=== PATIENT | female | born 1935 | race Caucasian/White ===

== ENCOUNTER 2018-07-26 13:20 | Inpatient (IN) | payer MEDICARE, OTHER ==
[~2018-07-26] VITALS: Ht 137.2 cm; Wt 65.8 kg
[~2018-07-26 13:20] MED LIST: PRED20TA PO; VERA240C2 PO
[2018-07-26] MEDS ORDERED: MAGN400O6 PO (19:09)
[2018-07-26] MEDS ORDERED: FLUT1DIS29 IH (19:09)
[2018-07-26] MEDS ORDERED: PREDNISONE 10MG PO (19:09)
[2018-07-26] MEDS ORDERED: TRAM50TA2 PO (19:09)
[2018-07-26] MEDS ORDERED: VERA80TA PO (19:09)
[2018-07-26] MEDS ORDERED: BISA10SU61 RC (19:09)
[2018-07-26] MEDS ORDERED: FLUCONAZOLE IV (19:09)
[2018-07-26] MEDS ORDERED: LISI10TA5 PO (19:09)
[2018-07-26] MEDS ORDERED: MONT10TA25 PO (19:09)
[2018-07-26] MEDS ORDERED: MULT-213 PO (19:09)
[2018-07-26] MEDS ORDERED: MINE50OI TP (19:09)
[2018-07-26] MEDS ORDERED: NA P133E RC (19:09)
[2018-07-26] MEDS ORDERED: IPRA3AMP22 IH (19:09)
[2018-07-26] MEDS ORDERED: ACET-2154 PO (19:09)
[2018-07-26] MEDS ORDERED: TRIAMCINOLONE 0.1% TOP (19:09)
[2018-07-26] MEDS ORDERED: ESCI10TA PO (19:09)
--- NOTE | 2018-07-26 20:14 | NUR ---
According to the day shift nurse, Patient arrived at [address] through [facility] by ambulans. At time of arrival her condition was fair, VS stable: BP:134/60, HR: 77, RR: 18, T: 97.7, O2 Sat: 94% on room air. The admitting diagnosis: sepsis, UTI. AAO x4. Able to make needs known. No sign of acute distress or SOB was noted. On room air. Bengali speaking, understand Samoan a little. Complain of pain of left side of lower back due to previous shingle. Patient assessed. Safety measures maintained. Bed in low position, brake and alarm on, side rails up x2. Call light and personal belongings within reach. Will continue to monitor.
[2018-07-26] MEDS ORDERED: Z GUARD REMEDY PASTE 57 GM TUBE TOP PRN (20:15)
[2018-07-26 21:01] VITALS: BP 140/62
[2018-07-26] MEDS: TRAMADOL HCL 50 MG TABLET PO PRN (22:02)
[2018-07-26] MEDS ORDERED: FLUCONAZOLE 200 MG/100 ML PIGGYBACK ONE (22:29)
[2018-07-26] MEDS: FLUCONAZOLE 200 MG/NS 100ML IV 200 MG in PREMIXED 1 EACH IV SCH (22:42)
--- NOTE | 2018-07-27 05:08 | NUR ---
End of the shift note Patient was stable throughout the shift and had a good sleep last night. No sign of acute distress or SOB noted. Complained of pain and ask for Tramadol. Medications given as ordered. IV antibiotic administered. All assessments, admission orders, process plan, and FIM done. Safety measures maintained. All needs anticipated promptly. Fall precaution maintained. Bed in low position, brake and alarm on, side rails up x2. Call light and personal belongings within reach. Continue to monitor and will endorse to the day shift nurse.
[2018-07-27 05:27] VITALS: BP 136/72
[2018-07-27 07:30] VITALS: BP 121/68
--- NOTE | 2018-07-27 08:07 | NUR ---
Patient noted resting in bed with eyes closed, no complaints fo pain at this time, no signs of distress noted, call light in reach, bed locked and in lowest position, Audrey SLIP FILLER notified that patients medications are ready for reconciliation
[2018-07-27] MEDS ORDERED: MAGNESIUM HYDROXIDE 30 ML LIQUID UDC PO PRN (11:30)
[2018-07-27] MEDS: VERAPAMIL 80 MG TABLET PO SCH ×2 (11:30→20:14)
[2018-07-27] MEDS ORDERED: IPRATROPIUM BROMIDE 0.5 MG/2.5 ML NEBU NEB PRN (11:30)
[2018-07-27] MEDS ORDERED: FLUCONAZOLE 200 MG/NS 100ML IV 200 MG in PREMIXED 1 EACH IV SCH (11:30)
[2018-07-27] MEDS: LISINOPRIL 10 MG TABLET PO SCH (11:30)
[2018-07-27] MEDS ORDERED: TRAMADOL HCL 50 MG TABLET PO PRN (11:30)
[2018-07-27] MEDS ORDERED: BISACODYL 10 MG SUPP.RECT RC PRN (11:30)
[2018-07-27] MEDS ORDERED: FLUTICASONE/SALMETEROL 500/50 EACH DISK.W.DEV IH SCH (11:30)
--- NOTE | 2018-07-27 13:25 | NUR ---
INTERDISCIPLINARY TEAM CONFERENCE
[2018-07-27] MEDS: MONTELUKAST SODIUM 10 MG TABLET PO SCH (13:27)
[2018-07-27] MEDS: MULTIVITAMINS,THERAPEUTIC TABLET PO SCH (13:27)
[2018-07-27] MEDS: predniSONE 10 MG TABLET PO SCH (13:28)
[2018-07-27] MEDS: ESCITALOPRAM OXALATE 10 MG TABLET PO SCH (13:28)
[2018-07-27] MEDS: FLUTICASONE/VILANTEROL 1 EACH BLST.W.DEV INH SCH (13:31)
--- NOTE | 2018-07-27 13:32 | NUR ---
WOUND CARE CONSULT PATIENT SEEN AND SKIN INTEGRITY ASSESSMENT DONE. PLEASE SEE BIOFUELS PLANT OPERATIONS ENGINEER ASSESSMENT IN PCS FOR TODAY. PATIENT WITH MELA AT 13, PATIENT PRESENTS WITH SEVERELY DRY SKIN TO BILATERAL LE INCLUDING HEELS/FEET/TOES. SEE TREATMENT ORDERS. PATIENT WITH NON-BLANCHABLE REDNESS WITH INTACT SKIN TO SACRAL REGION POA. ALL PRESSURE ULCER PREVENTION MEASURES ARE NOTED TO BE IN PLACE. RECOMMEND TURNING SCHED Q 2 HOURS AND BILATERAL HEEL FLOATING. ALL DISCUSSED WITH NURSING STAFF. WILL SEE PRN. Addendum: 07/27/18 at 1337 by TRISTEN WEN WNDNU Amended: Links added.
[2018-07-27 16:19] VITALS: BP 111/51
--- NOTE | 2018-07-27 19:40 | NUR ---
Patient received in bed. AAO x4. Able to make needs known. No sign of acute distress or SOB was noted. On room air. Turkmen speaking, understand Nepali a little. Family at the bedside. No Complain of pain at this time. Patient assessed. Safety measures maintained. Bed in low position, brake and alarm on, side rails up x2. Call light and personal belongings within reach. Will continue to monitor.
[2018-07-27 20:01] VITALS: BP 121/49
[2018-07-27] MEDS: FLUCONAZOLE 200 MG/NS 100ML IV 200 MG in PREMIXED 1 EACH IV SCH (21:07)
[2018-07-27] MEDS: TRAMADOL HCL 50 MG TABLET PO PRN (22:25)
--- NOTE | 2018-07-28 05:17 | NUR ---
End of the shift note Patient was stable throughout the shift and had a good sleep last night. No sign of acute distress or SOB noted. Complained of pain and ask for Tramadol. Medications given as ordered. IV antibiotic administered. washed lower extremities with soap and water and dried, no Vitamin A&D available at this time. Turned and repositioned. Previous IV line infiltrated, the new IV line placed on the left forearm. Safety measures maintained. All needs anticipated promptly. Fall precaution maintained. Bed in low position, brake and alarm on, side rails up x2. Call light and personal belongings within reach. Continue to monitor and will endorse to the day shift nurse.
[2018-07-28 06:53] LABS: BASOPHILS # (AUTO) 0.2 K/uL (0.0-8.0); BASOPHILS % (AUTO) 1.2 % (0.0-2.0); EOSINOPHILS # (AUTO) 0.4 K/uL (0.0-0.7); EOSINOPHILS % (AUTO) 2.7 % (0.0-7.0); HEMATOCRIT 33.5 % (31.2-41.9); LYMPHOCYTES # (AUTO) 2.7 K/uL (20.0-40.0); LYMPHOCYTES % (AUTO) 17.9 % (20.5-51.5); MEAN CORPUSCULAR HEMOGLOBIN 27.4 uug (24.7-32.8); MEAN CORPUSCULAR HGB CONC 33 g/dL (32.3-35.6); MEAN CORPUSCULAR VOLUME 83.6 fL (75.5-95.3); MONOCYTES % (AUTO) 6.8 % (0.0-11.0); NEUTROPHILS # (AUTO) 10.6 K/uL (1.8-8.9); NEUTROPHILS % (AUTO) 71.4 % (38.5-71.5); PLATELET COUNT (AUTO) 376 K/uL (179-408); RED BLOOD CELL COUNT(AUTO) 4.01 MIL/uL (3.63-4.92); WHITE BLOOD COUNT (AUTO) 14.9 K/uL (3.8-11.8)
[2018-07-28 07:06] LABS: CARBON DIOXIDE 29 mmol/L (21-32); CHLORIDE 103 mmol/L (98-107); CREATININE 0.7 mg/dL (0.6-1.3); GLUCOSE 82 mg/dL (74-106); MAGNESIUM 1.6 mg/dL (1.8-2.4); PHOSPHOROUS 3.1 mg/dL (2.5-4.9); POTASSIUM 3.7 mmol/L (3.5-5.1); UREA NITROGEN, BLOOD 27 mg/dL (7-18)
[2018-07-28 08:00] VITALS: BP 136/65
[2018-07-28] MEDS: MULTIVITAMINS,THERAPEUTIC TABLET PO SCH (08:32)
[2018-07-28] MEDS: MONTELUKAST SODIUM 10 MG TABLET PO SCH (08:32)
[2018-07-28] MEDS: ACETAMINOPHEN 325 MG TABLET PO PRN (08:32)
[2018-07-28] MEDS: ESCITALOPRAM OXALATE 10 MG TABLET PO SCH (08:32)
[2018-07-28] MEDS: predniSONE 10 MG TABLET PO SCH (08:32)
[2018-07-28] MEDS: VERAPAMIL 80 MG TABLET PO SCH ×2 (08:33→21:08)
[2018-07-28] MEDS: LISINOPRIL 10 MG TABLET PO SCH (08:34)
[2018-07-28] MEDS: VITAMINS A AND D OINT TP SCH ×2 (08:34→18:25)
[2018-07-28] MEDS: FLUTICASONE/VILANTEROL 1 EACH BLST.W.DEV INH SCH (08:34)
[2018-07-28] MEDS ORDERED: FLUTICASONE/VILANTEROL 1 EACH BLST.W.DEV INH SCH (09:00)
--- NOTE | 2018-07-28 10:21 | NUR ---
Patient is awake in bed in stable condition. Continue therapy for ADL and transfer ability. Patient went out on pass with Son from 10 am-2pm. signed form. medical information given. MD lock
[2018-07-28] MEDS: MAGNESIUM OXIDE 400 MG TABLET PO ONE ×2 (12:19→15:22)
[2018-07-28 16:00] VITALS: BP 89/48
[2018-07-28 19:30] VITALS: BP 118/51
[2018-07-28] MEDS: TRAMADOL HCL 50 MG TABLET PO PRN (21:09)
[2018-07-28] MEDS: FLUCONAZOLE 200 MG/NS 100ML IV 200 MG in PREMIXED 1 EACH IV SCH (21:09)
--- NOTE | 2018-07-28 21:59 | NUR ---
Received pt resting in bed. No acute distress noted. C/o pain on the left side of abdomen 5. PRN pain med given, all due meds given as ordered. IV on left lower arm patent and intact. Safety measures maintained. Call light and personal belongings within reach. Will continue to monitor.
[2018-07-29 04:30] VITALS: BP 133/58
[2018-07-29 07:00] VITALS: BP 101/55
--- NOTE | 2018-07-29 07:27 | NUR ---
Patient noted sitting up in wheelchair at this time, no complaints of pain, no signs of distress noted, call light in reach, wheelchair locked with tray table placed in front, all needs meet at this time
[2018-07-29] MEDS: ESCITALOPRAM OXALATE 10 MG TABLET PO SCH (08:47)
[2018-07-29] MEDS: FLUTICASONE/VILANTEROL 1 EACH BLST.W.DEV INH SCH (08:47)
[2018-07-29] MEDS: MULTIVITAMINS,THERAPEUTIC TABLET PO SCH (08:47)
[2018-07-29] MEDS: predniSONE 10 MG TABLET PO SCH (08:48)
[2018-07-29] MEDS: MONTELUKAST SODIUM 10 MG TABLET PO SCH (08:48)
[2018-07-29] MEDS: VERAPAMIL 80 MG TABLET PO SCH ×2 (08:49→21:26)
[2018-07-29] MEDS: LISINOPRIL 10 MG TABLET PO SCH (08:50)
[2018-07-29] MEDS: VITAMINS A AND D OINT TP SCH ×2 (08:51→17:55)
[2018-07-29 15:57] VITALS: BP 125/61
--- NOTE | 2018-07-29 17:56 | NUR ---
FSBS noted at 390 at 1700, patient refused insulin at this time, MD Llanes aware of patients refusal
--- NOTE | 2018-07-29 17:57 | NUR ---
Blood pressure noted at 171/81, PRN hydralazine given
[2018-07-29] MEDS: TRAMADOL HCL 50 MG TABLET PO PRN (19:51)
--- NOTE | 2018-07-29 19:55 | NUR ---
Received pt sitting in wheelchair. Family at bedside. No acute distress noted. C/o pain on left abdomen due to previous shingles, prn pain med given as ordered. Safety measures maintained. Call light and personal belongings within reach. Will continue to monitor.
[2018-07-29 20:16] VITALS: BP 102/53
[2018-07-29 21:24] VITALS: BP 146/68
[2018-07-30 05:30] VITALS: BP 112/56
[2018-07-30] MEDS: predniSONE 10 MG TABLET PO SCH (08:12)
[2018-07-30] MEDS: VERAPAMIL 80 MG TABLET PO SCH ×2 (08:20→20:06)
[2018-07-30] MEDS: LISINOPRIL 10 MG TABLET PO SCH (08:20)
[2018-07-30] MEDS: MONTELUKAST SODIUM 10 MG TABLET PO SCH (08:20)
[2018-07-30] MEDS: MULTIVITAMINS,THERAPEUTIC TABLET PO SCH (08:20)
[2018-07-30] MEDS: FLUTICASONE/VILANTEROL 1 EACH BLST.W.DEV INH SCH (08:21)
[2018-07-30] MEDS: ESCITALOPRAM OXALATE 10 MG TABLET PO SCH (08:21)
[2018-07-30] MEDS: VITAMINS A AND D OINT TP SCH ×2 (08:22→17:56)
[2018-07-30 15:56] LABS: *BILIRUBIN,URIN NEGATIVE (NEGATIVE); *BLOOD, URINE NEGATIVE (NEGATIVE); *COLOR,URINE YELLOW (YELLOW); *KETONES,URINE NEGATIVE (NEGATIVE); *PROTEIN,URINE NEGATIVE (NEGATIVE); *UROBILINOGEN,URINE 0.2 E.U./dl (NORMAL); LEUKOCYTE ESTERASE ,URINE 1+ (NEGATIVE); NITRITE, URINE NEGATIVE (NEGATIVE); PH,URINE 6.5 (5.0-8.0); UGLUCOSE NEGATIVE (NEGATIVE)
[2018-07-30 15:57] LABS: *CLARITY,URINE SLIGHTLY CLOUDY (CLEAR)
[2018-07-30 16:16] LABS: BACTERIA,URINE FEW /HPF (NONE SEEN); RBC,URINE 0-3 /HPF (0-3); SQUAMOUS EPITHELIAL CELL,UR FEW /HPF (NONE SEEN)
--- NOTE | 2018-07-30 17:07 | NUR ---
Patient is alert and orientedx3. but with period of confusion observe. COVER CREASER Juan notified. ordered urinalysis. urine collected. WBC result 10-20 relayed to DELROY Martinez. ordered and to start ceftriaxone 1gm every 24 hours at 1999. allergic to penicillin relayed to COVER CREASER. agreed to continue the order. will continue monitor
--- NOTE | 2018-07-30 19:50 | NUR ---
PATIENT IS AWAKE IN BED, AAOX3 WITH CONFUSION AND FORGETFULNESS AT TIMES. DENIES PAIN OR ANY DISTRESS ON ASSESSMENT. SAFETY MEASURES IN PLACE, CALL LIGHT AND PERSONAL ITEMS WITHIN REACH
[2018-07-30 20:00] VITALS: BP 137/65
[2018-07-30] MEDS: CEFTRIAXONE 1 G in IV DEXTROSE 5% 50 ML IV SCH (20:05)
[2018-07-30] MEDS ORDERED: CEFTRIAXONE 1 G VIAL IV SCH (21:00)
[2018-07-30] MEDS ORDERED: CEFTRIAXONE 1 G VIAL IM SCH (21:00)
[2018-07-31 05:00] VITALS: BP 150/68
--- NOTE | 2018-07-31 06:39 | NUR ---
PATIENT SLEPT WELL THROUGHOUT THE SHIFT, NO S/S OF PAIN OR ACUTE DISTRESS ON THIS SHIFT. PATIENT CONTINUES TO HAVE EPISODES OF CONFUSION, REFUSED HER A.M LABS TO BE DRAWN. SAFETY MEASURES MAINTAINED AT ALL TIMES, BED ALARM ON.
[2018-07-31] MEDS: MULTIVITAMINS,THERAPEUTIC TABLET PO SCH (08:36)
[2018-07-31] MEDS: ESCITALOPRAM OXALATE 10 MG TABLET PO SCH (08:36)
[2018-07-31] MEDS: FLUTICASONE/VILANTEROL 1 EACH BLST.W.DEV INH SCH (08:36)
[2018-07-31] MEDS: MONTELUKAST SODIUM 10 MG TABLET PO SCH (08:36)
[2018-07-31] MEDS: VERAPAMIL 80 MG TABLET PO SCH ×2 (08:37→20:32)
[2018-07-31] MEDS: predniSONE 10 MG TABLET PO SCH (08:37)
[2018-07-31] MEDS: LISINOPRIL 10 MG TABLET PO SCH (08:37)
[2018-07-31] MEDS: VITAMINS A AND D OINT TP SCH ×2 (08:38→16:38)
--- NOTE | 2018-07-31 09:18 | NUR ---
Patient awake with periods of confusion. Continue ABT rocephin 1gm IV every 24hours for UTI. tolerated well. no adverse reaction noted. Continue therapy for unsteady gait and ADL activity. not in distress. will continue monitor
[2018-07-31 11:18] LABS: BASOPHILS % (AUTO) 0.2 % (0.0-2.0); EOSINOPHILS # (AUTO) 0.5 K/uL (0.0-0.7); EOSINOPHILS % (AUTO) 3.5 % (0.0-7.0); HEMATOCRIT 33.3 % (31.2-41.9); LYMPHOCYTES # (AUTO) 1.6 K/uL (20.0-40.0); LYMPHOCYTES % (AUTO) 10.5 % (20.5-51.5); MEAN CORPUSCULAR HEMOGLOBIN 27.8 uug (24.7-32.8); MEAN CORPUSCULAR HGB CONC 33 g/dL (32.3-35.6); MEAN CORPUSCULAR VOLUME 84.1 fL (75.5-95.3); MONOCYTES # (AUTO) 0.8 K/uL (2.0-10.0); MONOCYTES % (AUTO) 5.4 % (0.0-11.0); NEUTROPHILS # (AUTO) 12.3 K/uL (1.8-8.9); NEUTROPHILS % (AUTO) 80.4 % (38.5-71.5); PLATELET COUNT (AUTO) 392 K/uL (179-408); RED BLOOD CELL COUNT(AUTO) 3.96 MIL/uL (3.63-4.92); WHITE BLOOD COUNT (AUTO) 15.4 K/uL (3.8-11.8)
[2018-07-31 11:26] LABS: CARBON DIOXIDE 29 mmol/L (21-32); CHLORIDE 101 mmol/L (98-107); CREATININE 0.9 mg/dL (0.6-1.3); GLUCOSE 90 mg/dL (74-106); MAGNESIUM 1.5 mg/dL (1.8-2.4); PHOSPHOROUS 2.8 mg/dL (2.5-4.9); POTASSIUM 3.7 mmol/L (3.5-5.1); UREA NITROGEN, BLOOD 25 mg/dL (7-18)
[2018-07-31] MEDS ORDERED: MAGNESIUM OXIDE 400 MG TABLET PO ONE (13:45)
[2018-07-31] MEDS ORDERED: IV NS 1000 ML 1,000 ML IV PRN (13:45)
[2018-07-31] MEDS: CEFTRIAXONE 1 G in IV DEXTROSE 5% 50 ML IV SCH (20:21)
[2018-08-01 05:30] VITALS: BP 127/61
[2018-08-01] MEDS: predniSONE 10 MG TABLET PO SCH (08:44)
[2018-08-01] MEDS: FLUTICASONE/VILANTEROL 1 EACH BLST.W.DEV INH SCH (08:44)
[2018-08-01] MEDS: MULTIVITAMINS,THERAPEUTIC TABLET PO SCH (08:44)
[2018-08-01] MEDS: MONTELUKAST SODIUM 10 MG TABLET PO SCH (08:45)
[2018-08-01] MEDS: VERAPAMIL 80 MG TABLET PO SCH ×2 (08:47→20:17)
[2018-08-01] MEDS: LISINOPRIL 10 MG TABLET PO SCH (08:47)
[2018-08-01] MEDS: VITAMINS A AND D OINT TP SCH ×2 (08:48→17:11)
[2018-08-01] MEDS: ACETAMINOPHEN 325 MG TABLET PO PRN (08:52)
[2018-08-01 09:00] VITALS: BP 122/50
[2018-08-01] MEDS: ESCITALOPRAM OXALATE 10 MG TABLET PO SCH (09:16)
--- NOTE | 2018-08-01 11:24 | NUR ---
patient awake with periods of confusion. complaining of left side and abdominal pain. tylenol 325mg PRN given with good effect. still confuse. refuse therapy this morning. verbalizing" Just kill me" notified. ordered psych consult. Psychiatrist Mario made aware. not in distress. will continue monitor
[2018-08-01 17:22] VITALS: BP 136/77
--- NOTE | 2018-08-01 17:24 | NUR ---
Patient refuse meals despite of encouragement and education. confusion noted. MD notified. Son aware. no new order. will continue monitor
[2018-08-01 19:40] VITALS: BP 160/68
--- NOTE | 2018-08-01 19:45 | NUR ---
Patient seen and examined by MD Silverman with ordered infection disease MD for ABT treatment for infection.
[2018-08-01] MEDS: CEFTRIAXONE 1 G in IV DEXTROSE 5% 50 ML IV SCH (20:13)
--- NOTE | 2018-08-02 05:42 | NUR ---
quiet night. awake alert and oriented x2-3 son with patient. needs attended. ABT given at scheduled times. tolerated well. no ill effects noted. VSS will monitor patient. continent of bowel and bladder. voiding in bedpan. BM noted this shift. denies any pain nor any discomfort. fall precautions maintained. siderails up for safety. bed alarm on. call parekh within reach.
[2018-08-02 05:48] VITALS: BP 149/57
[2018-08-02] MEDS: FLUTICASONE/VILANTEROL 1 EACH BLST.W.DEV INH SCH (08:33)
[2018-08-02] MEDS: ACETAMINOPHEN 325 MG TABLET PO PRN (08:34)
[2018-08-02] MEDS: MONTELUKAST SODIUM 10 MG TABLET PO SCH (08:34)
[2018-08-02] MEDS: predniSONE 10 MG TABLET PO SCH (08:34)
[2018-08-02] MEDS: MULTIVITAMINS,THERAPEUTIC TABLET PO SCH (08:40)
[2018-08-02] MEDS: ESCITALOPRAM OXALATE 10 MG TABLET PO SCH (08:40)
[2018-08-02] MEDS: VERAPAMIL 80 MG TABLET PO SCH ×2 (08:45→20:36)
[2018-08-02] MEDS: LISINOPRIL 10 MG TABLET PO SCH (08:45)
[2018-08-02] MEDS: VITAMINS A AND D OINT TP SCH ×2 (13:09→17:00)
--- NOTE | 2018-08-02 13:18 | NUR ---
SBAR report received this morning, board updated. Pt assessed AAOx2-3, no SOB or acute distress noted. Pt denies pain, BP medications held due to decreased BP of 90/48. Pt compliant with all routinely scheduled medications and therapies as offered. Bedpan offered for voiding and BMx1. Daughter visiting at bed side. Linens changed. Pt seen by MD, no new orders received and plan of care to remain the same at this time. Pt showered with OT. Fall precautions in place. Bed in locked and lowest position with side rails up, alarm on. Call light within reach. Will continue to monitor.
[2018-08-02] MEDS: TRAMADOL HCL 50 MG TABLET PO PRN (13:34)
--- NOTE | 2018-08-02 18:39 | NUR ---
Pt seen by MD. New orders received. Family visiting at bedside. All comfort and safety needs promptly met throughout this shift. Call light within reach. Will continue to monitor and endorse to oncoming restaurant shift supervisor.
--- NOTE | 2018-08-02 20:04 | NUR ---
SBAR report received. Resting in bed. awake alert and oriented. VSS. Needs attended. kept comfortable. continent of bowel and bladder. uses bedpan. On po bactrim, tolerated well No ill effects noted. Denies any pain nor any discomfort. fall precautions maintained. Siderails up for safety. Repositioned for comfort. Turned to sides.
[2018-08-02] MEDS: SULFAMETH/TRIMETH 800/160 MG TABLET PO SCH (20:33)
[2018-08-03 05:21] VITALS: BP 138/65
--- NOTE | 2018-08-03 07:40 | NUR ---
Patient noted resting in bed with eyes closed, no complaints of pain at this time, no signs of distress noted, call light in reach, bed locked and in lowest position, all needs met
[2018-08-03 08:37] VITALS: BP 137/48
[2018-08-03] MEDS: SULFAMETH/TRIMETH 800/160 MG TABLET PO SCH ×2 (09:28→20:17)
[2018-08-03] MEDS: MULTIVITAMINS,THERAPEUTIC TABLET PO SCH (09:28)
[2018-08-03] MEDS: FLUTICASONE/VILANTEROL 1 EACH BLST.W.DEV INH SCH (09:28)
[2018-08-03] MEDS: ESCITALOPRAM OXALATE 10 MG TABLET PO SCH (09:28)
[2018-08-03] MEDS: LISINOPRIL 10 MG TABLET PO SCH (09:29)
[2018-08-03] MEDS: VERAPAMIL 80 MG TABLET PO SCH ×2 (09:30→20:17)
[2018-08-03] MEDS: VITAMINS A AND D OINT TP SCH ×2 (09:30→17:30)
[2018-08-03] MEDS: MONTELUKAST SODIUM 10 MG TABLET PO SCH (09:30)
[2018-08-03] MEDS: predniSONE 10 MG TABLET PO SCH (09:30)
[2018-08-03] MEDS: TRAMADOL HCL 50 MG TABLET PO PRN (13:03)
--- NOTE | 2018-08-03 13:47 | NUR ---
INTERDISCIPLINARY TEAM CONFERENCE
[2018-08-03 15:51] VITALS: BP_SYST 102; BP_SYST 126; BP_DIAS 49; BP_DIAS 88
[2018-08-03 20:31] VITALS: BP 117/57
[2018-08-04] MEDS: TRAMADOL HCL 50 MG TABLET PO PRN (04:01)
--- NOTE | 2018-08-04 05:40 | NUR ---
End of the shift note Patient was stable throughout the shift and had a good sleep last night. No sign of acute distress or SOB noted. Complained of pain and ask for Tramadol. Medications given as ordered. washed lower extremities with soap and water and dried, applied Vitamin A&D. Turned and repositioned. IV line on the left forearm, patent, no sign of inflammation. Safety measures maintained. All needs anticipated promptly. Fall precaution maintained. Bed in low position, brake and alarm on, side rails up x2. Call light and personal belongings within reach. Continue to monitor and will endorse to the day shift nurse accordingly.
[2018-08-04 06:20] VITALS: BP 104/66
[2018-08-04 08:00] VITALS: BP 101/60
[2018-08-04] MEDS: MULTIVITAMINS,THERAPEUTIC TABLET PO SCH (08:20)
[2018-08-04] MEDS: ESCITALOPRAM OXALATE 10 MG TABLET PO SCH (08:20)
[2018-08-04] MEDS: SULFAMETH/TRIMETH 800/160 MG TABLET PO SCH ×2 (08:20→20:45)
[2018-08-04] MEDS: predniSONE 10 MG TABLET PO SCH (08:20)
[2018-08-04] MEDS: VERAPAMIL 80 MG TABLET PO SCH ×2 (08:22→20:48)
[2018-08-04] MEDS: LISINOPRIL 10 MG TABLET PO SCH (08:23)
[2018-08-04] MEDS: FLUTICASONE/VILANTEROL 1 EACH BLST.W.DEV INH SCH (08:23)
[2018-08-04] MEDS: MONTELUKAST SODIUM 10 MG TABLET PO SCH (08:23)
[2018-08-04] MEDS: VITAMINS A AND D OINT TP SCH ×2 (08:24→16:34)
[2018-08-04 16:00] VITALS: BP 117/51
--- NOTE | 2018-08-04 17:54 | NUR ---
receivedPatient noted resting in bed with eyes closed, no complaints of pain at this time, no signs of distress noted, call light in reach, bed locked and in lowest position.
--- NOTE | 2018-08-04 17:57 | NUR ---
removed logan cath at 1530pm per MD order,will continue monitoring to void.
[2018-08-04 19:30] VITALS: BP 106/68
--- NOTE | 2018-08-04 19:30 | NUR ---
Received patient in bed. Alert and verbally responsive. Able to make needs known. Denies any pain and discomfort at this time. No acute distress. No SOB. IV site on left lower forearm. Patent and intact. No s/s of redness, bleeding or infiltration. Kept clean and dry. All needs attended to promptly. Call light within reach. Will continue to monitor.
[2018-08-05 04:30] VITALS: BP 103/65
[2018-08-05] MEDS: TRAMADOL HCL 50 MG TABLET PO PRN (05:24)
--- NOTE | 2018-08-05 07:30 | NUR ---
Patient noted resting in bed with eyes closed, no complaints of pain at this time, no signs of distress, both heels noted suspended with two pillows, call light in reach, bed locked and in lowest position, all needs met at this time
[2018-08-05 09:05] VITALS: BP 110/39
[2018-08-05] MEDS: MULTIVITAMINS,THERAPEUTIC TABLET PO SCH (09:16)
[2018-08-05] MEDS: SULFAMETH/TRIMETH 800/160 MG TABLET PO SCH ×2 (09:16→21:20)
[2018-08-05] MEDS: FLUTICASONE/VILANTEROL 1 EACH BLST.W.DEV INH SCH (09:16)
[2018-08-05] MEDS: ESCITALOPRAM OXALATE 10 MG TABLET PO SCH (09:16)
[2018-08-05] MEDS: LISINOPRIL 10 MG TABLET PO SCH (09:17)
[2018-08-05] MEDS: MONTELUKAST SODIUM 10 MG TABLET PO SCH (09:18)
[2018-08-05] MEDS: VERAPAMIL 80 MG TABLET PO SCH ×2 (09:18→21:20)
[2018-08-05] MEDS: predniSONE 10 MG TABLET PO SCH (09:18)
[2018-08-05] MEDS: VITAMINS A AND D OINT TP SCH ×2 (09:19→17:13)
[2018-08-05 15:50] VITALS: BP 101/49
[2018-08-05 18:00] VITALS: BP 101/49
[2018-08-05] MEDS: ACETAMINOPHEN 325 MG TABLET PO PRN (18:06)
[2018-08-05 19:30] VITALS: BP 113/69
--- NOTE | 2018-08-05 19:40 | NUR ---
Patient received in bed. AAO x4. Able to make needs known. No sign of acute distress or SOB was noted. On room air. Arabic speaking, understand Swedish a little. No Complain of pain at this time. IV line on left FA, no sign of inflammation. Patient assessed. Safety measures maintained. Bed in low position, brake and alarm on, side rails up x2. Call light and personal belongings within reach. Will continue to monitor.
[2018-08-06 04:30] VITALS: BP 124/45
--- NOTE | 2018-08-06 05:50 | NUR ---
End of the shift note Patient was stable throughout the shift and had a good sleep last night except foot roentgenologist that she was confused. No sign of acute distress or SOB noted. No Complain of pain. Medications given as ordered. washed lower extremities with soap and water and dried, applied Vitamin A&D. Turned and repositioned. IV line on the left forearm, flushed, patent, no sign of inflammation. Safety measures maintained. All needs anticipated promptly. Fall precaution maintained. Bed in low position, brake and alarm on, side rails up x2. Call light and personal belongings within reach. Continue to monitor and will endorse to the day shift nurse accordingly.
--- NOTE | 2018-08-06 07:53 | NUR ---
Patient noted resting in bed, no complaints of pain at this time, no signs of distress noted, call light in reach, bed locked and in lowest position, both legs are noted suspended with two pillows, all needs met at this time
[2018-08-06 08:00] VITALS: BP 120/49
[2018-08-06] MEDS: LISINOPRIL 10 MG TABLET PO SCH (09:00)
[2018-08-06] MEDS: SULFAMETH/TRIMETH 800/160 MG TABLET PO SCH ×2 (09:43→20:40)
[2018-08-06] MEDS: ESCITALOPRAM OXALATE 10 MG TABLET PO SCH (09:43)
[2018-08-06] MEDS: MULTIVITAMINS,THERAPEUTIC TABLET PO SCH (09:43)
[2018-08-06] MEDS: FLUTICASONE/VILANTEROL 1 EACH BLST.W.DEV INH SCH (09:44)
[2018-08-06] MEDS: VERAPAMIL 80 MG TABLET PO SCH ×2 (09:45→20:40)
[2018-08-06] MEDS: MONTELUKAST SODIUM 10 MG TABLET PO SCH (09:45)
[2018-08-06] MEDS: predniSONE 10 MG TABLET PO SCH (09:45)
[2018-08-06] MEDS: VITAMINS A AND D OINT TP SCH ×2 (09:46→18:09)
[2018-08-06 17:21] VITALS: BP 110/77
[2018-08-06 18:11] LABS: *BILIRUBIN,URIN NEGATIVE (NEGATIVE); *BLOOD, URINE NEGATIVE (NEGATIVE); *COLOR,URINE YELLOW (YELLOW); *KETONES,URINE TRACE (NEGATIVE); *PROTEIN,URINE 1+ (NEGATIVE); *UROBILINOGEN,URINE 0.2 E.U./dl (NORMAL); LEUKOCYTE ESTERASE ,URINE TRACE (NEGATIVE); NITRITE, URINE NEGATIVE (NEGATIVE); UGLUCOSE NEGATIVE (NEGATIVE)
--- NOTE | 2018-08-06 18:19 | NUR ---
Urine specimen collected via logan catheter and sent to lab, took all medications this shift, patient confusion noted this shift, MD Ramirez made aware of findings
[2018-08-06 18:46] LABS: *CLARITY,URINE SLIGHTLY HAZY (CLEAR)
[2018-08-06 18:48] LABS: MUCUS,URINE MODERATE /LPF (0-FEW); RBC,URINE 0-3 /HPF (0-3); SQUAMOUS EPITHELIAL CELL,UR MODERATE /HPF (NONE SEEN)
--- NOTE | 2018-08-06 19:50 | NUR ---
Patient received in bed. AAO x2. Able to make needs known. No sign of acute distress or SOB was noted. On room air. Czech speaking, understand Spanish a little. No Complain of pain at this time. IV line on left FA, no sign of inflammation. Patient assessed. Safety measures maintained. Bed in low position, brake and alarm on, side rails up x2. Call light and personal belongings within reach. Will continue to monitor.
[2018-08-06 21:19] VITALS: BP 126/47
--- NOTE | 2018-08-07 03:30 | NUR ---
Patient was hallucinated and very confused, talking loudly to an imaginary person. VSS. She did not sleep at all. Called Dr. Cummins @0300. He suggested to endorse to the day shift nurse for psych consult for patient. Continue to monitor and will endorse to the day shift nurse.
[2018-08-07 04:50] VITALS: BP 112/55
--- NOTE | 2018-08-07 05:53 | NUR ---
End of the shift note Patient was confused and hallucinated throughout the shift and did not have sleep at all. No sign of acute distress or SOB noted. No Complain of pain. Medications given as ordered. washed lower extremities with soap and water and dried, applied Vitamin A&D. Turned and repositioned. IV line on the left forearm, flushed, patent, no sign of inflammation. Safety measures maintained. All needs anticipated promptly. Fall precaution maintained. Bed in low position, brake and alarm on, side rails up x2. Call light and personal belongings within reach. Continue to monitor and will endorse to the day shift nurse accordingly.
[2018-08-07 07:46] LABS: BASOPHILS # (AUTO) 0.1 K/uL (0.0-8.0); BASOPHILS % (AUTO) 0.6 % (0.0-2.0); EOSINOPHILS # (AUTO) 0.4 K/uL (0.0-0.7); EOSINOPHILS % (AUTO) 3.2 % (0.0-7.0); HEMATOCRIT 33.7 % (31.2-41.9); HEMOGLOBIN 11.1 g/dL (10.9-14.3); LYMPHOCYTES # (AUTO) 3.4 K/uL (20.0-40.0); LYMPHOCYTES % (AUTO) 24.7 % (20.5-51.5); MEAN CORPUSCULAR HEMOGLOBIN 27.7 uug (24.7-32.8); MEAN CORPUSCULAR HGB CONC 33 g/dL (32.3-35.6); MEAN CORPUSCULAR VOLUME 84.4 fL (75.5-95.3); MONOCYTES % (AUTO) 7.5 % (0.0-11.0); NEUTROPHILS # (AUTO) 8.7 K/uL (1.8-8.9); PLATELET COUNT (AUTO) 316 K/uL (179-408); WHITE BLOOD COUNT (AUTO) 13.7 K/uL (3.8-11.8)
[2018-08-07 07:57] LABS: CARBON DIOXIDE 22 mmol/L (21-32); CHLORIDE 100 mmol/L (98-107); CREATININE 1.6 mg/dL (0.6-1.3); GLUCOSE 70 mg/dL (74-106); MAGNESIUM 1.9 mg/dL (1.8-2.4); PHOSPHOROUS 3.1 mg/dL (2.5-4.9); POTASSIUM 4.4 mmol/L (3.5-5.1); UREA NITROGEN, BLOOD 32 mg/dL (7-18)
[2018-08-07 08:00] VITALS: BP 106/55
[2018-08-07] MEDS: LISINOPRIL 10 MG TABLET PO SCH (09:00)
[2018-08-07] MEDS: FLUTICASONE/VILANTEROL 1 EACH BLST.W.DEV INH SCH (09:04)
[2018-08-07] MEDS: SULFAMETH/TRIMETH 800/160 MG TABLET PO SCH (09:04)
[2018-08-07] MEDS: ESCITALOPRAM OXALATE 10 MG TABLET PO SCH (09:05)
[2018-08-07] MEDS: MONTELUKAST SODIUM 10 MG TABLET PO SCH (09:05)
[2018-08-07] MEDS: predniSONE 10 MG TABLET PO SCH (09:06)
[2018-08-07] MEDS: MULTIVITAMINS,THERAPEUTIC TABLET PO SCH (09:07)
[2018-08-07] MEDS: VERAPAMIL 80 MG TABLET PO SCH ×2 (09:08→21:00)
[2018-08-07] MEDS: VITAMINS A AND D OINT TP SCH ×2 (09:13→16:56)
[2018-08-07] MEDS ORDERED: diphenhydrAMINE 50 MG/1 ML VIAL IV PRN (13:15)
--- NOTE | 2018-08-07 13:15 | NUR ---
SBAR report received this morning, Pt assessed, AAO to self, interacting with auditory hallucination answering verbally in Azeri. Pt able to make needs known in Ghanaian. Pt denies pain and SOB. Pt compliant with routinely scheduled medication administration. Fatigue evident upon transfer to wheelchair to assist Pt to BSC. Pt seen by PETROLEUM TERMINAL PLANT OPERATOR, new orders received. Plan of care discussed with PETROLEUM TERMINAL PLANT OPERATOR, Pt, and son. Urine sample collected and sent to lab. Bed in lowest and locked position with side rails up, and alarm on. All safety and comfort needs met promptly throughout this shift. Skin care provided. Call light and personal belongings placed within reach. Will continue to monitor and endorse to oncoming night nurse.
[2018-08-07 15:52] LABS: *BILIRUBIN,URIN NEGATIVE (NEGATIVE); *BLOOD, URINE NEGATIVE (NEGATIVE); *COLOR,URINE YELLOW (YELLOW); *KETONES,URINE 1+ (NEGATIVE); *PROTEIN,URINE TRACE (NEGATIVE); *UROBILINOGEN,URINE 0.2 E.U./dl (NORMAL); LEUKOCYTE ESTERASE ,URINE TRACE (NEGATIVE); NITRITE, URINE NEGATIVE (NEGATIVE); PH,URINE 6.5 (5.0-8.0); UGLUCOSE NEGATIVE (NEGATIVE)
[2018-08-07 16:00] VITALS: BP 142/69
[2018-08-07 16:09] LABS: *CREATININE,URINE 89.9 mg/dL (30-125); *URINE TOTAL PROTEIN RANDOM 34.2 mg/dL (<150/24HR)
[2018-08-07 16:51] LABS: *CLARITY,URINE HAZY (CLEAR)
[2018-08-07 17:45] LABS: MUCUS,URINE FEW /LPF (0-FEW); RBC,URINE 0-3 /HPF (0-3); SQUAMOUS EPITHELIAL CELL,UR MODERATE /HPF (NONE SEEN)
[2018-08-07] MEDS: ACETAMINOPHEN 325 MG TABLET PO PRN (18:14)
[2018-08-07] MEDS ORDERED: MEROPENEM 500 MG VIAL IV ONE (20:10)
[2018-08-07 20:41] VITALS: BP 132/60
[2018-08-07] MEDS: MEROPENEM 500 MG in IV NORMAL SALINE 50 ML IV SCH (20:42)
[2018-08-07] MEDS ORDERED: MEROPENEM 1 G in IV NORMAL SALINE 100 ML IV SCH (21:00)
[2018-08-07] MEDS ORDERED: SULFAMETH/TRIMETH 800/160 MG TABLET PO SCH (21:00)
[2018-08-07] MEDS ORDERED: diphenhydrAMINE 50 MG/1 ML VIAL ONE (22:32)
--- NOTE | 2018-08-07 23:17 | NUR ---
Patient got agitated and confused and hallucinated a few minutes after IV Benadryl injection. She was screaming, yelling, and agitated. Talking loudly with imaginary person. VSS. Put O2 2 L/min via NC. Continue to monitor.
[2018-08-07] MEDS ORDERED: LORAZEPAM 2 MG/1 ML VIAL IV ONE (23:45)
--- NOTE | 2018-08-08 00:08 | NUR ---
SBAR report received from AM nurse. Pt assessed alert and oriented to self, interacting with auditory hallucination answering verbally in Telugu and broken Thai. Patient does not complain of pain of SOB. Pt compliant with routinely scheduled medication administration. New order of IV Merrem given at 2100 with no ASE. IV Benadryl given and patient began to hallucinate even more than prior to administration of medication. Dr. Gray informed of change of condition and increased hallucinations. ordered Ativan 0.25mg IV ONCE for agitation. Awaiting medication delivery from shift production associate nurse supervisor dairy sanitation. Bed in locked and lowest position with side rails up, and alarm on. All safety and comfort needs met promptly. Call light and most used items within reach. Will continue to monitor.
[2018-08-08] MEDS ORDERED: IV NS 1000 ML 1,000 ML IV PRN (00:45)
--- NOTE | 2018-08-08 01:00 | NUR ---
A text received from the day shift nurse showing a message from Dr. Silverman regarding IV therapy for patient because of high BUN/Cr (32/1.6). Called [facility] on-call. Dr. Blanco ordered IV Sodium Chloride 0.9% 1000 ml, 60 ml/hour Q16H PRN. Started IV as ordered. Continue to monitor.
--- NOTE | 2018-08-08 01:25 | NUR ---
Patient is confused, restless, and hallucinating. Contacted Dr. Gray, the [facility] on-call doctor, and informed him of the patient's condition. 0.25 mg of Ativan IV once ordered. Medication administered. continue to monitor.
[2018-08-08] MEDS: TRAMADOL HCL 50 MG TABLET PO PRN (03:22)
[2018-08-08] MEDS ORDERED: LORAZEPAM 2 MG/1 ML VIAL IV ONE (05:00)
--- NOTE | 2018-08-08 05:11 | NUR ---
Patient still restless and hallucinating at 0445 after 0.25 of Ativan was ineffective. This nurse contacted Dr. Blanco the economic forecaster for the evening, and informed him of the patients continued restlessness and confusion. He ordered 1 mg of Ativan IV once now. Patient tolerated administration well. Appears to be more restful as of this moment. Will continue to monitor, and will endorse to AM nurse of nights proceedings.
[2018-08-08 05:41] VITALS: BP 130/62
[2018-08-08 07:21] LABS: BASOPHILS # (AUTO) 0.1 K/uL (0.0-8.0); BASOPHILS % (AUTO) 0.7 % (0.0-2.0); EOSINOPHILS # (AUTO) 0.5 K/uL (0.0-0.7); EOSINOPHILS % (AUTO) 3.6 % (0.0-7.0); HEMATOCRIT 31.9 % (31.2-41.9); HEMOGLOBIN 10.6 g/dL (10.9-14.3); LYMPHOCYTES # (AUTO) 2.8 K/uL (20.0-40.0); LYMPHOCYTES % (AUTO) 21.2 % (20.5-51.5); MEAN CORPUSCULAR HGB CONC 33 g/dL (32.3-35.6); MEAN CORPUSCULAR VOLUME 84.4 fL (75.5-95.3); MONOCYTES # (AUTO) 1.1 K/uL (2.0-10.0); MONOCYTES % (AUTO) 8.1 % (0.0-11.0); NEUTROPHILS # (AUTO) 8.7 K/uL (1.8-8.9); NEUTROPHILS % (AUTO) 66.4 % (38.5-71.5); PLATELET COUNT (AUTO) 302 K/uL (179-408); RED BLOOD CELL COUNT(AUTO) 3.79 MIL/uL (3.63-4.92); WHITE BLOOD COUNT (AUTO) 13.1 K/uL (3.8-11.8)
[2018-08-08 07:50] LABS: BILIRUBIN,TOTAL 0.5 mg/dL (0.2-1.0); CARBON DIOXIDE 23 mmol/L (21-32); CHLORIDE 104 mmol/L (98-107); CREATININE 1.3 mg/dL (0.6-1.3); GLUCOSE 73 mg/dL (74-106); PHOSPHOROUS 2.9 mg/dL (2.5-4.9); POTASSIUM 4.6 mmol/L (3.5-5.1); UREA NITROGEN, BLOOD 28 mg/dL (7-18)
[2018-08-08 07:51] LABS: ALANINE AMINOTRANSFERASE 64 U/L (14-59); ALKALINE PHOSPHATASE 77 U/L (50-136); ASPARTATE AMINOTRANSFERASE 40 U/L (15-37); CREATINE KINASE, TOTAL 84 U/L (26-192); TOTAL PROTEIN, SERUM 6.4 g/dL (6.4-8.2)
[2018-08-08] MEDS: ESCITALOPRAM OXALATE 10 MG TABLET PO SCH (08:09)
[2018-08-08] MEDS: predniSONE 10 MG TABLET PO SCH (08:09)
[2018-08-08] MEDS: MULTIVITAMINS,THERAPEUTIC TABLET PO SCH (08:09)
[2018-08-08] MEDS: VERAPAMIL 80 MG TABLET PO SCH ×2 (08:09→20:59)
[2018-08-08] MEDS: MONTELUKAST SODIUM 10 MG TABLET PO SCH (08:09)
[2018-08-08] MEDS: FLUTICASONE/VILANTEROL 1 EACH BLST.W.DEV INH SCH (08:10)
[2018-08-08 08:32] VITALS: BP 103/58
[2018-08-08] MEDS: VITAMINS A AND D OINT TP SCH ×2 (08:33→17:19)
[2018-08-08] MEDS: MEROPENEM 500 MG in IV NORMAL SALINE 50 ML IV SCH ×2 (10:04→20:58)
[2018-08-08 18:04] VITALS: BP 118/58
[2018-08-08 19:54] VITALS: BP 118/52
--- NOTE | 2018-08-08 22:52 | NUR ---
Received pt in bed, AAO x 2, watching television and dozing in and out of sleep. Verbally responsive and able to communicate basic needs. Denies pain or discomfort at this time. All due medications given and tolerated well. Continuing IVF NS @ 60 mls/hr on RFA. No noted hallucinations at this time. All safety measures and fall precautions maintained. Call light and all personal belongings within reach. Will continue to monitor.
[2018-08-09 07:03] VITALS: BP 108/55
[2018-08-09 07:44] LABS: BASOPHILS # (AUTO) 0.1 K/uL (0.0-8.0); EOSINOPHILS # (AUTO) 0.8 K/uL (0.0-0.7); EOSINOPHILS % (AUTO) 7.9 % (0.0-7.0); LYMPHOCYTES # (AUTO) 2.4 K/uL (20.0-40.0); LYMPHOCYTES % (AUTO) 23.3 % (20.5-51.5); MEAN CORPUSCULAR HEMOGLOBIN 28.2 uug (24.7-32.8); MEAN CORPUSCULAR HGB CONC 33 g/dL (32.3-35.6); MEAN CORPUSCULAR VOLUME 86.6 fL (75.5-95.3); MONOCYTES # (AUTO) 0.7 K/uL (2.0-10.0); MONOCYTES % (AUTO) 6.6 % (0.0-11.0); NEUTROPHILS # (AUTO) 6.2 K/uL (1.8-8.9); NEUTROPHILS % (AUTO) 61.2 % (38.5-71.5); RED BLOOD CELL COUNT(AUTO) 4.23 MIL/uL (3.63-4.92); WHITE BLOOD COUNT (AUTO) 10.2 K/uL (3.8-11.8)
[2018-08-09 07:48] LABS: CARBON DIOXIDE 19 mmol/L (21-32); CHLORIDE 103 mmol/L (98-107); POTASSIUM 4.4 mmol/L (3.5-5.1); UREA NITROGEN, BLOOD 23 mg/dL (7-18)
[2018-08-09 07:53] LABS: GLUCOSE 49 mg/dL (74-106)
--- NOTE | 2018-08-09 07:53 | NUR ---
SBAR report received from reading assistant nurse. Lab called for critical value of 49 Glucose. Pt assessed resting comfortably, asymptomatic, awoken for administration of orange juice with sugar. MD notified. No new orders a this time. Pt compliant with routine medication administration and agreed to participate with therapies as offered. Bed in locked and lowest position, with alarm on. AOx3. Able to make needs known. Pt assisted to BSC for BM and voiding x1. Pt returned to bed for breakfast. IV flushed and patent, continuous fluids and antibiotic administered. Call light placed within reach. Will continue to monitor.
[2018-08-09 07:54] LABS: HEMATOCRIT 36.6 % (31.2-41.9); HEMOGLOBIN 11.9 g/dL (10.9-14.3); PLATELET COUNT (AUTO) 224 K/uL (179-408)
[2018-08-09] MEDS: FLUTICASONE/VILANTEROL 1 EACH BLST.W.DEV INH SCH (08:58)
[2018-08-09] MEDS: ESCITALOPRAM OXALATE 10 MG TABLET PO SCH (08:59)
[2018-08-09] MEDS: MULTIVITAMINS,THERAPEUTIC TABLET PO SCH (08:59)
[2018-08-09] MEDS: predniSONE 10 MG TABLET PO SCH (08:59)
[2018-08-09] MEDS: VITAMINS A AND D OINT TP SCH (09:00)
[2018-08-09] MEDS: MONTELUKAST SODIUM 10 MG TABLET PO SCH (09:00)
[2018-08-09] MEDS: VERAPAMIL 80 MG TABLET PO SCH (09:00)
[2018-08-09] MEDS: TRAMADOL HCL 50 MG TABLET PO PRN (09:02)
[2018-08-09] MEDS: MEROPENEM 500 MG in IV NORMAL SALINE 50 ML IV SCH (09:05)
[2018-08-09 10:42] VITALS: BP 112/57
[2018-08-09] MEDS: ACETAMINOPHEN 325 MG TABLET PO PRN (11:37)
--- NOTE | 2018-08-09 14:52 | NUR ---
Discharge order received. TMS signed, Discharge paperwork completed, signed, and copy placed in chart. Pt educational material provided to Pt and family. Antibiotic and continuous IV fluids finished. Skin integrity photos taken and placed in chart. No home medications to return. Pt teaching provided on disease process of UTI and Sepsis to Pt and family. All discharge concerns addressed. All safety and comfort needs attended to. Report called and given to Ruby GUERRERO on 2nd floor Med/Surg. Personal belongings accounted for and list signed, placed in chart. Pt safely transported via bed with personal belongings, including wheelchair and toilet seat cover, to room 214. Will remove from system shortly.
== END 2018-08-09 15:00 | disposition short-term general hospital (02) | DRG 871 ==
PROVIDERS: ADMIT Physical Medicine & Rehabilitation Pain Medicine; ATTEND Physical Medicine & Rehabilitation Pain Medicine
DX: A41.9 Sepsis, unspecified organism (principal); G93.41 Metabolic encephalopathy; N17.0 Acute kidney failure with tubular necrosis; B02.29 Other postherpetic nervous system involvement; D68.59 Other primary thrombophilia; B37.49 Other urogenital candidiasis; F33.1 Major depressive disorder, recurrent, moderate; N39.0 Urinary tract infection, site not specified; I10 Essential (primary) hypertension; I25.10 Atherosclerotic heart disease of native coronary artery without angina pectoris; I73.9 Peripheral vascular disease, unspecified; I87.2 Venous insufficiency (chronic) (peripheral); J45.909 Unspecified asthma, uncomplicated; Z99.3 Dependence on wheelchair; Z96.611 Presence of right artificial shoulder joint; R26.9 Unspecified abnormalities of gait and mobility; K59.00 Constipation, unspecified; R41.0 Disorientation, unspecified; R41.82 Altered mental status, unspecified; L30.9 Dermatitis, unspecified; B96.20 Unspecified Escherichia coli [E. coli] as the cause of diseases classified elsewhere; M21.372 Foot drop, left foot; Z16.12 Extended spectrum beta lactamase (ESBL) resistance; Z87.440 Personal history of urinary (tract) infections; Z98.1 Arthrodesis status; G89.29 Other chronic pain; M54.5 Low back pain; R26.81 Unsteadiness on feet; R53.81 Other malaise; M19.90 Unspecified osteoarthritis, unspecified site; Z88.0 Allergy status to penicillin; Z91.041 Radiographic dye allergy status
CPT/HCPCS: 36415; 83735; 84100; 84156; 84300; 85025; 87077; 87086; 92523; 92526; 92610; 93005; 97110; 97112; 97116; 97530; 97535; J0696; J1200; J1450; J2060; J2185; J3490; J7030; J7040; J7060; J7512

== ENCOUNTER 2018-08-09 15:42 | Inpatient (IN) | payer MEDICARE, OTHER ==
[~2018-08-09] VITALS: Ht 137.2 cm; Wt 65.8 kg
[2018-08-09 14:55] VITALS: BP 92/54
[~2018-08-09 15:42] MED LIST changes: +ACET-2154 PO; +BISA10SU61 RC; +ESCI10TA PO; +FLUCONAZOLE IV; +FLUT1DIS29 IH; +IPRA3AMP22 IH; +LISI10TA5 PO; +MAGN400O6 PO; +MINE50OI TP; +MONT10TA25 PO; +MULT-213 PO; +NA P133E RC; -PRED20TA PO; +PREDNISONE 10MG PO; +TRAM50TA2 PO; +TRIAMCINOLONE 0.1% TOP; -VERA240C2 PO; +VERA80TA PO
[2018-08-09] MEDS ORDERED: IPRATROPIUM BROMIDE 0.5 MG/2.5 ML NEBU NEB PRN ×2 (17:00)
[2018-08-09] MEDS ORDERED: ACETAMINOPHEN 325 MG TABLET PO PRN ×2 (17:00→17:15)
[2018-08-09] MEDS ORDERED: Z GUARD REMEDY PASTE 57 GM TUBE TOP PRN ×2 (17:00→17:30)
[2018-08-09] MEDS ORDERED: IV NS 1000 ML 1,000 ML IV PRN (17:00)
[2018-08-09] MEDS ORDERED: BISACODYL 10 MG SUPP.RECT RC PRN ×2 (17:00→17:15)
[2018-08-09] MEDS ORDERED: TRAMADOL HCL 50 MG TABLET PO PRN ×2 (17:00→17:15)
[2018-08-09] MEDS ORDERED: MAGNESIUM HYDROXIDE 30 ML LIQUID UDC PO PRN ×3 (17:00→17:30)
[2018-08-09] MEDS ORDERED: diphenhydrAMINE 50 MG/1 ML VIAL IV PRN ×2 (17:00→17:15)
[2018-08-09] MEDS ORDERED: FLEET ENEMA 133 ML BOTTLE RC PRN (17:15)
[2018-08-09] MEDS ORDERED: ZOLPIDEM 5 MG TABLET PO PRN (17:30)
[2018-08-09] MEDS ORDERED: ONDANSETRON 4 MG/2 ML VIAL IV PRN (17:30)
[2018-08-09] MEDS: IV NS 1000 ML 1,000 ML IV PRN (18:04)
[2018-08-09] MEDS: VITAMINS A AND D OINT TP SCH (18:47)
[2018-08-09 20:00] VITALS: BP 102/50
[2018-08-09] MEDS ORDERED: VERAPAMIL 80 MG TABLET PO SCH (21:00)
[2018-08-09] MEDS ORDERED: MEROPENEM 500 MG in IV NORMAL SALINE 50 ML IV SCH (21:00)
[2018-08-09] MEDS: VERAPAMIL 80 MG TABLET PO SCH (21:08)
[2018-08-09] MEDS: MEROPENEM 500 MG in IV NORMAL SALINE 50 ML IV SCH (21:20)
[2018-08-10 04:35] VITALS: BP 113/52
[2018-08-10 06:54] LABS: EOSINOPHILS # (AUTO) 0.4 K/uL (0.0-0.7)
[2018-08-10 06:57] LABS: CARBON DIOXIDE 24 mmol/L (21-32); CHLORIDE 102 mmol/L (98-107); CHOLESTEROL 175 mg/dL (<200); CREATININE 0.8 mg/dL (0.6-1.3); GLUCOSE 110 mg/dL (74-106); HDL CHOLESTEROL 72 mg/dL (40-60); MAGNESIUM 1.5 mg/dL (1.8-2.4); PHOSPHOROUS 2.3 mg/dL (2.5-4.9); POTASSIUM 3.9 mmol/L (3.5-5.1); TRIGLYCERIDES 82 MG/DL (30-150); UREA NITROGEN, BLOOD 22 mg/dL (7-18)
[2018-08-10 07:11] LABS: BASOPHILS % (AUTO) 0.5 % (0.0-2.0); EOSINOPHILS % (AUTO) 4.1 % (0.0-7.0); LYMPHOCYTES # (AUTO) 1.7 K/uL (20.0-40.0); LYMPHOCYTES % (AUTO) 17.3 % (20.5-51.5); MEAN CORPUSCULAR HEMOGLOBIN 28.3 uug (24.7-32.8); MEAN CORPUSCULAR HGB CONC 33 g/dL (32.3-35.6); MEAN CORPUSCULAR VOLUME 85.5 fL (75.5-95.3); MONOCYTES # (AUTO) 0.8 K/uL (2.0-10.0); MONOCYTES % (AUTO) 7.8 % (0.0-11.0); NEUTROPHILS % (AUTO) 70.3 % (38.5-71.5); PLATELET COUNT (AUTO) 242 K/uL (179-408); RED BLOOD CELL COUNT(AUTO) 3.44 MIL/uL (3.63-4.92); WHITE BLOOD COUNT (AUTO) 9.9 K/uL (3.8-11.8)
[2018-08-10 07:12] LABS: HEMATOCRIT 29.4 % (31.2-41.9); HEMOGLOBIN 9.8 g/dL (10.9-14.3)
[2018-08-10] MEDS: MONTELUKAST SODIUM 10 MG TABLET PO SCH (08:21)
[2018-08-10] MEDS: MEROPENEM 500 MG in IV NORMAL SALINE 50 ML IV SCH ×2 (08:21→21:10)
[2018-08-10] MEDS: VERAPAMIL 80 MG TABLET PO SCH ×2 (08:22→20:56)
[2018-08-10] MEDS: ESCITALOPRAM OXALATE 10 MG TABLET NG SCH (08:22)
[2018-08-10] MEDS: MULTIVITAMINS,THERAPEUTIC TABLET PO SCH (08:22)
[2018-08-10] MEDS: predniSONE 10 MG TABLET PO SCH (08:23)
[2018-08-10] MEDS: VITAMINS A AND D OINT TP SCH ×2 (08:24→16:08)
[2018-08-10] MEDS: FLUTICASONE/VILANTEROL 1 EACH BLST.W.DEV INH SCH (08:25)
[2018-08-10] MEDS: IV NS 1000 ML 1,000 ML IV PRN (08:42)
[2018-08-10] MEDS ORDERED: LISINOPRIL 10 MG TABLET PO SCH (09:00)
[2018-08-10] MEDS ORDERED: PREDNISONE 10 MG PO SCH (09:00)
[2018-08-10] MEDS ORDERED: FLUTICASONE/SALMETEROL 500/50 EACH DISK.W.DEV IH SCH (09:00)
[2018-08-10] MEDS ORDERED: ESCITALOPRAM OXALATE 10 MG TABLET PO SCH (09:00)
[2018-08-10] MEDS ORDERED: Medication Not On Formulary EA (Multivitamins W-Minerals (Multivitamin With Minerals) 1 PO SCH (09:00)
[2018-08-10] MEDS ORDERED: MONTELUKAST SODIUM 10 MG TABLET PO SCH (09:00)
[2018-08-10 11:32] VITALS: BP 109/88
[2018-08-10] MEDS: MAGNESIUM SULFATE/D5W 100 ML IV SCH ×2 (13:09→14:31)
[2018-08-10] MEDS ORDERED: NEUTRA PHOS PACKET PO ONE (15:15)
[2018-08-10 15:38] VITALS: BP 113/44
[2018-08-10 19:12] VITALS: BP 133/61
[2018-08-11] MEDS: IV NS 1000 ML 1,000 ML IV PRN (01:42)
[2018-08-11 03:35] VITALS: BP 137/76
[2018-08-11 06:39] LABS: ALANINE AMINOTRANSFERASE 43 U/L (14-59); ALKALINE PHOSPHATASE 86 U/L (50-136); ASPARTATE AMINOTRANSFERASE 25 U/L (15-37); BILIRUBIN,TOTAL 0.4 mg/dL (0.2-1.0); CARBON DIOXIDE 21 mmol/L (21-32); CHLORIDE 106 mmol/L (98-107); CREATININE 0.5 mg/dL (0.6-1.3); GLUCOSE 85 mg/dL (74-106); MAGNESIUM 1.9 mg/dL (1.8-2.4); PHOSPHOROUS 2.6 mg/dL (2.5-4.9); POTASSIUM 3.6 mmol/L (3.5-5.1); TOTAL PROTEIN, SERUM 5.6 g/dL (6.4-8.2); UREA NITROGEN, BLOOD 16 mg/dL (7-18)
[2018-08-11 07:04] LABS: BASOPHILS # (AUTO) 0.1 K/uL (0.0-8.0); HEMATOCRIT 28.7 % (31.2-41.9); HEMOGLOBIN 9.4 g/dL (10.9-14.3); LYMPHOCYTES # (AUTO) 2.7 K/uL (20.0-40.0); MONOCYTES # (AUTO) 0.8 K/uL (2.0-10.0); MONOCYTES % (AUTO) 6.4 % (0.0-11.0); NEUTROPHILS # (AUTO) 7.6 K/uL (1.8-8.9); RED BLOOD CELL COUNT(AUTO) 3.41 MIL/uL (3.63-4.92)
[2018-08-11 07:13] LABS: BASOPHILS % (AUTO) 0.9 % (0.0-2.0); EOSINOPHILS # (AUTO) 0.8 K/uL (0.0-0.7); EOSINOPHILS % (AUTO) 6.7 % (0.0-7.0); LYMPHOCYTES % (AUTO) 22.4 % (20.5-51.5); MEAN CORPUSCULAR HEMOGLOBIN 27.5 uug (24.7-32.8); MEAN CORPUSCULAR HGB CONC 33 g/dL (32.3-35.6); NEUTROPHILS % (AUTO) 63.6 % (38.5-71.5)
[2018-08-11 07:14] LABS: PLATELET COUNT (AUTO) 208 K/uL (179-408)
[2018-08-11] MEDS: ESCITALOPRAM OXALATE 10 MG TABLET NG SCH (10:30)
[2018-08-11] MEDS: MONTELUKAST SODIUM 10 MG TABLET PO SCH (10:30)
[2018-08-11] MEDS: predniSONE 10 MG TABLET PO SCH (10:30)
[2018-08-11] MEDS: VITAMINS A AND D OINT TP SCH ×2 (10:31→18:15)
[2018-08-11] MEDS: MULTIVITAMINS,THERAPEUTIC TABLET PO SCH (10:31)
[2018-08-11] MEDS: FLUTICASONE/VILANTEROL 1 EACH BLST.W.DEV INH SCH (10:33)
[2018-08-11] MEDS: MEROPENEM 500 MG in IV NORMAL SALINE 50 ML IV SCH ×2 (10:33→20:31)
[2018-08-11] MEDS: VERAPAMIL 80 MG TABLET PO SCH ×2 (10:33→20:34)
[2018-08-11 12:00] VITALS: BP 142/61
[2018-08-11 16:00] VITALS: BP 132/51
[2018-08-11 19:15] VITALS: BP 149/59
[2018-08-11] MEDS: HYDROCODONE/APAP 5-325MG TABLET PO PRN (21:59)
[2018-08-12 03:37] VITALS: BP 158/60
[2018-08-12 06:15] VITALS: BP 135/62
[2018-08-12 07:06] LABS: BASOPHILS # (AUTO) 0.1 K/uL (0.0-8.0); EOSINOPHILS # (AUTO) 0.8 K/uL (0.0-0.7); LYMPHOCYTES # (AUTO) 2.2 K/uL (20.0-40.0); NEUTROPHILS # (AUTO) 4.9 K/uL (1.8-8.9)
[2018-08-12 07:15] LABS: CARBON DIOXIDE 24 mmol/L (21-32); CHLORIDE 107 mmol/L (98-107); CREATININE 0.5 mg/dL (0.6-1.3); GLUCOSE 77 mg/dL (74-106); POTASSIUM 3.6 mmol/L (3.5-5.1); UREA NITROGEN, BLOOD 11 mg/dL (7-18)
[2018-08-12 07:18] LABS: BASOPHILS % (AUTO) 0.7 % (0.0-2.0); MEAN CORPUSCULAR HEMOGLOBIN 28.8 uug (24.7-32.8); MEAN CORPUSCULAR HGB CONC 34 g/dL (32.3-35.6); MEAN CORPUSCULAR VOLUME 85.7 fL (75.5-95.3); MONOCYTES # (AUTO) 0.6 K/uL (2.0-10.0); MONOCYTES % (AUTO) 6.5 % (0.0-11.0); NEUTROPHILS % (AUTO) 57.8 % (38.5-71.5); RED BLOOD CELL COUNT(AUTO) 3.72 MIL/uL (3.63-4.92)
[2018-08-12 07:20] LABS: HEMATOCRIT 31.9 % (31.2-41.9); HEMOGLOBIN 10.7 g/dL (10.9-14.3); PLATELET COUNT (AUTO) 282 K/uL (179-408); WHITE BLOOD COUNT (AUTO) 8.5 K/uL (3.8-11.8)
[2018-08-12] MEDS: predniSONE 10 MG TABLET PO SCH (08:40)
[2018-08-12] MEDS: MULTIVITAMINS,THERAPEUTIC TABLET PO SCH (08:40)
[2018-08-12] MEDS: ESCITALOPRAM OXALATE 10 MG TABLET NG SCH (08:40)
[2018-08-12] MEDS: MONTELUKAST SODIUM 10 MG TABLET PO SCH (08:40)
[2018-08-12] MEDS: FLUTICASONE/VILANTEROL 1 EACH BLST.W.DEV INH SCH (08:42)
[2018-08-12] MEDS: VERAPAMIL 80 MG TABLET PO SCH ×2 (08:45→20:11)
[2018-08-12] MEDS: VITAMINS A AND D OINT TP SCH ×2 (08:51→16:25)
[2018-08-12] MEDS: MEROPENEM 500 MG in IV NORMAL SALINE 50 ML IV SCH ×2 (09:40→20:23)
[2018-08-12 11:42] VITALS: BP_SYST 105; BP_SYST 124; BP_DIAS 51; BP_DIAS 67
[2018-08-12 15:08] VITALS: BP 137/54
[2018-08-12 19:00] VITALS: BP 166/57
[2018-08-12] MEDS: HYDROCODONE/APAP 5-325MG TABLET PO PRN (20:12)
[2018-08-13] MEDS: ESCITALOPRAM OXALATE 10 MG TABLET NG SCH (09:56)
[2018-08-13] MEDS: MEROPENEM 500 MG in IV NORMAL SALINE 50 ML IV SCH (09:56)
[2018-08-13] MEDS: FLUTICASONE/VILANTEROL 1 EACH BLST.W.DEV INH SCH (09:56)
[2018-08-13] MEDS: VERAPAMIL 80 MG TABLET PO SCH ×2 (09:58→20:06)
[2018-08-13] MEDS: predniSONE 10 MG TABLET PO SCH (09:58)
[2018-08-13] MEDS: MULTIVITAMINS,THERAPEUTIC TABLET PO SCH (09:58)
[2018-08-13] MEDS: VITAMINS A AND D OINT TP SCH ×2 (09:59→17:00)
[2018-08-13] MEDS: MONTELUKAST SODIUM 10 MG TABLET PO SCH (10:00)
[2018-08-13 11:54] VITALS: BP 121/53
[2018-08-13 15:59] VITALS: BP 126/54
[2018-08-13 20:06] VITALS: BP 140/55
== END 2018-08-13 20:30 | DRG 689 ==
LOC: MED 15:42
PROVIDERS: ADMIT Hospitalist; ATTEND Hospitalist
DX: N39.0 Urinary tract infection, site not specified (principal); G93.41 Metabolic encephalopathy; N17.0 Acute kidney failure with tubular necrosis; E43 Unspecified severe protein-calorie malnutrition; B02.29 Other postherpetic nervous system involvement; D68.59 Other primary thrombophilia; J98.11 Atelectasis; B96.20 Unspecified Escherichia coli [E. coli] as the cause of diseases classified elsewhere; Z16.12 Extended spectrum beta lactamase (ESBL) resistance; Z16.11 Resistance to penicillins; G89.29 Other chronic pain; M54.5 Low back pain; M21.372 Foot drop, left foot; L40.9 Psoriasis, unspecified; Z91.041 Radiographic dye allergy status; Z99.3 Dependence on wheelchair; M19.011 Primary osteoarthritis, right shoulder; T37.0X5A Adverse effect of sulfonamides, initial encounter; Y92.230 Patient room in hospital as the place of occurrence of the external cause; Z96.611 Presence of right artificial shoulder joint; I73.9 Peripheral vascular disease, unspecified; I87.2 Venous insufficiency (chronic) (peripheral); J45.909 Unspecified asthma, uncomplicated; I25.10 Atherosclerotic heart disease of native coronary artery without angina pectoris; Z98.1 Arthrodesis status; Z87.440 Personal history of urinary (tract) infections; Z68.35 Body mass index [BMI] 35.0-35.9, adult; T38.0X5A Adverse effect of glucocorticoids and synthetic analogues, initial encounter; I10 Essential (primary) hypertension; E66.01 Morbid (severe) obesity due to excess calories; F32.9 Major depressive disorder, single episode, unspecified
CPT/HCPCS: 36415; 83735; 84100; 85025; 97110; 97116; 97530; G0378; J2185; J3475; J3490; J7030; J7050; J7512

== ENCOUNTER 2018-08-13 15:36 | Inpatient (IN) | payer MEDICARE, OTHER ==
[~2018-08-13] VITALS: Ht 160 cm; Wt 61.2 kg
[2018-08-13 21:43] VITALS: BP 142/62
[2018-08-13] MEDS ORDERED: MAGNESIUM HYDROXIDE 30 ML LIQUID UDC PO PRN ×2 (21:45→22:30)
[2018-08-13] MEDS ORDERED: Z GUARD REMEDY PASTE 57 GM TUBE TOP PRN (21:45)
[2018-08-13] MEDS ORDERED: MINERAL OIL/PETROLATUM,WHITE 57 GM TUBE TOP PRN (21:45)
[2018-08-13] MEDS ORDERED: BISACODYL 10 MG SUPP.RECT RC PRN ×2 (21:45→22:30)
[2018-08-13] MEDS ORDERED: ACETAMINOPHEN 325 MG TABLET PO PRN ×2 (21:45→22:30)
[2018-08-13] MEDS ORDERED: FLEET ENEMA 133 ML BOTTLE RC PRN (22:30)
[2018-08-14] MEDS ORDERED: ZOLPIDEM 5 MG TABLET PO ONE
[2018-08-14] MEDS ORDERED: IPRATROPIUM/ALBUTEROL SULFATE 14.7 GM INHALER INH SCH
--- NOTE | 2018-08-14 03:19 | NUR ---
admitted from med surg a 83 year old female with an admitting diagnosis of sepsis/UTI. Patient for acute metabolic encepalopathy.Hx of cataract, CAD, asthma, right shoulder/ back surgery, aaox3-4 Lungs CTA but diminished at the base. VSS pulse Ox 98%. Skin intact, redness note , sacral area with stage 2 wound. Wound consult done. Mepilex applied. Bilateral heels also with some redness noted, breast folds also with some redness. Fall precautions maintained. Call parekh within reach. Tolerated po meds well. Dr Gray aware of patient's admission to floor. Siderails up for safety.
[2018-08-14 05:05] VITALS: BP 126/58
[2018-08-14 08:00] VITALS: BP 151/75
[2018-08-14] MEDS ORDERED: PREDNISONE 10 MG PO SCH (09:00)
[2018-08-14] MEDS ORDERED: FLUTICASONE/SALMETEROL 100/50 1 INH DISK.W.DEV INH SCH (09:00)
[2018-08-14] MEDS ORDERED: FLUTICASONE/SALMETEROL 500/50 EACH DISK.W.DEV IH SCH (09:00)
[2018-08-14] MEDS ORDERED: LISINOPRIL 10 MG TABLET PO SCH (09:00)
[2018-08-14] MEDS ORDERED: Medication Not On Formulary EA (Multivitamins W-Minerals (Multivitamin With Minerals) 1 PO SCH (09:00)
[2018-08-14] MEDS ORDERED: ESCITALOPRAM OXALATE 10 MG TABLET NG SCH (09:00)
[2018-08-14] MEDS ORDERED: MONTELUKAST SODIUM 10 MG TABLET PO SCH (09:00)
[2018-08-14] MEDS: ESCITALOPRAM OXALATE 10 MG TABLET PO SCH (09:33)
[2018-08-14] MEDS: MULTIVIT, IRON, MIN NO. 8, FA TABLET PO SCH (09:33)
[2018-08-14] MEDS: LISINOPRIL 10 MG TABLET PO SCH (09:34)
[2018-08-14] MEDS: VERAPAMIL 80 MG TABLET PO SCH ×2 (09:34→20:05)
[2018-08-14] MEDS: FLUTICASONE/VILANTEROL 1 EACH BLST.W.DEV INH SCH (10:29)
--- NOTE | 2018-08-14 12:32 | NUR ---
WOUND CARE CONSULT: PT PRESENTS WITH BONY SACRAL AREA (BLANCHABLE REDNESS) AND LEFT BUTTOCK DRY ABRASION, BILATERAL HEELS WITH PEELING SKIN (BLANCHABLE REDNESS), BILATERAL BREASTFOLD REDNESS AND DRY SKIN WITH MULTIPLE SKIN LESIONS/MOLES TO TORSO, ALL PRESENT ON ADMISSION. RECOMMENDATIONS MADE FOR SKIN PROTECTION AND CARE. DISCUSSED WITH NURSING STAFF. PT MOSTLY CONTINENT PER NURSING STAFF. WILL SEE PRN. VALENZUELA IN AGREEMENT WITH PLAN OF CARE. Addendum: 08/14/18 at 1234 by NIKHIL RUTH RN Amended: Links added.
[2018-08-14] MEDS: VITAMINS A AND D OINT TP SCH (15:50)
[2018-08-14 16:00] VITALS: BP 114/48
[2018-08-14] MEDS: MONTELUKAST SODIUM 10 MG TABLET PO SCH (17:24)
[2018-08-14] MEDS: predniSONE 10 MG TABLET PO SCH (18:28)
[2018-08-14] MEDS: ALBUTEROL SULFATE 2.5 MG/ 0.5 ML NEBU NEB SCH (19:41)
[2018-08-14] MEDS: IPRATROPIUM BROMIDE 0.5 MG/2.5 ML NEBU NEB SCH (19:41)
[2018-08-14] MEDS: DOCUSATE SODIUM 100 MG CAPSULE PO SCH (20:04)
[2018-08-14 20:29] VITALS: BP 107/49
--- NOTE | 2018-08-14 20:48 | NUR ---
SBAR received from AM nurse. Patient found to be alert and oriented x 3-4. Family at bedside at beginning of shift. No SOB or pain noted at this time. Skin conditions noted and all areas are in covered with frequently turning to prevent redness. All due mediations given-tolerated well. Right forearm IV access D/C at this time. All safety precautions in place. Bilateral upper side rails in place for safety. Able to make needs known with call light. Call light and frequently used items within reach. Will continue to monitor.
[2018-08-14] MEDS: ZOLPIDEM 5 MG TABLET PO PRN (22:27)
--- NOTE | 2018-08-14 22:57 | NUR ---
Order for Ambien requested by patient and family. Ambien 5mg HS PRN to help with Insomnia ordered by Dr. Cummins. Medication given to patient, with intended effect. Will continue to monitor
[2018-08-15] MEDS: IPRATROPIUM BROMIDE 0.5 MG/2.5 ML NEBU NEB SCH ×4 (00:58→20:08)
[2018-08-15] MEDS: ALBUTEROL SULFATE 2.5 MG/ 0.5 ML NEBU NEB SCH ×4 (00:58→20:08)
[2018-08-15 05:36] VITALS: BP 122/51
--- NOTE | 2018-08-15 06:13 | NUR ---
End of Shift Note: No significant change during car shifter. All due medications given-tolerated well. Ambien order obtained from Dr. Cummins per patient and family request. Patient slept throughout the night with aid of Deneen. Family wishes to know status of patients antibiotic regimen since family was informed that she would be on previous antibiotic order for another 7 days as of Monday as stated by infectious control doctor. Bilateral upper side rails up for safety and bed positioning. Call light and all frequently used items within reach. Will endorse to oncoming shift accordingly.
--- NOTE | 2018-08-15 07:46 | NUR ---
Received patient awake, alert, sitting on bed, with no complain of any pain or discomfort, not in any form of acute distress. Needs attended to. Call light and frequently used items placed within reach.
[2018-08-15 08:31] VITALS: BP 131/62
[2018-08-15] MEDS: predniSONE 10 MG TABLET PO SCH (09:33)
[2018-08-15] MEDS: FLUTICASONE/VILANTEROL 1 EACH BLST.W.DEV INH SCH (09:33)
[2018-08-15] MEDS: ESCITALOPRAM OXALATE 10 MG TABLET PO SCH (09:34)
[2018-08-15] MEDS: MULTIVIT, IRON, MIN NO. 8, FA TABLET PO SCH (09:34)
[2018-08-15] MEDS: VERAPAMIL 80 MG TABLET PO SCH ×2 (09:35→20:25)
[2018-08-15] MEDS: LISINOPRIL 10 MG TABLET PO SCH (09:35)
[2018-08-15] MEDS: VITAMINS A AND D OINT TP SCH (09:36)
--- NOTE | 2018-08-15 10:10 | NUR ---
Dr. Cummins saw patient with son at bedside, MD ordered for urinalysis with C&S.
[2018-08-15 14:50] LABS: *BILIRUBIN,URIN NEGATIVE (NEGATIVE); *BLOOD, URINE NEGATIVE (NEGATIVE); *COLOR,URINE YELLOW (YELLOW); *KETONES,URINE NEGATIVE (NEGATIVE); *UROBILINOGEN,URINE 0.2 E.U./dl (NORMAL); LEUKOCYTE ESTERASE ,URINE NEGATIVE (NEGATIVE); NITRITE, URINE NEGATIVE (NEGATIVE); UGLUCOSE NEGATIVE (NEGATIVE)
[2018-08-15 14:52] LABS: *CLARITY,URINE SLIGHTLY HAZY (CLEAR)
[2018-08-15 14:54] LABS: BACTERIA,URINE FEW /HPF (NONE SEEN); MUCUS,URINE FEW /LPF (0-FEW); SQUAMOUS EPITHELIAL CELL,UR MODERATE /HPF (NONE SEEN); WBC,URINE 0-3 /HPF (0-3); YEAST,URINE FEW /HPF (NONE SEEN)
[2018-08-15 17:00] VITALS: BP 107/53
[2018-08-15] MEDS: MONTELUKAST SODIUM 10 MG TABLET PO SCH (18:06)
[2018-08-15 20:11] VITALS: BP 135/51
[2018-08-15] MEDS: DOCUSATE SODIUM 100 MG CAPSULE PO SCH (20:28)
[2018-08-15] MEDS: TRAMADOL HCL 50 MG TABLET PO PRN (20:28)
[2018-08-15] MEDS: ZOLPIDEM 5 MG TABLET PO PRN (22:29)
--- NOTE | 2018-08-15 23:43 | NUR ---
SBAR received from AM nurse. Patient found to be alert and oriented x 3-4. Family at bedside at beginning of shift. No SOB or distress noted at this time. Skin conditions noted and all areas are in covered with Mepalex and frequent turning to prevent redness. All due mediations given-tolerated well. Tramdol given at 2100 for complaint of pain. Ambien given at 2300 for Insomnia. Both mediations found to be effective. All safety precautions in place. Bilateral upper side rails in place for safety. Able to make needs known with call light. Call light and frequently used items within reach. Will continue to monitor.
[2018-08-16] MEDS: ALBUTEROL SULFATE 2.5 MG/ 0.5 ML NEBU NEB SCH ×4 (01:40→20:10)
[2018-08-16] MEDS: IPRATROPIUM BROMIDE 0.5 MG/2.5 ML NEBU NEB SCH ×4 (01:40→20:10)
[2018-08-16 05:52] VITALS: BP 138/52
--- NOTE | 2018-08-16 06:23 | NUR ---
End of Shift Note: No significant change during night supervisor. All due medications given-tolerated well. Ambien give at 2300 for complaint of Insomnia per patient. Awaiting result of Urine OPERATORS TEACHER from lab. Bladder scan to be performed this morning. Bilateral upper side rails up for safety and bed positioning. Call light and all frequently used items within reach. Will endorse to oncoming shift accordingly.
[2018-08-16] MEDS: ESCITALOPRAM OXALATE 10 MG TABLET PO SCH (08:29)
[2018-08-16] MEDS: MULTIVIT, IRON, MIN NO. 8, FA TABLET PO SCH (08:29)
[2018-08-16] MEDS: FLUTICASONE/VILANTEROL 1 EACH BLST.W.DEV INH SCH (08:29)
[2018-08-16] MEDS: predniSONE 10 MG TABLET PO SCH (08:30)
[2018-08-16] MEDS: LISINOPRIL 10 MG TABLET PO SCH (08:30)
[2018-08-16] MEDS: VERAPAMIL 80 MG TABLET PO SCH ×2 (08:31→21:00)
[2018-08-16] MEDS: VITAMINS A AND D OINT TP SCH (08:35)
--- NOTE | 2018-08-16 09:52 | NUR ---
SBAR report received this morning, board updated. Pt received resting in bed. No acute distress noted or pain reported. Bed in locked and lowest position with side rails up x2, alarm on . All safety and comfort needs implemented. Pt compliant with routinely scheduled medication administration and therapies as offered. Call light placed within reach. Contact isolation precautions in place. Will continue to monitor.
--- NOTE | 2018-08-16 10:21 | NUR ---
INTERDISCIPLINARY TEAM CONFERENCE
[2018-08-16] MEDS: MONTELUKAST SODIUM 10 MG TABLET PO SCH (18:06)
--- NOTE | 2018-08-16 19:02 | NUR ---
Pt seen by MD, no new orders received. Pt education provided with ID JAVASCRIPT ENGINEER, Pt, and family regarding use of antibiotics. No change to Pt status or plan of care. All comfort and safety needs promptly attended to throughout this shift. Skin and wound care provided as ordered. Pt clean and dry, assisted to bathroom for BMx1. Call light within reach, will continue to monitor and endorse to oncoming regional company truck driver.
[2018-08-16 19:33] VITALS: BP 109/51
[2018-08-16] MEDS: DOCUSATE SODIUM 100 MG CAPSULE PO SCH (21:24)
[2018-08-16] MEDS: ZOLPIDEM 5 MG TABLET PO PRN (22:25)
[2018-08-17] MEDS: ALBUTEROL SULFATE 2.5 MG/ 0.5 ML NEBU NEB SCH ×5 (01:30→19:45)
[2018-08-17] MEDS: IPRATROPIUM BROMIDE 0.5 MG/2.5 ML NEBU NEB SCH ×5 (01:30→19:45)
[2018-08-17 04:36] VITALS: BP 148/62
[2018-08-17 07:20] VITALS: BP 147/60
[2018-08-17] MEDS: LISINOPRIL 10 MG TABLET PO SCH (08:56)
[2018-08-17] MEDS: ESCITALOPRAM OXALATE 10 MG TABLET PO SCH (08:56)
[2018-08-17] MEDS: MULTIVIT, IRON, MIN NO. 8, FA TABLET PO SCH (08:56)
[2018-08-17] MEDS: VERAPAMIL 80 MG TABLET PO SCH ×2 (08:57→20:33)
[2018-08-17] MEDS: predniSONE 10 MG TABLET PO SCH (08:57)
[2018-08-17] MEDS: VITAMINS A AND D OINT TP SCH (08:57)
[2018-08-17] MEDS: FLUTICASONE/VILANTEROL 1 EACH BLST.W.DEV INH SCH (09:04)
--- NOTE | 2018-08-17 15:59 | NUR ---
INTERDISCIPLINARY TEAM CONFERENCE
[2018-08-17 16:00] VITALS: BP 140/64
[2018-08-17] MEDS: MONTELUKAST SODIUM 10 MG TABLET PO SCH (17:12)
[2018-08-17 19:49] VITALS: BP 141/63
[2018-08-17] MEDS: DOCUSATE SODIUM 100 MG CAPSULE PO SCH (20:33)
[2018-08-17] MEDS: TRAMADOL HCL 50 MG TABLET PO PRN (20:34)
[2018-08-17] MEDS: ZOLPIDEM 5 MG TABLET PO PRN (22:40)
[2018-08-18] MEDS: IPRATROPIUM BROMIDE 0.5 MG/2.5 ML NEBU NEB SCH ×4 (01:07→20:28)
[2018-08-18] MEDS: ALBUTEROL SULFATE 2.5 MG/ 0.5 ML NEBU NEB SCH ×4 (01:07→20:28)
--- NOTE | 2018-08-18 01:25 | NUR ---
Received pt at the beginning of shift resting in bed. Son at bedside. AAO x4. Welsh speaking, able to make needs known. No acute distress noted. C/o pain of left rib area due to previous shingles, as stated by the pt. PRN pain med given. Safety measures maintained. Call light and personal belongings within reach. Will continue to monitor.
[2018-08-18 04:35] VITALS: BP 138/67
[2018-08-18 08:00] VITALS: BP 145/61
--- NOTE | 2018-08-18 08:30 | NUR ---
Patient awake, alert, sitting on the side of the bed, eating breakfast, not in any form of acute distress. No complain of any pain or discomfort at this time. Call light and frequently used items placed within reach. Needs attended to promptly.
[2018-08-18] MEDS: ESCITALOPRAM OXALATE 10 MG TABLET PO SCH (09:01)
[2018-08-18] MEDS: predniSONE 10 MG TABLET PO SCH (09:01)
[2018-08-18] MEDS: LISINOPRIL 10 MG TABLET PO SCH (09:01)
[2018-08-18] MEDS: FLUTICASONE/VILANTEROL 1 EACH BLST.W.DEV INH SCH (09:01)
[2018-08-18] MEDS: VERAPAMIL 80 MG TABLET PO SCH ×2 (09:02→20:17)
[2018-08-18] MEDS: VITAMINS A AND D OINT TP SCH (09:02)
[2018-08-18] MEDS: MULTIVIT, IRON, MIN NO. 8, FA TABLET PO SCH (09:06)
[2018-08-18 17:30] VITALS: BP 106/29
[2018-08-18] MEDS: MONTELUKAST SODIUM 10 MG TABLET PO SCH (17:40)
--- NOTE | 2018-08-18 17:42 | NUR ---
Patient remains alert, denies any pain or discomfort at this time, done with dinner, given due medication and tolerated well. Assisted to her needs.
[2018-08-18 19:30] VITALS: BP 142/65
[2018-08-18] MEDS: DOCUSATE SODIUM 100 MG CAPSULE PO SCH (20:16)
--- NOTE | 2018-08-18 20:58 | NUR ---
Received pt resting in bed and watching tv. AAO x3, Setswana speaking, able to make needs known. Son at bedside. No acute distress noted. No c/o pain or discomfort. Meds given as ordered. Turned and repositioned. Both heels offloaded. Safety measures maintained. Call light within reach. Will continue to monitor.
[2018-08-18] MEDS: ZOLPIDEM 5 MG TABLET PO PRN (22:25)
[2018-08-19] MEDS: IPRATROPIUM BROMIDE 0.5 MG/2.5 ML NEBU NEB SCH ×4 (00:55→20:32)
[2018-08-19] MEDS: ALBUTEROL SULFATE 2.5 MG/ 0.5 ML NEBU NEB SCH ×4 (00:56→20:32)
[2018-08-19 04:20] VITALS: BP 148/66
[2018-08-19 07:00] VITALS: BP 148/57
--- NOTE | 2018-08-19 08:00 | NUR ---
Patient noted resting in bed with eyes closed at this time, no complaints of pain, no signs of distress noted, call light placed in reach, bed locked and in lowest position, all needs met at this time
[2018-08-19] MEDS: MULTIVIT, IRON, MIN NO. 8, FA TABLET PO SCH (08:23)
[2018-08-19] MEDS: ESCITALOPRAM OXALATE 10 MG TABLET PO SCH (08:23)
[2018-08-19] MEDS: LISINOPRIL 10 MG TABLET PO SCH (08:24)
[2018-08-19] MEDS: VERAPAMIL 80 MG TABLET PO SCH ×2 (08:25→20:18)
[2018-08-19] MEDS: VITAMINS A AND D OINT TP SCH (08:25)
[2018-08-19] MEDS: predniSONE 10 MG TABLET PO SCH (08:25)
[2018-08-19] MEDS: FLUTICASONE/VILANTEROL 1 EACH BLST.W.DEV INH SCH (08:25)
[2018-08-19 16:00] VITALS: BP 153/62
[2018-08-19] MEDS: MONTELUKAST SODIUM 10 MG TABLET PO SCH (17:18)
[2018-08-19 19:48] VITALS: BP 136/50
[2018-08-19] MEDS: DOCUSATE SODIUM 100 MG CAPSULE PO SCH (20:18)
--- NOTE | 2018-08-19 21:05 | NUR ---
Pt resting in bed. Son at bedside. AAO x4. Bengali speaking, able to make needs known. No acute distress noted. No c/o pain or discomfort. Turned and repositioned, will continue to do so every 2 hours. All due meds given as ordered. Safety measures maintained. Call light and personal belongings within reach. Will continue to monitor.
[2018-08-19] MEDS: ZOLPIDEM 5 MG TABLET PO PRN (22:44)
[2018-08-20] MEDS: ALBUTEROL SULFATE 2.5 MG/ 0.5 ML NEBU NEB SCH ×4 (01:30→19:30)
[2018-08-20] MEDS: IPRATROPIUM BROMIDE 0.5 MG/2.5 ML NEBU NEB SCH ×4 (01:30→19:30)
[2018-08-20 04:00] VITALS: BP 144/66
[2018-08-20 07:03] LABS: BASOPHILS # (AUTO) 0.1 K/uL (0.0-8.0); BASOPHILS % (AUTO) 0.9 % (0.0-2.0); EOSINOPHILS # (AUTO) 0.4 K/uL (0.0-0.7); EOSINOPHILS % (AUTO) 3.8 % (0.0-7.0); HEMATOCRIT 30.1 % (31.2-41.9); HEMOGLOBIN 10.3 g/dL (10.9-14.3); LYMPHOCYTES # (AUTO) 3.2 K/uL (20.0-40.0); LYMPHOCYTES % (AUTO) 28.3 % (20.5-51.5); MEAN CORPUSCULAR HGB CONC 34 g/dL (32.3-35.6); MEAN CORPUSCULAR VOLUME 85.2 fL (75.5-95.3); MONOCYTES # (AUTO) 0.9 K/uL (2.0-10.0); MONOCYTES % (AUTO) 7.9 % (0.0-11.0); NEUTROPHILS # (AUTO) 6.7 K/uL (1.8-8.9); NEUTROPHILS % (AUTO) 59.1 % (38.5-71.5); RED BLOOD CELL COUNT(AUTO) 3.54 MIL/uL (3.63-4.92)
[2018-08-20 07:22] LABS: CARBON DIOXIDE 28 mmol/L (21-32); CHLORIDE 104 mmol/L (98-107); CREATININE 0.8 mg/dL (0.6-1.3); GLUCOSE 82 mg/dL (74-106); MAGNESIUM 1.5 mg/dL (1.8-2.4); PHOSPHOROUS 2.8 mg/dL (2.5-4.9); POTASSIUM 3.5 mmol/L (3.5-5.1); UREA NITROGEN, BLOOD 16 mg/dL (7-18)
[2018-08-20 07:46] LABS: PLATELET COUNT (AUTO) 384 K/uL (179-408); WHITE BLOOD COUNT (AUTO) 11.4 K/uL (3.8-11.8)
[2018-08-20 08:30] VITALS: BP 140/72
[2018-08-20] MEDS: MULTIVIT, IRON, MIN NO. 8, FA TABLET PO SCH (08:43)
[2018-08-20] MEDS: FLUTICASONE/VILANTEROL 1 EACH BLST.W.DEV INH SCH (08:43)
[2018-08-20] MEDS: ESCITALOPRAM OXALATE 10 MG TABLET PO SCH (08:43)
[2018-08-20] MEDS: LISINOPRIL 10 MG TABLET PO SCH (08:43)
[2018-08-20] MEDS: predniSONE 10 MG TABLET PO SCH (08:44)
[2018-08-20] MEDS: VERAPAMIL 80 MG TABLET PO SCH ×2 (08:44→20:54)
[2018-08-20] MEDS: VITAMINS A AND D OINT TP SCH (08:49)
--- NOTE | 2018-08-20 09:45 | NUR ---
Dr. Cummins in the unit making rounds, ordered to discontinue contact isolation and said no need to do UA with C&S.
--- NOTE | 2018-08-20 11:05 | NUR ---
Patient sitting up on the wheelchair with physical therapist, not in distress. No complain of any discomfort at this time.
[2018-08-20] MEDS: MAGNESIUM OXIDE 400 MG TABLET PO SCH ×2 (11:52→17:05)
[2018-08-20] MEDS ORDERED: MAGNESIUM OXIDE 400 MG TABLET PO ONE (14:45)
[2018-08-20 16:16] VITALS: BP 124/51
[2018-08-20] MEDS: MONTELUKAST SODIUM 10 MG TABLET PO SCH (17:06)
--- NOTE | 2018-08-20 18:45 | NUR ---
Mindy Tobin ANGLE BENDER (ID) made her rounds, with no new order. Per ANGLE BENDER OK to discontinue isolation and no need for UA since patient already completed antibiotic treatment and is asymptomatic.
[2018-08-20 19:37] VITALS: BP 121/51
[2018-08-20] MEDS: DOCUSATE SODIUM 100 MG CAPSULE PO SCH (20:54)
[2018-08-20] MEDS: ZOLPIDEM 5 MG TABLET PO PRN (22:40)
[2018-08-21] MEDS: ALBUTEROL SULFATE 2.5 MG/ 0.5 ML NEBU NEB SCH ×4 (00:49→19:26)
[2018-08-21] MEDS: IPRATROPIUM BROMIDE 0.5 MG/2.5 ML NEBU NEB SCH ×4 (00:49→19:26)
--- NOTE | 2018-08-21 04:54 | NUR ---
slept most of the shift no acute distress . needs attended. voiding freely on the bedpan. VSS kept comfortable. will monitor patient. denies any pain nor any discomfort.
[2018-08-21 05:49] VITALS: BP 137/54
[2018-08-21] MEDS: LISINOPRIL 10 MG TABLET PO SCH (09:00)
[2018-08-21] MEDS: VERAPAMIL 80 MG TABLET PO SCH ×2 (09:00→20:34)
[2018-08-21] MEDS: MULTIVIT, IRON, MIN NO. 8, FA TABLET PO SCH (09:41)
[2018-08-21] MEDS: ESCITALOPRAM OXALATE 10 MG TABLET PO SCH (09:41)
[2018-08-21] MEDS: predniSONE 10 MG TABLET PO SCH (09:41)
[2018-08-21] MEDS: MAGNESIUM OXIDE 400 MG TABLET PO SCH ×2 (09:41→17:59)
[2018-08-21] MEDS: FLUTICASONE/VILANTEROL 1 EACH BLST.W.DEV INH SCH (09:42)
[2018-08-21] MEDS: VITAMINS A AND D OINT TP SCH (09:42)
[2018-08-21 16:36] VITALS: BP 112/48
[2018-08-21] MEDS: MONTELUKAST SODIUM 10 MG TABLET PO SCH (17:59)
[2018-08-21 20:00] VITALS: BP 127/63
--- NOTE | 2018-08-21 20:01 | NUR ---
Received pt resting in bed and talking with family at bedside. AAO x4. Persian speaking, able to make needs known. No acute distress noted. No c/o pain or discomfort. Safety measures maintained. Call light and personal belongings within reach. Will continue to monitor.
[2018-08-21] MEDS: DOCUSATE SODIUM 100 MG CAPSULE PO SCH (20:34)
[2018-08-21] MEDS: ZOLPIDEM 5 MG TABLET PO PRN (22:37)
--- NOTE | 2018-08-22 00:18 | NUR ---
All due meds given as ordered. Assisted to use the bedpan. Turned and repositioned q2h, will continue to do so q2h. Both heels offloaded. Will continue to monitor.
[2018-08-22] MEDS: ALBUTEROL SULFATE 2.5 MG/ 0.5 ML NEBU NEB SCH ×4 (01:00→19:30)
[2018-08-22] MEDS: IPRATROPIUM BROMIDE 0.5 MG/2.5 ML NEBU NEB SCH ×4 (01:00→19:30)
[2018-08-22 04:00] VITALS: BP 138/57
--- NOTE | 2018-08-22 07:40 | NUR ---
Patient noted resting in bed with eyes closed, assisted to restroom to perform activities of daily living and to locked wheelchair, denies pain at this time, no signs of distress noted, call light in reach, bed side table placed in front of patient, all needs met at this time
[2018-08-22] MEDS: MULTIVIT, IRON, MIN NO. 8, FA TABLET PO SCH (08:29)
[2018-08-22] MEDS: ESCITALOPRAM OXALATE 10 MG TABLET PO SCH (08:29)
[2018-08-22] MEDS: FLUTICASONE/VILANTEROL 1 EACH BLST.W.DEV INH SCH (08:29)
[2018-08-22] MEDS: LISINOPRIL 10 MG TABLET PO SCH (08:30)
[2018-08-22] MEDS: MAGNESIUM OXIDE 400 MG TABLET PO SCH (08:30)
[2018-08-22] MEDS: VERAPAMIL 80 MG TABLET PO SCH ×2 (08:31→21:44)
[2018-08-22] MEDS: predniSONE 10 MG TABLET PO SCH (08:31)
[2018-08-22] MEDS: VITAMINS A AND D OINT TP SCH (08:32)
[2018-08-22 16:39] VITALS: BP 111/55
[2018-08-22] MEDS: MONTELUKAST SODIUM 10 MG TABLET PO SCH (16:44)
[2018-08-22 19:20] VITALS: BP 119/71
--- NOTE | 2018-08-22 19:45 | NUR ---
Patient received in bed. AAO x4. Able to make needs known. No sign of acute distress or SOB was noted. On room air. Her son at the bedside. No Complain of pain at this time. Patient assessed. Safety measures maintained. Fall prevention observed. Bed in low position, brake and alarm on, side rails up x2. Call light and personal belongings within reach. Will continue to monitor.
[2018-08-22 20:00] VITALS: BP 109/58
[2018-08-22] MEDS: DOCUSATE SODIUM 100 MG CAPSULE PO SCH (21:43)
[2018-08-22] MEDS: ZOLPIDEM 5 MG TABLET PO PRN (22:26)
[2018-08-23] MEDS: IPRATROPIUM BROMIDE 0.5 MG/2.5 ML NEBU NEB SCH ×4 (01:30→18:56)
[2018-08-23] MEDS: ALBUTEROL SULFATE 2.5 MG/ 0.5 ML NEBU NEB SCH ×4 (01:30→18:56)
[2018-08-23 06:35] VITALS: BP 148/53
--- NOTE | 2018-08-23 06:42 | NUR ---
End of the shift note Patient was stable throughout the shift and had a good sleep last night. No sign of acute distress or SOB noted. No Complain of pain. Medications given as ordered and well tolerated. Sacral redness cleansed, pat dry, applied z guard, covered by Mepilex. Keep her clean and dry. Safety measures maintained. All needs anticipated promptly. Fall precaution maintained. Bed in low position, brake and alarm on, side rails up x2. Call light and personal belongings within reach. Continue to monitor and will endorse to the day shift nurse accordingly.
--- NOTE | 2018-08-23 08:01 | NUR ---
Patient noted resting in bed with eyes closed, assisted to restroom to perform toileting needs and to wheelchair, denies pain at this time, no signs of distress noted, call light in reach, bed side table placed in front of patient, all needs met at this time
--- NOTE | 2018-08-23 08:22 | NUR ---
PT RECEIVED AWAKE ALERT RESPONSIVE ON ROOM AIR SHOWING NO SIGNS OR SYMPTOMS OF RESPIRATORY DISTRESS OR SOB. BREATH SOUNDS DIMINISHED. PT REFUSED SCHEDULED HHN TX STATING THAT HER BREATHING IS FINE AND DID NOT WANT TO RECEIVE ONE. WILL CONTINUE TO MONITOR.
[2018-08-23] MEDS: ESCITALOPRAM OXALATE 10 MG TABLET PO SCH (08:26)
[2018-08-23] MEDS: MULTIVIT, IRON, MIN NO. 8, FA TABLET PO SCH (08:26)
[2018-08-23] MEDS: FLUTICASONE/VILANTEROL 1 EACH BLST.W.DEV INH SCH (08:27)
[2018-08-23] MEDS: VERAPAMIL 80 MG TABLET PO SCH ×2 (08:27→20:49)
[2018-08-23] MEDS: predniSONE 10 MG TABLET PO SCH (08:27)
[2018-08-23] MEDS: LISINOPRIL 10 MG TABLET PO SCH (08:28)
[2018-08-23] MEDS: VITAMINS A AND D OINT TP SCH (08:28)
[2018-08-23 09:00] VITALS: BP 131/56
[2018-08-23] MEDS: MONTELUKAST SODIUM 10 MG TABLET PO SCH (17:06)
[2018-08-23 18:20] VITALS: BP 115/73
--- NOTE | 2018-08-23 20:15 | NUR ---
Received patient comfortably on bed . Alert Verbally responsive . Breathing even and unlabored .No complained fo pain discomfort at this time . Due meds given via PO .Tolerated well . Continent both bladder and bowel function . Call lights and other belongings with in reach at all times . Frequently visual checks and monitor .
[2018-08-23] MEDS: DOCUSATE SODIUM 100 MG CAPSULE PO SCH (20:50)
[2018-08-23 22:03] VITALS: BP 136/60
[2018-08-23] MEDS: ZOLPIDEM 5 MG TABLET PO PRN (22:55)
[2018-08-24] MEDS: IPRATROPIUM BROMIDE 0.5 MG/2.5 ML NEBU NEB SCH ×4 (01:11→19:30)
[2018-08-24] MEDS: ALBUTEROL SULFATE 2.5 MG/ 0.5 ML NEBU NEB SCH ×4 (01:12→19:30)
[2018-08-24 05:28] VITALS: BP 117/63
[2018-08-24 07:02] LABS: BASOPHILS # (AUTO) 0.1 K/uL (0.0-8.0); BASOPHILS % (AUTO) 0.8 % (0.0-2.0); EOSINOPHILS # (AUTO) 0.5 K/uL (0.0-0.7); EOSINOPHILS % (AUTO) 4.5 % (0.0-7.0); HEMATOCRIT 27.9 % (31.2-41.9); HEMOGLOBIN 9.6 g/dL (10.9-14.3); LYMPHOCYTES % (AUTO) 25.8 % (20.5-51.5); MEAN CORPUSCULAR HEMOGLOBIN 29.3 uug (24.7-32.8); MEAN CORPUSCULAR HGB CONC 34 g/dL (32.3-35.6); MEAN CORPUSCULAR VOLUME 85.1 fL (75.5-95.3); MONOCYTES # (AUTO) 0.9 K/uL (2.0-10.0); NEUTROPHILS # (AUTO) 7.1 K/uL (1.8-8.9); NEUTROPHILS % (AUTO) 60.9 % (38.5-71.5); PLATELET COUNT (AUTO) 362 K/uL (179-408); RED BLOOD CELL COUNT(AUTO) 3.28 MIL/uL (3.63-4.92); WHITE BLOOD COUNT (AUTO) 11.7 K/uL (3.8-11.8)
[2018-08-24 07:16] LABS: IRON, SERUM 32 ug/dL (50-175)
[2018-08-24 07:45] LABS: ALANINE AMINOTRANSFERASE 23 U/L (14-59); ALKALINE PHOSPHATASE 78 U/L (50-136); ASPARTATE AMINOTRANSFERASE 18 U/L (15-37); BILIRUBIN,TOTAL 0.2 mg/dL (0.2-1.0); CARBON DIOXIDE 30 mmol/L (21-32); CHLORIDE 104 mmol/L (98-107); CHOLESTEROL 189 mg/dL (<200); CREATININE 0.8 mg/dL (0.6-1.3); GLUCOSE 83 mg/dL (74-106); HDL CHOLESTEROL 77 mg/dL (40-60); MAGNESIUM 1.7 mg/dL (1.8-2.4); POTASSIUM 3.5 mmol/L (3.5-5.1); TOTAL PROTEIN, SERUM 5.5 g/dL (6.4-8.2); TRIGLYCERIDES 85 MG/DL (30-150); UREA NITROGEN, BLOOD 17 mg/dL (7-18)
[2018-08-24 08:07] LABS: THYROID STIMULATING HORMONE 1.789 mIU/mL (0.358-3.740)
[2018-08-24 09:51] VITALS: BP 140/50
[2018-08-24] MEDS: FLUTICASONE/VILANTEROL 1 EACH BLST.W.DEV INH SCH (10:00)
[2018-08-24] MEDS: MULTIVIT, IRON, MIN NO. 8, FA TABLET PO SCH (10:01)
[2018-08-24] MEDS: predniSONE 10 MG TABLET PO SCH (10:01)
[2018-08-24] MEDS: ESCITALOPRAM OXALATE 10 MG TABLET PO SCH (10:01)
[2018-08-24] MEDS: VERAPAMIL 80 MG TABLET PO SCH ×2 (10:02→21:25)
[2018-08-24] MEDS: LISINOPRIL 10 MG TABLET PO SCH (10:03)
[2018-08-24] MEDS: VITAMINS A AND D OINT TP SCH (10:09)
[2018-08-24] MEDS ORDERED: MAGNESIUM OXIDE 400 MG TABLET PO ONE (13:00)
--- NOTE | 2018-08-24 13:56 | NUR ---
INTERDISCIPLINARY TEAM CONFERENCE
[2018-08-24] MEDS: MONTELUKAST SODIUM 10 MG TABLET PO SCH (17:57)
[2018-08-24 19:40] VITALS: BP 117/40
[2018-08-24] MEDS: DOCUSATE SODIUM 100 MG CAPSULE PO SCH (21:00)
[2018-08-24] MEDS: ZOLPIDEM 5 MG TABLET PO PRN (22:32)
[2018-08-25] MEDS: ALBUTEROL SULFATE 2.5 MG/ 0.5 ML NEBU NEB SCH ×4 (01:30→18:50)
[2018-08-25] MEDS: IPRATROPIUM BROMIDE 0.5 MG/2.5 ML NEBU NEB SCH ×4 (01:30→18:50)
[2018-08-25 06:39] VITALS: BP 117/45
[2018-08-25 08:00] VITALS: BP 120/44
[2018-08-25] MEDS: ESCITALOPRAM OXALATE 10 MG TABLET PO SCH (08:51)
[2018-08-25] MEDS: MULTIVIT, IRON, MIN NO. 8, FA TABLET PO SCH (08:52)
[2018-08-25] MEDS: LISINOPRIL 10 MG TABLET PO SCH (08:52)
[2018-08-25] MEDS: predniSONE 10 MG TABLET PO SCH (08:52)
[2018-08-25] MEDS: FLUTICASONE/VILANTEROL 1 EACH BLST.W.DEV INH SCH (08:52)
[2018-08-25] MEDS: VERAPAMIL 80 MG TABLET PO SCH ×2 (08:53→21:21)
[2018-08-25] MEDS: VITAMINS A AND D OINT TP SCH (08:54)
--- NOTE | 2018-08-25 09:10 | NUR ---
Received nursing report from night clerk nurse. Pt A/OX4, responds to verbal and tactile stimuli. No SOB or acute distress noted. Administered all due medications as ordered and tolerated well. Fall precautions in place. Assisted pt. with morning ADL's. No new skin condition noted. Bed in locked and lowest position with side rails up x2, alarm on. Call light within reach. Will continue to monitor.
[2018-08-25 16:00] VITALS: BP 118/42
[2018-08-25] MEDS: MONTELUKAST SODIUM 10 MG TABLET PO SCH (17:21)
--- NOTE | 2018-08-25 18:19 | NUR ---
End of shift: No significant change during this shift. All due medications administered as ordered and tolerated well. Encouraged PO fluid intake as tolerated. 2X upper side rails up as enabler for bed positioning and mobility. Call light and all frequently used items within pt. reach. Will endorse to oncoming shift accordingly.
[2018-08-25 20:00] VITALS: BP 123/46
[2018-08-25] MEDS: DOCUSATE SODIUM 100 MG CAPSULE PO SCH (21:00)
--- NOTE | 2018-08-25 21:05 | NUR ---
Patient refused Colace 200 mg cap. Risks and benefits explained. Patient demonstrated understanding. Still refused. Continue to monitor.
[2018-08-25] MEDS: TRAMADOL HCL 50 MG TABLET PO PRN (22:41)
[2018-08-26] MEDS: IPRATROPIUM BROMIDE 0.5 MG/2.5 ML NEBU NEB SCH ×3 (01:28→13:30)
[2018-08-26] MEDS: ALBUTEROL SULFATE 2.5 MG/ 0.5 ML NEBU NEB SCH ×3 (01:28→13:30)
--- NOTE | 2018-08-26 05:51 | NUR ---
End of the shift note Patient was stable throughout the shift and had a good sleep last night. No sign of acute distress or SOB noted. No Complain of pain. Medications given as ordered and well tolerated. Assisted her to the bathroom. Sacral redness cleansed, pat dry, applied z guard, covered by Mepilex. Keep her clean and dry. Safety measures maintained. All needs anticipated promptly. Fall precaution maintained. Bed in low position, brake and alarm on, side rails up x2. Call light and personal belongings within reach. Continue to monitor and will endorse to the day shift nurse accordingly.
[2018-08-26 06:44] VITALS: BP 133/51
--- NOTE | 2018-08-26 07:30 | NUR ---
Patient received, lying in bed, comfortable, AAOX4 compliant with care. Will continue with care plan, and safety measures. Addendum: 08/26/18 at 1522 by MICHELLE EATON RN No c/of pain or any other discomfort.
[2018-08-26 08:08] VITALS: BP 114/35
[2018-08-26] MEDS: MULTIVIT, IRON, MIN NO. 8, FA TABLET PO SCH (08:55)
[2018-08-26] MEDS: predniSONE 10 MG TABLET PO SCH (08:55)
[2018-08-26] MEDS: LISINOPRIL 10 MG TABLET PO SCH (08:55)
[2018-08-26] MEDS: ESCITALOPRAM OXALATE 10 MG TABLET PO SCH (08:55)
[2018-08-26] MEDS: FLUTICASONE/VILANTEROL 1 EACH BLST.W.DEV INH SCH (08:56)
[2018-08-26] MEDS: VERAPAMIL 80 MG TABLET PO SCH ×2 (08:56→20:21)
[2018-08-26] MEDS: VITAMINS A AND D OINT TP SCH (08:57)
[2018-08-26 15:53] VITALS: BP 97/45
[2018-08-26] MEDS ORDERED: ALBUTEROL SULFATE 2.5 MG/ 0.5 ML NEBU NEB PRN (16:15)
[2018-08-26] MEDS ORDERED: IPRATROPIUM BROMIDE 0.5 MG/2.5 ML NEBU NEB PRN (16:15)
[2018-08-26] MEDS: MONTELUKAST SODIUM 10 MG TABLET PO SCH (17:16)
--- NOTE | 2018-08-26 17:54 | NUR ---
LEft pt. resting comfortably, VSS. no c/of pain no sob. or any other disturbance noted. Ambulatory with walker, uses facility with minimal assist. No complications to sacral wound, educated on preventive measures. tolerated diet well with no n/v. Addendum: 08/26/18 at 1757 by MICHELLE EATON RN Safety measures implemented at all times, pt. compliant with care, will contine with care plan.
[2018-08-26 19:51] VITALS: BP 117/54
[2018-08-26] MEDS: DOCUSATE SODIUM 100 MG CAPSULE PO SCH (20:22)
[2018-08-26] MEDS: TRAMADOL HCL 50 MG TABLET PO PRN (22:43)
[2018-08-27] MEDS: ZOLPIDEM 5 MG TABLET PO PRN (00:42)
[2018-08-27 05:58] VITALS: BP 127/49
--- NOTE | 2018-08-27 06:55 | NUR ---
pt alert, oriented, ambulates with assist, goes to bathroom and bedpan at night, no bm . vss,afebrile, sons visited last night requesting urine test for uti, pt no complains of pain urinating. pain only to her shingles site left lateral chest and given tramadol. will continue to monitor, vss,afebrile.slept after ambien for 6 hrs
[2018-08-27 08:11] VITALS: BP 107/35
[2018-08-27] MEDS: VERAPAMIL 80 MG TABLET PO SCH ×2 (08:16→20:39)
[2018-08-27] MEDS: predniSONE 10 MG TABLET PO SCH (08:16)
[2018-08-27] MEDS: LISINOPRIL 10 MG TABLET PO SCH (08:17)
[2018-08-27] MEDS: MULTIVIT, IRON, MIN NO. 8, FA TABLET PO SCH (08:17)
[2018-08-27] MEDS: ESCITALOPRAM OXALATE 10 MG TABLET PO SCH (08:18)
[2018-08-27] MEDS: VITAMINS A AND D OINT TP SCH (08:18)
[2018-08-27] MEDS: FLUTICASONE/VILANTEROL 1 EACH BLST.W.DEV INH SCH (08:18)
--- NOTE | 2018-08-27 11:42 | NUR ---
Patient awakein stable condition. Continue therapy for ambulation and unsteady gait. not in distress. will continue monitor
[2018-08-27 16:28] VITALS: BP 112/38
[2018-08-27] MEDS: MONTELUKAST SODIUM 10 MG TABLET PO SCH (17:40)
--- NOTE | 2018-08-27 19:45 | NUR ---
Patient received in bed. AAO x4. Able to make needs known. No sign of acute distress or SOB was noted. On room air. Family at the bedside. No Complain of pain at this time. Patient assessed. Safety measures maintained. Fall prevention observed. Bed in low position, brake and alarm on, side rails up x2. Call light and personal belongings within reach. Will continue to monitor.
[2018-08-27 20:05] VITALS: BP 128/43
[2018-08-27] MEDS: DOCUSATE SODIUM 100 MG CAPSULE PO SCH (20:39)
--- NOTE | 2018-08-27 21:20 | NUR ---
Patient refused Colace 200 mg cap. Risks and benefits explained. Patient demonstrated understanding. Still refused. Continue to monitor.
[2018-08-27] MEDS: TRAMADOL HCL 50 MG TABLET PO PRN (22:41)
[2018-08-28 06:25] VITALS: BP 137/43
--- NOTE | 2018-08-28 06:58 | NUR ---
End of the shift note Patient was stable throughout the shift and had a good sleep last night. No sign of acute distress or SOB noted. No Complain of pain. Medications given as ordered and well tolerated. Assisted her to the bathroom three times. Sacral redness improving, cleansed, pat dry, applied z guard. Keep her clean and dry. Safety measures maintained. All needs anticipated promptly. Fall precaution maintained. Bed in low position, brake and alarm on, side rails up x2. Call light and personal belongings within reach. Continue to monitor and will endorse to the day shift nurse accordingly.
--- NOTE | 2018-08-28 08:15 | NUR ---
Received patient, awake, alert x4. Not in any form of distress. Denies any pain. Morning care done. Encouraged to call for needs. Tolerated diet and medications well. Will continue to monitor.
[2018-08-28] MEDS: VERAPAMIL 80 MG TABLET PO SCH ×2 (09:00→20:57)
[2018-08-28] MEDS: LISINOPRIL 10 MG TABLET PO SCH (09:33)
[2018-08-28] MEDS: MULTIVIT, IRON, MIN NO. 8, FA TABLET PO SCH (09:33)
[2018-08-28] MEDS: ESCITALOPRAM OXALATE 10 MG TABLET PO SCH (09:33)
[2018-08-28] MEDS: predniSONE 10 MG TABLET PO SCH (09:34)
[2018-08-28] MEDS: VITAMINS A AND D OINT TP SCH (09:35)
[2018-08-28] MEDS: FLUTICASONE/VILANTEROL 1 EACH BLST.W.DEV INH SCH (09:35)
[2018-08-28 10:10] VITALS: BP 112/49
--- NOTE | 2018-08-28 12:00 | NUR ---
Up with occupational therapy, tolerating well. Denies any pain. Was able to ambulate.
[2018-08-28 13:28] LABS: *BILIRUBIN,URIN NEGATIVE (NEGATIVE); *BLOOD, URINE NEGATIVE (NEGATIVE); *CLARITY,URINE CLEAR (CLEAR); *COLOR,URINE YELLOW (YELLOW); *KETONES,URINE NEGATIVE (NEGATIVE); *UROBILINOGEN,URINE 0.2 E.U./dl (NORMAL); LEUKOCYTE ESTERASE ,URINE TRACE (NEGATIVE); NITRITE, URINE NEGATIVE (NEGATIVE); PH,URINE 6.5 (5.0-8.0); UGLUCOSE NEGATIVE (NEGATIVE)
[2018-08-28 13:39] LABS: RBC,URINE 0-3 /HPF (0-3)
[2018-08-28 13:41] LABS: BACTERIA,URINE FEW /HPF (NONE SEEN); SQUAMOUS EPITHELIAL CELL,UR FEW /HPF (NONE SEEN); YEAST,URINE MODERATE /HPF (NONE SEEN)
[2018-08-28 13:42] LABS: MUCUS,URINE FEW /LPF (0-FEW)
[2018-08-28 16:10] VITALS: BP 107/45
[2018-08-28] MEDS: MONTELUKAST SODIUM 10 MG TABLET PO SCH (17:37)
--- NOTE | 2018-08-28 18:30 | NUR ---
Relayed urinalysis result and ordered Keflex 250 Mg Q8H. said to include to home medications for a total of [address] about allergies to PCN. said less than 5% reaction and was OK to give.
[2018-08-28 20:15] VITALS: BP 117/58
[2018-08-28] MEDS: DOCUSATE SODIUM 100 MG CAPSULE PO SCH (20:56)
[2018-08-28] MEDS: CEphaleXIN 250 MG CAPSULE PO SCH (21:03)
--- NOTE | 2018-08-28 23:13 | NUR ---
Received pt in bed, AAO x 3 with family member at bedside. No acute distress noted. Verbally responsive and able to make needs known. Denies pain or discomfort at this time. All due medications given as ordered, tolerated will. All safety measures and fall precautions maintained. Call light and all personal belongings within reach. Will continue to monitor.
[2018-08-29 05:25] VITALS: BP 129/68
[2018-08-29] MEDS: CEphaleXIN 250 MG CAPSULE PO SCH ×2 (05:51→13:43)
[2018-08-29 08:00] VITALS: BP 139/56
[2018-08-29] MEDS: VERAPAMIL 80 MG TABLET PO SCH (08:28)
[2018-08-29 08:29] VITALS: BP 139/56
[2018-08-29] MEDS: predniSONE 10 MG TABLET PO SCH (08:29)
[2018-08-29] MEDS: LISINOPRIL 10 MG TABLET PO SCH (08:29)
[2018-08-29] MEDS: ESCITALOPRAM OXALATE 10 MG TABLET PO SCH (08:29)
[2018-08-29] MEDS: FLUTICASONE/VILANTEROL 1 EACH BLST.W.DEV INH SCH (08:29)
[2018-08-29] MEDS: MULTIVIT, IRON, MIN NO. 8, FA TABLET PO SCH (08:29)
[2018-08-29] MEDS: VITAMINS A AND D OINT TP SCH (08:30)
--- NOTE | 2018-08-29 08:30 | NUR ---
Received patient, awake alert x4. Not in any form of distress. Denies any pain. Morning care done, caesar-care done. For possible discharged today
--- NOTE | 2018-08-29 10:22 | NUR ---
Up with physical therapy, tolerating well. No complaints of pain. Able to ambulate.
--- NOTE | 2018-08-29 13:00 | NUR ---
Discharge order obtained from Dr Silverman. Informed patient to complete oral anti-biotic medication for UTI. Prescriptions given to Son, TMS faxed to proffered pharmacy and copy given to Son. Education packet explained to Son and to patient.
--- NOTE | 2018-08-29 14:00 | NUR ---
Discharge to board and care per ambulance. In stable condition, denies any pain. Routine discharge care done. Instructed patient to take medications as prescribed and explained that Dr Pires will be following patient at [facility]. Discharge packet given to ambulance staff together with belongings.
[2018-11-03] MEDS ORDERED: NAPR-1164 PO (12:58)
[2018-11-03] MEDS ORDERED: HYDR-3326 PO (12:58)
[2018-11-03] MEDS ORDERED: ESCI5TAB PO (12:58)
== END 2018-08-29 14:00 | DRG 871 ==
LOC: OBSVTOIN 21:13
PROVIDERS: ADMIT Family Medicine; ATTEND Physical Medicine & Rehabilitation Pain Medicine
DX: A41.9 Sepsis, unspecified organism (principal); E43 Unspecified severe protein-calorie malnutrition; N17.0 Acute kidney failure with tubular necrosis; G92 Toxic encephalopathy; N39.0 Urinary tract infection, site not specified; B02.29 Other postherpetic nervous system involvement; D68.59 Other primary thrombophilia; Z68.1 Body mass index [BMI] 19.9 or less, adult; E66.01 Morbid (severe) obesity due to excess calories; Z68.35 Body mass index [BMI] 35.0-35.9, adult; J45.909 Unspecified asthma, uncomplicated; Z96.611 Presence of right artificial shoulder joint; Z87.440 Personal history of urinary (tract) infections; I87.2 Venous insufficiency (chronic) (peripheral); I73.9 Peripheral vascular disease, unspecified; F32.9 Major depressive disorder, single episode, unspecified; G89.29 Other chronic pain; M54.5 Low back pain; R53.81 Other malaise; I48.91 Unspecified atrial fibrillation; Z99.3 Dependence on wheelchair; I10 Essential (primary) hypertension; I25.10 Atherosclerotic heart disease of native coronary artery without angina pectoris; Z88.0 Allergy status to penicillin; Z96.651 Presence of right artificial knee joint; D63.8 Anemia in other chronic diseases classified elsewhere; I11.9 Hypertensive heart disease without heart failure; I48.2 Chronic atrial fibrillation; M21.70 Unequal limb length (acquired), unspecified site; M21.372 Foot drop, left foot; B96.20 Unspecified Escherichia coli [E. coli] as the cause of diseases classified elsewhere; E83.42 Hypomagnesemia; Z98.1 Arthrodesis status; R26.81 Unsteadiness on feet; Z16.12 Extended spectrum beta lactamase (ESBL) resistance; L40.9 Psoriasis, unspecified; Z82.49 Family history of ischemic heart disease and other diseases of the circulatory system; Z91.041 Radiographic dye allergy status
CPT/HCPCS: 36415; 71045; 83550; 83735; 84100; 84443; 85025; 87077; 87086; 92526; 92610; 94640; 94664; 97110; 97112; 97116; 97165; 97530; 97535; J3590; J7512

== ENCOUNTER 2018-09-03 15:49 | Inpatient (IN) | payer MEDICARE, MEDICAID ==
[~2018-09-03] VITALS: Ht 160 cm; Wt 68.0 kg
[~2018-09-03 15:49] MED LIST changes: -FLUCONAZOLE IV; -TRIAMCINOLONE 0.1% TOP
[2018-09-03] MEDS ORDERED: IV NORMAL SALINE 500 ML BAG IV ONE (17:00)
[2018-09-03] MEDS ORDERED: IMIPENEM/CILASTATIN SODIUM 500 MG in IV NORMAL SALINE 100 ML IV ONE (17:00)
[2018-09-03] MEDS ORDERED: MEROPENEM 0.5 G in IV NORMAL SALINE 50 ML IV ONE (17:15)
[2018-09-03] MEDS ORDERED: TRAZ-182 PO (17:16)
[2018-09-03] MEDS ORDERED: PRED10TA PO (17:16)
[2018-09-03] MEDS ORDERED: ACET-73 PO (17:16)
[2018-09-03 17:18] LABS: BASOPHILS # (AUTO) 0.1 K/uL (0.0-8.0); BASOPHILS % (AUTO) 1.1 % (0.0-2.0); EOSINOPHILS # (AUTO) 0.1 K/uL (0.0-0.7); EOSINOPHILS % (AUTO) 0.7 % (0.0-7.0); HEMATOCRIT 30.6 % (31.2-41.9); HEMOGLOBIN 9.9 g/dL (10.9-14.3); LYMPHOCYTES # (AUTO) 1.1 K/uL (20.0-40.0); MEAN CORPUSCULAR HEMOGLOBIN 28.2 uug (24.7-32.8); MEAN CORPUSCULAR HGB CONC 33 g/dL (32.3-35.6); MEAN CORPUSCULAR VOLUME 86.7 fL (75.5-95.3); MONOCYTES # (AUTO) 0.3 K/uL (2.0-10.0); MONOCYTES % (AUTO) 3.6 % (0.0-11.0); NEUTROPHILS # (AUTO) 7.8 K/uL (1.8-8.9); NEUTROPHILS % (AUTO) 82.6 % (38.5-71.5); PLATELET COUNT (AUTO) 340 K/uL (179-408); RED BLOOD CELL COUNT(AUTO) 3.52 MIL/uL (3.63-4.92); WHITE BLOOD COUNT (AUTO) 9.5 K/uL (3.8-11.8)
[2018-09-03 17:25] LABS: CARBON DIOXIDE 25 mmol/L (21-32); CHLORIDE 99 mmol/L (98-107); CREATININE 1.5 mg/dL (0.6-1.3); GLUCOSE 111 mg/dL (74-106); POTASSIUM 5.4 mmol/L (3.5-5.1); UREA NITROGEN, BLOOD 29 mg/dL (7-18)
[2018-09-03 17:30] LABS: ALANINE AMINOTRANSFERASE 35 U/L (14-59); ALKALINE PHOSPHATASE 70 U/L (50-136); ASPARTATE AMINOTRANSFERASE 21 U/L (15-37); BILIRUBIN,DIRECT 0.1 mg/dL (0.0-0.2); BILIRUBIN,TOTAL 0.2 mg/dL (0.2-1.0); LIPASE 111 U/L (73-393); TOTAL PROTEIN, SERUM 6.4 g/dL (6.4-8.2)
[2018-09-03 17:31] LABS: *BILIRUBIN,URIN NEGATIVE (NEGATIVE); *BLOOD, URINE NEGATIVE (NEGATIVE); *CLARITY,URINE CLEAR (CLEAR); *COLOR,URINE YELLOW (YELLOW); *KETONES,URINE NEGATIVE (NEGATIVE); *UROBILINOGEN,URINE 0.2 E.U./dl (NORMAL); LEUKOCYTE ESTERASE ,URINE NEGATIVE (NEGATIVE); NITRITE, URINE NEGATIVE (NEGATIVE); UGLUCOSE NEGATIVE (NEGATIVE)
--- NOTE | 2018-09-03 18:15 | NUR ---
pt transfered to floor n stable condition.
--- NOTE | 2018-09-03 18:33 | NUR ---
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
[2018-09-03 18:36] VITALS: BP 131/45
[2018-09-03] MEDS ORDERED: ACETAMINOPHEN 325 MG TABLET PO PRN (19:15)
[2018-09-03] MEDS ORDERED: ONDANSETRON 4 MG/2 ML VIAL IV PRN (19:15)
[2018-09-03] MEDS ORDERED: MAGNESIUM HYDROXIDE 30 ML LIQUID UDC PO PRN (19:15)
[2018-09-03] MEDS ORDERED: Z GUARD REMEDY PASTE 57 GM TUBE TOP PRN (19:15)
[2018-09-03 19:51] VITALS: BP 111/37
[2018-09-03] MEDS: IV NS 1000 ML 1,000 ML IV PRN (20:10)
[2018-09-03] MEDS: VERAPAMIL 80 MG TABLET PO SCH (21:00)
[2018-09-03] MEDS ORDERED: SULFAMETH/TRIMETH 800/160 MG TABLET PO SCH ×2 (21:00)
[2018-09-03] MEDS ORDERED: VERAPAMIL 80 MG TABLET PO SCH (21:00)
[2018-09-03] MEDS: TRAZODONE 50 MG TABLET PO SCH (21:16)
[2018-09-03] MEDS: TEMAZEPAM 15 MG CAPSULE PO PRN (21:17)
[2018-09-03] MEDS ORDERED: VERAPAMIL 40 MG TABLET ONE (21:29)
--- NOTE | 2018-09-03 23:45 | NUR ---
RECEIVED REPORT FROM RN. RECEIVED PATIENT AWAKE IN BED. A/O X3. DENIES PAIN OR DISCOMFORT. NO RESP. DISTRESS NOTED. ON TELE SR. VS WNL. IVF INFUSING WELL TO LEFT FA #20 GAUGE. ON ISOLATION FOR ESBL IN THE URINE. CALL LIGHT IN REACH. ALL NEEDS ATTENDED. WILL CONTINUE TO MONITOR AND ASSESS.
[2018-09-04] VITALS: BP 105/38
[2018-09-04 04:00] VITALS: BP 116/52
--- NOTE | 2018-09-04 05:52 | NUR ---
PATIENT AWAKE IN BED. DENIES PAIN OR DISCOMFORT. IVF INFUSING WELL. VSS. ON TELE SR. BED ALARM ON. CALL LIGHT IN REACH. ALL NEEDS ATTENDED. WILL CONTINUE TO MONITOR AND ASSESS.
[2018-09-04 06:45] LABS: BASOPHILS # (AUTO) 0.1 K/uL (0.0-8.0); BASOPHILS % (AUTO) 0.9 % (0.0-2.0); EOSINOPHILS # (AUTO) 0.6 K/uL (0.0-0.7); EOSINOPHILS % (AUTO) 5.9 % (0.0-7.0); HEMATOCRIT 28.9 % (31.2-41.9); HEMOGLOBIN 9.5 g/dL (10.9-14.3); LYMPHOCYTES # (AUTO) 2.5 K/uL (20.0-40.0); LYMPHOCYTES % (AUTO) 25.6 % (20.5-51.5); MEAN CORPUSCULAR HEMOGLOBIN 28.5 uug (24.7-32.8); MEAN CORPUSCULAR HGB CONC 33 g/dL (32.3-35.6); MEAN CORPUSCULAR VOLUME 86.7 fL (75.5-95.3); MONOCYTES # (AUTO) 0.7 K/uL (2.0-10.0); MONOCYTES % (AUTO) 7.4 % (0.0-11.0); NEUTROPHILS # (AUTO) 5.8 K/uL (1.8-8.9); NEUTROPHILS % (AUTO) 60.2 % (38.5-71.5); PLATELET COUNT (AUTO) 315 K/uL (179-408); RED BLOOD CELL COUNT(AUTO) 3.34 MIL/uL (3.63-4.92); WHITE BLOOD COUNT (AUTO) 9.6 K/uL (3.8-11.8)
[2018-09-04 06:58] LABS: CARBON DIOXIDE 24 mmol/L (21-32); CHLORIDE 106 mmol/L (98-107); CREATININE 1.1 mg/dL (0.6-1.3); GLUCOSE 76 mg/dL (74-106); MAGNESIUM 1.8 mg/dL (1.8-2.4); POTASSIUM 4.5 mmol/L (3.5-5.1); UREA NITROGEN, BLOOD 23 mg/dL (7-18)
[2018-09-04 07:22] LABS: EOSINOPHILS % (MANUAL) 2 % (0-8); LYMPHOCYTES % (MANUAL) 19 % (20-40); MONOCYTES % (MANUAL) 9 % (2-10); NEUTROPHILS % (MANUAL) 70 % (42-75)
--- NOTE | 2018-09-04 07:30 | NUR ---
RECEIVED PATIENT IN BED WITH EYES CLOSED BUT OPENS EYES WHEN NAME IS CALLED BUT FALLS ASLEEP AGAIN SHE IS ALERT AND AWARE NO S/S OF PAIN OR DISCOMFORTS AT THIS TIME.REMAIN ON CONTACT ISOLATION AND PRECAUTION IVF IN PROGRESS ORDERED WITH NO S/S OF INFILTERATION ON SITE MADE COMFORTABLE CALL LIGHTS AND PERSONAL BELONGINGS ARE PLACED WITHIN EASY REACH WILL CONTINUE TO OBSERVE.
[2018-09-04] MEDS ORDERED: MONTELUKAST SODIUM 10 MG TABLET PO SCH ×2 (09:00→18:00)
[2018-09-04] MEDS ORDERED: ACETAMINOPHEN ES 500 MG TABLET PO SCH (09:00)
[2018-09-04] MEDS: predniSONE 10 MG TABLET PO SCH (09:34)
[2018-09-04] MEDS: SULFAMETH/TRIMETH 800/160 MG TABLET PO SCH ×2 (09:34→20:22)
[2018-09-04] MEDS: TRAMADOL HCL 50 MG TABLET PO SCH ×3 (09:35→17:22)
[2018-09-04] MEDS: VERAPAMIL 80 MG TABLET PO SCH ×2 (09:37→20:24)
[2018-09-04 11:35] VITALS: BP 102/41
[2018-09-04] MEDS: IV NS 1000 ML 1,000 ML IV PRN (12:33)
--- NOTE | 2018-09-04 13:31 | NUR ---
PER THE NUTRITION FACULTY MEMBER THE PATIENT NEEDS TO BE STRAIGHT CATH FOR UA/C/S AND PATIENT HAS JUST VOIDED ABOUT 500 ML IN THE BEDPAN ABOUT 10 MINUTES AGO SO THE PLAN IS TO ENCOURAGE FLUIDS ORALLY AND I WILL STRAIGHT CATH HER IN ABOUT 2 HOURS FOR THE URINE SPECIMEN PATIENT AWARE.
[2018-09-04 15:08] VITALS: BP 116/44
--- NOTE | 2018-09-04 15:30 | NUR ---
PATIENT STRAIGHT CATH FOR URINE SPECIMEN FOR UA/CS ORDERED AWAITING FOR RESULTS.
[2018-09-04 15:55] LABS: *BILIRUBIN,URIN NEGATIVE (NEGATIVE); *BLOOD, URINE NEGATIVE (NEGATIVE); *CLARITY,URINE CLEAR (CLEAR); *COLOR,URINE YELLOW (YELLOW); *KETONES,URINE NEGATIVE (NEGATIVE); *UROBILINOGEN,URINE 0.2 E.U./dl (NORMAL); LEUKOCYTE ESTERASE ,URINE NEGATIVE (NEGATIVE); NITRITE, URINE NEGATIVE (NEGATIVE); UGLUCOSE NEGATIVE (NEGATIVE)
[2018-09-04 15:58] LABS: RBC,URINE 0-3 /HPF (0-3); WBC,URINE 0-3 /HPF (0-3)
--- NOTE | 2018-09-04 17:00 | NUR ---
RESULT OF THE URINE RETRIEVED FROM THE [employer] AND GIVEN TO SANTI THE EMPLOYEE COMMUNICATIONS COORDINATOR STATED WILL LET DENISE POTTS AWARE FOR FINAL DECISION TO WHETHER PATIENT WILL BE ABLE TO BE DISCHARGED TODAY OR NOT.PATIENT AWARE.
--- NOTE | 2018-09-04 18:15 | NUR ---
NO ORDERS AT THIS TIME.
[2018-09-04 19:00] VITALS: BP 101/48
--- NOTE | 2018-09-04 19:25 | NUR ---
RECEIVED PT AWAKE, ALERT, ORIENTEDX4. PT SHOWS NO SIGNS OF DISTRESS. FAMILY AT BEDSIDE.IV INTACT AND INFUSING WELL. SAFETY AND COMFORT PROVIDED. WILL CONTINUE TO MONITOR.
[2018-09-04] MEDS: TRAZODONE 50 MG TABLET PO SCH (20:22)
[2018-09-04] MEDS: TEMAZEPAM 15 MG CAPSULE PO PRN (21:42)
[2018-09-05 04:00] VITALS: BP 119/59
[2018-09-05] MEDS: IV NS 1000 ML 1,000 ML IV PRN (05:00)
--- NOTE | 2018-09-05 06:11 | NUR ---
PT SLEPT THROUGHOUT THE SHIFT. PT SHOWS NO SIGNS OF DISTRESS. IV INTACT.PRESCRIBED MEDICATION GIVEN AND PT TOLERATED IT WELL. SAFETY AND COMFORT PROVIDED. WILL ENDORSE ACCORDINGLY TO INCOMING NURSE FOR CONTINUITY OF CARE.
--- NOTE | 2018-09-05 07:20 | NUR ---
RECEIVED PATIENT ASLEEP IN BED, EASILY TO AROUSE. NO SIGNS OF ACUTE DISTRESS. HEPLOCK ON THE LEFT FA IS INTACT. SAFETY MEASURES INITIATED. BED IS LOW AND LOCKED, CALL LIGHT WITHIN REACH. WILL CONTINUE TO MONITOR.
[2018-09-05] MEDS: SULFAMETH/TRIMETH 800/160 MG TABLET PO SCH (08:41)
[2018-09-05] MEDS: predniSONE 10 MG TABLET PO SCH (08:41)
[2018-09-05] MEDS: VERAPAMIL 80 MG TABLET PO SCH (08:42)
[2018-09-05] MEDS: TRAMADOL HCL 50 MG TABLET PO SCH ×2 (08:43→13:09)
[2018-09-05 11:07] VITALS: BP 94/42
[2018-09-05 11:08] VITALS: BP 108/42
--- NOTE | 2018-09-05 11:08 | NUR ---
PATIENT'S BP WAS 94/42, WENT TO GO AND EXAMINE PATIENT. SHE WAS AWAKE AND ALERT, NO COMPLAINTS OF DIZZINESS OR SOB. NO SIGNS OF ACUTE DISTRESS. RECHECKED BP AND WAS 108/42. WILL CONTINUE TO MONITOR.
[2018-09-05 15:12] VITALS: BP 121/53
--- NOTE | 2018-09-05 15:18 | NUR ---
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 REPORT WAS GIVEN TO EMT. ALL BELONGINGS WERE GIVEN TO PATIENT. DISCHARGE INSTRUCTIONS EXPLAINED TO PATIENT AND VERBALIZED UNDERSTANDING. PATIENT LEFT IN STABLE CONDITION.
[2018-11-03] MEDS ORDERED: NAPR-1164 PO (12:58)
[2018-11-03] MEDS ORDERED: HYDR-3326 PO (12:58)
[2018-11-03] MEDS ORDERED: ESCI5TAB PO (12:58)
== END 2018-09-05 15:18 | DRG 683 ==
LOC: ER 15:49 → TELE 17:59 → MED 09-04 18:29
PROVIDERS: ADMIT Nurse Practitioner Acute Care; ATTEND Nurse Practitioner Acute Care
DX: N17.0 Acute kidney failure with tubular necrosis (principal); E87.1 Hypo-osmolality and hyponatremia; E87.5 Hyperkalemia; M21.371 Foot drop, right foot; I48.91 Unspecified atrial fibrillation; M85.80 Other specified disorders of bone density and structure, unspecified site; I12.9 Hypertensive chronic kidney disease with stage 1 through stage 4 chronic kidney disease, or unspecified chronic kidney disease; N18.9 Chronic kidney disease, unspecified; H40.9 Unspecified glaucoma; Z88.0 Allergy status to penicillin; Z91.041 Radiographic dye allergy status; D50.0 Iron deficiency anemia secondary to blood loss (chronic); I25.10 Atherosclerotic heart disease of native coronary artery without angina pectoris; Z96.611 Presence of right artificial shoulder joint; Z87.440 Personal history of urinary (tract) infections; Z22.39 Carrier of other specified bacterial diseases
CPT/HCPCS: 36415; 70030-TC; 71045; 83690; 83735; 84100; 85025; 85730; 87086; 93005; A4663; C1758; G0378; J0743; J2185; J3490; J7030; J7040; J7512

== ENCOUNTER 2018-10-15 11:13 | Inpatient (IN) | payer MEDICARE, MEDICAID ==
[~2018-10-15] VITALS: Ht 154.9 cm; Wt 64.9 kg
[~2018-10-15 11:13] MED LIST changes: -ACET-2154 PO; +ACET-73 PO; -BISA10SU61 RC; -ESCI10TA PO; -FLUT1DIS29 IH; -IPRA3AMP22 IH; -LISI10TA5 PO; -MAGN400O6 PO; -MINE50OI TP; -MULT-213 PO; -NA P133E RC; +PRED10TA PO; -PREDNISONE 10MG PO; +TRAZ-182 PO
[2018-10-15] MEDS ORDERED: FLUT1BLS IH (11:38)
[2018-10-15 12:01] LABS: BASOPHILS # (AUTO) 0.1 K/uL (0.0-8.0); BASOPHILS % (AUTO) 0.9 % (0.0-2.0); EOSINOPHILS # (AUTO) 0.2 K/uL (0.0-0.7); EOSINOPHILS % (AUTO) 1.7 % (0.0-7.0); HEMATOCRIT 31.5 % (31.2-41.9); HEMOGLOBIN 10.4 g/dL (10.9-14.3); LYMPHOCYTES # (AUTO) 1.2 K/uL (20.0-40.0); LYMPHOCYTES % (AUTO) 9.9 % (20.5-51.5); MEAN CORPUSCULAR HGB CONC 33 g/dL (32.3-35.6); MEAN CORPUSCULAR VOLUME 87.4 fL (75.5-95.3); MONOCYTES # (AUTO) 0.8 K/uL (2.0-10.0); MONOCYTES % (AUTO) 7.1 % (0.0-11.0); NEUTROPHILS # (AUTO) 9.4 K/uL (1.8-8.9); NEUTROPHILS % (AUTO) 80.4 % (38.5-71.5); PLATELET COUNT (AUTO) 365 K/uL (179-408); WHITE BLOOD COUNT (AUTO) 11.7 K/uL (3.8-11.8)
--- NOTE | 2018-10-15 12:03 | NUR ---
RECEIVED A 83 Y/O FEMALE PT C/O MULTIPLE COMPLAINTS( INCREASED CONFUSION, BURNING AND FREQUENT URINATION) SEEN BY MD, ORDERS PUT IN, EKG DONE, IV INSERTED ON LT HAND G20. CXRAY DONE, SEPTIC WORKUP SENT TOP LAB
[2018-10-15 12:19] LABS: CARBON DIOXIDE 29 mmol/L (21-32); CHLORIDE 102 mmol/L (98-107); CREATININE 0.8 mg/dL (0.6-1.3); GLUCOSE 99 mg/dL (74-106); POTASSIUM 3.9 mmol/L (3.5-5.1); UREA NITROGEN, BLOOD 18 mg/dL (7-18)
[2018-10-15 12:32] LABS: ALANINE AMINOTRANSFERASE 19 U/L (14-59); ALKALINE PHOSPHATASE 119 U/L (50-136); ASPARTATE AMINOTRANSFERASE 18 U/L (15-37); BILIRUBIN,DIRECT 0.1 mg/dL (0.0-0.2); BILIRUBIN,TOTAL 0.3 mg/dL (0.2-1.0); TOTAL PROTEIN, SERUM 7.4 g/dL (6.4-8.2)
[2018-10-15 12:57] LABS: *BILIRUBIN,URIN NEGATIVE (NEGATIVE); *CLARITY,URINE CLOUDY (CLEAR); *COLOR,URINE YELLOW (YELLOW); *KETONES,URINE NEGATIVE (NEGATIVE); *UROBILINOGEN,URINE 0.2 E.U./dl (NORMAL); LEUKOCYTE ESTERASE ,URINE 1+ (NEGATIVE); NITRITE, URINE POSITIVE (NEGATIVE); UGLUCOSE NEGATIVE (NEGATIVE)
[2018-10-15 12:58] LABS: *BLOOD, URINE TRACE (NEGATIVE)
--- NOTE | 2018-10-15 13:00 | NUR ---
FC IN & OUT PUT IN , URINE SAMPLE TAKEN AND SENT TO LAB, AFTERWARDS IV AB GIVEN
[2018-10-15 13:03] LABS: BACTERIA,URINE MANY /HPF (NONE SEEN); SQUAMOUS EPITHELIAL CELL,UR MODERATE /HPF (NONE SEEN); TRANSITIONAL EPI CELLS,URINE FEW /LPF (NONE SEEN); WBC,URINE TNTC /HPF (0-3)
[2018-10-15] MEDS ORDERED: MEROPENEM 1 G in IV NORMAL SALINE 100 ML IV ONE (13:15)
[2018-10-15] MEDS ORDERED: MEROPENEM 1 G VIAL IV ONE (13:30)
[2018-10-15] MEDS ORDERED: HYDROCODONE/APAP 5-325MG TABLET PO PRN (13:45)
[2018-10-15] MEDS ORDERED: ONDANSETRON 4 MG/2 ML VIAL IV PRN (13:45)
[2018-10-15] MEDS ORDERED: Z GUARD REMEDY PASTE 57 GM TUBE TOP PRN (13:45)
[2018-10-15] MEDS ORDERED: MAGNESIUM HYDROXIDE 30 ML LIQUID UDC PO PRN (13:45)
[2018-10-15] MEDS ORDERED: ACETAMINOPHEN 325 MG TABLET PO PRN (13:45)
[2018-10-15] MEDS ORDERED: TRAMADOL HCL 50 MG TABLET PO PRN (13:45)
[2018-10-15] MEDS ORDERED: MEROPENEM 1 G in IV NORMAL SALINE 100 ML IV SCH (14:00)
[2018-10-15 15:00] VITALS: BP 148/53
--- NOTE | 2018-10-15 15:15 | NUR ---
83 year old female received from er via [facility] for uti.pt is axox3.v/s are stable ,call light with in reach new orders received and carried out,
[2018-10-15] MEDS: IV NS 1000 ML 1,000 ML IV PRN (15:24)
[2018-10-15 20:00] VITALS: BP 125/50
--- NOTE | 2018-10-15 20:00 | NUR ---
RECEIVED PATIENT AWAKE IN BED WITH SON AT BEDSIDE. PATIENT IS A/O X3. LAO SPEAKING BUT ABLE TO MAKE SIMPLE NEEDS KNOWN. DENIES PAIN OR DISCOMFORT. IVF INFUSING ORDERED. ON RA. VS WNL. DENIES ANY SOB AT THIS TIME. CALL LIGHT IN REACH. ALL NEEDS ATTENDED. WILL CONTINUE TO MONITOR AND ASSESS.
[2018-10-15] MEDS: TRAZODONE 50 MG TABLET PO SCH (20:35)
[2018-10-15] MEDS: ENOXAPARIN SODIUM 40 MG/0.4 ML DISP.SYRIN SQ SCH (20:36)
[2018-10-15] MEDS: VERAPAMIL 80 MG TABLET PO SCH (21:09)
[2018-10-15] MEDS: IPRATROPIUM BROMIDE 0.5 MG/2.5 ML NEBU NEB PRN (21:27)
[2018-10-15] MEDS: ALBUTEROL SULFATE 2.5 MG/3 ML NEBU NEB PRN (21:27)
[2018-10-16] MEDS: MEROPENEM 1 G in IV NORMAL SALINE 100 ML IV SCH ×2 (01:34→13:57)
[2018-10-16] MEDS: IPRATROPIUM BROMIDE 0.5 MG/2.5 ML NEBU NEB PRN ×4 (02:07→23:27)
[2018-10-16] MEDS: ALBUTEROL SULFATE 2.5 MG/3 ML NEBU NEB PRN ×4 (02:07→23:27)
[2018-10-16 04:51] VITALS: BP 151/66
[2018-10-16] MEDS: IV NS 1000 ML 1,000 ML IV PRN (05:41)
[2018-10-16 06:29] LABS: BASOPHILS # (AUTO) 0.1 K/uL (0.0-8.0); EOSINOPHILS # (AUTO) 1.1 K/uL (0.0-0.7); EOSINOPHILS % (AUTO) 9.6 % (0.0-7.0); HEMATOCRIT 30.7 % (31.2-41.9); HEMOGLOBIN 9.9 g/dL (10.9-14.3); LYMPHOCYTES # (AUTO) 2.3 K/uL (20.0-40.0); LYMPHOCYTES % (AUTO) 20.1 % (20.5-51.5); MEAN CORPUSCULAR HEMOGLOBIN 28.3 uug (24.7-32.8); MEAN CORPUSCULAR HGB CONC 32 g/dL (32.3-35.6); MEAN CORPUSCULAR VOLUME 87.6 fL (75.5-95.3); MONOCYTES % (AUTO) 8.2 % (0.0-11.0); NEUTROPHILS # (AUTO) 7.1 K/uL (1.8-8.9); NEUTROPHILS % (AUTO) 61.1 % (38.5-71.5); PLATELET COUNT (AUTO) 360 K/uL (179-408); RED BLOOD CELL COUNT(AUTO) 3.51 MIL/uL (3.63-4.92); WHITE BLOOD COUNT (AUTO) 11.6 K/uL (3.8-11.8)
[2018-10-16 06:48] LABS: CARBON DIOXIDE 32 mmol/L (21-32); CHLORIDE 107 mmol/L (98-107); CHOLESTEROL 195 mg/dL (<200); CREATININE 0.8 mg/dL (0.6-1.3); GLUCOSE 78 mg/dL (74-106); HDL CHOLESTEROL 97 mg/dL (40-60); MAGNESIUM 1.7 mg/dL (1.8-2.4); PHOSPHOROUS 3.4 mg/dL (2.5-4.9); POTASSIUM 3.4 mmol/L (3.5-5.1); TRIGLYCERIDES 107 MG/DL (30-150); UREA NITROGEN, BLOOD 14 mg/dL (7-18)
[2018-10-16 06:53] LABS: THYROID STIMULATING HORMONE 2.031 mIU/mL (0.358-3.740)
[2018-10-16] MEDS ORDERED: predniSONE 10 MG TABLET PO SCH (09:00)
[2018-10-16] MEDS: VERAPAMIL 80 MG TABLET PO SCH ×2 (09:25→21:35)
[2018-10-16] MEDS ORDERED: METOPROLOL TARTRATE 25 MG TABLET PO SCH (11:15)
[2018-10-16 11:30] VITALS: BP 150/73
[2018-10-16] MEDS: FLUTICASONE/VILANTEROL 1 EACH BLST.W.DEV IH SCH (11:38)
[2018-10-16] MEDS ORDERED: MAGNESIUM OXIDE 400 MG TABLET PO ONE (13:45)
[2018-10-16] MEDS ORDERED: POTASSIUM CHLORIDE 20 MEQ TAB.PRT.SR PO ONE (14:00)
[2018-10-16 15:49] VITALS: BP 153/66
--- NOTE | 2018-10-16 20:00 | NUR ---
Received patient laying in bed. No acute distress noted. Family at bedside. A/O x 3 with periods of confusion. Japanese speaking but able to make needs known. Patient on O2 2L NC. IV on the left FA patent and intact. IVF infusing. Noted left FA bruise. Noted sacral redness. Bilateral lower ext. edema. Safety initiated. Call light within reach. Will continue to monitor.
[2018-10-16] MEDS: TRAZODONE 50 MG TABLET PO SCH (21:35)
[2018-10-16] MEDS: ENOXAPARIN SODIUM 40 MG/0.4 ML DISP.SYRIN SQ SCH (21:38)
[2018-10-16] MEDS ORDERED: ZOLPIDEM 5 MG TABLET PO PRN (22:15)
[2018-10-16] MEDS: METOPROLOL TARTRATE 50 MG TABLET PO SCH (22:28)
[2018-10-16 22:47] VITALS: BP 146/65
--- NOTE | 2018-10-16 23:20 | NUR ---
Noted patient breathing hard. Audible wheezing. Vital signs checked. HR elevated at 100, O2 at 95%. RT called to give PRN breathing tx.
--- NOTE | 2018-10-17 00:18 | NUR ---
Contacted HUMAN RESOURCES SPECIALIST Teetee. Patient did not find relief after breathing tx. She is confused and agitated. New orders by Teetee, solumedrol 40 mg ivp. DC Prednisone. ABG's STAT. DDimer levels. CXR in the AM and seroquel 12.5 mg to calm her down.
[2018-10-17 00:34] LABS: ABG BASE EXCESS 4.7 mmol/L; ABG PCO2 32.2 mmHg (35.0-45.0); ABG PH 7.541 (7.350-7.450); ABG PO2 105.5 mmHg (75.0-100.0); ABG SITE LEFT RADIAL; ABG TOTAL HEMOGLOBIN 11.6 G/dL (12.0-16.0); COHb 0.8 % (0.5-1.5); MetHb 0.1 % (0.0-1.5); O2Hb 97.2 % (94.0-97.0); VENT MODE Nasal Cannula
[2018-10-17] MEDS ORDERED: methylPREDNISolone SOD SUCC 40 MG/ML VIAL IV SCH (01:00)
[2018-10-17] MEDS ORDERED: QUETIAPINE FUMARATE 25 MG TABLET PO PRN (01:00)
--- NOTE | 2018-10-17 01:00 | NUR ---
Patient is TELE per STATION MECHANIC order. TELE SR at 94. Will closely monitor.
[2018-10-17] MEDS: MEROPENEM 500 MG in IV NORMAL SALINE 50 ML IV SCH ×2 (03:18→14:51)
--- NOTE | 2018-10-17 05:45 | NUR ---
Patient slept intermittently t/o shift. No acute distress noted. TELE SR at 90. O2 2L NC. She became confused and agitated sometime in my shift. Medication Seroquel was given per DIRECTOR OF MARKETING ANALYTICS ordered, responded well to it. Good urine output. Vital signs stable. Skin care provided. All meds given as ordered. All needs met. Safety and comfort measures maintained t/o shift.
--- NOTE | 2018-10-17 07:05 | NUR ---
RECEIVED PATIENT IN BED, ASLEEP, LETHARGIC, ABLE TO AROUSE WITH STIMULATION. PATIENT CONFUSED.1;1 SITTER AT BEDSIDE. NO S/S OF ACUTE DISTRESS. TELE SR 90'S. ON 2L NC SATURATING AT 100%. LT. FA IV HL INTACT AND FLUSHED. ALL NEEDS MET. SAFETY PRECAUTIONS IN PLACE. WILL CONTINUE TO MONITOR.
[2018-10-17 07:13] LABS: CARBON DIOXIDE 29 mmol/L (21-32); CHLORIDE 104 mmol/L (98-107); CREATININE 0.8 mg/dL (0.6-1.3); GLUCOSE 137 mg/dL (74-106); POTASSIUM 4.7 mmol/L (3.5-5.1); UREA NITROGEN, BLOOD 13 mg/dL (7-18)
[2018-10-17] MEDS ORDERED: ZOLPIDEM 5 MG TABLET PO PRN (07:15)
[2018-10-17 08:00] VITALS: BP 149/80
--- NOTE | 2018-10-17 08:27 | NUR ---
PT NOT ABLE TO STAND FOR 2V CXR.. NURSE HENRY SHE WAS COMBATIVE/ALOC BRTET I DID PCXR
[2018-10-17] MEDS: FLUTICASONE/VILANTEROL 1 EACH BLST.W.DEV IH SCH ×2 (09:05→10:52)
[2018-10-17] MEDS: VERAPAMIL 80 MG TABLET PO SCH ×3 (09:08→21:16)
[2018-10-17] MEDS: METOPROLOL TARTRATE 50 MG TABLET PO SCH ×3 (09:09→20:58)
[2018-10-17] MEDS: methylPREDNISolone SOD SUCC 40 MG/ML VIAL IV SCH ×2 (10:52→20:56)
[2018-10-17 11:42] VITALS: BP 102/67
[2018-10-17 16:14] VITALS: BP 140/69
[2018-10-17 19:23] VITALS: BP 151/62
[2018-10-17] MEDS: TRAZODONE 50 MG TABLET PO SCH (20:57)
[2018-10-17] MEDS: ENOXAPARIN SODIUM 40 MG/0.4 ML DISP.SYRIN SQ SCH (20:57)
[2018-10-18] MEDS: MEROPENEM 500 MG in IV NORMAL SALINE 50 ML IV SCH ×2 (01:33→13:05)
[2018-10-18 03:32] VITALS: BP 151/64
--- NOTE | 2018-10-18 05:17 | NUR ---
pt slept intermittently through the night and was easily awoken, pt denied having any pain or difficulty breathing. pt is on 2L nc saturating 96%. pt had urinated multiple time during the night with small amount of urine output each time. urine was clear and yellow. all needs met, pt encouraged to reposition during the night, safety measures are in place, call light within reach, bed alarm is on. will continue to monitor.
--- NOTE | 2018-10-18 07:15 | NUR ---
RECEIVED PATIENT IN BED COMFORTABLY, ALERT AND ORIENTED, ABLE TO MAKE NEEDS KNOWN. NO S/S OF ACUTE DISTRESS. IV INTACT AND FLUSHED. SAFETY PRECAUTIONS IN PLACE. WILL CONTINUE TO MONITOR AND CONTINUE PLAN OF CARE
[2018-10-18] MEDS: methylPREDNISolone SOD SUCC 40 MG/ML VIAL IV SCH (09:08)
[2018-10-18] MEDS: FLUTICASONE/VILANTEROL 1 EACH BLST.W.DEV IH SCH (09:08)
[2018-10-18] MEDS: METOPROLOL TARTRATE 50 MG TABLET PO SCH (09:09)
[2018-10-18 09:11] VITALS: BP 150/55
[2018-10-18] MEDS: VERAPAMIL 80 MG TABLET PO SCH (09:11)
[2018-10-18] MEDS ORDERED: SULF1TAB48 PO (12:07)
[2018-10-18] MEDS ORDERED: METO50TA16 PO (12:07)
[2018-10-18] MEDS ORDERED: NITR50CA PO (12:07)
--- NOTE | 2018-10-18 15:00 | NUR ---
PATIENT DISCHARGE TO HOME WITH SON VIA PRIVATE CAR, DISCHARGE INSTRUCTION GIVEN AND PRESCRIBED MEDICATION GIVEN AND VERBALIZED UNDERSTANDING. PATIENT WILL FOLLOW UP WITH PCP WITHIN 1 WEEK, NO SOB NOTED, NO C/O PAIN NOTED. IV AND ID BAND REMOVED, PICTURE TAKEN , AND BELONGINGS ACCOUNTED FOR. QUESTIONS AND CONCERNS ADDRESSED.
[2018-10-18] MEDS ORDERED: methylPREDNISolone SOD SUCC 40 MG/ML VIAL IV SCH (21:00)
[2018-11-03] MEDS ORDERED: NAPR-1164 PO (12:58)
[2018-11-03] MEDS ORDERED: ESCI5TAB PO (12:58)
[2018-11-03] MEDS ORDERED: HYDR-3326 PO (12:58)
[2018-12-05] MEDS ORDERED: CEFT1VIA15 IV (15:53)
[2018-12-05] MEDS ORDERED: VERA80TA2 PO (15:53)
[2018-12-05] MEDS ORDERED: PANT40TA2 PO (15:53)
[2018-12-05] MEDS ORDERED: ALBU2.5V7 NEB (15:53)
[2018-12-05] MEDS ORDERED: MENT71OI TOP (15:53)
[2018-12-05] MEDS ORDERED: ZINC220C8 PO (15:53)
[2018-12-05] MEDS ORDERED: PROT30LI PO (15:53)
[2018-12-05] MEDS ORDERED: HYDR-3326 PO (15:53)
[2018-12-05] MEDS ORDERED: ASCO500P18 PO (15:53)
[2018-12-05] MEDS ORDERED: RXVAN XX (15:53)
[2018-12-05] MEDS ORDERED: ACID1TAB4 PO (15:53)
[2018-12-05] MEDS ORDERED: ZOLP5TAB8 PO (15:53)
[2018-12-05] MEDS ORDERED: RIVA10TA PO (15:53)
[2018-12-05] MEDS ORDERED: DOCU100C36 PO (15:53)
[2018-12-05] MEDS ORDERED: CLON0.1T PO (15:53)
[2018-12-05] MEDS ORDERED: ACET325T53 PO (15:53)
== END 2018-10-18 15:15 | disposition home health service (06) | DRG 689 ==
LOC: ER 11:13 → MEDSURG3 14:19 → TELE3 10-17 00:20 → MEDSURG3 10-17 11:54
PROVIDERS: ATTEND Nurse Practitioner Acute Care
DX: N39.0 Urinary tract infection, site not specified (principal); G93.41 Metabolic encephalopathy; E44.0 Moderate protein-calorie malnutrition; D68.59 Other primary thrombophilia; B02.29 Other postherpetic nervous system involvement; B96.20 Unspecified Escherichia coli [E. coli] as the cause of diseases classified elsewhere; Z16.12 Extended spectrum beta lactamase (ESBL) resistance; I87.2 Venous insufficiency (chronic) (peripheral); D63.8 Anemia in other chronic diseases classified elsewhere; Z68.27 Body mass index [BMI] 27.0-27.9, adult; E87.6 Hypokalemia; E83.42 Hypomagnesemia; G89.29 Other chronic pain; M54.9 Dorsalgia, unspecified; I48.2 Chronic atrial fibrillation; I73.9 Peripheral vascular disease, unspecified; J45.909 Unspecified asthma, uncomplicated; M19.011 Primary osteoarthritis, right shoulder; I11.9 Hypertensive heart disease without heart failure; I25.10 Atherosclerotic heart disease of native coronary artery without angina pectoris; Z88.0 Allergy status to penicillin; Z87.440 Personal history of urinary (tract) infections; M21.372 Foot drop, left foot; Z98.1 Arthrodesis status; Z79.52 Long term (current) use of systemic steroids; Z79.899 Other long term (current) drug therapy; Z74.09 Other reduced mobility; Z96.611 Presence of right artificial shoulder joint; M19.90 Unspecified osteoarthritis, unspecified site
CPT/HCPCS: 36415; 36600; 70030-TC; 71045; 83605; 83735; 84100; 84443; 85025; 85730; 87040; 87077; 87086; 93005; 94640; 97110; 97112; 97116; 97530; A4663; C1758; G0378; J1650; J2185; J2920; J3490; J3590; J7030; J7512

== ENCOUNTER 2018-11-02 11:17 | Inpatient (IN) | payer MEDICARE, MEDICAID ==
[~2018-11-02] VITALS: Ht 152.4 cm; Wt 63.5 kg
[~2018-11-02 11:17] MED LIST changes: -ACET-73 PO; +FLUT1BLS IH; +METO50TA16 PO; -MONT10TA25 PO; +NITR50CA PO; +SULF1TAB48 PO
[2018-11-02] MEDS ORDERED: CRANBERRY PO (11:42)
[2018-11-02] MEDS ORDERED: METO25TA6 PO (11:42)
[2018-11-02] MEDS ORDERED: VITAMIN D3 PO (11:42)
[2018-11-02] MEDS ORDERED: LACT1CAP71 PO (11:42)
[2018-11-02] MEDS ORDERED: IV NORMAL SALINE 500 ML BAG IV ONE (11:45)
[2018-11-02 11:53] LABS: BASOPHILS # (AUTO) 0.2 K/uL (0.0-8.0); BASOPHILS % (AUTO) 1.4 % (0.0-2.0); EOSINOPHILS # (AUTO) 0.5 K/uL (0.0-0.7); HEMATOCRIT 32.8 % (31.2-41.9); HEMOGLOBIN 10.9 g/dL (10.9-14.3); LYMPHOCYTES # (AUTO) 2.8 K/uL (20.0-40.0); LYMPHOCYTES % (AUTO) 22.4 % (20.5-51.5); MEAN CORPUSCULAR HEMOGLOBIN 28.2 uug (24.7-32.8); MEAN CORPUSCULAR HGB CONC 33 g/dL (32.3-35.6); MEAN CORPUSCULAR VOLUME 85.2 fL (75.5-95.3); MONOCYTES # (AUTO) 0.9 K/uL (2.0-10.0); MONOCYTES % (AUTO) 7.3 % (0.0-11.0); NEUTROPHILS % (AUTO) 64.9 % (38.5-71.5); PLATELET COUNT (AUTO) 419 K/uL (179-408); RED BLOOD CELL COUNT(AUTO) 3.85 MIL/uL (3.63-4.92); WHITE BLOOD COUNT (AUTO) 12.4 K/uL (3.8-11.8)
--- NOTE | 2018-11-02 11:53 | NUR ---
PT A/OX1, BIB FAMILY AND CAREGIVER, C/O DYSURIA. PT WAS SEEN HERE ON 10/15/18 AND DX W/ UTI. PT IS CURRENTLY ON BACTRIM FOR UTI. UNABLE TO ASSESS PAIN DUE TO PT'S ORIENTATION. PER FAMILY'S REPORT, PT IS "MORE CONFUSED THAN USUAL". VSS. PT DOES NOT APPEAR TO BE IN ANY APPARENT DISTRESS AT THIS TIME.
[2018-11-02 11:59] LABS: CARBON DIOXIDE 26 mmol/L (21-32); CHLORIDE 99 mmol/L (98-107); GLUCOSE 85 mg/dL (74-106); POTASSIUM 3.8 mmol/L (3.5-5.1); UREA NITROGEN, BLOOD 19 mg/dL (7-18)
[2018-11-02 12:04] LABS: ETHANOL < 3 MG/DL (0-0)
[2018-11-02 12:05] LABS: ACETAMINOPHEN 10.3 ug/mL (10-30); ALANINE AMINOTRANSFERASE 21 U/L (14-59); ALKALINE PHOSPHATASE 154 U/L (50-136); ASPARTATE AMINOTRANSFERASE 16 U/L (15-37); BILIRUBIN,DIRECT 0.2 mg/dL (0.0-0.2); BILIRUBIN,TOTAL 0.3 mg/dL (0.2-1.0); TOTAL PROTEIN, SERUM 6.6 g/dL (6.4-8.2)
[2018-11-02 12:17] LABS: THYROID STIMULATING HORMONE 5.758 mIU/mL (0.358-3.740)
[2018-11-02 12:19] LABS: *BILIRUBIN,URIN NEGATIVE (NEGATIVE); *BLOOD, URINE NEGATIVE (NEGATIVE); *COLOR,URINE YELLOW (YELLOW); *KETONES,URINE NEGATIVE (NEGATIVE); *UROBILINOGEN,URINE 0.2 E.U./dl (NORMAL); LEUKOCYTE ESTERASE ,URINE NEGATIVE (NEGATIVE); NITRITE, URINE NEGATIVE (NEGATIVE); UGLUCOSE NEGATIVE (NEGATIVE)
[2018-11-02 12:21] LABS: *CLARITY,URINE HAZY (CLEAR)
[2018-11-02 12:27] LABS: WBC,URINE 0-3 /HPF (0-3)
[2018-11-02 12:28] LABS: BACTERIA,URINE NONE SEEN /HPF (NONE SEEN); SQUAMOUS EPITHELIAL CELL,UR FEW /HPF (NONE SEEN)
[2018-11-02 12:29] LABS: MUCUS,URINE FEW /LPF (0-FEW)
[2018-11-02 12:31] LABS: *AMPHETAMINE, URINE NEGATIVE (NEGATIVE); *BARBITURATE, URINE NEGATIVE (NEGATIVE); *CANNABINOID, URINE NEGATIVE (NEGATIVE); *COCCAINE, URINE NEGATIVE (NEGATIVE); *OPIATE, URINE NEGATIVE (NEGATIVE); *PHENCYCLIDINE SCREEN,URINE NEGATIVE (NEGATIVE)
[2018-11-02] MEDS ORDERED: LEVOFLOXACIN 750 MG/D5W 150 ML PIGGYBACK IV ONE (13:00)
[2018-11-02] MEDS ORDERED: LEVOFLOXACIN 750MG/D5W 150 ML IV ONE (13:00)
[2018-11-02] MEDS ORDERED: TRAMADOL HCL 50 MG TABLET PO PRN (13:15)
--- NOTE | 2018-11-02 13:31 | NUR ---
Pt. admitted to [facility], under care of RAUL POTTS. Belongs List completed
--- NOTE | 2018-11-02 13:31 | NUR ---
ADMITTING REPORT GIVEN TO BELLO GUERRERO.
[2018-11-02] MEDS ORDERED: ONDANSETRON 4 MG/2 ML VIAL IV PRN (13:45)
[2018-11-02] MEDS ORDERED: Z GUARD REMEDY PASTE 57 GM TUBE TOP PRN (13:45)
[2018-11-02] MEDS ORDERED: MAGNESIUM HYDROXIDE 30 ML LIQUID UDC PO PRN (13:45)
[2018-11-02] MEDS ORDERED: ACETAMINOPHEN 325 MG TABLET PO PRN (13:45)
--- NOTE | 2018-11-02 14:00 | NUR ---
Received report from Neal GUERRERO in ER, expecting patient admission.
[2018-11-02] MEDS ORDERED: ALBUTEROL SULFATE 2.5 MG/ 0.5 ML NEBU NEB PRN (14:15)
--- NOTE | 2018-11-02 14:20 | NUR ---
Received patient from ER. Patient is alert and oriented x3. Bed is in low locked position with call light in reach. Family at bedside. electronic device monitor on, Sinus Bradycardia. VSS, No distress noted. Sacral redness noted, r/t hx of pressure sore from a year ago per family. Heels are red, offloading. 20g AC IV access, patent and locked. Will continue to monitor.
[2018-11-02 14:30] VITALS: BP 104/57
[2018-11-02] MEDS: IV NS 1000 ML 1,000 ML IV PRN (15:01)
[2018-11-02 15:50] VITALS: BP 138/50
--- NOTE | 2018-11-02 18:49 | NUR ---
End of Shift Note: Patient is awake alert and oriented. Bed is in low locked position with call light in reach, bed alarm is on. Safety/fall precautions implemented. Caregiver is at bedside. VSS, no distress noted. Pending lab results. Patient is on tele monitor sinus jamir.
[2018-11-02 20:21] VITALS: BP 132/61
[2018-11-02] MEDS: METOPROLOL TARTRATE 25 MG TABLET PO SCH (21:14)
[2018-11-02] MEDS: VERAPAMIL 80 MG TABLET PO SCH (21:14)
[2018-11-02] MEDS: HYDROCODONE/APAP 5-325MG TABLET PO PRN (21:25)
[2018-11-03 00:21] VITALS: BP 131/56
--- NOTE | 2018-11-03 00:45 | NUR ---
Patient is awake alert and oriented x2, mildly confused. Patient is not in distress, reports mild back pain, managed with medication. Bed is in low locked position with call light in reach, bed alarm is on. Caregiver and family at the bedside. Safety/fall precautions implemented. ICD applied to the lower legs. Patient is on tele monitor sinus jamir.
[2018-11-03] MEDS: HYDROCODONE/APAP 5-325MG TABLET PO PRN ×3 (01:35→10:10)
[2018-11-03 04:23] VITALS: BP 151/53
[2018-11-03] MEDS: IV NS 1000 ML 1,000 ML IV PRN (05:27)
--- NOTE | 2018-11-03 06:41 | NUR ---
PATIENT SLEPT WELL DURING THE NIGHT, NORCO WAS GIVEN FOR PAIN, REPOSITIONED FREQUENTLY FOR COMFORT. CAREGIVER AT BEDSIDE. COMFORT AND SAFETY WERE PROVIDED. NO ACUTE DISTRESS NOTED.
[2018-11-03 06:42] LABS: BASOPHILS # (AUTO) 0.1 K/uL (0.0-8.0); BASOPHILS % (AUTO) 0.8 % (0.0-2.0); EOSINOPHILS # (AUTO) 0.5 K/uL (0.0-0.7); EOSINOPHILS % (AUTO) 4.9 % (0.0-7.0); HEMATOCRIT 32.9 % (31.2-41.9); HEMOGLOBIN 10.8 g/dL (10.9-14.3); LYMPHOCYTES # (AUTO) 2.5 K/uL (20.0-40.0); LYMPHOCYTES % (AUTO) 23.9 % (20.5-51.5); MEAN CORPUSCULAR HEMOGLOBIN 27.9 uug (24.7-32.8); MEAN CORPUSCULAR HGB CONC 33 g/dL (32.3-35.6); MEAN CORPUSCULAR VOLUME 85.1 fL (75.5-95.3); MONOCYTES # (AUTO) 0.8 K/uL (2.0-10.0); MONOCYTES % (AUTO) 7.4 % (0.0-11.0); NEUTROPHILS # (AUTO) 6.5 K/uL (1.8-8.9); PLATELET COUNT (AUTO) 377 K/uL (179-408); RED BLOOD CELL COUNT(AUTO) 3.86 MIL/uL (3.63-4.92); WHITE BLOOD COUNT (AUTO) 10.3 K/uL (3.8-11.8)
[2018-11-03 06:46] LABS: ALANINE AMINOTRANSFERASE 20 U/L (14-59); ALKALINE PHOSPHATASE 136 U/L (50-136); ASPARTATE AMINOTRANSFERASE 8 U/L (15-37); BILIRUBIN,TOTAL 0.3 mg/dL (0.2-1.0); CARBON DIOXIDE 27 mmol/L (21-32); CHLORIDE 103 mmol/L (98-107); CHOLESTEROL 163 mg/dL (<200); CREATININE 0.8 mg/dL (0.6-1.3); GLUCOSE 74 mg/dL (74-106); HDL CHOLESTEROL 71 mg/dL (40-60); MAGNESIUM 1.5 mg/dL (1.8-2.4); PHOSPHOROUS 3.1 mg/dL (2.5-4.9); POTASSIUM 3.6 mmol/L (3.5-5.1); TOTAL PROTEIN, SERUM 5.9 g/dL (6.4-8.2); TRIGLYCERIDES 152 MG/DL (30-150); UREA NITROGEN, BLOOD 12 mg/dL (7-18)
--- NOTE | 2018-11-03 07:10 | NUR ---
RECEIVED IN BED ALERT TO SELF WITH CONFUSSION ALL NEEDS ANTICIPATED AND SATISFIED TOTALLY DEPENDENT ON NURSES FOR ALL ADL TURNED AND REPOSITIONED Q2H FOR COMFORT BLE WITH REDNESS ELEVATED ON THE PILLOW FOR COMFORT MADE COMFORTABLE WILL CONTINUE TO OBSERVE AND PROVIDE A SAFE AND THERAPEUTIC ENVIRONMENT AT ALL TIMES
[2018-11-03] MEDS ORDERED: MAGNESIUM OXIDE 400 MG TABLET PO ONE (08:15)
[2018-11-03] MEDS ORDERED: predniSONE 10 MG TABLET PO SCH (09:00)
[2018-11-03] MEDS ORDERED: CULTURELLE CAPSULE PO SCH (09:00)
[2018-11-03] MEDS ORDERED: FLUTICASONE/VILANTEROL 1 EACH BLST.W.DEV IH SCH (09:00)
[2018-11-03] MEDS ORDERED: Medication Not On Formulary EA (Lactobacillus Combo No.11 (Probiotic) 1 EACH) PO SCH (09:00)
[2018-11-03] MEDS: VERAPAMIL 80 MG TABLET PO SCH (09:15)
[2018-11-03] MEDS: METOPROLOL TARTRATE 25 MG TABLET PO SCH (09:16)
[2018-11-03 11:00] VITALS: BP 102/44
--- NOTE | 2018-11-03 11:00 | NUR ---
PATIENT SEEN BY THE PHYSICAL THERAPIST FOR AMBULATION AND PER THE THERAPIST SHE AMBULATED ABOUT 10 FEET
--- NOTE | 2018-11-03 12:00 | NUR ---
ORDER TO DISCHARGE PATIENT HOME TODAY NOTED BUT PER MOISES SWAT TEAM MEMBER PATIENT SHOULD HAVE XRAY LUMBAR SPINE FIRST BEFORE DISCHARGE.FAMILY AT THE BEDSIDE AND AWARE.
[2018-11-03] MEDS ORDERED: ESCI5TAB PO (12:58)
[2018-11-03] MEDS ORDERED: NAPR-1164 PO (12:58)
[2018-11-03] MEDS ORDERED: HYDR-3326 PO (12:58)
--- NOTE | 2018-11-03 14:37 | NUR ---
XRAYS OF THE SPINE DONE ORDERED AWAITING FOR RESULTS.
--- NOTE | 2018-11-03 15:00 | NUR ---
RESULTS OF THE C SPINE OBTAINED FROM THE RADIOLOGIST AND RELAYED TO MOISES STATED IT WAS OKAY TO DISCHARGE PATIENT HOME TODAY.
--- NOTE | 2018-11-03 15:30 | NUR ---
PATIENT DISCHARGED PICKED UP BY HER MAKE UP MAN AND HER SON WITH ALL OF HER PERSONAL BELONGINGS AND PRESCRIPTIONS IN SATISFACTORY CONDITION PATIENT TO FOLLOW UP WITH DR CRYSTAL AN OUT PATIENT AND THEY EXPRESSED UNDERSTANDING
== END 2018-11-03 16:10 | disposition home health service (06) | DRG 917 ==
LOC: ER 11:17 → TELE3 14:02
PROVIDERS: ADMIT Nurse Practitioner Acute Care; ATTEND Nurse Practitioner Acute Care
DX: T40.4X1A Poisoning by other synthetic narcotics, accidental (unintentional), initial encounter (principal); G92 Toxic encephalopathy; B02.29 Other postherpetic nervous system involvement; E87.1 Hypo-osmolality and hyponatremia; E44.0 Moderate protein-calorie malnutrition; J98.11 Atelectasis; Y92.019 Unspecified place in single-family (private) house as the place of occurrence of the external cause; E86.0 Dehydration; Z87.440 Personal history of urinary (tract) infections; I48.2 Chronic atrial fibrillation; M21.372 Foot drop, left foot; J45.909 Unspecified asthma, uncomplicated; G89.29 Other chronic pain; I25.10 Atherosclerotic heart disease of native coronary artery without angina pectoris; I11.9 Hypertensive heart disease without heart failure; F32.9 Major depressive disorder, single episode, unspecified; I87.8 Other specified disorders of veins; L40.9 Psoriasis, unspecified; M19.011 Primary osteoarthritis, right shoulder; Z98.1 Arthrodesis status; Z68.27 Body mass index [BMI] 27.0-27.9, adult; D63.8 Anemia in other chronic diseases classified elsewhere; Z79.51 Long term (current) use of inhaled steroids; Z82.49 Family history of ischemic heart disease and other diseases of the circulatory system; Z96.651 Presence of right artificial knee joint; Z96.642 Presence of left artificial hip joint; Z98.41 Cataract extraction status, right eye; Z88.0 Allergy status to penicillin; Z79.52 Long term (current) use of systemic steroids; Z96.611 Presence of right artificial shoulder joint
CPT/HCPCS: 36415; 70030-TC; 70450; 71045; 72110; 80307; 83605; 83735; 84100; 84443; 85025; 85730; 87040; 87086; 87400; 93005; 97116; 97530; A4663; G0378; G0480; G0480-TC; J1956; J7030; J7512

== ENCOUNTER 2018-11-26 10:07 | Inpatient (IN) | payer MEDICARE, MEDICAID ==
[~2018-11-26] VITALS: Ht 152.4 cm; Wt 59.9 kg
[~2018-11-26 10:07] MED LIST changes: +CRANBERRY PO; +ESCI5TAB PO; +HYDR-3326 PO; +LACT1CAP71 PO; +METO25TA6 PO; -METO50TA16 PO; +NAPR-1164 PO; -NITR50CA PO; -TRAZ-182 PO; +VITAMIN D3 PO
--- NOTE | 2018-11-26 10:16 | NUR ---
Dr Joiner at the bedside for MSE. Pt's daughter translate.
[2018-11-26] MEDS ORDERED: VANCOMYCIN IV 1,000 MG in IV DEXTROSE 5% 250 ML IV ONE (10:30)
[2018-11-26] MEDS ORDERED: CEFTRIAXONE 1 G in IV DEXTROSE 5% 50 ML IV ONE (10:30)
[2018-11-26] MEDS ORDERED: SULF1TAB48 PO (10:32)
[2018-11-26] MEDS ORDERED: CEFTRIAXONE 1 G VIAL ONE (10:32)
[2018-11-26] MEDS ORDERED: ESCI10TA PO (10:32)
[2018-11-26] MEDS ORDERED: VANCOMYCIN IV 200 ML ONE (10:33)
[2018-11-26 10:34] LABS: BASOPHILS # (AUTO) 0.2 K/uL (0.0-8.0); BASOPHILS % (AUTO) 1.2 % (0.0-2.0); EOSINOPHILS # (AUTO) 1.5 K/uL (0.0-0.7); EOSINOPHILS % (AUTO) 6.9 % (0.0-7.0); HEMATOCRIT 34.2 % (31.2-41.9); HEMOGLOBIN 11.1 g/dL (10.9-14.3); LYMPHOCYTES # (AUTO) 3.3 K/uL (20.0-40.0); LYMPHOCYTES % (AUTO) 15.6 % (20.5-51.5); MEAN CORPUSCULAR HEMOGLOBIN 26.7 uug (24.7-32.8); MEAN CORPUSCULAR HGB CONC 32 g/dL (32.3-35.6); MEAN CORPUSCULAR VOLUME 82.2 fL (75.5-95.3); MONOCYTES # (AUTO) 1.1 K/uL (2.0-10.0); MONOCYTES % (AUTO) 5.3 % (0.0-11.0); PLATELET COUNT (AUTO) 474 K/uL (179-408); RED BLOOD CELL COUNT(AUTO) 4.15 MIL/uL (3.63-4.92); WHITE BLOOD COUNT (AUTO) 21.1 K/uL (3.8-11.8)
[2018-11-26 10:42] LABS: CARBON DIOXIDE 28 mmol/L (21-32); CHLORIDE 100 mmol/L (98-107); CREATININE 0.8 mg/dL (0.6-1.3); GLUCOSE 89 mg/dL (74-106); UREA NITROGEN, BLOOD 20 mg/dL (7-18)
[2018-11-26] MEDS ORDERED: IV NORMAL SALINE 500 ML BAG IV ONE (10:45)
[2018-11-26 10:48] LABS: ALANINE AMINOTRANSFERASE 15 U/L (14-59); ALKALINE PHOSPHATASE 140 U/L (50-136); ASPARTATE AMINOTRANSFERASE 10 U/L (15-37); BILIRUBIN,DIRECT 0.1 mg/dL (0.0-0.2); BILIRUBIN,TOTAL 0.4 mg/dL (0.2-1.0); TOTAL PROTEIN, SERUM 6.8 g/dL (6.4-8.2)
[2018-11-26 10:52] LABS: EOSINOPHILS % (MANUAL) 7 % (0-8); LYMPHOCYTES % (MANUAL) 11 % (20-40); MONOCYTES % (MANUAL) 3 % (2-10); NEUTROPHILS % (MANUAL) 79 % (42-75)
--- NOTE | 2018-11-26 11:10 | NUR ---
Called [facility] for admit, awaiting call back from Dr Magana.
--- NOTE | 2018-11-26 11:13 | NUR ---
Attempted to collect urine w/ bedpan, but Pt has a large Bm.
--- NOTE | 2018-11-26 12:10 | NUR ---
Placed a 2nd call to Dr Magana, awaiting call back.
--- NOTE | 2018-11-26 14:00 | NUR ---
received patient from er and admitted to same day surgery center, with diagnosis of cellulitis, patient alert and oriented, able to make needs known, no sob noted at this time, no c/o pain at this time. will continue treatment plan.
[2018-11-26 14:54] VITALS: BP 143/65
[2018-11-26] MEDS ORDERED: TEMAZEPAM 15 MG CAPSULE PO PRN (15:00)
[2018-11-26] MEDS ORDERED: ONDANSETRON 4 MG/2 ML VIAL IV PRN (15:00)
--- NOTE | 2018-11-26 15:52 | NUR ---
PHARMACY CLINICAL NOTES: ( VANCOMYCIN DOSING) S: 83 yo female , with Cellulitis , ordered Vancomycin and Rocephin O: BUN/SCR 20/0.8, WBC 21.1, TEMP 98.0, DOSING WT 128 LBS, T 1/2 23.9 HRS, SCR USED FOR CALC 1.0 A/P: PT received Vancomycin 1 gm in ER @ 10:54 today(dose #!. Will dose Vancomycin @ 1gm q32hrs Addendum: 11/26/18 at 1557 by AMANDA ATKINS ADM with estimated peak of 40.1 and trough of 16. Will order a trough prior to 4th dose(not ordered in [facility]) and adjust the dose as needed.
[2018-11-26 17:30] VITALS: BP 127/56
[2018-11-26] MEDS: METOPROLOL TARTRATE 25 MG TABLET PO SCH (17:36)
--- NOTE | 2018-11-26 19:05 | NUR ---
patient alert and oriented, able to make needs known, no sob noted at this time, no c/o pain at this time. IV intact and patent will continue treatment plan.
--- NOTE | 2018-11-26 19:25 | NUR ---
Received pt awake, alert and orientedx3. Pt shows no signs of acute distress. Family at bedside. Pt iv intact. Call light within reach. Safety and comfort provided. Will continue to monitor.
[2018-11-26] MEDS ORDERED: DOCUSATE SODIUM 250 MG CAPSULE PO SCH (21:00)
[2018-11-26] MEDS: ACIDOPHILUS/BULGARICUS CHEW TAB PO SCH (21:17)
[2018-11-26] MEDS: MEROPENEM 1 G in IV NORMAL SALINE 100 ML IV SCH (21:18)
[2018-11-26] MEDS: ENOXAPARIN SODIUM 40 MG/0.4 ML DISP.SYRIN SQ SCH (21:19)
[2018-11-26] MEDS ORDERED: MEROPENEM 1 G in IV NORMAL SALINE 100 ML IV SCH (22:00)
[2018-11-27] MEDS: PANTOPRAZOLE SODIUM 40 MG TABLET.DR PO SCH (06:09)
--- NOTE | 2018-11-27 06:23 | NUR ---
Pt slept throughout the shift. Pt shows no signs of acute distress. Pt iv intact. Prescribed medication given and pt tolerated it well.Pt turned and repositioned. Pt urine sent to lab. Call light within reach. Safety and comfort provided. Will endorse accordingly to incoming nurse for continuity of care.
[2018-11-27 06:29] VITALS: BP 122/65
[2018-11-27 06:35] LABS: BASOPHILS # (AUTO) 0.1 K/uL (0.0-8.0); BASOPHILS % (AUTO) 0.8 % (0.0-2.0); EOSINOPHILS # (AUTO) 0.8 K/uL (0.0-0.7); EOSINOPHILS % (AUTO) 4.9 % (0.0-7.0); HEMATOCRIT 31.7 % (31.2-41.9); HEMOGLOBIN 10.3 g/dL (10.9-14.3); LYMPHOCYTES % (AUTO) 12.2 % (20.5-51.5); MEAN CORPUSCULAR HEMOGLOBIN 26.5 uug (24.7-32.8); MEAN CORPUSCULAR HGB CONC 33 g/dL (32.3-35.6); MEAN CORPUSCULAR VOLUME 81.3 fL (75.5-95.3); MONOCYTES # (AUTO) 0.8 K/uL (2.0-10.0); MONOCYTES % (AUTO) 5.3 % (0.0-11.0); NEUTROPHILS # (AUTO) 12.3 K/uL (1.8-8.9); NEUTROPHILS % (AUTO) 76.8 % (38.5-71.5); PLATELET COUNT (AUTO) 449 K/uL (179-408); RED BLOOD CELL COUNT(AUTO) 3.91 MIL/uL (3.63-4.92)
[2018-11-27 06:54] LABS: ALANINE AMINOTRANSFERASE 13 U/L (14-59); ALKALINE PHOSPHATASE 153 U/L (50-136); ASPARTATE AMINOTRANSFERASE 11 U/L (15-37); BILIRUBIN,TOTAL 0.3 mg/dL (0.2-1.0); CARBON DIOXIDE 29 mmol/L (21-32); CHLORIDE 98 mmol/L (98-107); CREATININE 0.8 mg/dL (0.6-1.3); GLUCOSE 80 mg/dL (74-106); MAGNESIUM 1.8 mg/dL (1.8-2.4); PHOSPHOROUS 2.7 mg/dL (2.5-4.9); POTASSIUM 3.8 mmol/L (3.5-5.1); TOTAL PROTEIN, SERUM 6.5 g/dL (6.4-8.2); UREA NITROGEN, BLOOD 18 mg/dL (7-18)
[2018-11-27] MEDS: HYDROCODONE/APAP 5-325MG TABLET PO PRN ×3 (07:00→21:59)
--- NOTE | 2018-11-27 07:00 | NUR ---
PT GIVEN NORCO FOR 7/10 PAIN SCALE ON HER SHOULDER, BACK AND LEGS. WILL CONTINUE TO MONITOR.
[2018-11-27 07:27] LABS: *BILIRUBIN,URIN NEGATIVE (NEGATIVE); *BLOOD, URINE NEGATIVE (NEGATIVE); *CLARITY,URINE CLEAR (CLEAR); *COLOR,URINE YELLOW (YELLOW); *KETONES,URINE NEGATIVE (NEGATIVE); *UROBILINOGEN,URINE 0.2 E.U./dl (NORMAL); LEUKOCYTE ESTERASE ,URINE NEGATIVE (NEGATIVE); NITRITE, URINE NEGATIVE (NEGATIVE); PH,URINE 5.5 (5.0-8.0); UGLUCOSE NEGATIVE (NEGATIVE)
--- NOTE | 2018-11-27 07:30 | NUR ---
Awake, alert, oriented x 3. LLE elevated over pillow. Left 2nd toe black, dry, open to air. Pain bearable at this time
--- NOTE | 2018-11-27 09:00 | NUR ---
Arterial doppler done at bedside
[2018-11-27 09:02] LABS: WBC,URINE 0-3 /HPF (0-3)
--- NOTE | 2018-11-27 10:05 | NUR ---
The patient is being cleaned. The tech will go back at 10:30.
[2018-11-27] MEDS: METOPROLOL TARTRATE 25 MG TABLET PO SCH ×2 (10:18→16:01)
[2018-11-27] MEDS: ACIDOPHILUS/BULGARICUS CHEW TAB PO SCH ×2 (10:18→21:03)
[2018-11-27] MEDS: ESCITALOPRAM OXALATE 10 MG TABLET PO SCH (10:18)
[2018-11-27] MEDS: MEROPENEM 1 G in IV NORMAL SALINE 100 ML IV SCH ×2 (10:19→22:02)
[2018-11-27] MEDS ORDERED: CEFTRIAXONE 1 G in IV DEXTROSE 5% 50 ML IV SCH (11:00)
[2018-11-27 11:35] VITALS: BP 116/62
[2018-11-27] MEDS: FLUTICASONE/VILANTEROL 1 EACH BLST.W.DEV IH SCH (12:38)
--- NOTE | 2018-11-27 12:38 | NUR ---
PHARMACY CLINICAL NOTES: ( VANCOMYCIN DOSING) S: To continue vancomycin dosing for this 83 yo female for Cellulitis O: BUN/SCR 18/0.8, WBC 16, TEMP 98.4 ht 152 cm wt 59.8 kg A/P: Will continue same dose of Vancomycin 1gm IVPB q32hrs for today. 2nd dose today at 1900 . Plan to check vanco trough level before 4th dose (not yet ordered). Will monitor renal function & adjust the dose if needed. Will follow
--- NOTE | 2018-11-27 14:03 | NUR ---
WOUND CARE CONSULT: PT PRESENTS WITH INCONTINENCE ASSOCIATED SKIN DAMAGE TO BUTTOCKS, PRESENT ON ADMISSION WELL LEFT 2ND TOE BLACK COLOR. RECOMMEND DPM CONSULT. RECOMMENDATIONS MADE FOR SKIN PROTECTION. DISCUSSED WITH NURSING STAFF. PT ON FIRST STEP [facility]. WILL SEE PRN. VALENZUELA IN AGREEMENT WITH PLAN OF CARE. Addendum: 11/27/18 at 1404 by NIKHIL RUTH RN Amended: Links added.
--- NOTE | 2018-11-27 15:00 | NUR ---
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
[2018-11-27 15:12] VITALS: BP 120/51
[2018-11-27] MEDS: Z GUARD REMEDY PASTE 57 GM TUBE TOP PRN (16:36)
--- NOTE | 2018-11-27 17:40 | NUR ---
Follow up call made to Dr. Phan for podiatry consult. Relayed arterial doppler report. With ordrs for Vascular consult to Dr. Tipton. Called and spoke with Dr. Tipton, to see patient today.
--- NOTE | 2018-11-27 18:30 | NUR ---
Dr. Tipton seen and examined patient. spoke with family, discussed plan of care. With orders for Transthoracic Echo carried out. Endorsed for further care and follow up
[2018-11-27] MEDS: VANCOMYCIN IV 1 G in PREMIXED 0 EACH IV SCH (19:22)
--- NOTE | 2018-11-27 19:45 | NUR ---
Received patient awake and alert with family and caregiver at bedside. Patient able to make needs known. No signs of acute distress noted. No complaints of pain or SOB at this time. Dr. Loza discussing plan of care with patient and family. IV on the left AC is intact and patent. Gangrene noted on the left second toe, it is dry and open to air. Safety measures initiated. Bed is low and locked, call light within reach. Will continue to monitor.
[2018-11-27 20:31] VITALS: BP 97/44
[2018-11-27] MEDS: DOCUSATE SODIUM 100 MG CAPSULE PO SCH (21:03)
[2018-11-27] MEDS: ENOXAPARIN SODIUM 40 MG/0.4 ML DISP.SYRIN SQ SCH (21:04)
[2018-11-27] MEDS: ZOLPIDEM 5 MG TABLET PO PRN (21:59)
[2018-11-28] MEDS: HYDROCODONE/APAP 5-325MG TABLET PO PRN ×2 (04:06→21:50)
[2018-11-28 05:25] VITALS: BP 160/68
--- NOTE | 2018-11-28 05:58 | NUR ---
Patient slept well throughout shift. No signs of acute distress noted. Complained of pain with PRN pain medication given x2 and was effective. All medications given as ordered and tolerated well. IV on the left AC is intact and patent. Heels are offloading. Left toe is open to air and dry. Safety measures given. Will endorse plan of care to next shift.
[2018-11-28] MEDS: PANTOPRAZOLE SODIUM 40 MG TABLET.DR PO SCH (06:24)
[2018-11-28 06:58] LABS: BASOPHILS # (AUTO) 0.1 K/uL (0.0-8.0); BASOPHILS % (AUTO) 0.9 % (0.0-2.0); EOSINOPHILS # (AUTO) 1.3 K/uL (0.0-0.7); EOSINOPHILS % (AUTO) 9.1 % (0.0-7.0); HEMATOCRIT 31.5 % (31.2-41.9); HEMOGLOBIN 10.1 g/dL (10.9-14.3); LYMPHOCYTES # (AUTO) 1.8 K/uL (20.0-40.0); LYMPHOCYTES % (AUTO) 12.1 % (20.5-51.5); MEAN CORPUSCULAR HEMOGLOBIN 26.3 uug (24.7-32.8); MEAN CORPUSCULAR HGB CONC 32 g/dL (32.3-35.6); MEAN CORPUSCULAR VOLUME 81.8 fL (75.5-95.3); MONOCYTES # (AUTO) 0.9 K/uL (2.0-10.0); MONOCYTES % (AUTO) 5.9 % (0.0-11.0); NEUTROPHILS # (AUTO) 10.6 K/uL (1.8-8.9); PLATELET COUNT (AUTO) 437 K/uL (179-408); RED BLOOD CELL COUNT(AUTO) 3.85 MIL/uL (3.63-4.92); WHITE BLOOD COUNT (AUTO) 14.7 K/uL (3.8-11.8)
[2018-11-28 07:02] LABS: CARBON DIOXIDE 27 mmol/L (21-32); CHLORIDE 100 mmol/L (98-107); CREATININE 0.9 mg/dL (0.6-1.3); GLUCOSE 80 mg/dL (74-106); POTASSIUM 3.5 mmol/L (3.5-5.1); UREA NITROGEN, BLOOD 16 mg/dL (7-18)
[2018-11-28] MEDS: MEROPENEM 1 G in IV NORMAL SALINE 100 ML IV SCH ×2 (10:00→20:10)
[2018-11-28] MEDS: ESCITALOPRAM OXALATE 10 MG TABLET PO SCH (10:51)
[2018-11-28] MEDS: ACIDOPHILUS/BULGARICUS CHEW TAB PO SCH ×2 (10:51→21:00)
[2018-11-28] MEDS: FLUTICASONE/VILANTEROL 1 EACH BLST.W.DEV IH SCH (10:51)
[2018-11-28] MEDS: METOPROLOL TARTRATE 25 MG TABLET PO SCH ×2 (10:56→16:13)
[2018-11-28 12:00] VITALS: BP 160/66
[2018-11-28] MEDS: NITROGLYCERIN 0.1 MG/HR (=4 CM2) PATCH TD SCH (12:40)
[2018-11-28] MEDS: POVIDONE-IODINE OINT 30 GM TUBE TP SCH ×2 (12:40→16:14)
--- NOTE | 2018-11-28 13:22 | NUR ---
PHARMACY CLINICAL NOTES: ( VANCOMYCIN DOSING) S: To continue vancomycin dosing for this 83 yo female for Cellulitis O: BUN/SCR 16/0.6, WBC 14.7, TEMP 99 ht 152 cm wt 59.8 kg A/P: Will continue same dose of Vancomycin 1gm IVPB q32hrs for today. 3rd dose tomorrow at 0300 . Plan to check vanco trough level before 4th dose (not yet ordered). Will monitor renal function & adjust the dose if needed. Will follow
[2018-11-28 15:07] VITALS: BP 154/64
[2018-11-28 19:31] VITALS: BP 162/68
--- NOTE | 2018-11-28 19:40 | NUR ---
Received patient awake in alert in bed with caregiver at bedside. Patient on low air loss mattresss. No signs of acute distress noted. No complaints of pain or SOB at this time. Heplock on the left forearm is intact and patent. Nitropatch is noted next to the left second toe. Patient will be transferred to [place] tomorrow morning for angiogram. Safety measures initiated. Bed is low and locked, call light within reach. Will continue to monitor.
[2018-11-28] MEDS: ENOXAPARIN SODIUM 40 MG/0.4 ML DISP.SYRIN SQ SCH (21:00)
[2018-11-28] MEDS: DOCUSATE SODIUM 100 MG CAPSULE PO SCH (21:00)
[2018-11-28] MEDS: ZOLPIDEM 5 MG TABLET PO PRN (21:50)
--- NOTE | 2018-11-28 22:00 | NUR ---
Patient refused lovenox, colace, and floranex medications. Son was at bedside and I educated them both on the use and benefits of the medications, but patient still refused.
[2018-11-29] MEDS: VANCOMYCIN IV 1 G in PREMIXED 0 EACH IV SCH (02:47)
[2018-11-29 03:27] VITALS: BP 95/65
--- NOTE | 2018-11-29 05:50 | NUR ---
Patient was picked up by EMT being transported to [place] for the angiogram procedure. Patient left in stable condition. Son and caregiver with patient. Packet with facesheet, lab results, medications, and tests given to EMT. Belongings brought with patient.
[2018-11-29] MEDS: PANTOPRAZOLE SODIUM 40 MG TABLET.DR PO SCH (06:04)
--- NOTE | 2018-11-29 07:30 | NUR ---
pt is at [facility] for the angiogram procedure.
[2018-11-29] MEDS: FLUTICASONE/VILANTEROL 1 EACH BLST.W.DEV IH SCH (08:03)
[2018-11-29] MEDS: METOPROLOL TARTRATE 25 MG TABLET PO SCH ×2 (08:04→17:00)
[2018-11-29] MEDS: ESCITALOPRAM OXALATE 10 MG TABLET PO SCH (08:04)
[2018-11-29] MEDS: MEROPENEM 1 G in IV NORMAL SALINE 100 ML IV SCH ×2 (08:04→20:54)
[2018-11-29] MEDS: NITROGLYCERIN 0.1 MG/HR (=4 CM2) PATCH TD SCH (08:04)
[2018-11-29] MEDS: ACIDOPHILUS/BULGARICUS CHEW TAB PO SCH ×2 (08:04→20:55)
[2018-11-29] MEDS: POVIDONE-IODINE OINT 30 GM TUBE TP SCH ×2 (08:05→17:00)
--- NOTE | 2018-11-29 13:41 | NUR ---
pt is still at [place] for the angiogram procedure.
--- NOTE | 2018-11-29 14:12 | NUR ---
PHARMACY CLINICAL NOTES: ( VANCOMYCIN DOSING) S: To continue vancomycin dosing for this 83 yo female for Cellulitis O: BUN/SCR 16/0.6(11/28), WBC 14.7(11/28), TEMP 98.4 ht 152 cm wt 59.8 kg A/P: Will continue same dose of Vancomycin 1gm IVPB q32hrs for today. 3rd dose given today 0300 . Plan to check vanco trough level before 4th dose (ordered for tomorrow at 1030). Will monitor renal function & adjust the dose if needed. Will follow
--- NOTE | 2018-11-29 18:43 | NUR ---
pt received from [place] via ambulances in stable condition
[2018-11-29 18:49] VITALS: BP 158/50
--- NOTE | 2018-11-29 19:20 | NUR ---
Received patient lying in bed. AAOX3-4. Family member at bedside. In no acute distress. Denies any pain or SOB at this time. Right groin dressing intact. NSR on tele with occasional PAC at 100/min. IV site on left FA intact and patent. Needs assessed and attended to. Safety measure initiated and call parekh within reach. Called Dr. Portillo and informed him that family is requesting to talk to him. and patient need diet order. Awaiting for his call.
--- NOTE | 2018-11-29 20:11 | NUR ---
Obtain order from Dr. Llanes to resume patient's cardiac diet. Order carried out.
--- NOTE | 2018-11-29 20:20 | NUR ---
Telephone call to Dr. Kirby regarding procedure for tomorrow. Per Dr Kirby, Dr Loza will come and see patient tonight and speak with the family. Patient and patient son Amber made aware and states understanding.
--- NOTE | 2018-11-29 20:50 | NUR ---
Dr. Llanes called and spoke with patient son Amber and answered his question with Son satisfaction. Dr Portillo will come and visit patient tomorrow, Amber aware.
[2018-11-29] MEDS: DOCUSATE SODIUM 100 MG CAPSULE PO SCH (20:55)
[2018-11-29] MEDS: ENOXAPARIN SODIUM 40 MG/0.4 ML DISP.SYRIN SQ SCH (20:55)
--- NOTE | 2018-11-29 21:25 | NUR ---
@ 2109 - Dr. Loza came and saw patient and informed this nurse that patient and family agreed with the surgery tomorrow. @2124 - IC signed by patient son Amber.
[2018-11-29 21:41] VITALS: BP 131/53
[2018-11-29] MEDS: ZOLPIDEM 5 MG TABLET PO PRN (22:57)
[2018-11-29] MEDS: HYDROCODONE/APAP 5-325MG TABLET PO PRN (23:50)
[2018-11-30] VITALS (7 sets, daily range): BP systolic 131–163; BP diastolic 56–70
[2018-11-30] MEDS: PANTOPRAZOLE SODIUM 40 MG TABLET.DR PO SCH (06:14)
--- NOTE | 2018-11-30 06:40 | NUR ---
AAOX3-4. In no acute distress. Denies any pain. Placed patient on O2 at 2LPM via NC for comfort. O2 sat at 98%. Right groin dressing intact. NSR on tele at 82/min. IV site on left FA intact and patent. Needs assessed and attended to. Safety measure maintained. Son at bedside. NPO status.
--- NOTE | 2018-11-30 06:44 | NUR ---
Patient picked up by OR staff for surgery.
[2018-11-30] MEDS ORDERED: LIDOCAINE HCL 1% 20 ML VIAL ONE (06:59)
[2018-11-30] MEDS ORDERED: BUPIVACAINE PF 0.5% 30 ML VIAL ONE (06:59)
[2018-11-30] MEDS ORDERED: PROPOFOL 200 MG/20 ML BOTTLE IV ONE (07:11)
[2018-11-30] MEDS ORDERED: DEXAMETHASONE SOD PHOSPHATE 4 MG INJ IV ONE (07:11)
[2018-11-30] MEDS ORDERED: IV LACTATED RINGERS SOLUTION 1,000 ML BAG IV ONE (07:11)
[2018-11-30] MEDS ORDERED: POLYMYXIN B SULFATE 500,000 UNITS, BACITRACIN 50,000 UNITS, NORMAL SALINE 20 ML MC ONE ×3 (07:15)
--- NOTE | 2018-11-30 07:30 | NUR ---
Upon receiving report patient currently in OR. 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
[2018-11-30 07:49] LABS: BASOPHILS # (AUTO) 0.1 K/uL (0.0-8.0); BASOPHILS % (AUTO) 0.4 % (0.0-2.0); EOSINOPHILS % (AUTO) 0.3 % (0.0-7.0); HEMATOCRIT 31.4 % (31.2-41.9); HEMOGLOBIN 10.3 g/dL (10.9-14.3); LYMPHOCYTES # (AUTO) 1.2 K/uL (20.0-40.0); LYMPHOCYTES % (AUTO) 8.7 % (20.5-51.5); MEAN CORPUSCULAR HEMOGLOBIN 26.5 uug (24.7-32.8); MEAN CORPUSCULAR HGB CONC 33 g/dL (32.3-35.6); MEAN CORPUSCULAR VOLUME 81.1 fL (75.5-95.3); MONOCYTES # (AUTO) 0.7 K/uL (2.0-10.0); NEUTROPHILS # (AUTO) 12.2 K/uL (1.8-8.9); NEUTROPHILS % (AUTO) 85.6 % (38.5-71.5); PLATELET COUNT (AUTO) 453 K/uL (179-408); RED BLOOD CELL COUNT(AUTO) 3.88 MIL/uL (3.63-4.92); WHITE BLOOD COUNT (AUTO) 14.3 K/uL (3.8-11.8)
[2018-11-30 07:51] LABS: CARBON DIOXIDE 25 mmol/L (21-32); CHLORIDE 99 mmol/L (98-107); CREATININE 0.9 mg/dL (0.6-1.3); GLUCOSE 108 mg/dL (74-106); MAGNESIUM 1.9 mg/dL (1.8-2.4); POTASSIUM 3.7 mmol/L (3.5-5.1); UREA NITROGEN, BLOOD 18 mg/dL (7-18)
[2018-11-30] MEDS ORDERED: ALBUTEROL SULFATE 2.5 MG/3 ML NEBU ONE (08:29)
[2018-11-30] MEDS ORDERED: IPRATROPIUM BROMIDE 0.5 MG/2.5 ML NEBU ONE (08:29)
--- NOTE | 2018-11-30 08:40 | NUR ---
pt's son in the unit and inquiring about time of arrival to the unit and his mother where about. Pt's son was sent down for recovery waiting area.
[2018-11-30] MEDS: NITROGLYCERIN 0.1 MG/HR (=4 CM2) PATCH TD SCH (09:00)
--- NOTE | 2018-11-30 09:35 | NUR ---
At this time patient back from Recovery. As reported S/P left 2nd toe amputation, circulation to affected area patent, extremity warm to touch patient able to wiggle toes. patient AAOx4. vitals as follow temp of 98.0, 131/56, HR 94 and respiratory rate in the 12-20 range. Pt's family at bedside.
[2018-11-30] MEDS: ESCITALOPRAM OXALATE 10 MG TABLET PO SCH (09:50)
[2018-11-30] MEDS: ACIDOPHILUS/BULGARICUS CHEW TAB PO SCH ×2 (09:50→21:00)
[2018-11-30] MEDS: METOPROLOL TARTRATE 25 MG TABLET PO SCH ×2 (09:51→16:58)
[2018-11-30] MEDS: FLUTICASONE/VILANTEROL 1 EACH BLST.W.DEV IH SCH (09:51)
[2018-11-30] MEDS: MEROPENEM 1 G in IV NORMAL SALINE 100 ML IV SCH ×2 (09:52→21:01)
--- NOTE | 2018-11-30 11:38 | NUR ---
PHARMACY CLINICAL NOTES: ( VANCOMYCIN DOSING) S: To continue vancomycin dosing for this 83 yo female for Cellulitis O: BUN/SCR 18/0.9, WBC 14.3, TEMP 98.3 Vanco trough level: 10.6 ht 152 cm wt 59.8 kg A/P: Since vaco trough level is 10.6 mcg/ml, will change vanco dose to 1gm IVPB q26hrs for predicted vanco trough level of 15.5 mcg/ml at steady state. 1st dose today at noon. Plan to check vanco trough level before 4th dose (not yet ordered). Will monitor renal function & adjust the dose if needed. Will follow
[2018-11-30] MEDS: VANCOMYCIN IV 1 G in PREMIXED 0 EACH IV SCH (11:39)
[2018-11-30] MEDS: HYDROCODONE/APAP 5-325MG TABLET PO PRN ×2 (12:09→16:58)
[2018-11-30] MEDS: predniSONE 10 MG TABLET PO SCH (12:10)
--- NOTE | 2018-11-30 19:30 | NUR ---
Patient alert and awake on bed. no c/o pain Left toe surgery site dressing clean and intact .NSR on the monitor with hr 89. Continuing on 02@ n2lpm via nc. no sob . continue on isolation fro MRSA of wound. home care physical therapist at the bed side
[2018-11-30] MEDS: ENOXAPARIN SODIUM 40 MG/0.4 ML DISP.SYRIN SQ SCH (21:00)
[2018-11-30] MEDS: DOCUSATE SODIUM 100 MG CAPSULE PO SCH (21:00)
[2018-11-30] MEDS: ACETAMINOPHEN 325 MG TABLET PO PRN (21:00)
[2018-11-30] MEDS: VERAPAMIL 80 MG TABLET PO SCH (21:02)
[2018-12-01] MEDS: ZOLPIDEM 5 MG TABLET PO PRN ×2 (00:09→21:21)
[2018-12-01 01:00] VITALS: BP 154/78
[2018-12-01 03:17] VITALS: BP 173/70
[2018-12-01 05:30] VITALS: BP 164/74
--- NOTE | 2018-12-01 05:59 | NUR ---
NOTED WITH ELEVATED B/P MD NOTIFIED WITH ORDER TO GIVE AM B/P MEDICATION EARLY
[2018-12-01] MEDS: PANTOPRAZOLE SODIUM 40 MG TABLET.DR PO SCH (06:02)
[2018-12-01] MEDS: METOPROLOL TARTRATE 25 MG TABLET PO SCH ×2 (06:02→18:20)
--- NOTE | 2018-12-01 06:26 | NUR ---
PATIENT AWAKE ON BED. OCCASIONAL COUGH NOTED. NO SOB . O2 @ 2LPM VIA NC . AM B/P MED ADMINISTERED PER MD ORDER DUE TO ELEVATED B/P. SAFETY PRECAUTIONS OBSERVED. CALL LIGHT IN REACH
--- NOTE | 2018-12-01 07:30 | NUR ---
on bed, resting well. no discomfort noted.
--- NOTE | 2018-12-01 08:13 | NUR ---
caregiver at bedside, supportive of patient care.
[2018-12-01] MEDS: FLUTICASONE/VILANTEROL 1 EACH BLST.W.DEV IH SCH (08:50)
[2018-12-01] MEDS: Z GUARD REMEDY PASTE 57 GM TUBE TOP PRN (08:53)
[2018-12-01] MEDS: predniSONE 10 MG TABLET PO SCH (08:57)
[2018-12-01] MEDS: ESCITALOPRAM OXALATE 10 MG TABLET PO SCH (08:57)
[2018-12-01] MEDS: ACIDOPHILUS/BULGARICUS CHEW TAB PO SCH ×2 (08:57→22:58)
[2018-12-01] MEDS: MEROPENEM 1 G in IV NORMAL SALINE 100 ML IV SCH (08:58)
[2018-12-01] MEDS: VERAPAMIL 80 MG TABLET PO SCH ×2 (08:59→23:03)
[2018-12-01] MEDS: NITROGLYCERIN 0.1 MG/HR (=4 CM2) PATCH TD SCH (09:00)
--- NOTE | 2018-12-01 10:30 | NUR ---
seen by dr Loza, 1ST DRESSING CHANGE DONE, TOLERATED WELL
--- NOTE | 2018-12-01 11:00 | NUR ---
family in supportive of patient care. no acute respiratory distress noted. kept comfortable
[2018-12-01 11:13] VITALS: BP 134/62
[2018-12-01] MEDS: HYDROCODONE/APAP 5-325MG TABLET PO PRN ×2 (11:42→21:21)
--- NOTE | 2018-12-01 13:38 | NUR ---
PHARMACY CLINICAL NOTES: ( VANCOMYCIN DOSING) S: To continue vancomycin dosing for this 83 yo female for Cellulitis O: BUN/SCR 18/0.9 (11/30), WBC 14.3 (11/30), TEMP 98.2 Vanco trough level: 10.6 ht 152 cm wt 59.8 kg A/P: Will continue vanco dose to 1gm IVPB q26hrs for predicted vanco trough level of 15.5 mcg/ml at steady state. 2nd dose today at 1400. Plan to check vanco trough level before 4th dose (not yet ordered). Will monitor renal function & adjust the dose if needed. Will follow
--- NOTE | 2018-12-01 14:00 | NUR ---
resting well, no distress noted
[2018-12-01] MEDS: VANCOMYCIN IV 1 G in PREMIXED 0 EACH IV SCH (14:09)
[2018-12-01 15:14] VITALS: BP 121/64
--- NOTE | 2018-12-01 19:05 | NUR ---
son at bedside, supportive of patient care. patient comfortable. med x 1 for pain with relief, taking fluids well, voiding well.
[2018-12-01 19:11] VITALS: BP 159/75
--- NOTE | 2018-12-01 19:45 | NUR ---
RECEIVED PATIENT IN BED AWAKE AND ALERT WITH FAMILY AT BEDSIDE. PATIENT IV SITE PATENT AND INTACT. OXYGEN RUNNING AT 2L/MIN VIA NC. VS WNL AND PATIENT IS STABLE. FALL AND SAFETY PRECATION MEASURES IN PLACE. BED IN LOWEST POSITION WITH BRAKE LOCKED. SIDE RAILS UP AND LOCKED. CALL LIGHT WITHIN REACH AT ALL TIMES. WILL CONTINUE TO MONITOR.
--- NOTE | 2018-12-01 20:15 | NUR ---
MD NOTIFIED OF PATIENT REQUST TO HAVE PRN NEBULIZER TREATMENTS.
[2018-12-01] MEDS: ALBUTEROL SULFATE 2.5 MG/3 ML NEBU NEB PRN (21:32)
[2018-12-01] MEDS ORDERED: CEFTRIAXONE 1 G VIAL ONE (22:15)
[2018-12-01] MEDS: CEFTRIAXONE 1 G in IV DEXTROSE 5% 50 ML IV SCH (22:54)
[2018-12-01] MEDS: ENOXAPARIN SODIUM 40 MG/0.4 ML DISP.SYRIN SQ SCH (22:57)
[2018-12-01] MEDS: DOCUSATE SODIUM 100 MG CAPSULE PO SCH (22:58)
[2018-12-02] MEDS: ALBUTEROL SULFATE 2.5 MG/3 ML NEBU NEB PRN ×2 (03:17→10:03)
[2018-12-02] MEDS: HYDROCODONE/APAP 5-325MG TABLET PO PRN (04:24)
[2018-12-02 05:18] VITALS: BP 177/95
--- NOTE | 2018-12-02 06:30 | NUR ---
PATIENT NOTED WITH ELEVATED BP. ADMINISTERED 0900 PRESCRIBED LOPRESSOR.
[2018-12-02 06:33] LABS: BASOPHILS # (AUTO) 0.1 K/uL (0.0-8.0); BASOPHILS % (AUTO) 0.6 % (0.0-2.0); EOSINOPHILS # (AUTO) 0.5 K/uL (0.0-0.7); HEMATOCRIT 29.4 % (31.2-41.9); HEMOGLOBIN 9.5 g/dL (10.9-14.3); LYMPHOCYTES # (AUTO) 2.2 K/uL (20.0-40.0); LYMPHOCYTES % (AUTO) 14.4 % (20.5-51.5); MEAN CORPUSCULAR HEMOGLOBIN 26.1 uug (24.7-32.8); MEAN CORPUSCULAR HGB CONC 32 g/dL (32.3-35.6); MEAN CORPUSCULAR VOLUME 80.7 fL (75.5-95.3); MONOCYTES # (AUTO) 1.6 K/uL (2.0-10.0); MONOCYTES % (AUTO) 10.4 % (0.0-11.0); NEUTROPHILS # (AUTO) 10.8 K/uL (1.8-8.9); NEUTROPHILS % (AUTO) 71.6 % (38.5-71.5); PLATELET COUNT (AUTO) 453 K/uL (179-408); RED BLOOD CELL COUNT(AUTO) 3.64 MIL/uL (3.63-4.92); WHITE BLOOD COUNT (AUTO) 15.1 K/uL (3.8-11.8)
[2018-12-02] MEDS: PANTOPRAZOLE SODIUM 40 MG TABLET.DR PO SCH (06:41)
[2018-12-02] MEDS: METOPROLOL TARTRATE 25 MG TABLET PO SCH ×2 (06:41→16:37)
[2018-12-02 06:45] LABS: CARBON DIOXIDE 32 mmol/L (21-32); CHLORIDE 101 mmol/L (98-107); CREATININE 0.7 mg/dL (0.6-1.3); GLUCOSE 81 mg/dL (74-106); POTASSIUM 3.5 mmol/L (3.5-5.1); UREA NITROGEN, BLOOD 19 mg/dL (7-18)
--- NOTE | 2018-12-02 06:46 | NUR ---
PATIENT SLEPT INTERMITTENTLY THROUGHOUT NIGHT BUT HAD BOUTS OF RESTLESSNES. ALL DUE MEDICATIONS GIVEN ORDERED AND TOLERATED WELL. IV ANTIBIOTICS INFUSED WITH NO ADVERSE REACTIONS NOTED OR OBSERVED. PRN BREATHING TREATMENTS GIVEN X2 AND OXYGEN APPLICATION VIA NC REINFORCED WITH PATIENT. 02 SATURATION IS 97% @ 2L/MIN PER NC. VS ARE WNL AND PT IS STABLE. WILL PROVIDE REPORT TO ONCOMING SHIFT.
--- NOTE | 2018-12-02 07:15 | NUR ---
RECEIVED PATIENT IN BED, AWAKE, AOX2. PATIENT O2 OFF AND PATIENT RESTLESS IN BED. PATENT WAS REPOSITIONED AND PULLED UP IN BED AND O2 2L NC WAS PLACED BACK ON PATENT. PATENT WAS VISIBLY MORE COMFORTABLE AND BREATHING BECAME NON LABORED. DENIES CHEST PAIN OR ANY OTHER PAIN. LEFT FA IV HL, INTACT AND FLUSHED. SAFETY AND FALL PREVENTION IN PLACE. BED IN LOW POSITION, CALL LIGHT IN REACH. ALL NEEDS MET AT THIS TIME. WILL CONTINUE TO MONITOR.
[2018-12-02] MEDS: NITROGLYCERIN 0.1 MG/HR (=4 CM2) PATCH TD SCH (09:00)
[2018-12-02] MEDS: FLUTICASONE/VILANTEROL 1 EACH BLST.W.DEV IH SCH (09:33)
[2018-12-02] MEDS: predniSONE 10 MG TABLET PO SCH (09:34)
[2018-12-02] MEDS: ESCITALOPRAM OXALATE 10 MG TABLET PO SCH (09:34)
[2018-12-02] MEDS: ACIDOPHILUS/BULGARICUS CHEW TAB PO SCH ×2 (09:34→21:31)
[2018-12-02] MEDS: VERAPAMIL 80 MG TABLET PO SCH ×2 (09:34→21:30)
--- NOTE | 2018-12-02 09:45 | NUR ---
DC NITRO PATCH PER DR. ERIKA SALAZAR NOTES.
--- NOTE | 2018-12-02 10:05 | NUR ---
PHARMACY CLINICAL NOTES: ( VANCOMYCIN DOSING) S: To continue vancomycin dosing for this 83 yo female for Cellulitis O: BUN/SCR 19/0.7, WBC 15, TEMP 98.0 Vanco trough level: 10.6 on 11/30 at 1030am ht 152 cm wt 59.8 kg A/P: Will continue vanco dose to 1gm IVPB q26hrs for today. 3rd dose today at 1600. Plan to check vanco trough level before 4th dose (not yet ordered). Will monitor renal function & adjust the dose if needed. Will follow
[2018-12-02] MEDS: ACETAMINOPHEN 325 MG TABLET PO PRN (11:28)
[2018-12-02 11:29] VITALS: BP 118/52
--- NOTE | 2018-12-02 12:00 | NUR ---
NOTIFIED MD THAT PATIENT IS WHEZZING AND RHONCHI THROGHOUT. PATIENT ANXIOUS AND TAKING OFF O2. BREATHING TREATMENT GIVEN WITH NO IMPROVEMENT.
[2018-12-02 12:04] LABS: ABG BASE EXCESS 4.3 mmol/L; ABG HCO3 28.8 mmol/L; ABG PCO2 43.1 mmHg (35.0-45.0); ABG PH 7.443 (7.350-7.450); ABG SITE RIGHT RADIAL; ABG TOTAL HEMOGLOBIN 10.3 G/dL (12.0-16.0); COHb 1.5 % (0.5-1.5); MetHb 0.3 % (0.0-1.5); VENT MODE Nasal Cannula
[2018-12-02] MEDS ORDERED: FUROSEMIDE 40 MG/4 ML VIAL IV ONE (12:15)
[2018-12-02] MEDS: methylPREDNISolone SOD SUCC 40 MG/ML VIAL IV SCH ×2 (12:18→21:31)
[2018-12-02] MEDS: ALBUTEROL SULFATE 2.5 MG/3 ML NEBU NEB SCH ×2 (12:32→19:52)
--- NOTE | 2018-12-02 15:10 | NUR ---
NOTIFIED THAT B/P LAST NIGHT WAS HIGH AND THAT IT WAS ELEVATED UPON ASSESSMENT 175/75
[2018-12-02 15:13] VITALS: BP 140/65
[2018-12-02] MEDS ORDERED: CLONIDINE HCL 0.2 MG TABLET PO PRN (15:15)
[2018-12-02] MEDS: VANCOMYCIN IV 1 G in PREMIXED 0 EACH IV SCH (16:13)
--- NOTE | 2018-12-02 17:59 | NUR ---
PATIENT RESTING IN BED. NO ANXIETY NOTED AT THIS TIME. PATIENT GIVEN LASIX AND SOLU-MEDRAL ORDERED. VITAL SIGNS STABLE. PATIENT ON 2L NC AND DOES NOT TRY TO TAKE IT OFF. LEFT FA IV INTACT, AND HL. OUTSIDE CAREGIVER AT BEDSIDE. PATIENT COMPLIANT WITH ALL MEDICATION. LT. TOE DRESSING INTACT, CLEAN AND DRY. PAIN MEDICATION GIVEN ORDERED. ALL NEEDS MET AT THIS TIME.
--- NOTE | 2018-12-02 20:15 | NUR ---
MS Nursing Notes: Lying in bed Hob @ 30 degrees. On isolation Mrsa wound. A/O x3 s/l 20 ga LT Fa intact/patent Disposable briefs clean and dry. Son and education assistant at bedside. Side rails up Call light within reach. denies of any distress.
[2018-12-02 20:28] VITALS: BP 158/78
[2018-12-02] MEDS: ENOXAPARIN SODIUM 40 MG/0.4 ML DISP.SYRIN SQ SCH (21:26)
[2018-12-02] MEDS: DOCUSATE SODIUM 100 MG CAPSULE PO SCH (21:31)
[2018-12-02] MEDS: ZOLPIDEM 5 MG TABLET PO PRN (21:32)
[2018-12-02] MEDS: CEFTRIAXONE 1 G in IV DEXTROSE 5% 50 ML IV SCH (22:20)
[2018-12-03] MEDS: ALBUTEROL SULFATE 2.5 MG/3 ML NEBU NEB SCH ×4 (01:19→19:18)
[2018-12-03 05:02] VITALS: BP 175/76
[2018-12-03] MEDS: methylPREDNISolone SOD SUCC 40 MG/ML VIAL IV SCH ×3 (06:29→21:13)
--- NOTE | 2018-12-03 06:40 | NUR ---
MS Nursing: Lying in bed 02@ @ 3L n/c I.V N.S 0.9 infusing 3cc hr to LFA. Am Lab drawn Siderail up Call light within reach. Denies of any distress, Slept 8 hours during the shift.
[2018-12-03 07:16] LABS: BASOPHILS % (AUTO) 0.2 % (0.0-2.0); HEMATOCRIT 31.1 % (31.2-41.9); LYMPHOCYTES # (AUTO) 0.7 K/uL (20.0-40.0); MEAN CORPUSCULAR HEMOGLOBIN 26.1 uug (24.7-32.8); MEAN CORPUSCULAR HGB CONC 32 g/dL (32.3-35.6); MEAN CORPUSCULAR VOLUME 81.1 fL (75.5-95.3); MONOCYTES # (AUTO) 0.3 K/uL (2.0-10.0); MONOCYTES % (AUTO) 3.3 % (0.0-11.0); NEUTROPHILS # (AUTO) 7.6 K/uL (1.8-8.9); NEUTROPHILS % (AUTO) 88.5 % (38.5-71.5); PLATELET COUNT (AUTO) 452 K/uL (179-408); RED BLOOD CELL COUNT(AUTO) 3.84 MIL/uL (3.63-4.92); WHITE BLOOD COUNT (AUTO) 8.6 K/uL (3.8-11.8)
[2018-12-03] MEDS: PANTOPRAZOLE SODIUM 40 MG TABLET.DR PO SCH (07:25)
[2018-12-03 07:30] LABS: CARBON DIOXIDE 34 mmol/L (21-32); CHLORIDE 96 mmol/L (98-107); CREATININE 0.7 mg/dL (0.6-1.3); GLUCOSE 120 mg/dL (74-106); MAGNESIUM 1.8 mg/dL (1.8-2.4); PHOSPHOROUS 3.5 mg/dL (2.5-4.9); POTASSIUM 3.6 mmol/L (3.5-5.1); UREA NITROGEN, BLOOD 21 mg/dL (7-18)
[2018-12-03] MEDS: ESCITALOPRAM OXALATE 10 MG TABLET PO SCH (08:21)
[2018-12-03] MEDS: ACIDOPHILUS/BULGARICUS CHEW TAB PO SCH ×2 (08:21→21:10)
[2018-12-03] MEDS: METOPROLOL TARTRATE 25 MG TABLET PO SCH ×2 (08:21→16:43)
[2018-12-03] MEDS: VERAPAMIL 80 MG TABLET PO SCH ×2 (08:21→21:11)
--- NOTE | 2018-12-03 08:21 | NUR ---
BLOOD PRESSURE AT THIS TIME IS 175/81 PATIENT IS ALERT AND ORIENTED DENIES ANY DISCOMFORTS SHE HAS 2 ROUTINE BLOOD PRESSURE MEDICATIONS DUE AT THIS TIME GIVEN ORDERED AND WILL RECHECK HER BLOOD PRESSURE IN AN HOUR AND IF STILL ELEVATED WILL ADMINISTER HER PRN CATAPRES.WILL CONTINUE TO OBSERVE PATIENT.
--- NOTE | 2018-12-03 08:55 | NUR ---
PATIENT SEEN AND EXAMINED BY DR HOLLAND WITH NEW ORDERS AND NOTED.
--- NOTE | 2018-12-03 09:26 | NUR ---
PATIENT SEEN BY SLT WITH FOR SWALLOW EVAL WITH NEW DIET ORDERS AND NOTED.
[2018-12-03 10:05] VITALS: BP 124/64
--- NOTE | 2018-12-03 10:07 | NUR ---
BLOOD PRESSURE RECHECKED AT THIS TIME AND ITS 124/64
[2018-12-03 11:18] VITALS: BP 100/55
--- NOTE | 2018-12-03 14:35 | NUR ---
PHARMACY CLINICAL NOTES: ( VANCOMYCIN DOSING) S: To continue vancomycin dosing for this 83 yo female for Cellulitis O: BUN/SCR 21/0.7, WBC 8.6, TEMP 98.1 Vanco trough level: pending today at 1730 ht 152 cm wt 59.8 kg A/P: Will continue vanco dose to 1gm IVPB q26hrs for today. vanco trough due this evening at 1730. Will check level when available and adjust as needed. Will follow Addendum: 12/03/18 at 1842 by AMANDA ATKINS ADM VANCO LEVEL WAS 15.5 , WILL CONTINUE WITH VANCO 1GM Q26H
[2018-12-03 15:04] VITALS: BP 105/56
[2018-12-03] MEDS: VANCOMYCIN IV 1 G in PREMIXED 0 EACH IV SCH (19:54)
--- NOTE | 2018-12-03 20:00 | NUR ---
RECEIVED PATIENT AWAKE IN BED WITH FAMILY PRESENT AT BEDSIDE. PATIENT IS A/O X3, MALTESE SPEAKING BUT ABLE TO MAKE SIMPLE NEEDS KNOWN. PATIENT DENIES PAIN AT THIS TIME. ON O2 3L NC SATING WELL. ON AIR MATTRESS. DRESSING NOTED TO LEFT FOOT, C/D/I. CALL LIGHT IN REACH. ALL NEEDS ATTENDED. WILL CONTINUE TO MONITOR AND ASSESS.
[2018-12-03 20:30] VITALS: BP 128/60
[2018-12-03] MEDS: DOCUSATE SODIUM 100 MG CAPSULE PO SCH (21:10)
[2018-12-03] MEDS: ENOXAPARIN SODIUM 40 MG/0.4 ML DISP.SYRIN SQ SCH (21:10)
[2018-12-03] MEDS: HYDROCODONE/APAP 5-325MG TABLET PO PRN (21:11)
[2018-12-03] MEDS: ZOLPIDEM 5 MG TABLET PO PRN (23:18)
[2018-12-03] MEDS: CEFTRIAXONE 1 G in IV DEXTROSE 5% 50 ML IV SCH (23:23)
[2018-12-04] MEDS: ALBUTEROL SULFATE 2.5 MG/3 ML NEBU NEB SCH ×4 (00:55→19:10)
[2018-12-04] MEDS: methylPREDNISolone SOD SUCC 40 MG/ML VIAL IV SCH ×2 (05:02→21:00)
[2018-12-04 05:49] VITALS: BP 156/75
--- NOTE | 2018-12-04 06:05 | NUR ---
PATIENT AWAKE IN BED. SLEPT WELL. DENIES PAIN. NEW IV STARTED TO RIGHT FA #22 GAUGE. CALL LIGHT IN REACH. ALL NEEDS ATTENDED, WILL CONTINUE TO MONITOR AND ASSESS.
[2018-12-04] MEDS: PANTOPRAZOLE SODIUM 40 MG TABLET.DR PO SCH (06:10)
[2018-12-04 06:50] LABS: BASOPHILS % (AUTO) 0.1 % (0.0-2.0); HEMATOCRIT 29.7 % (31.2-41.9); HEMOGLOBIN 9.5 g/dL (10.9-14.3); LYMPHOCYTES # (AUTO) 0.9 K/uL (20.0-40.0); LYMPHOCYTES % (AUTO) 7.3 % (20.5-51.5); MEAN CORPUSCULAR HEMOGLOBIN 25.7 uug (24.7-32.8); MEAN CORPUSCULAR HGB CONC 32 g/dL (32.3-35.6); MEAN CORPUSCULAR VOLUME 80.1 fL (75.5-95.3); MONOCYTES # (AUTO) 0.5 K/uL (2.0-10.0); MONOCYTES % (AUTO) 4.3 % (0.0-11.0); NEUTROPHILS # (AUTO) 10.7 K/uL (1.8-8.9); NEUTROPHILS % (AUTO) 88.3 % (38.5-71.5); PLATELET COUNT (AUTO) 486 K/uL (179-408); RED BLOOD CELL COUNT(AUTO) 3.71 MIL/uL (3.63-4.92); WHITE BLOOD COUNT (AUTO) 12.1 K/uL (3.8-11.8)
[2018-12-04 07:12] LABS: ALANINE AMINOTRANSFERASE 11 U/L (14-59); ALKALINE PHOSPHATASE 112 U/L (50-136); ASPARTATE AMINOTRANSFERASE 9 U/L (15-37); BILIRUBIN,TOTAL 0.2 mg/dL (0.2-1.0); CARBON DIOXIDE 35 mmol/L (21-32); CHLORIDE 96 mmol/L (98-107); CREATININE 0.6 mg/dL (0.6-1.3); GLUCOSE 117 mg/dL (74-106); MAGNESIUM 2.1 mg/dL (1.8-2.4); PHOSPHOROUS 2.8 mg/dL (2.5-4.9); POTASSIUM 3.8 mmol/L (3.5-5.1); TOTAL PROTEIN, SERUM 6.3 g/dL (6.4-8.2); UREA NITROGEN, BLOOD 32 mg/dL (7-18)
[2018-12-04] MEDS: VERAPAMIL 80 MG TABLET PO SCH ×2 (08:21→21:00)
[2018-12-04] MEDS: ACIDOPHILUS/BULGARICUS CHEW TAB PO SCH ×2 (08:21→21:01)
[2018-12-04] MEDS: ESCITALOPRAM OXALATE 10 MG TABLET PO SCH (08:21)
[2018-12-04] MEDS: METOPROLOL TARTRATE 25 MG TABLET PO SCH ×2 (08:21→16:46)
[2018-12-04] MEDS: Z GUARD REMEDY PASTE 57 GM TUBE TOP PRN (08:22)
--- NOTE | 2018-12-04 08:30 | NUR ---
COMPLIANT WITH MEDICATIONS ON O2 AT 3L/M BY NASAL CANULLA WITH NO SHORTNESS OF BREATH AT THIS TIME REMAIN ON ISOLATION PRECAUTION FOR MRSA LEFT FOOT HEELS ELEVATED MADE COMFORTABLE WILL CONTINUE TO OBSERVE.
--- NOTE | 2018-12-04 09:43 | NUR ---
PATIENT SEEN BY THE PHYSICAL THERAPY ENDURANCE IS POOR WAS ONLY ABLE TO STAND AND BACK TO BED AWAKE ALERT AWARE BUT FORGETFUL MAKES SIMPLE NEEDS KNOWN WILL CONTINUE TO OBSERVE.
--- NOTE | 2018-12-04 11:29 | NUR ---
PATIENT AND LIGHT RAIL TRAIN OPERATOR AWARE THAT HER DOCTOR ORDERED URINE FOR URINALYSIS AND CULTURE STATED DOES NOT NEED TO URINATE NOW WILL NOTIFY THE NURSE WHEN SHE URINATES SPECIMEN CUP PROVIDED.
[2018-12-04 11:51] VITALS: BP 139/57
[2018-12-04] MEDS: PROTEIN SUPPLEMENT (PROSTAT) 30 ML LIQUID PO SCH ×2 (12:17→16:46)
--- NOTE | 2018-12-04 12:21 | NUR ---
PHARMACY CLINICAL NOTES: ( VANCOMYCIN DOSING) S: To continue vancomycin dosing for this 83 yo female for Cellulitis O: BUN/SCR 32/0.6, WBC 12.1, TEMP 98.2 Vanco trough level: 15.5 (on 12/03 at 1730) ht 152 cm wt 59.8 kg A/P: Will continue same dose of vanco 1gm IVPB q26hrs for today. Next dose due today at 1999. Will monitor renal function & adjust the dose if needed. Will follow
--- NOTE | 2018-12-04 13:24 | NUR ---
URINE COLLECTED AND SENT TO THE LAB ORDERED
[2018-12-04 13:30] LABS: *BILIRUBIN,URIN NEGATIVE (NEGATIVE); *BLOOD, URINE 1+ (NEGATIVE); *CLARITY,URINE CLEAR (CLEAR); *COLOR,URINE YELLOW (YELLOW); *KETONES,URINE NEGATIVE (NEGATIVE); *UROBILINOGEN,URINE 0.2 E.U./dl (NORMAL); LEUKOCYTE ESTERASE ,URINE 1+ (NEGATIVE); NITRITE, URINE NEGATIVE (NEGATIVE); UGLUCOSE NEGATIVE (NEGATIVE)
[2018-12-04 13:32] LABS: BACTERIA,URINE FEW /HPF (NONE SEEN); RBC,URINE 0-3 /HPF (0-3); SQUAMOUS EPITHELIAL CELL,UR FEW /HPF (NONE SEEN); WBC,URINE 0-3 /HPF (0-3)
[2018-12-04 15:38] VITALS: BP 137/60
--- NOTE | 2018-12-04 18:00 | NUR ---
REMAIN ON CONTACT ISOLATION ORDERED MAX ASSIST FOR ALL ADL ALERT WITH CONFUSSION REMAIN ON O2 WITH NO SOB AT THIS TIME WILL CONTINUE TO OBSERVE.
[2018-12-04 19:22] VITALS: BP 144/54
[2018-12-04] MEDS: VANCOMYCIN IV 1 G in PREMIXED 0 EACH IV SCH (20:58)
[2018-12-04] MEDS: DOCUSATE SODIUM 100 MG CAPSULE PO SCH (21:00)
--- NOTE | 2018-12-04 21:00 | NUR ---
Received patient awake in bed with family at the bedside. Patient is mainly Danish speaking but is able to make needs known in [place]. No acute distress noted. No SOB. Denies pain at this time. IV on right FA #22 intact and patent. Receiving o2 3L NC. Dressing on L foot noted. Patient is not able to walk, only stand. Patient currently on air mattress. Tolerated routine medications. Safety and comfort measures implemented. All needs met. Call light within reach. Continue contact isolation and plan of care.
[2018-12-04] MEDS: ENOXAPARIN SODIUM 40 MG/0.4 ML DISP.SYRIN SQ SCH (21:07)
[2018-12-04] MEDS: ZOLPIDEM 5 MG TABLET PO PRN (22:49)
[2018-12-04] MEDS: CEFTRIAXONE 1 G in IV DEXTROSE 5% 50 ML IV SCH (23:36)
[2018-12-05] MEDS: ALBUTEROL SULFATE 2.5 MG/3 ML NEBU NEB SCH ×3 (01:16→13:52)
[2018-12-05] MEDS: ACETAMINOPHEN 325 MG TABLET PO PRN (01:29)
[2018-12-05] MEDS: HYDROCODONE/APAP 5-325MG TABLET PO PRN ×2 (01:42→01:46)
[2018-12-05 03:24] VITALS: BP 155/59
[2018-12-05] MEDS: PANTOPRAZOLE SODIUM 40 MG TABLET.DR PO SCH (06:38)
[2018-12-05 06:56] LABS: BASOPHILS % (AUTO) 0.1 % (0.0-2.0); LYMPHOCYTES # (AUTO) 0.6 K/uL (20.0-40.0); LYMPHOCYTES % (AUTO) 5.1 % (20.5-51.5); MEAN CORPUSCULAR HGB CONC 32 g/dL (32.3-35.6); MEAN CORPUSCULAR VOLUME 80.9 fL (75.5-95.3); MONOCYTES # (AUTO) 0.4 K/uL (2.0-10.0); MONOCYTES % (AUTO) 3.2 % (0.0-11.0); NEUTROPHILS # (AUTO) 11.2 K/uL (1.8-8.9); NEUTROPHILS % (AUTO) 91.6 % (38.5-71.5); PLATELET COUNT (AUTO) 537 K/uL (179-408); RED BLOOD CELL COUNT(AUTO) 3.83 MIL/uL (3.63-4.92); WHITE BLOOD COUNT (AUTO) 12.2 K/uL (3.8-11.8)
--- NOTE | 2018-12-05 07:05 | NUR ---
Received patient awake in bed . Patient is mainly Icelandic speaking but is able to make needs known in Mongolian. No acute distress noted. No SOB. Denies pain at this time. Receiving oxygen 3L NC. Dressing on L foot noted. Patient is not able to walk, only stand. Patient currently on air mattress. Tolerated routine medications. Safety and comfort measures implemented. All needs met. Call light within reach. Continue contact isolation and plan of care.
[2018-12-05 07:11] LABS: CARBON DIOXIDE 35 mmol/L (21-32); CHLORIDE 95 mmol/L (98-107); CREATININE 0.8 mg/dL (0.6-1.3); GLUCOSE 126 mg/dL (74-106); MAGNESIUM 1.9 mg/dL (1.8-2.4); PHOSPHOROUS 3.3 mg/dL (2.5-4.9); POTASSIUM 3.9 mmol/L (3.5-5.1); UREA NITROGEN, BLOOD 30 mg/dL (7-18)
[2018-12-05] MEDS: PROTEIN SUPPLEMENT (PROSTAT) 30 ML LIQUID PO SCH ×3 (09:16→17:41)
[2018-12-05] MEDS: ACIDOPHILUS/BULGARICUS CHEW TAB PO SCH (09:17)
[2018-12-05] MEDS: methylPREDNISolone SOD SUCC 40 MG/ML VIAL IV SCH (09:17)
[2018-12-05] MEDS: ESCITALOPRAM OXALATE 10 MG TABLET PO SCH (09:17)
[2018-12-05] MEDS: VERAPAMIL 80 MG TABLET PO SCH ×2 (09:24→20:38)
[2018-12-05] MEDS: METOPROLOL TARTRATE 25 MG TABLET PO SCH ×2 (09:25→17:00)
[2018-12-05] MEDS ORDERED: AMLODIPINE 5 MG TABLET PO SCH (09:30)
[2018-12-05 11:45] VITALS: BP 153/56
[2018-12-05] MEDS ORDERED: AMLODIPINE 5 MG TABLET PO ONE (15:12)
--- NOTE | 2018-12-05 15:23 | NUR ---
PHARMACY CLINICAL NOTES: ( VANCOMYCIN DOSING) S: To continue vancomycin dosing for this 83 yo female for Cellulitis O: BUN/SCR 30/0.8, WBC 12.2, TEMP 98.1 Vanco trough level: 15.5 (on 12/03 at 1730) ht 152 cm wt 59.8 kg A/P: Will continue same dose of vanco 1gm IVPB q26hrs for today. Next dose due today at 2200. Will monitor renal function & adjust the dose if needed. Will follow
[2018-12-05 15:49] VITALS: BP 149/62
[2018-12-05] MEDS ORDERED: ASCO500P18 PO (15:53)
[2018-12-05] MEDS ORDERED: ALBU2.5V7 NEB (15:53)
[2018-12-05] MEDS ORDERED: PANT40TA2 PO (15:53)
[2018-12-05] MEDS ORDERED: CEFT1VIA15 IV (15:53)
[2018-12-05] MEDS ORDERED: VERA80TA2 PO (15:53)
[2018-12-05] MEDS ORDERED: ZINC220C8 PO (15:53)
[2018-12-05] MEDS ORDERED: DOCU100C36 PO (15:53)
[2018-12-05] MEDS ORDERED: MENT71OI TOP (15:53)
[2018-12-05] MEDS ORDERED: ZOLP5TAB8 PO (15:53)
[2018-12-05] MEDS ORDERED: RXVAN XX (15:53)
[2018-12-05] MEDS ORDERED: RIVA10TA PO (15:53)
[2018-12-05] MEDS ORDERED: CLON0.1T PO (15:53)
[2018-12-05] MEDS ORDERED: ACET325T53 PO (15:53)
[2018-12-05] MEDS ORDERED: PROT30LI PO (15:53)
[2018-12-05] MEDS ORDERED: HYDR-3326 PO (15:53)
[2018-12-05] MEDS ORDERED: ACID1TAB4 PO (15:53)
--- NOTE | 2018-12-05 18:39 | NUR ---
recieved order patient will be discharge to [facility]. Patient is mainly Japanese speaking but is able to make needs known in Irish. No acute distress noted. Denies any pain at this time. Receiving oxygen 3L NC. Dressing on L foot noted with doctor's order to leave dressing clean dry and intact, do not change. order to Patient is not able to walk, only stand. Patient currently on air mattress. Tolerated routine medications. Safety and comfort measures implemented. All needs met. Call light within reach. Continue contact isolation and plan of care.
[2018-12-05 19:23] VITALS: BP 135/54
--- NOTE | 2018-12-05 20:36 | NUR ---
Patient discharged and left floor with [facility] to nursing home facility
[2018-12-05 20:38] VITALS: BP 135/54
[2018-12-05] MEDS ORDERED: methylPREDNISolone SOD SUCC 40 MG/ML VIAL IV SCH (21:00)
== END 2018-12-05 21:00 | DRG 255 ==
LOC: ER 10:07 → MEDSURG3 13:06 → TELE3 11-29 20:57 → MEDSURG3 12-01 12:00
PROVIDERS: ADMIT Internal Medicine; ATTEND Internal Medicine
PROC: 0Y6S0Z0 Detachment at Left 2nd Toe, Complete, Open Approach (ICD-10-PCS; principal; 2018-11-30)
DX: I70.262 Atherosclerosis of native arteries of extremities with gangrene, left leg (principal); E43 Unspecified severe protein-calorie malnutrition; J96.01 Acute respiratory failure with hypoxia; L03.116 Cellulitis of left lower limb; N39.0 Urinary tract infection, site not specified; D68.59 Other primary thrombophilia; F05 Delirium due to known physiological condition; Z68.25 Body mass index [BMI] 25.0-25.9, adult; M51.36 Other intervertebral disc degeneration, lumbar region; Z98.1 Arthrodesis status; I87.2 Venous insufficiency (chronic) (peripheral); E87.6 Hypokalemia; E83.42 Hypomagnesemia; I48.2 Chronic atrial fibrillation; L40.9 Psoriasis, unspecified; I25.10 Atherosclerotic heart disease of native coronary artery without angina pectoris; M21.372 Foot drop, left foot; Z79.51 Long term (current) use of inhaled steroids; Z79.899 Other long term (current) drug therapy; Z87.440 Personal history of urinary (tract) infections; Z88.0 Allergy status to penicillin; Z96.611 Presence of right artificial shoulder joint; Z82.49 Family history of ischemic heart disease and other diseases of the circulatory system; H40.9 Unspecified glaucoma; G89.29 Other chronic pain; L03.032 Cellulitis of left toe; M19.011 Primary osteoarthritis, right shoulder; D63.8 Anemia in other chronic diseases classified elsewhere; I48.0 Paroxysmal atrial fibrillation; E87.70 Fluid overload, unspecified; B95.62 Methicillin resistant Staphylococcus aureus infection as the cause of diseases classified elsewhere; J45.909 Unspecified asthma, uncomplicated; I11.9 Hypertensive heart disease without heart failure; Z74.09 Other reduced mobility
CPT/HCPCS: 36415; 36600; 70030-TC; 71045; 73660; 82785; 83605; 83735; 84100; 85025; 85651; 85730; 87040; 87070; 87075; 87077; 87086; 92526; 92610; 93005; 93307; 94640; 94664; 97110; 97112; 97165; 97530; 97535; A4649; A4663; A9150; G0378; J0696; J1100; J1650; J1940; J2185; J2920; J3370; J3490; J3590; J7030; J7040; J7050; J7060; J7120; J7512

== ENCOUNTER 2018-12-14 11:51 | Inpatient (IN) | payer MEDICARE, MEDICAID ==
[~2018-12-14] VITALS: Ht 152.4 cm; Wt 59.0 kg
[~2018-12-14 11:51] MED LIST changes: +ACET325T53 PO; +ACID1TAB4 PO; +ALBU2.5V7 NEB; +ASCO500P18 PO; +CEFT1VIA15 IV; +CLON0.1T PO; +DOCU100C36 PO; +ESCI10TA PO; -ESCI5TAB PO; -LACT1CAP71 PO; +MENT71OI TOP; -NAPR-1164 PO; +PANT40TA2 PO; +PROT30LI PO; +RIVA10TA PO; +RXVAN XX; -SULF1TAB48 PO; -TRAM50TA2 PO; -VERA80TA PO; +VERA80TA2 PO; -VITAMIN D3 PO; +ZINC220C8 PO; +ZOLP5TAB8 PO
--- NOTE | 2018-12-14 12:06 | NUR ---
PT A/OX1, BIB PRIVATE AMBULANCE FROM [facility], DUE TO AMS. PER EMT'S REPORT, PT'S BASELINE ORIENTATION IS A/OX2-3, BUT HAS BEEN ALTERED SINCE THIS AM. PT ARRIVED ON O2 VIA N/C, 24G IV ACCESS IN L FOREARM. PT PRESENTS W/ SEVERE RED/PURPLISH BRUISING ON RUE. O2 THERAPY CONTINUED ON 2 LPM VIA N/C, SPO2 99%. PT DOES NOT APPEAR TO BE IN ANY APPARENT DISTRESS AT THIS TIME.
--- NOTE | 2018-12-14 12:17 | NUR ---
[employer]ETERANS CONTACT REPRESENTATIVE AT BEDSIDE.
[2018-12-14 12:27] LABS: BASOPHILS # (AUTO) 0.1 K/uL (0.0-8.0); BASOPHILS % (AUTO) 0.3 % (0.0-2.0); EOSINOPHILS # (AUTO) 0.1 K/uL (0.0-0.7); EOSINOPHILS % (AUTO) 0.5 % (0.0-7.0); HEMATOCRIT 29.3 % (31.2-41.9); HEMOGLOBIN 9.4 g/dL (10.9-14.3); LYMPHOCYTES # (AUTO) 0.8 K/uL (20.0-40.0); LYMPHOCYTES % (AUTO) 4.1 % (20.5-51.5); MEAN CORPUSCULAR HEMOGLOBIN 25.5 uug (24.7-32.8); MEAN CORPUSCULAR HGB CONC 32 g/dL (32.3-35.6); MEAN CORPUSCULAR VOLUME 79.5 fL (75.5-95.3); MONOCYTES # (AUTO) 0.9 K/uL (2.0-10.0); MONOCYTES % (AUTO) 4.5 % (0.0-11.0); NEUTROPHILS # (AUTO) 17.5 K/uL (1.8-8.9); NEUTROPHILS % (AUTO) 90.6 % (38.5-71.5); PLATELET COUNT (AUTO) 479 K/uL (179-408); RED BLOOD CELL COUNT(AUTO) 3.69 MIL/uL (3.63-4.92); WHITE BLOOD COUNT (AUTO) 19.3 K/uL (3.8-11.8)
[2018-12-14] MEDS ORDERED: NA P133E RC (12:29)
[2018-12-14] MEDS ORDERED: MULT-213 PO (12:29)
[2018-12-14] MEDS ORDERED: BISA10SU61 RC (12:29)
[2018-12-14] MEDS ORDERED: VANC750P8 IV (12:29)
[2018-12-14] MEDS ORDERED: LACT-239 PO (12:29)
[2018-12-14] MEDS ORDERED: MAGN400O6 PO (12:29)
--- NOTE | 2018-12-14 12:31 | NUR ---
PT TAKEN TO RADIOLOGY FOR CT SCAN.
[2018-12-14 12:35] LABS: CARBON DIOXIDE 31 mmol/L (21-32); CHLORIDE 99 mmol/L (98-107); CREATININE 0.7 mg/dL (0.6-1.3); GLUCOSE 96 mg/dL (74-106); UREA NITROGEN, BLOOD 21 mg/dL (7-18)
[2018-12-14 12:41] LABS: ALANINE AMINOTRANSFERASE 33 U/L (14-59); ALKALINE PHOSPHATASE 286 U/L (50-136); ASPARTATE AMINOTRANSFERASE 20 U/L (15-37); BILIRUBIN,DIRECT 0.3 mg/dL (0.0-0.2); BILIRUBIN,TOTAL 0.9 mg/dL (0.2-1.0); TOTAL PROTEIN, SERUM 6.9 g/dL (6.4-8.2)
[2018-12-14 12:42] LABS: *BILIRUBIN,URIN NEGATIVE (NEGATIVE); *BLOOD, URINE 2+ (NEGATIVE); *CLARITY,URINE SLIGHTLY CLOUDY (CLEAR); *COLOR,URINE DARK YELLOW (YELLOW); *KETONES,URINE 1+ (NEGATIVE); LEUKOCYTE ESTERASE ,URINE NEGATIVE (NEGATIVE); NITRITE, URINE NEGATIVE (NEGATIVE); UGLUCOSE NEGATIVE (NEGATIVE)
[2018-12-14 12:47] LABS: MUCUS,URINE FEW /LPF (0-FEW); RBC,URINE 80-100 /HPF (0-3); SQUAMOUS EPITHELIAL CELL,UR NONE SEEN /HPF (NONE SEEN)
[2018-12-14 12:48] LABS: BACTERIA,URINE MANY /HPF (NONE SEEN); YEAST,URINE FEW /HPF (NONE SEEN)
[2018-12-14] MEDS ORDERED: LEVOFLOXACIN 750MG/D5W 150 ML IV ONE ×2 (13:00→13:08)
--- NOTE | 2018-12-14 13:31 | NUR ---
PAGED EPIC FOR PANEL CALL. AWAITING CALLBACK - ATTEMPT 1.
--- NOTE | 2018-12-14 14:02 | NUR ---
ADMITTING REPORT GIVEN TO CESAR JONES.
--- NOTE | 2018-12-14 14:28 | NUR ---
Pt. admitted to TELE 322, under care of KURT RAMOS NP. Belongs List completed
--- NOTE | 2018-12-14 14:28 | NUR ---
24G IV ACCESS IN L FOREARM REMOVED - INNER CANNULA INTACT.
[2018-12-14] MEDS ORDERED: ALBUTEROL SULFATE 2.5 MG/3 ML NEBU NEB PRN (14:30)
[2018-12-14] MEDS ORDERED: ACETAMINOPHEN 325 MG TABLET PO PRN (14:30)
[2018-12-14] MEDS ORDERED: Z GUARD REMEDY PASTE 57 GM TUBE TOP PRN (14:30)
[2018-12-14] MEDS ORDERED: MAGNESIUM HYDROXIDE 30 ML LIQUID UDC PO PRN (14:30)
[2018-12-14] MEDS ORDERED: LEVOFLOXACIN 750MG/D5W 750 MG in PREMIXED 1 EACH IV SCH (14:30)
[2018-12-14] MEDS ORDERED: ONDANSETRON 4 MG/2 ML VIAL IV PRN (14:30)
[2018-12-14] MEDS ORDERED: BISACODYL 10 MG SUPP.RECT RC PRN (14:30)
[2018-12-14] MEDS ORDERED: CLONIDINE HCL 0.1 MG TABLET PO PRN (14:30)
[2018-12-14] MEDS ORDERED: FLEET ENEMA 133 ML BOTTLE RC PRN (14:30)
--- NOTE | 2018-12-14 14:30 | NUR ---
83 YEARS OLD WOMEN WAS ADMITTED FROM ER TO TELE, WITH HISTORY OF A FIB, ASTHMA, HTN AND CAD, PATIENT' ADMITTING DIAGNOSIS IS ALTERED MENTAL STATUS,HEAD TO TOE ASSESSMENT IS DONE, SAFETY AND COMFORT MEASURES ARE IMPLEMENTED ,PLAN OF CARE IS INITIATED , IV ACCESS IN THE LEFT A/C 20 GAUGE,SONS WERE AT BED SIDE, ALL QUESTIONS AND CONCERNS ARE ADDRESSED, PICTURES WERE TAKEN, IN THE PATIENT'S CHART, PATIENT IS RESTING IN HER BED, NO PAIN REPORTED, NO DISTRESS NOTED WILL CONTINUE TO MONITOR
--- NOTE | 2018-12-14 16:19 | NUR ---
PHARMACY CLINICAL NOTE:VANCOMYCIN DOSING Request for vancomycin dosing on 83/yo female 152.4 cm 58.9kg for UTI and MRSA cellulitis of left foot Temp 98.1 BUN 21 Scr 0.7 WBC 19.3 also receiving Levaquin. Start vancomycin 1gm ivpb q28 hours estimate trough 14.3. Will order trough prior to 4 th will continue to monitor.
[2018-12-14 16:31] VITALS: BP 176/80
[2018-12-14] MEDS: VANCOMYCIN IV 1 G in PREMIXED 0 EACH IV SCH (17:23)
[2018-12-14] MEDS: COMPLEAT MODIFIED FORMULA 1000 ML LIQUID PO SCH (17:42)
[2018-12-14 20:25] VITALS: BP 137/56
[2018-12-14] MEDS ORDERED: VANCOMYCIN IV 750 MG in IV DEXTROSE 5% 250 ML IV SCH (21:00)
[2018-12-14] MEDS: ACIDOPHILUS/BULGARICUS CHEW TAB PO SCH (21:26)
[2018-12-14] MEDS: DOCUSATE SODIUM 100 MG CAPSULE PO SCH (21:26)
[2018-12-14] MEDS: VERAPAMIL 80 MG TABLET PO SCH (21:26)
[2018-12-14] MEDS: METOPROLOL TARTRATE 25 MG TABLET PO SCH (21:27)
[2018-12-15 00:28] VITALS: BP 93/68
[2018-12-15] MEDS: HYDROCODONE/APAP 5-325MG TABLET PO PRN (02:53)
[2018-12-15] MEDS: PANTOPRAZOLE SODIUM 40 MG TABLET.DR PO SCH (06:02)
[2018-12-15 06:03] VITALS: BP 101/32
[2018-12-15 06:40] LABS: BASOPHILS # (AUTO) 0.2 K/uL (0.0-8.0); BASOPHILS % (AUTO) 1.2 % (0.0-2.0); EOSINOPHILS # (AUTO) 0.3 K/uL (0.0-0.7); EOSINOPHILS % (AUTO) 1.9 % (0.0-7.0); HEMOGLOBIN 7.8 g/dL (10.9-14.3); LYMPHOCYTES # (AUTO) 1.8 K/uL (20.0-40.0); LYMPHOCYTES % (AUTO) 12.3 % (20.5-51.5); MEAN CORPUSCULAR HEMOGLOBIN 25.5 uug (24.7-32.8); MEAN CORPUSCULAR HGB CONC 32 g/dL (32.3-35.6); MEAN CORPUSCULAR VOLUME 78.8 fL (75.5-95.3); MONOCYTES % (AUTO) 6.9 % (0.0-11.0); NEUTROPHILS # (AUTO) 11.5 K/uL (1.8-8.9); NEUTROPHILS % (AUTO) 77.7 % (38.5-71.5); PLATELET COUNT (AUTO) 415 K/uL (179-408); RED BLOOD CELL COUNT(AUTO) 3.04 MIL/uL (3.63-4.92); WHITE BLOOD COUNT (AUTO) 14.9 K/uL (3.8-11.8)
[2018-12-15 06:46] LABS: CARBON DIOXIDE 30 mmol/L (21-32); CHLORIDE 99 mmol/L (98-107); CHOLESTEROL 163 mg/dL (<200); CREATININE 0.7 mg/dL (0.6-1.3); GLUCOSE 81 mg/dL (74-106); HDL CHOLESTEROL 45 mg/dL (40-60); MAGNESIUM 1.6 mg/dL (1.8-2.4); PHOSPHOROUS 3.1 mg/dL (2.5-4.9); POTASSIUM 3.7 mmol/L (3.5-5.1); TRIGLYCERIDES 74 MG/DL (30-150); UREA NITROGEN, BLOOD 21 mg/dL (7-18)
[2018-12-15 06:52] LABS: THYROID STIMULATING HORMONE 2.108 mIU/mL (0.358-3.740)
--- NOTE | 2018-12-15 07:30 | NUR ---
ON BED, RESTING, BREAKFAST SERVED, REFUSED TO EAT FOR NOW, WILL RECHECK LATER/
--- NOTE | 2018-12-15 08:00 | NUR ---
FOOD FLUIDS ENCOURAGED, REFUSED BUT ABLE TO ENCOURAGE TO TAKE ORANGE JUICE. TAKEN
--- NOTE | 2018-12-15 08:16 | NUR ---
PHARMACY CLINICAL NOTE:VANCOMYCIN DOSING To continue vancomycin dosing on 83/yo female 152.4 cm 58.9kg for UTI and MRSA cellulitis of left foot Temp 98.3 BUN 21 Scr 0.7 WBC 14.9 also receiving Levaquin. Will continue vancomycin 1gm ivpb q28 hours estimate trough 14.3 as renal function remains stable. Will order trough prior to 4th dose (not ordered yet). Will continue to monitor.
[2018-12-15] MEDS ORDERED: RIVAROXABAN 10 MG TABLET PO SCH (09:00)
[2018-12-15] MEDS ORDERED: Medication Not On Formulary EA (Ascorbic Acid (Vitamin C) 500 MG) PO SCH (09:00)
[2018-12-15] MEDS ORDERED: Medication Not On Formulary EA (Multivitamins W-Minerals (Multivitamin With Minerals) 1 PO SCH (09:00)
[2018-12-15] MEDS: MULTIVIT, IRON, MIN NO. 8, FA TABLET PO SCH (09:27)
[2018-12-15] MEDS: ACIDOPHILUS/BULGARICUS CHEW TAB PO SCH ×2 (09:27→21:06)
[2018-12-15] MEDS: ESCITALOPRAM OXALATE 10 MG TABLET PO SCH (09:28)
[2018-12-15] MEDS: ASCORBIC ACID 500 MG TABLET PO SCH (09:28)
[2018-12-15] MEDS: ZINC SULFATE 220 MG CAPSULE PO SCH (09:28)
[2018-12-15] MEDS: METOPROLOL TARTRATE 25 MG TABLET PO SCH ×2 (09:28→21:06)
[2018-12-15] MEDS: VERAPAMIL 80 MG TABLET PO SCH ×2 (09:29→21:05)
[2018-12-15] MEDS: COMPLEAT MODIFIED FORMULA 1000 ML LIQUID PO SCH ×3 (09:30→16:50)
[2018-12-15] MEDS: FLUTICASONE/VILANTEROL 1 EACH BLST.W.DEV IH SCH (09:33)
[2018-12-15] MEDS: predniSONE 10 MG TABLET PO SCH (09:33)
[2018-12-15] MEDS ORDERED: MAGNESIUM OXIDE 400 MG TABLET PO ONE (10:00)
[2018-12-15 11:05] VITALS: BP 124/50
--- NOTE | 2018-12-15 12:00 | NUR ---
TOOK FLUID WELL, REFUSED SOLID FOOD
--- NOTE | 2018-12-15 15:07 | NUR ---
DAUGHTER IN LAW AND SON AT BEDSIDE, SUPPORTIVE OF PATIENT CARE. APPRECIATIVE OF CARE
[2018-12-15 16:00] VITALS: BP 132/59
[2018-12-15] MEDS: RIVAROXABAN 15 MG TABLET PO SCH (17:14)
[2018-12-15] MEDS: IV NS 1000 ML 1,000 ML IV PRN (18:00)
--- NOTE | 2018-12-15 18:57 | NUR ---
FAMILY AT BEDSIDE, SUPPORTIVE OF PATIENT CARE. PATIENT MORE RECEPTIVE AND ALERT PER FAMILY . IV STARTED, PATIETN NOT TAKING FOOD OR FLUIDS WELL
--- NOTE | 2018-12-15 19:00 | NUR ---
RECEIVED PATIENT IN BED, ALERT ORIENTED, NO SOB NO CHEST PAIN, NO COMPLAIN OF PAIN AT THIS TIME. R ARM WRAPPED WITH DRESSING R HAND SKIN COLOR WITHIN NORMAL RANGE. LEFT FOOT DRESSING INTACT, CONT TO MONITOR. CONT ON ABX FOR UTI, URINE YELLOW COLOR NO ODOR NOTED AT THIS TIME. CALL LIGHT WITHIN REACH.
[2018-12-15 20:51] VITALS: BP 138/56
[2018-12-15] MEDS: VANCOMYCIN IV 1 G in PREMIXED 0 EACH IV SCH (21:05)
[2018-12-15] MEDS: DOCUSATE SODIUM 100 MG CAPSULE PO SCH (21:06)
--- NOTE | 2018-12-15 22:50 | NUR ---
TREATMENT DONE ON LEFT FOOT AMPUTEE ORDERED. NO DRAINAGE NOTED, SITE DRY, NO ODOR, NO REDNESS NOTED. CONT TO MONITOR.
[2018-12-16 05:33] LABS: BASOPHILS # (AUTO) 0.1 K/uL (0.0-8.0); BASOPHILS % (AUTO) 0.8 % (0.0-2.0); EOSINOPHILS # (AUTO) 0.3 K/uL (0.0-0.7); EOSINOPHILS % (AUTO) 2.5 % (0.0-7.0); HEMATOCRIT 25.9 % (31.2-41.9); HEMOGLOBIN 8.5 g/dL (10.9-14.3); LYMPHOCYTES # (AUTO) 1.6 K/uL (20.0-40.0); LYMPHOCYTES % (AUTO) 12.1 % (20.5-51.5); MEAN CORPUSCULAR HGB CONC 33 g/dL (32.3-35.6); MEAN CORPUSCULAR VOLUME 79.3 fL (75.5-95.3); MONOCYTES % (AUTO) 7.4 % (0.0-11.0); NEUTROPHILS % (AUTO) 77.2 % (38.5-71.5); PLATELET COUNT (AUTO) 435 K/uL (179-408); RED BLOOD CELL COUNT(AUTO) 3.27 MIL/uL (3.63-4.92)
[2018-12-16 05:42] LABS: CARBON DIOXIDE 32 mmol/L (21-32); CHLORIDE 98 mmol/L (98-107); CREATININE 0.9 mg/dL (0.6-1.3); GLUCOSE 90 mg/dL (74-106); POTASSIUM 3.9 mmol/L (3.5-5.1); UREA NITROGEN, BLOOD 22 mg/dL (7-18)
[2018-12-16] MEDS: PANTOPRAZOLE SODIUM 40 MG TABLET.DR PO SCH (06:37)
--- NOTE | 2018-12-16 07:01 | NUR ---
PATIENT SLEPT INTERMITTENTLY, NO COMPLAIN OF PAIN AT THIS TIME. TURN AND REPOSITION, CONT ABX FOR UTI, L FOOT DRESSING INTACT, KEPT CLEAN AND DRY. CALL LIGHT WITHIN REACH.
--- NOTE | 2018-12-16 07:33 | NUR ---
Nurse Notes: received report from the night nurse Cassi Murrell RN, patient is resting in bed. No complaints of any pain. sacral has redness, is intact. redness on right heel. dressing intact left foot.
[2018-12-16] MEDS: COMPLEAT MODIFIED FORMULA 1000 ML LIQUID PO SCH ×3 (09:00→18:06)
[2018-12-16 09:17] VITALS: BP 146/52
[2018-12-16] MEDS: predniSONE 10 MG TABLET PO SCH (09:36)
[2018-12-16] MEDS: ASCORBIC ACID 500 MG TABLET PO SCH (09:36)
[2018-12-16] MEDS: ESCITALOPRAM OXALATE 10 MG TABLET PO SCH (09:36)
[2018-12-16] MEDS: ZINC SULFATE 220 MG CAPSULE PO SCH (09:36)
[2018-12-16] MEDS: ACIDOPHILUS/BULGARICUS CHEW TAB PO SCH ×2 (09:36→21:05)
[2018-12-16] MEDS: METOPROLOL TARTRATE 25 MG TABLET PO SCH ×2 (09:37→21:05)
[2018-12-16] MEDS: MULTIVIT, IRON, MIN NO. 8, FA TABLET PO SCH (09:44)
[2018-12-16] MEDS: VERAPAMIL 80 MG TABLET PO SCH ×2 (09:45→21:06)
[2018-12-16] MEDS: FLUTICASONE/VILANTEROL 1 EACH BLST.W.DEV IH SCH (09:45)
[2018-12-16 11:08] VITALS: BP 136/47
--- NOTE | 2018-12-16 11:44 | NUR ---
PHARMACY CLINICAL NOTE:VANCOMYCIN DOSING To continue vancomycin dosing on 83/yo female 152.4 cm 58.9kg for UTI and MRSA cellulitis of left foot Temp 98.2 BUN 22 Scr 0.9 (yesterday 0.7) WBC 13 also receiving Levaquin. Will continue vancomycin 1gm ivpb q28 hours estimate trough now 18.59 per renal function change. Due to increased Scr, will take trough early before 3rd dose instead of 4th to check preliminary levels, due early am tomorrow at 0030. RN endorsed to hold dose 3rd dose if Tr >20 (dose due @ 0100). Rx will follow in am and adjust if needed. Will follow
--- NOTE | 2018-12-16 12:30 | NUR ---
Nurse Notes: Compleat Formula not brought up from dietary, stated order not seen in their order, only on the MAR. Compleat formula vanilla to be added to the diet.
[2018-12-16] MEDS ORDERED: LEVOFLOXACIN 750MG/D5W 750 MG in PREMIXED 1 EACH IV SCH (13:00)
[2018-12-16] MEDS: LEVOFLOXACIN 750MG/D5W 750 MG in PREMIXED 1 EACH IV SCH (13:07)
[2018-12-16 15:40] VITALS: BP 138/66
--- NOTE | 2018-12-16 18:00 | NUR ---
Nurse Notes: Patient eating more of dinner, caregiver at bedside said, she took 40%, no complaints of any pain.
[2018-12-16] MEDS: RIVAROXABAN 15 MG TABLET PO SCH (18:23)
--- NOTE | 2018-12-16 19:35 | NUR ---
Received patient awake and alert in bed with family at bedside. No signs of acute distress noted. No complaints of pain or SOB, patient on 2L NC saturating at 99% Heplock on the the left AC is intact and patent. Patient is on a low air loss mattress. Wound on the left foot is wrapped, no drainage noted. Safety measures initiated. Bed is low and locked, call light within reach. Will continue to monitor.
--- NOTE | 2018-12-16 19:45 | NUR ---
Report given to the night nurse Madeline Ace, patient is resting in bed, son Blanca phone # [phone] wants to know the results of right elbow xrays, Blanca's Elena [phone]
[2018-12-16 19:57] VITALS: BP 150/55
[2018-12-16] MEDS: DOCUSATE SODIUM 100 MG CAPSULE PO SCH (21:00)
[2018-12-16] MEDS: ZOLPIDEM 5 MG TABLET PO PRN (21:06)
[2018-12-17] MEDS: VANCOMYCIN IV 1 G in PREMIXED 0 EACH IV SCH ×2 (01:00→09:05)
--- NOTE | 2018-12-17 02:07 | NUR ---
Scheduled vanco not given, vanco trough was 20.7 Spoke to Roxy from pharmacy, and she ordered to hold dose, then depending on morning labs of creatinine will depend on if they order another vanco trough or order the vanco to be given at a later time. Will continue to monitor.
--- NOTE | 2018-12-17 05:48 | NUR ---
Patient slept intermittently throughout night. Patient was confused stating wanting to be taken to bedroom and reoriented patient that she is in the hospital and that she was in her room. No signs of acute distress noted. No signs of pain or SOB. Heplock on the left AC is intact and patent. Feet kept offloaded. Dressing on the left foot is dry and intact. Safety measures given.
[2018-12-17] MEDS: PANTOPRAZOLE SODIUM 40 MG TABLET.DR PO SCH (06:20)
[2018-12-17 06:30] VITALS: BP 146/83
[2018-12-17 06:52] LABS: BASOPHILS # (AUTO) 0.3 K/uL (0.0-8.0); BASOPHILS % (AUTO) 1.7 % (0.0-2.0); EOSINOPHILS # (AUTO) 0.2 K/uL (0.0-0.7); EOSINOPHILS % (AUTO) 1.6 % (0.0-7.0); HEMOGLOBIN 8.8 g/dL (10.9-14.3); LYMPHOCYTES # (AUTO) 1.5 K/uL (20.0-40.0); LYMPHOCYTES % (AUTO) 10.3 % (20.5-51.5); MEAN CORPUSCULAR HEMOGLOBIN 25.8 uug (24.7-32.8); MEAN CORPUSCULAR HGB CONC 33 g/dL (32.3-35.6); MEAN CORPUSCULAR VOLUME 79.1 fL (75.5-95.3); MONOCYTES # (AUTO) 0.8 K/uL (2.0-10.0); MONOCYTES % (AUTO) 5.7 % (0.0-11.0); NEUTROPHILS # (AUTO) 11.8 K/uL (1.8-8.9); NEUTROPHILS % (AUTO) 80.7 % (38.5-71.5); PLATELET COUNT (AUTO) 490 K/uL (179-408); RED BLOOD CELL COUNT(AUTO) 3.41 MIL/uL (3.63-4.92); WHITE BLOOD COUNT (AUTO) 14.7 K/uL (3.8-11.8)
[2018-12-17 07:03] LABS: CARBON DIOXIDE 31 mmol/L (21-32); CHLORIDE 99 mmol/L (98-107); CREATININE 0.9 mg/dL (0.6-1.3); GLUCOSE 80 mg/dL (74-106); UREA NITROGEN, BLOOD 18 mg/dL (7-18)
--- NOTE | 2018-12-17 07:20 | NUR ---
RECEIVED PT. FROM SURVEILLANCE SENSOR OFFICER NURSE. PT. IS IN NO DISTRESS OR PAIN. PT. ON 2 LITERS NASAL CANULA. BED IN LOWEST POSITION, 2 SIDE RAILS UP, LOCKED.
[2018-12-17] MEDS: COMPLEAT MODIFIED FORMULA 1000 ML LIQUID PO SCH (09:00)
[2018-12-17] MEDS: FLUTICASONE/VILANTEROL 1 EACH BLST.W.DEV IH SCH (09:05)
[2018-12-17] MEDS: ASCORBIC ACID 500 MG TABLET PO SCH (09:06)
[2018-12-17] MEDS: ESCITALOPRAM OXALATE 10 MG TABLET PO SCH (09:07)
[2018-12-17] MEDS: METOPROLOL TARTRATE 25 MG TABLET PO SCH ×2 (09:07→20:51)
[2018-12-17] MEDS: MULTIVIT, IRON, MIN NO. 8, FA TABLET PO SCH (09:07)
[2018-12-17] MEDS: ZINC SULFATE 220 MG CAPSULE PO SCH (09:08)
[2018-12-17] MEDS: ACIDOPHILUS/BULGARICUS CHEW TAB PO SCH ×2 (09:08→20:49)
[2018-12-17] MEDS: predniSONE 10 MG TABLET PO SCH (09:08)
[2018-12-17] MEDS: VERAPAMIL 80 MG TABLET PO SCH ×2 (09:09→20:50)
[2018-12-17] MEDS: ALBUTEROL SULFATE 2.5 MG/3 ML NEBU NEB SCH ×3 (09:26→19:21)
--- NOTE | 2018-12-17 09:42 | NUR ---
PHARMACY CLINICAL NOTE:VANCOMYCIN DOSING S: To continue vancomycin dosing on 83/yo female for UTI and MRSA cellulitis of left foot O: Temp 98.6 BUN 18 Scr 0.9 WBC 14.7 Vanco trough level: 20.7 (on 12/17 at 0030) ht 152.4 cm wt 58.9 kg Plan Since vanco trough level was above 20 mcg/ml, RN held 1am dose. Will change dose of vancomycin to 1gm ivpb q33 hours estimate trough now 15.7 mcg/ml. 1st dose due today at 0900. Plan to check vanco trough level before 4th dose (not yet ordered). Will follow
[2018-12-17 11:40] VITALS: BP 124/58
[2018-12-17] MEDS: ENSURE ENLIVE (VAN) 240 ML LIQUID PO SCH ×2 (13:02→17:27)
--- NOTE | 2018-12-17 14:49 | NUR ---
WOUND CARE CONSULT: PT PRESENTS WITH LEFT FOOT DRESSING WHICH IS DRY AND INTACT. ORDERS PER DPM FOR LEFT FOOT (CHANGE EVERY 48 HRS). DEFER TO DPM FOR LOWER EXTREMITIES. PT IS INCONTINENT AND NOTED TO HAVE RT ARM SWELLING, PRESENT ON ADMISSION. RECOMMENDATIONS MADE FOR SKIN PROTECTION. DISCUSSED WITH NURSING STAFF. WILL SEE PRN. PT ON FIRST STEP [facility]. IN AGREEMENT WITH PLAN OF CARE. Addendum: 12/17/18 at 1451 by NIKHIL RUTH RN Amended: Links added.
[2018-12-17 15:50] VITALS: BP 125/57
[2018-12-17] MEDS: RIVAROXABAN 15 MG TABLET PO SCH (17:31)
--- NOTE | 2018-12-17 18:46 | NUR ---
PT. COMPLIANT WITH TREATMENT. BREATHING TREATMENTS SCHEDULED EVERY 6 HOURS NO WHEEZING AT THIS TIME. PRIVATE SITTER AT BEDSIDE. APPLIED MEPILEX TO LEFT HEEL. PT. IN BED AT THIS TIME. NO DISTRESS OR PAIN AT THIS TIME. BED IN LOWEST POSITION, LOCKED, 2 SIDE RAILS UP.
[2018-12-17] MEDS: IV NS 1000 ML 1,000 ML IV PRN (19:00)
[2018-12-17 20:00] VITALS: BP 128/35
[2018-12-17] MEDS: DOCUSATE SODIUM 100 MG CAPSULE PO SCH (20:49)
[2018-12-17] MEDS: ZOLPIDEM 5 MG TABLET PO PRN (21:57)
[2018-12-18] MEDS: ALBUTEROL SULFATE 2.5 MG/3 ML NEBU NEB SCH ×4 (00:35→19:17)
[2018-12-18] MEDS: HYDROCODONE/APAP 5-325MG TABLET PO PRN (01:22)
[2018-12-18 04:03] VITALS: BP 143/57
[2018-12-18] MEDS: PANTOPRAZOLE SODIUM 40 MG TABLET.DR PO SCH (06:25)
[2018-12-18 07:00] LABS: CARBON DIOXIDE 30 mmol/L (21-32); CHLORIDE 101 mmol/L (98-107); CREATININE 0.8 mg/dL (0.6-1.3); GLUCOSE 92 mg/dL (74-106); POTASSIUM 3.9 mmol/L (3.5-5.1); UREA NITROGEN, BLOOD 16 mg/dL (7-18)
[2018-12-18 07:24] LABS: BASOPHILS # (AUTO) 0.1 K/uL (0.0-8.0); BASOPHILS % (AUTO) 0.8 % (0.0-2.0); EOSINOPHILS # (AUTO) 0.3 K/uL (0.0-0.7); EOSINOPHILS % (AUTO) 1.8 % (0.0-7.0); HEMATOCRIT 24.6 % (31.2-41.9); LYMPHOCYTES # (AUTO) 1.6 K/uL (20.0-40.0); LYMPHOCYTES % (AUTO) 11.1 % (20.5-51.5); MEAN CORPUSCULAR HEMOGLOBIN 25.5 uug (24.7-32.8); MEAN CORPUSCULAR HGB CONC 33 g/dL (32.3-35.6); MEAN CORPUSCULAR VOLUME 78.4 fL (75.5-95.3); MONOCYTES # (AUTO) 0.9 K/uL (2.0-10.0); NEUTROPHILS # (AUTO) 11.8 K/uL (1.8-8.9); NEUTROPHILS % (AUTO) 80.3 % (38.5-71.5); PLATELET COUNT (AUTO) 440 K/uL (179-408); RED BLOOD CELL COUNT(AUTO) 3.13 MIL/uL (3.63-4.92); WHITE BLOOD COUNT (AUTO) 14.7 K/uL (3.8-11.8)
[2018-12-18 08:26] VITALS: BP 150/86
[2018-12-18] MEDS: ESCITALOPRAM OXALATE 10 MG TABLET PO SCH (08:28)
[2018-12-18] MEDS: predniSONE 10 MG TABLET PO SCH (08:28)
[2018-12-18] MEDS: ZINC SULFATE 220 MG CAPSULE PO SCH (08:28)
[2018-12-18] MEDS: ASCORBIC ACID 500 MG TABLET PO SCH (08:28)
[2018-12-18] MEDS: METOPROLOL TARTRATE 25 MG TABLET PO SCH ×2 (08:28→20:09)
[2018-12-18] MEDS: MULTIVIT, IRON, MIN NO. 8, FA TABLET PO SCH (08:28)
[2018-12-18] MEDS: ACIDOPHILUS/BULGARICUS CHEW TAB PO SCH ×2 (08:29→20:10)
[2018-12-18] MEDS: FLUTICASONE/VILANTEROL 1 EACH BLST.W.DEV IH SCH (08:29)
[2018-12-18] MEDS: VERAPAMIL 80 MG TABLET PO SCH ×2 (08:29→20:10)
[2018-12-18] MEDS: ENSURE ENLIVE (VAN) 240 ML LIQUID PO SCH ×3 (08:30→17:30)
[2018-12-18 10:28] LABS: BILIRUBIN,DIRECT 0.1 mg/dL (0.0-0.2); BILIRUBIN,TOTAL 0.5 mg/dL (0.2-1.0); TOTAL PROTEIN, SERUM 6.1 g/dL (6.4-8.2)
--- NOTE | 2018-12-18 10:48 | NUR ---
PHARMACY CLINICAL NOTE:VANCOMYCIN DOSING S: To continue vancomycin dosing on 83/yo female for UTI and MRSA cellulitis of left foot O: Temp 98 BUN 16 Scr 0.8 WBC 14.7 Vanco trough level: 20.7 (on 12/17 at 0030) ht 152.4 cm wt 58.9 kg Plan Will continue same dose of vancomycin to 1gm ivpb q33 hours for today. 2nd dose today at 1800. Plan to check vanco trough level before 4th dose (not yet ordered). Will monitor renal function & adjust the dose if needed. Will follow
[2018-12-18 11:02] VITALS: BP 125/51
[2018-12-18] MEDS: LEVOFLOXACIN 750MG/D5W 750 MG in PREMIXED 1 EACH IV SCH (13:03)
[2018-12-18 15:10] VITALS: BP 156/76
--- NOTE | 2018-12-18 16:52 | NUR ---
PRINTED PATHOLOGY REPORT FROM LAST ADMISSION AND PUT IN PATHOLOGY TAB IN PAPER CHART. NOTED PATHOLOGY REPORT FROM PREVIOUS ADMISSION UNDER PATHOLGY IN EMR. (PER DR CRYSTAL'S ORDER).
[2018-12-18] MEDS: RIVAROXABAN 15 MG TABLET PO SCH (17:27)
[2018-12-18] MEDS: VANCOMYCIN IV 1 G in PREMIXED 0 EACH IV SCH (17:28)
[2018-12-18] MEDS ORDERED: FUROSEMIDE 20 MG/2 ML VIAL IV ONE (18:45)
--- NOTE | 2018-12-18 19:04 | NUR ---
NO SOB NOTED, BREATH SOUNDS DIMINISHED. FAMILY AND CAREGIVER AT BEDSIDE. DRESSING CHANGED ON L FOOT. BED LOW AND LOCKED. CALL LIGHT WITHIN REACHED. WILL CONT TO MONITOR.
[2018-12-18 19:31] VITALS: BP 147/57
[2018-12-18] MEDS: DOCUSATE SODIUM 100 MG CAPSULE PO SCH (20:10)
--- NOTE | 2018-12-18 21:00 | NUR ---
Rec'd pt in bed awake, watching TV, no s/s of acute distress noted. Family at bedside. On O2inh at 2.5L via n/c and keena well. Denies pain at this time. Admitted for UTI. On IV Atb, no adverse side effects noted. Afebrile. Incontinent and voiding freely, noted with clear yellow urine. Denies dysuria or burning sensation. Incontinent care provided as needed. Z-guard applied for sacral redness as ordered. First step mattress in place. Took all due HS meds and keena well. all safety precautions in place. Will cont to monitor.
[2018-12-18] MEDS: ZOLPIDEM 5 MG TABLET PO PRN (22:27)
[2018-12-19] VITALS (7 sets, daily range): BP systolic 131–164; BP diastolic 47–72
[2018-12-19] MEDS: ALBUTEROL SULFATE 2.5 MG/3 ML NEBU NEB SCH ×4 (00:30→19:35)
[2018-12-19] MEDS: IV NS 1000 ML 1,000 ML IV PRN (05:51)
--- NOTE | 2018-12-19 05:58 | NUR ---
Pt in bed awake, watching TV. No s/s of acute distress noted. Denies pain at this time. Good incontinent care rendered promptly as needed. Afebrile and denies dysuria or burning sensation. Taking PO fluids well. IVF infusing as ordered, IV site to R hand without s/s of complications noted. Took all due meds. All safety precautions in place. Will cont to monitor.
[2018-12-19] MEDS: PANTOPRAZOLE SODIUM 40 MG TABLET.DR PO SCH (06:10)
[2018-12-19] MEDS: FLUTICASONE/VILANTEROL 1 EACH BLST.W.DEV IH SCH (08:05)
[2018-12-19] MEDS: MULTIVIT, IRON, MIN NO. 8, FA TABLET PO SCH (08:05)
[2018-12-19] MEDS: predniSONE 10 MG TABLET PO SCH (08:05)
[2018-12-19] MEDS: ZINC SULFATE 220 MG CAPSULE PO SCH (08:05)
[2018-12-19] MEDS: ACIDOPHILUS/BULGARICUS CHEW TAB PO SCH ×2 (08:05→20:08)
[2018-12-19] MEDS: METOPROLOL TARTRATE 25 MG TABLET PO SCH ×2 (08:05→20:09)
[2018-12-19] MEDS: ASCORBIC ACID 500 MG TABLET PO SCH (08:05)
[2018-12-19] MEDS: ESCITALOPRAM OXALATE 10 MG TABLET PO SCH (08:05)
[2018-12-19] MEDS: ENSURE ENLIVE (VAN) 240 ML LIQUID PO SCH ×3 (08:06→17:11)
[2018-12-19] MEDS: PROTEIN SUPPLEMENT (PROSTAT) 30 ML LIQUID PO SCH ×3 (08:06→17:10)
[2018-12-19] MEDS: VERAPAMIL 80 MG TABLET PO SCH ×2 (08:06→20:09)
[2018-12-19 10:07] LABS: BASOPHILS # (AUTO) 0.1 K/uL (0.0-8.0); BASOPHILS % (AUTO) 0.8 % (0.0-2.0); EOSINOPHILS # (AUTO) 0.5 K/uL (0.0-0.7); EOSINOPHILS % (AUTO) 3.8 % (0.0-7.0); HEMATOCRIT 23.9 % (31.2-41.9); HEMOGLOBIN 7.6 g/dL (10.9-14.3); LYMPHOCYTES # (AUTO) 0.9 K/uL (20.0-40.0); LYMPHOCYTES % (AUTO) 6.6 % (20.5-51.5); MEAN CORPUSCULAR HEMOGLOBIN 25.4 uug (24.7-32.8); MEAN CORPUSCULAR HGB CONC 32 g/dL (32.3-35.6); MEAN CORPUSCULAR VOLUME 79.4 fL (75.5-95.3); MONOCYTES # (AUTO) 0.7 K/uL (2.0-10.0); MONOCYTES % (AUTO) 4.9 % (0.0-11.0); NEUTROPHILS # (AUTO) 11.2 K/uL (1.8-8.9); NEUTROPHILS % (AUTO) 83.9 % (38.5-71.5); PLATELET COUNT (AUTO) 409 K/uL (179-408); RED BLOOD CELL COUNT(AUTO) 3.01 MIL/uL (3.63-4.92); WHITE BLOOD COUNT (AUTO) 13.4 K/uL (3.8-11.8)
[2018-12-19 10:25] LABS: ALANINE AMINOTRANSFERASE 14 U/L (14-59); ALKALINE PHOSPHATASE 145 U/L (50-136); ASPARTATE AMINOTRANSFERASE 7 U/L (15-37); BILIRUBIN,TOTAL 0.4 mg/dL (0.2-1.0); CARBON DIOXIDE 32 mmol/L (21-32); CHLORIDE 100 mmol/L (98-107); CREATININE 0.9 mg/dL (0.6-1.3); GLUCOSE 109 mg/dL (74-106); MAGNESIUM 1.5 mg/dL (1.8-2.4); PHOSPHOROUS 3.2 mg/dL (2.5-4.9); POTASSIUM 3.7 mmol/L (3.5-5.1); TOTAL PROTEIN, SERUM 5.9 g/dL (6.4-8.2); UREA NITROGEN, BLOOD 16 mg/dL (7-18)
--- NOTE | 2018-12-19 12:38 | NUR ---
PHARMACY CLINICAL NOTE:VANCOMYCIN DOSING S: To continue vancomycin dosing on 83/yo female for UTI and MRSA cellulitis of left foot O: Temp 98.6 BUN 16 Scr 0.9 WBC 13.4 Vanco trough level: 20.7 (on 12/17 at 0030) ht 152.4 cm wt 58.9 kg Plan Will continue same dose of vancomycin to 1gm IVPB q33 hours for today. 3rd dose tomorrow at 0300. Plan to check vanco trough level before 4th dose (not yet ordered). Will monitor renal function & adjust the dose if needed. Will follow
[2018-12-19] MEDS ORDERED: MAGNESIUM OXIDE 400 MG TABLET PO ONE (15:45)
[2018-12-19] MEDS ORDERED: FUROSEMIDE 20 MG/2 ML VIAL IV PRN (15:45)
[2018-12-19] MEDS ORDERED: POTASSIUM CHLORIDE 20 MEQ TAB.PRT.SR PO ONE (15:45)
[2018-12-19] MEDS: RIVAROXABAN 15 MG TABLET PO SCH (17:13)
[2018-12-19] MEDS: DOCUSATE SODIUM 100 MG CAPSULE PO SCH (20:08)
--- NOTE | 2018-12-19 23:00 | NUR ---
Pt in bed awake watching TV. No s/s of acute distress noted. Pt with order for 1PRBC transfusion for hgb of 7.6. Two nurse verification performed with CESAR Shelley. Educated pt on risks vs benefits. Pt had no questions. Verbalized understanding. Will monitor closely.
[2018-12-20] VITALS (7 sets, daily range): BP systolic 123–158; BP diastolic 42–71
[2018-12-20] MEDS: ZOLPIDEM 5 MG TABLET PO PRN (00:18)
[2018-12-20] MEDS: ALBUTEROL SULFATE 2.5 MG/3 ML NEBU NEB SCH ×3 (01:23→13:45)
--- NOTE | 2018-12-20 01:45 | NUR ---
Status post blood transfusion. Cyndy well. No adverse side effects noted. VSS. Right AC 20g IV intact and patent, no s/s of complication noted. Will administer Lasix 20mg IV post transfusion as ordered. All safety precautions in place. Will cont to monitor.
[2018-12-20] MEDS: VANCOMYCIN IV 1 G in PREMIXED 0 EACH IV SCH (02:37)
[2018-12-20] MEDS: PANTOPRAZOLE SODIUM 40 MG TABLET.DR PO SCH (06:01)
[2018-12-20 06:38] LABS: BASOPHILS % (AUTO) 0.4 % (0.0-2.0); EOSINOPHILS # (AUTO) 0.5 K/uL (0.0-0.7); EOSINOPHILS % (AUTO) 4.2 % (0.0-7.0); HEMATOCRIT 29.7 % (31.2-41.9); HEMOGLOBIN 10.1 g/dL (10.9-14.3); LYMPHOCYTES # (AUTO) 1.6 K/uL (20.0-40.0); LYMPHOCYTES % (AUTO) 14.7 % (20.5-51.5); MEAN CORPUSCULAR HEMOGLOBIN 27.2 uug (24.7-32.8); MEAN CORPUSCULAR HGB CONC 34 g/dL (32.3-35.6); MEAN CORPUSCULAR VOLUME 79.8 fL (75.5-95.3); MONOCYTES # (AUTO) 0.5 K/uL (2.0-10.0); MONOCYTES % (AUTO) 5.1 % (0.0-11.0); NEUTROPHILS # (AUTO) 8.2 K/uL (1.8-8.9); NEUTROPHILS % (AUTO) 75.6 % (38.5-71.5); PLATELET COUNT (AUTO) 420 K/uL (179-408); RED BLOOD CELL COUNT(AUTO) 3.73 MIL/uL (3.63-4.92); WHITE BLOOD COUNT (AUTO) 10.8 K/uL (3.8-11.8)
[2018-12-20 06:54] LABS: CARBON DIOXIDE 34 mmol/L (21-32); CHLORIDE 100 mmol/L (98-107); CREATININE 0.9 mg/dL (0.6-1.3); GLUCOSE 88 mg/dL (74-106); MAGNESIUM 1.8 mg/dL (1.8-2.4); PHOSPHOROUS 3.3 mg/dL (2.5-4.9); UREA NITROGEN, BLOOD 18 mg/dL (7-18)
[2018-12-20] MEDS: ACIDOPHILUS/BULGARICUS CHEW TAB PO SCH (08:11)
[2018-12-20] MEDS: MULTIVIT, IRON, MIN NO. 8, FA TABLET PO SCH (08:11)
[2018-12-20] MEDS: predniSONE 10 MG TABLET PO SCH (08:12)
[2018-12-20] MEDS: PROTEIN SUPPLEMENT (PROSTAT) 30 ML LIQUID PO SCH ×3 (08:12→16:19)
[2018-12-20] MEDS: ZINC SULFATE 220 MG CAPSULE PO SCH (08:12)
[2018-12-20] MEDS: ASCORBIC ACID 500 MG TABLET PO SCH (08:12)
[2018-12-20] MEDS: FLUTICASONE/VILANTEROL 1 EACH BLST.W.DEV IH SCH (08:12)
[2018-12-20] MEDS: ESCITALOPRAM OXALATE 10 MG TABLET PO SCH (08:12)
[2018-12-20] MEDS: ENSURE ENLIVE (VAN) 240 ML LIQUID PO SCH ×3 (08:13→16:19)
[2018-12-20] MEDS: VERAPAMIL 80 MG TABLET PO SCH (08:21)
[2018-12-20] MEDS ORDERED: METOPROLOL TARTRATE 50 MG TABLET PO SCH (09:00)
[2018-12-20] MEDS ORDERED: LEVOFLOXACIN 750 MG TABLET PO SCH (13:00)
--- NOTE | 2018-12-20 14:29 | NUR ---
PHARMACY CLINICAL NOTE:VANCOMYCIN DOSING S: To continue vancomycin dosing on 83/yo female for UTI and MRSA cellulitis of left foot O: Temp 98 BUN 18 Scr 0.9 WBC 10.8 Vanco trough level: 20.7 (on 12/17 at 0030) ht 152.4 cm wt 58.9 kg Plan Will continue same dose of vancomycin to 1gm IVPB q33 hours for today. 3rd dose given today at 0300. Plan to check vanco trough level before 4th dose (ordered for tomorrow at 1130). Will monitor renal function & adjust the dose if needed. Will follow
[2018-12-20] MEDS ORDERED: RXVAN XX (15:40)
[2018-12-20] MEDS ORDERED: NITR50CA4 PO (15:40)
[2018-12-20] MEDS ORDERED: EPOE1VIA12 IJ (15:40)
[2018-12-20] MEDS ORDERED: PROT30LI PO (15:40)
[2018-12-20] MEDS ORDERED: RIVA15TA PO (15:40)
[2018-12-20] MEDS ORDERED: FURO-152 PO (15:40)
[2018-12-20] MEDS ORDERED: MENT71OI TOP (15:40)
[2018-12-20] MEDS ORDERED: FLUCONAZOLE 200 MG/NS 100ML IV 100 MG in PREMIXED 1 EACH IV ONE (16:00)
[2018-12-20] MEDS: RIVAROXABAN 15 MG TABLET PO SCH (17:31)
--- NOTE | 2018-12-20 17:58 | NUR ---
PT SON REFUSED TO DO THE WOUND PICTURE ON DC ,HE SAID DO NOT OPEN THE DRESSING , DID DRESSING LAST NIGHT, AND CHARGE NURSE MADE AWARE
--- NOTE | 2018-12-20 18:34 | NUR ---
REGARDING DC DR RAE SPEAK TO THE SON SARWAT AT BED SIDE WITH THE PT ,DR EXPLAIN EVERY THING REGARDING THE DC INSTRUCTION AND MEDICATION
--- NOTE | 2018-12-20 18:37 | NUR ---
TRY TO CALL PT SON MR STONE THREE TIMES NO ANSWER THE PHONE LEAVE THE MASSAGE FOR HIM REGARDING HIS MOM DC TO [facility] AND ALSO CONTACT HER OTHER SON MR PAN NOTIFIED HIM WE TRY TO REACH HIS BROTHER BUT UNABLE TO CONTACT HIM ,MAXIM SAID HE IS CALLING HIM AND GO HEAD DC MY MOM TO [facility] CASE MANAGEMENT NOTIFIED AND CAREGIVER ALSO NOTIFIED TO SARWAT AND BERTHA AND SHE LEAVE THE MESSAGE FOR THEM .CAREGIVER TALK TO MAXIM AND SHE IS GOING WITH THE PT TO [facility]
--- NOTE | 2018-12-20 18:43 | NUR ---
DC ORDERS RECEIVED NOTED AND CARRIED OUT,D.C INSTRUCTION AND EDUCATION AND RN REPORT GIVEN TO CUSTODIAL ,PT LEFT THE FACILITY VIA AMBULANCES WITH IV HEPLOCK FOR IV ANTIBIOTIC IN STABLE CONDITION
== END 2018-12-20 18:44 | DRG 871 ==
LOC: ER 11:51 → TELE3 14:18 → MEDSURG3 12-15 10:12
PROVIDERS: ADMIT Nurse Practitioner Acute Care; ATTEND Nurse Practitioner Acute Care
PROC: 30233N1 Transfusion of Nonautologous Red Blood Cells into Peripheral Vein, Percutaneous Approach (ICD-10-PCS; principal; 2018-12-19)
DX: A41.9 Sepsis, unspecified organism (principal); J69.0 Pneumonitis due to inhalation of food and vomit; I50.33 Acute on chronic diastolic (congestive) heart failure; E43 Unspecified severe protein-calorie malnutrition; J96.01 Acute respiratory failure with hypoxia; G92 Toxic encephalopathy; N39.0 Urinary tract infection, site not specified; B48.8 Other specified mycoses; L03.116 Cellulitis of left lower limb; J98.11 Atelectasis; J44.1 Chronic obstructive pulmonary disease with (acute) exacerbation; D68.59 Other primary thrombophilia; R65.20 Severe sepsis without septic shock; Z89.422 Acquired absence of other left toe(s); I11.0 Hypertensive heart disease with heart failure; Z68.25 Body mass index [BMI] 25.0-25.9, adult; D63.8 Anemia in other chronic diseases classified elsewhere; I48.2 Chronic atrial fibrillation; L40.9 Psoriasis, unspecified; I73.9 Peripheral vascular disease, unspecified; I70.0 Atherosclerosis of aorta; I25.10 Atherosclerotic heart disease of native coronary artery without angina pectoris; H40.9 Unspecified glaucoma; Z98.41 Cataract extraction status, right eye; Z96.642 Presence of left artificial hip joint; Z96.651 Presence of right artificial knee joint; Z96.611 Presence of right artificial shoulder joint; Z88.0 Allergy status to penicillin; Z98.1 Arthrodesis status; Z87.440 Personal history of urinary (tract) infections; Z79.899 Other long term (current) drug therapy; Z79.01 Long term (current) use of anticoagulants; M21.372 Foot drop, left foot; M21.371 Foot drop, right foot; M25.422 Effusion, left elbow; Z79.51 Long term (current) use of inhaled steroids; Z82.49 Family history of ischemic heart disease and other diseases of the circulatory system; Z86.14 Personal history of Methicillin resistant Staphylococcus aureus infection; I87.2 Venous insufficiency (chronic) (peripheral); S50.01XA Contusion of right elbow, initial encounter; X58.XXXA Exposure to other specified factors, initial encounter; Y92.122 Bedroom in nursing home as the place of occurrence of the external cause; Z91.041 Radiographic dye allergy status; G89.29 Other chronic pain; E87.6 Hypokalemia; E83.42 Hypomagnesemia; F32.9 Major depressive disorder, single episode, unspecified; M51.36 Other intervertebral disc degeneration, lumbar region; I87.8 Other specified disorders of veins; M65.9 Synovitis and tenosynovitis, unspecified; M19.011 Primary osteoarthritis, right shoulder; D50.9 Iron deficiency anemia, unspecified
CPT/HCPCS: 36415; 70030-TC; 70450; 71045; 73080; 73200; 83605; 83735; 84100; 84443; 85025; 85651; 85730; 86850; 86900; 86901; 86920; 87040; 87077; 87086; 93005; 94640; 94664; 97110; 97112; 97116; 97530; A4663; G0378; J1450; J1940; J1956; J2405; J3370; J7030; J7050; J7512; P9016-BL; P9021

== ENCOUNTER 2019-01-13 12:27 | Inpatient (IN) | payer MEDICARE, MEDICAID ==
[~2019-01-13] VITALS: Ht 152.4 cm; Wt 43.1 kg
[~2019-01-13 12:27] MED LIST changes: +BISA10SU61 RC; -CEFT1VIA15 IV; +EPOE1VIA12 IJ; +FURO-152 PO; +LACT-239 PO; +MAGN400O6 PO; +MULT-213 PO; +NA P133E RC; +NITR50CA4 PO; -RIVA10TA PO; +RIVA15TA PO
[2019-01-13] MEDS ORDERED: IV NORMAL SALINE 1000 ML BAG IV ONE (12:45)
[2019-01-13 13:17] LABS: BASOPHILS % (AUTO) 0.2 % (0.0-2.0); EOSINOPHILS # (AUTO) 0.1 K/uL (0.0-0.7); EOSINOPHILS % (AUTO) 0.5 % (0.0-7.0); HEMATOCRIT 29.6 % (31.2-41.9); HEMOGLOBIN 9.4 g/dL (10.9-14.3); LYMPHOCYTES # (AUTO) 1.3 K/uL (20.0-40.0); LYMPHOCYTES % (AUTO) 6.5 % (20.5-51.5); MEAN CORPUSCULAR HEMOGLOBIN 24.9 uug (24.7-32.8); MEAN CORPUSCULAR HGB CONC 32 g/dL (32.3-35.6); MONOCYTES # (AUTO) 1.3 K/uL (2.0-10.0); MONOCYTES % (AUTO) 6.6 % (0.0-11.0); NEUTROPHILS # (AUTO) 16.9 K/uL (1.8-8.9); NEUTROPHILS % (AUTO) 86.2 % (38.5-71.5); PLATELET COUNT (AUTO) 500 K/uL (179-408); RED BLOOD CELL COUNT(AUTO) 3.79 MIL/uL (3.63-4.92); WHITE BLOOD COUNT (AUTO) 19.6 K/uL (3.8-11.8)
[2019-01-13 13:22] LABS: CARBON DIOXIDE 29 mmol/L (21-32); CHLORIDE 96 mmol/L (98-107); CREATININE 1.2 mg/dL (0.6-1.3); GLUCOSE 115 mg/dL (74-106); POTASSIUM 3.9 mmol/L (3.5-5.1); UREA NITROGEN, BLOOD 33 mg/dL (7-18)
[2019-01-13 13:26] LABS: *BILIRUBIN,URIN 2+ (NEGATIVE); *BLOOD, URINE 3+ (NEGATIVE); *COLOR,URINE AMBER (YELLOW); *KETONES,URINE 1+ (NEGATIVE); *UROBILINOGEN,URINE 0.2 E.U./dl (NORMAL); LEUKOCYTE ESTERASE ,URINE NEGATIVE (NEGATIVE); NITRITE, URINE NEGATIVE (NEGATIVE); PH,URINE 5.5 (5.0-8.0); UGLUCOSE NEGATIVE (NEGATIVE)
[2019-01-13 13:33] LABS: *CLARITY,URINE CLOUDY (CLEAR)
[2019-01-13 13:34] LABS: BACTERIA,URINE FEW /HPF (NONE SEEN); RBC,URINE 20-50 /HPF (0-3); SQUAMOUS EPITHELIAL CELL,UR FEW /HPF (NONE SEEN); URINE AMORPHOUS URATE MODERATE /HPF
[2019-01-13 13:34] LABS: ALANINE AMINOTRANSFERASE 11 U/L (14-59); ALKALINE PHOSPHATASE 163 U/L (50-136); ASPARTATE AMINOTRANSFERASE 12 U/L (15-37); BILIRUBIN,DIRECT 0.2 mg/dL (0.0-0.2); BILIRUBIN,TOTAL 0.6 mg/dL (0.2-1.0); TOTAL PROTEIN, SERUM 6.9 g/dL (6.4-8.2)
[2019-01-13] MEDS ORDERED: DOCU-141 PO (14:44)
--- NOTE | 2019-01-13 15:43 | NUR ---
SBAR report given to CESAR Ayon.
[2019-01-13 16:45] VITALS: BP 128/52
--- NOTE | 2019-01-13 16:55 | NUR ---
PATIENT RECEIVED FROM ED 83 YEARS OLD FEMALE WITH DX OF UTI/CHF PLACED INTO BED FIXED AND MADE COMFORTABLE PATIENT IS ALERT TO SELF WITH CONFUSSION AND DISORIENTATION ON O2 AT 2L/M BY NASAL CANULA WITH NO SOB AT THIS TIME.MULTIPLE BRUISES AND OPEN AREA ON HER SACRAL AREAS CALLED DR CANO AND LEFT MESSAGE RE ORDERS.
--- NOTE | 2019-01-13 16:55 | NUR ---
PT TRANSFERED TO FLOOR IN STABLE CONDITION. PT WAS ACCOMPANIED BY REMOTE SENSING SPECIALIST AND SON THE WHOLE ER STAY. PT NOT COMPLAINING, REMAINED CALM.
--- NOTE | 2019-01-13 17:23 | NUR ---
CALL RECEIVED FROM DR CANO WITH ORDERS AND NOTED.
[2019-01-13] MEDS ORDERED: ONDANSETRON 4 MG/2 ML VIAL IV PRN (18:15)
[2019-01-13] MEDS ORDERED: PIPERACILLIN SODIUM/TAZOBACTAM 3.375 G in IV DEXTROSE 5% 50 ML IV PRN (18:15)
[2019-01-13] MEDS ORDERED: ALBUTEROL SULFATE 2.5 MG/3 ML NEBU NEB PRN (18:15)
[2019-01-13 20:08] VITALS: BP 122/50
[2019-01-13] MEDS: Z GUARD REMEDY PASTE 57 GM TUBE TOP SCH (21:15)
[2019-01-13] MEDS: IV NS 1000 ML 1,000 ML IV PRN (21:42)
[2019-01-14] MEDS: ZOLPIDEM 5 MG TABLET PO PRN (00:01)
[2019-01-14] MEDS ORDERED: PIPERACILLIN SODIUM/TAZOBACTAM 3.375 G in IV DEXTROSE 5% 50 ML IV SCH (00:19)
[2019-01-14 00:56] VITALS: BP 137/67
[2019-01-14 04:45] VITALS: BP 150/70
[2019-01-14] MEDS: PANTOPRAZOLE SODIUM 40 MG TABLET.DR PO SCH (06:16)
[2019-01-14 06:50] LABS: CARBON DIOXIDE 29 mmol/L (21-32); CHLORIDE 101 mmol/L (98-107); CHOLESTEROL 164 mg/dL (<200); CREATININE 0.9 mg/dL (0.6-1.3); GLUCOSE 86 mg/dL (74-106); HDL CHOLESTEROL 43 mg/dL (40-60); MAGNESIUM 1.7 mg/dL (1.8-2.4); PHOSPHOROUS 2.9 mg/dL (2.5-4.9); POTASSIUM 3.8 mmol/L (3.5-5.1); TRIGLYCERIDES 95 MG/DL (30-150); UREA NITROGEN, BLOOD 30 mg/dL (7-18)
[2019-01-14 06:52] LABS: EOSINOPHILS # (AUTO) 0.1 K/uL (0.0-0.7); LYMPHOCYTES # (AUTO) 1.7 K/uL (20.0-40.0); LYMPHOCYTES % (AUTO) 10.7 % (20.5-51.5); MEAN CORPUSCULAR HGB CONC 32 g/dL (32.3-35.6); NEUTROPHILS # (AUTO) 13.1 K/uL (1.8-8.9); PLATELET COUNT (AUTO) 438 K/uL (179-408)
[2019-01-14 06:57] LABS: THYROID STIMULATING HORMONE 1.258 mIU/mL (0.358-3.740)
[2019-01-14 07:12] LABS: BASOPHILS # (AUTO) 0.1 K/uL (0.0-8.0); BASOPHILS % (AUTO) 0.5 % (0.0-2.0); EOSINOPHILS % (AUTO) 0.3 % (0.0-7.0); HEMOGLOBIN 7.8 g/dL (10.9-14.3); MEAN CORPUSCULAR HEMOGLOBIN 24.8 uug (24.7-32.8); MEAN CORPUSCULAR VOLUME 77.4 fL (75.5-95.3); MONOCYTES # (AUTO) 1.3 K/uL (2.0-10.0); MONOCYTES % (AUTO) 7.8 % (0.0-11.0); NEUTROPHILS % (AUTO) 80.7 % (38.5-71.5); RED BLOOD CELL COUNT(AUTO) 3.13 MIL/uL (3.63-4.92); WHITE BLOOD COUNT (AUTO) 16.2 K/uL (3.8-11.8)
[2019-01-14 07:13] LABS: HEMATOCRIT 24.2 % (31.2-41.9)
--- NOTE | 2019-01-14 07:55 | NUR ---
AWAKE ALERT WITH CONFUSSION ALL NEEDS ANTICIPATED AND SATISFIED REQUIRES MAX ASSIST FOR ALL ADL TURNED AND REPOSITIONED Q2H FOR COMFORT AND HEELS FLOATED REMAIN ON IVF AND IVATB WITH NO ADVERSE OR ALLERGIC REACTIONS AT THIS TIME ON O2 WITH NO SOB AT THIS TIME MADE COMFORTABLE AND WILL CONTINUE TO OBSERVE.
[2019-01-14] MEDS: FLUTICASONE/VILANTEROL 1 EACH BLST.W.DEV IH SCH (08:53)
[2019-01-14] MEDS: ZINC SULFATE 220 MG CAPSULE PO SCH (08:53)
[2019-01-14] MEDS: METOPROLOL TARTRATE 25 MG TABLET PO SCH ×2 (08:53→16:48)
[2019-01-14] MEDS: Z GUARD REMEDY PASTE 57 GM TUBE TOP SCH ×2 (08:54→21:11)
--- NOTE | 2019-01-14 09:30 | NUR ---
ROBBIN MISSILEMAN FOR DR CRYSTAL HERE TO SEE PATIENT WITH NEW ORDERS AND NOTED.
[2019-01-14] MEDS ORDERED: MAGNESIUM OXIDE 400 MG TABLET PO ONE ×2 (10:00→16:00)
--- NOTE | 2019-01-14 10:56 | NUR ---
MAG LEVEL IS 1.7 DR CANO NOTIFIED WITH NEW ORDERS AND NOTED.
[2019-01-14 11:12] VITALS: BP 109/49
--- NOTE | 2019-01-14 12:00 | NUR ---
DR CANO HERE TO SEE PATIENT SPOKE WITH THE PATIENTS SON AT THE BEDSIDE AT LENGTH AND UNDERSTAOOD THE PLAN OF CARE.
[2019-01-14] MEDS: MEROPENEM 1 G in IV NORMAL SALINE 100 ML IV SCH ×2 (13:21→21:39)
[2019-01-14 15:11] VITALS: BP 121/52
[2019-01-14] MEDS: IV NS 1000 ML 1,000 ML IV PRN (16:47)
[2019-01-14] MEDS: RIVAROXABAN 15 MG TABLET PO SCH (17:27)
--- NOTE | 2019-01-14 18:30 | NUR ---
FIRST STEP JOHN DELIVERED BY THE COMPANY AND APPLIED ORDERED NO ADVERSE OR ALLERGIC REACTIONS NOTED FROM ATB ORDERED MADE COMFORTABLE WILL CONTINUE TO OBSERVE.
[2019-01-14] MEDS: ACETAMINOPHEN 325 MG TABLET PO PRN (19:14)
--- NOTE | 2019-01-14 19:30 | NUR ---
Received patient awake and alert with family at bedside. No signs of acute distress noted. No complaints of SOB, paitne on 1.5L NC saturating at 99% Complains of pain, family requesting to give PRN pain medication when patient goes to bed. IVF running on the left AC. Patient on low air loss mattress. Safety measures initiated. Bed is low and locked, call light within reach. Will continue to monitor.
[2019-01-14 19:47] VITALS: BP 108/72
[2019-01-14] MEDS: Z GUARD REMEDY PASTE 57 GM TUBE TOP PRN (21:04)
[2019-01-14] MEDS: HYDROCODONE/APAP 5-325MG TABLET PO PRN (21:25)
[2019-01-15 05:45] VITALS: BP 156/82
--- NOTE | 2019-01-15 05:46 | NUR ---
Patient slept well throughout shift. No signs of acute distress noted, no signs of SOB. Per family, patient complained of pain to the right arm. PRN pain medication given and was effective. Medications given as ordered. Safety measures given.
[2019-01-15] MEDS: PANTOPRAZOLE SODIUM 40 MG TABLET.DR PO SCH (06:03)
[2019-01-15] MEDS: MEROPENEM 1 G in IV NORMAL SALINE 100 ML IV SCH ×3 (06:04→22:22)
--- NOTE | 2019-01-15 07:25 | NUR ---
ON FIRST STEP MATTRASS TURNED AND REPOSITIONED Q2H FOR COMFORT HOB UP WITH O2 AT 2L/M BY NASAL CANULA WITH NO SHORTNESS OF BREATH AT THIS TIME.ON IVF AND IV ATB WITH NO S/S OF ADVERSE OR ALLERGIC REACTIONS AT THIS TIME.HEELS ARE FLOATED MADE COMFORTABLE AND WILL CONTINUE TO OBSERVE.
[2019-01-15 07:29] LABS: BASOPHILS # (AUTO) 0.1 K/uL (0.0-8.0); BASOPHILS % (AUTO) 0.8 % (0.0-2.0); EOSINOPHILS # (AUTO) 0.3 K/uL (0.0-0.7); EOSINOPHILS % (AUTO) 2.7 % (0.0-7.0); HEMOGLOBIN 7.9 g/dL (10.9-14.3); LYMPHOCYTES # (AUTO) 1.6 K/uL (20.0-40.0); LYMPHOCYTES % (AUTO) 12.5 % (20.5-51.5); MEAN CORPUSCULAR HEMOGLOBIN 24.6 uug (24.7-32.8); MEAN CORPUSCULAR HGB CONC 32 g/dL (32.3-35.6); MEAN CORPUSCULAR VOLUME 77.9 fL (75.5-95.3); MONOCYTES % (AUTO) 7.7 % (0.0-11.0); NEUTROPHILS # (AUTO) 9.7 K/uL (1.8-8.9); NEUTROPHILS % (AUTO) 76.3 % (38.5-71.5); PLATELET COUNT (AUTO) 464 K/uL (179-408); RED BLOOD CELL COUNT(AUTO) 3.22 MIL/uL (3.63-4.92); WHITE BLOOD COUNT (AUTO) 12.7 K/uL (3.8-11.8)
[2019-01-15 07:48] LABS: CARBON DIOXIDE 29 mmol/L (21-32); CHLORIDE 103 mmol/L (98-107); GLUCOSE 85 mg/dL (74-106); MAGNESIUM 1.5 mg/dL (1.8-2.4); PHOSPHOROUS 2.9 mg/dL (2.5-4.9); POTASSIUM 3.5 mmol/L (3.5-5.1); UREA NITROGEN, BLOOD 22 mg/dL (7-18)
[2019-01-15] MEDS: FLUTICASONE/VILANTEROL 1 EACH BLST.W.DEV IH SCH (08:27)
[2019-01-15] MEDS: ZINC SULFATE 220 MG CAPSULE PO SCH (08:27)
[2019-01-15] MEDS: METOPROLOL TARTRATE 25 MG TABLET PO SCH ×2 (08:27→17:06)
[2019-01-15] MEDS: Z GUARD REMEDY PASTE 57 GM TUBE TOP PRN (08:28)
[2019-01-15] MEDS: Z GUARD REMEDY PASTE 57 GM TUBE TOP SCH ×2 (08:30→20:21)
[2019-01-15] MEDS: HYDROCODONE/APAP 5-325MG TABLET PO PRN ×2 (09:14→17:07)
[2019-01-15] MEDS ORDERED: POTASSIUM CHLORIDE 20 MEQ TAB.PRT.SR PO ONE (10:00)
[2019-01-15] MEDS: IV NS 1000 ML 1,000 ML IV PRN (10:45)
[2019-01-15] MEDS: MAGNESIUM SULFATE/D5W 100 ML IV SCH ×2 (10:45→11:49)
--- NOTE | 2019-01-15 10:53 | NUR ---
MAGNESIUM LEVEL IS 1.5 WITH NEW ORDERS FROM DR HUANG AND NOTED.
[2019-01-15 11:09] VITALS: BP 158/67
[2019-01-15 15:07] VITALS: BP 115/61
--- NOTE | 2019-01-15 17:07 | NUR ---
FACIAL GRIMACING AND RESTLESS TURNED AND REPOSITIONED AND MEDICATED WITH NORCO ORDERED MADE COMFORTABLE AND WILL CONTINUE TO OBSERVE.
[2019-01-15] MEDS: RIVAROXABAN 15 MG TABLET PO SCH (17:09)
[2019-01-15] MEDS ORDERED: EPOETIN ALFA 20,000 UNIT/ML ML SQ ONE (18:30)
[2019-01-15] MEDS ORDERED: FUROSEMIDE 20 MG/2 ML VIAL IV ONE (18:45)
[2019-01-15 19:30] VITALS: BP 135/58
--- NOTE | 2019-01-15 19:30 | NUR ---
Patient received lying in bed and family at bed side. no signs of acute distress. safety and comfort measures provided. Will continue care.
[2019-01-16 03:30] VITALS: BP 169/60
[2019-01-16] MEDS: HYDROCODONE/APAP 5-325MG TABLET PO PRN (03:57)
--- NOTE | 2019-01-16 03:57 | NUR ---
patient showed s/s of pain using flacc scale. administered norco. tolerated well.
[2019-01-16 04:12] VITALS: BP_SYST 147; BP_SYST 169; BP_DIAS 60; BP_DIAS 62
[2019-01-16 04:30] VITALS: BP_SYST 101; BP_SYST 147; BP_DIAS 42; BP_DIAS 67
--- NOTE | 2019-01-16 05:00 | NUR ---
patient had a high blood pressure of 169/60 at 0330. she was given a diaper change, reposition, changed linen, and raised up in bed. she was also given norco to help with the pain. BP re-assessed at 0411 and it was down to 147/67. re-assessed third time and BP was 101/42, patient sleeping intermittently, flacc scale 0 score, appears rested and no signs of acute distress.
[2019-01-16] MEDS: PANTOPRAZOLE SODIUM 40 MG TABLET.DR PO SCH (06:26)
[2019-01-16] MEDS: MEROPENEM 1 G in IV NORMAL SALINE 100 ML IV SCH ×3 (06:26→22:07)
--- NOTE | 2019-01-16 06:36 | NUR ---
Patient sleeping intermittently. a/o x1 and confused. no signs of acute distress. comfort and safety measures provided. bed in lowest position, side rails up x2, bed alarm on, call light within reach. All medications prescribed administered for the night on 01/15/19. morning medication protonix for 01/16/19 patient refused to take after trying to explain for 15 minutes that she required to take it. attempted to give with apple sauce and it was refused agagin. medications will be wasted. and patient tolerated well. Turned and repositioned.
[2019-01-16 06:54] LABS: BASOPHILS # (AUTO) 0.2 K/uL (0.0-8.0); BASOPHILS % (AUTO) 1.5 % (0.0-2.0); EOSINOPHILS # (AUTO) 0.5 K/uL (0.0-0.7); EOSINOPHILS % (AUTO) 4.4 % (0.0-7.0); HEMATOCRIT 24.3 % (31.2-41.9); HEMOGLOBIN 7.8 g/dL (10.9-14.3); LYMPHOCYTES # (AUTO) 1.6 K/uL (20.0-40.0); LYMPHOCYTES % (AUTO) 13.9 % (20.5-51.5); MEAN CORPUSCULAR HEMOGLOBIN 24.8 uug (24.7-32.8); MEAN CORPUSCULAR HGB CONC 32 g/dL (32.3-35.6); MEAN CORPUSCULAR VOLUME 77.3 fL (75.5-95.3); MONOCYTES # (AUTO) 0.7 K/uL (2.0-10.0); MONOCYTES % (AUTO) 5.9 % (0.0-11.0); NEUTROPHILS # (AUTO) 8.5 K/uL (1.8-8.9); NEUTROPHILS % (AUTO) 74.3 % (38.5-71.5); PLATELET COUNT (AUTO) 475 K/uL (179-408); RED BLOOD CELL COUNT(AUTO) 3.15 MIL/uL (3.63-4.92); WHITE BLOOD COUNT (AUTO) 11.5 K/uL (3.8-11.8)
[2019-01-16 07:06] LABS: ALANINE AMINOTRANSFERASE 29 U/L (14-59); ALKALINE PHOSPHATASE 232 U/L (50-136); ASPARTATE AMINOTRANSFERASE 29 U/L (15-37); BILIRUBIN,TOTAL 0.5 mg/dL (0.2-1.0); CARBON DIOXIDE 31 mmol/L (21-32); CHLORIDE 100 mmol/L (98-107); CREATININE 0.9 mg/dL (0.6-1.3); GLUCOSE 86 mg/dL (74-106); MAGNESIUM 1.9 mg/dL (1.8-2.4); PHOSPHOROUS 2.4 mg/dL (2.5-4.9); POTASSIUM 3.2 mmol/L (3.5-5.1); TOTAL PROTEIN, SERUM 5.9 g/dL (6.4-8.2); UREA NITROGEN, BLOOD 17 mg/dL (7-18)
--- NOTE | 2019-01-16 07:15 | NUR ---
Patient calm resting in bed ; no distress or discomfort noted with bed in low position and bed rails x2 , bed alarm on with call light in reach.
--- NOTE | 2019-01-16 07:44 | NUR ---
critical lab value for albumin 1.4 noted. contact keturah and left message for f/u. no answer back. will endorse to morning nurse to f/u with dr. rebollar
[2019-01-16] MEDS: METOPROLOL TARTRATE 25 MG TABLET PO SCH ×2 (09:25→17:57)
[2019-01-16] MEDS: FLUTICASONE/VILANTEROL 1 EACH BLST.W.DEV IH SCH (09:25)
[2019-01-16] MEDS: ZINC SULFATE 220 MG CAPSULE PO SCH (09:25)
[2019-01-16] MEDS: Z GUARD REMEDY PASTE 57 GM TUBE TOP PRN ×2 (09:26→21:11)
[2019-01-16] MEDS: Z GUARD REMEDY PASTE 57 GM TUBE TOP SCH ×2 (09:27→21:12)
[2019-01-16 10:51] VITALS: BP 126/54
[2019-01-16] MEDS: POTASSIUM PHOSPHATE MM 5 MMOL in IV DEXTROSE 5% 100 ML IV SCH ×4 (10:54→17:29)
[2019-01-16] MEDS: PROTEIN SUPPLEMENT (PROSTAT) 30 ML LIQUID PO SCH ×2 (12:37→17:53)
[2019-01-16 15:18] VITALS: BP 152/53
--- NOTE | 2019-01-16 18:42 | NUR ---
PATIENT HAS BEEN NONCOMPLIANT WITH CARE AND MEDICATION REGIMEN, MUCH PERSUASION NEEDED TO ENCOURAGE PATIENT TO TAKE MEDICATIONS. WOUND CARE PERFORMED ORDERED AND FREQUENT REPOSITIONING TO PREVENT FURTHER SKIN BREAKDOWN. CURRENTLY PATIENT IN BED, BED INLOW POSITION, SIDE RAILS UP X2.
[2019-01-16] MEDS: RIVAROXABAN 15 MG TABLET PO SCH (18:55)
[2019-01-16 19:15] VITALS: BP 121/50
--- NOTE | 2019-01-16 19:30 | NUR ---
patient received lying in bed and confused. safety and comfort measures provided. will continue to monitor and care.
[2019-01-16] MEDS ORDERED: FUROSEMIDE 20 MG/2 ML VIAL IV ONE (20:00)
[2019-01-16] MEDS: MAGNESIUM HYDROXIDE 30 ML LIQUID UDC PO PRN (22:06)
[2019-01-16] MEDS: ZOLPIDEM 5 MG TABLET PO PRN (22:07)
[2019-01-17 03:41] VITALS: BP 147/65
[2019-01-17] MEDS: MEROPENEM 1 G in IV NORMAL SALINE 100 ML IV SCH ×3 (05:00→21:10)
--- NOTE | 2019-01-17 05:31 | NUR ---
Patient slept intermittently throughout the night and confused. all medications prescribed and administered, patient tolerated well. safety and comfort measures provided for patient. will endorse care to morning nurse.
[2019-01-17] MEDS: PANTOPRAZOLE SODIUM 40 MG TABLET.DR PO SCH (06:09)
--- NOTE | 2019-01-17 06:20 | NUR ---
patient refused her protonix right now. tried to explain to her that it was prescribed to her by the doctor and benefits. still refusing. will waste.
--- NOTE | 2019-01-17 06:25 | NUR ---
patient daily weight unable to assess. bed weight scale is broken.
--- NOTE | 2019-01-17 07:15 | NUR ---
RECEIVED PATIENT IN BED, ASLEEP, EASY TO AROUSE. PT. DENIES PAIN OR SOB AT THIS TIME. RT. FA IV IN PLACE, FLUSHED. SAFETY AND FALL PRECAUTIONS ARE IN PLACE. BED IN LOW POSITION AND LOCKED. CALL LIGHT IN REACH. WILL CONTINUE TO MONITOR.
[2019-01-17 07:29] LABS: BASOPHILS # (AUTO) 0.2 K/uL (0.0-8.0); BASOPHILS % (AUTO) 1.4 % (0.0-2.0); EOSINOPHILS # (AUTO) 0.6 K/uL (0.0-0.7); HEMATOCRIT 28.7 % (31.2-41.9); HEMOGLOBIN 9.2 g/dL (10.9-14.3); LYMPHOCYTES # (AUTO) 2.8 K/uL (20.0-40.0); LYMPHOCYTES % (AUTO) 21.9 % (20.5-51.5); MEAN CORPUSCULAR HEMOGLOBIN 24.5 uug (24.7-32.8); MEAN CORPUSCULAR HGB CONC 32 g/dL (32.3-35.6); MEAN CORPUSCULAR VOLUME 76.5 fL (75.5-95.3); MONOCYTES # (AUTO) 0.7 K/uL (2.0-10.0); MONOCYTES % (AUTO) 5.7 % (0.0-11.0); NEUTROPHILS # (AUTO) 8.4 K/uL (1.8-8.9); PLATELET COUNT (AUTO) 580 K/uL (179-408); RED BLOOD CELL COUNT(AUTO) 3.74 MIL/uL (3.63-4.92); WHITE BLOOD COUNT (AUTO) 12.7 K/uL (3.8-11.8)
[2019-01-17 07:43] LABS: CARBON DIOXIDE 33 mmol/L (21-32); CHLORIDE 97 mmol/L (98-107); CREATININE 0.9 mg/dL (0.6-1.3); GLUCOSE 90 mg/dL (74-106); MAGNESIUM 1.4 mg/dL (1.8-2.4); PHOSPHOROUS 3.1 mg/dL (2.5-4.9); POTASSIUM 3.3 mmol/L (3.5-5.1); UREA NITROGEN, BLOOD 13 mg/dL (7-18)
[2019-01-17] MEDS: PROTEIN SUPPLEMENT (PROSTAT) 30 ML LIQUID PO SCH ×4 (08:00→17:00)
[2019-01-17] MEDS ORDERED: POTASSIUM CHLORIDE 20 MEQ TAB.PRT.SR PO ONE (08:45)
[2019-01-17] MEDS: FLUTICASONE/VILANTEROL 1 EACH BLST.W.DEV IH SCH ×2 (09:00→09:03)
[2019-01-17] MEDS: METOPROLOL TARTRATE 25 MG TABLET PO SCH ×3 (09:00→17:40)
[2019-01-17] MEDS: ZINC SULFATE 220 MG CAPSULE PO SCH ×2 (09:00→09:03)
[2019-01-17] MEDS: Z GUARD REMEDY PASTE 57 GM TUBE TOP SCH ×2 (09:05→20:11)
[2019-01-17] MEDS ORDERED: FUROSEMIDE 20 MG/2 ML VIAL IV ONE (09:15)
[2019-01-17] MEDS: MAGNESIUM SULFATE/D5W 100 ML IV SCH ×2 (10:27→13:30)
--- NOTE | 2019-01-17 10:40 | NUR ---
NOTIFIED DR. KYRA HUANG THAT PATIENT HAS REFUSED ALL PO MEDICATIONS INCLUDING K DUR WITH POTASSIUM LEVEL OF 3.3. NO ORDERS GIVEN.
[2019-01-17 10:48] VITALS: BP 138/61
[2019-01-17 15:59] VITALS: BP 130/58
[2019-01-17] MEDS: RIVAROXABAN 15 MG TABLET PO SCH (17:40)
--- NOTE | 2019-01-17 19:17 | NUR ---
PATIENT AOX1, CONFUSED AND NON-COMPLIANT WITH MOST PO MEDICATION ADMINISTRATION. MD NOTIFIED OF NON-COMPLIANT BEHAVIOR. VITAL SIGNS STABLE THROUGHOUT THE SHIFT. RIGHT FA IV INTACT.REPORT TO BE GIVEN TO ONCOMING PROGRAM ELIGIBILITY SPECIALIST.
[2019-01-17 19:24] VITALS: BP 138/68
--- NOTE | 2019-01-17 20:00 | NUR ---
Received pt. awake in bed AO X1, restless in bed on air mattress. Repositioned patient in bed. Reoriented patient. IV site in R forearm 22 gauge. Pt. on 1 L NC. Safety measures provided. Will continue to monitor.
[2019-01-17] MEDS: HYDROCODONE/APAP 5-325MG TABLET PO PRN (21:10)
[2019-01-18 03:16] VITALS: BP 124/52
[2019-01-18 06:00] LABS: BASOPHILS # (AUTO) 0.1 K/uL (0.0-8.0); BASOPHILS % (AUTO) 0.8 % (0.0-2.0); EOSINOPHILS # (AUTO) 0.3 K/uL (0.0-0.7); EOSINOPHILS % (AUTO) 1.8 % (0.0-7.0); HEMATOCRIT 30.2 % (31.2-41.9); HEMOGLOBIN 9.5 g/dL (10.9-14.3); LYMPHOCYTES # (AUTO) 2.1 K/uL (20.0-40.0); LYMPHOCYTES % (AUTO) 11.4 % (20.5-51.5); MEAN CORPUSCULAR HEMOGLOBIN 23.8 uug (24.7-32.8); MEAN CORPUSCULAR HGB CONC 32 g/dL (32.3-35.6); MEAN CORPUSCULAR VOLUME 75.6 fL (75.5-95.3); MONOCYTES # (AUTO) 0.9 K/uL (2.0-10.0); MONOCYTES % (AUTO) 4.7 % (0.0-11.0); NEUTROPHILS # (AUTO) 14.9 K/uL (1.8-8.9); NEUTROPHILS % (AUTO) 81.3 % (38.5-71.5); PLATELET COUNT (AUTO) 694 K/uL (179-408); WHITE BLOOD COUNT (AUTO) 18.4 K/uL (3.8-11.8)
[2019-01-18] MEDS: PANTOPRAZOLE SODIUM 40 MG TABLET.DR PO SCH (06:07)
[2019-01-18] MEDS: MAGNESIUM HYDROXIDE 30 ML LIQUID UDC PO PRN ×2 (06:07→21:46)
[2019-01-18] MEDS: MEROPENEM 1 G in IV NORMAL SALINE 100 ML IV SCH ×3 (06:07→21:07)
[2019-01-18 06:19] LABS: ALANINE AMINOTRANSFERASE 22 U/L (14-59); ALKALINE PHOSPHATASE 204 U/L (50-136); ASPARTATE AMINOTRANSFERASE 13 U/L (15-37); BILIRUBIN,TOTAL 0.5 mg/dL (0.2-1.0); CARBON DIOXIDE 32 mmol/L (21-32); CHLORIDE 94 mmol/L (98-107); CREATININE 0.9 mg/dL (0.6-1.3); GLUCOSE 90 mg/dL (74-106); MAGNESIUM 1.9 mg/dL (1.8-2.4); PHOSPHOROUS 3.3 mg/dL (2.5-4.9); POTASSIUM 3.2 mmol/L (3.5-5.1); TOTAL PROTEIN, SERUM 6.5 g/dL (6.4-8.2); UREA NITROGEN, BLOOD 15 mg/dL (7-18)
--- NOTE | 2019-01-18 06:54 | NUR ---
Pt. slept intermittently throughout night, confused and restless on low air loss mattress. Repositioned and Reoriented pt as needed. Pt. took morning medications and PRN Milk of Magnesia. Pt. has DVT compression devices on bilaterally. Safety measures in place.
[2019-01-18] MEDS: PROTEIN SUPPLEMENT (PROSTAT) 30 ML LIQUID PO SCH ×3 (08:00→16:51)
[2019-01-18 08:04] LABS: EOSINOPHILS % (MANUAL) 2 % (0-8); LYMPHOCYTES % (MANUAL) 18 % (20-40); MONOCYTES % (MANUAL) 4 % (2-10); NEUTROPHILS % (MANUAL) 76 % (42-75)
[2019-01-18] MEDS: FLUTICASONE/VILANTEROL 1 EACH BLST.W.DEV IH SCH (09:00)
[2019-01-18] MEDS: ZINC SULFATE 220 MG CAPSULE PO SCH (09:51)
[2019-01-18] MEDS: METOPROLOL TARTRATE 25 MG TABLET PO SCH ×2 (09:52→16:50)
[2019-01-18] MEDS: Z GUARD REMEDY PASTE 57 GM TUBE TOP PRN (09:52)
[2019-01-18] MEDS: Z GUARD REMEDY PASTE 57 GM TUBE TOP SCH ×2 (10:00→21:07)
--- NOTE | 2019-01-18 11:23 | NUR ---
Clinical pharmacy note:vancomycin dosing Request for vancomycin dosing on 83 y/o female 152.4cm 49.5kg for empiric therapy (sirs vs sepsis) temp 97.5F BUN 15 Scr 0.9 WBC 18.4 also on Merrem Start vancomycin 750mg ivpb q24h estimated trough 14. Will order trough prior to 4th dose. Will continue to monitor
--- NOTE | 2019-01-18 11:29 | NUR ---
One time straight cath for urine specimen done, specimen sent to lab.
[2019-01-18 11:55] VITALS: BP 113/50
[2019-01-18] MEDS: VANCOMYCIN IV 750 MG in IV DEXTROSE 5% 250 ML IV SCH (12:51)
--- NOTE | 2019-01-18 14:19 | NUR ---
WOUND CARE CONSULT: RECEIVED WOUND CONSULT FROM PRESIDING JUDGE. PT PRESENTS WITH PEELING RASH TO BUTTOCKS AND INCONTINENCE ASSOCIATED SKIN DAMAGE, PRESENT ON ADMISSION. RECOMMENDATIONS MADE FOR SKIN PROTECTION. DISCUSSED WITH NURSING STAFF. PT ON FIRST STEP [facility]. WILL SEE PRN. VALENZUELA IN AGREEMENT WITH PLAN OF CARE. Addendum: 01/18/19 at 1420 by NIKHIL RUTH RN Amended: Links added.
[2019-01-18 14:25] LABS: *CLARITY,URINE CLOUDY (CLEAR); *COLOR,URINE Brown (YELLOW); *KETONES,URINE 2+ (NEGATIVE); *UROBILINOGEN,URINE 0.2 E.U./dl (NORMAL); LEUKOCYTE ESTERASE ,URINE NEGATIVE (NEGATIVE); NITRITE, URINE NEGATIVE (NEGATIVE); PH,URINE 5.5 (5.0-8.0); UGLUCOSE NEGATIVE (NEGATIVE)
[2019-01-18 14:38] LABS: *BLOOD, URINE 3+ (NEGATIVE)
[2019-01-18 14:42] LABS: *BILIRUBIN,URIN 1+ (NEGATIVE); RBC,URINE TNTC /HPF (0-3)
[2019-01-18 14:44] LABS: BACTERIA,URINE FEW /HPF (NONE SEEN); SQUAMOUS EPITHELIAL CELL,UR FEW /HPF (NONE SEEN); YEAST,URINE MODERATE /HPF (NONE SEEN)
[2019-01-18] MEDS ORDERED: POTASSIUM CHLORIDE 20 MEQ TAB.PRT.SR PO ONE (15:30)
[2019-01-18 15:45] VITALS: BP 134/51
[2019-01-18 16:08] LABS: *OCCULT BLOOD STOOL NEGATIVE (NEGATIVE)
[2019-01-18] MEDS: CLOTRIMAZOLE 1% CREAM 30 GM TUBE TOP SCH (17:05)
--- NOTE | 2019-01-18 17:09 | NUR ---
Patient refusing medication. Once placed in mouth patient spits out pills. MD aware.
[2019-01-18] MEDS: RIVAROXABAN 15 MG TABLET PO SCH (17:10)
--- NOTE | 2019-01-18 18:20 | NUR ---
Patient resting in bed, no distress noted or complaints of pain. Oxygen via nasal cannula. Wound consult done today, care done following new orders. Occult blood sample for stool collected today, urine specimen collected today. Patient has poor appetite, refusing to eat, seen by insurance sales producer. Continues on antibiotic treatment, afebrile. Refuses to take PO medications. Will endorse care to oncoming shift.
--- NOTE | 2019-01-18 19:20 | NUR ---
RECEIVED PT AWAKE, ALERT AND ORIENTEDX2. CAREGIVER AT BEDSIDE. PT SHOWS NO SIGNS OF ACUTE DISTRESS. PT IV INTACT. SAFETY AND COMFORT PROVIDED.WILL CONTINUE TO MONITOR.
[2019-01-18 20:10] VITALS: BP 138/62
[2019-01-18] MEDS: CULTURELLE CAPSULE PO SCH (21:07)
[2019-01-18] MEDS: ZOLPIDEM 5 MG TABLET PO PRN (23:52)
[2019-01-19] MEDS: MEROPENEM 1 G in IV NORMAL SALINE 100 ML IV SCH ×2 (05:01→14:14)
[2019-01-19] MEDS: ACETAMINOPHEN 325 MG TABLET PO PRN ×2 (05:13→17:14)
[2019-01-19 05:24] VITALS: BP 136/57
[2019-01-19] MEDS: Z GUARD REMEDY PASTE 57 GM TUBE TOP PRN (05:41)
[2019-01-19 06:02] LABS: BASOPHILS # (AUTO) 0.1 K/uL (0.0-8.0); BASOPHILS % (AUTO) 0.7 % (0.0-2.0); EOSINOPHILS # (AUTO) 0.2 K/uL (0.0-0.7); EOSINOPHILS % (AUTO) 1.2 % (0.0-7.0); HEMATOCRIT 28.3 % (31.2-41.9); HEMOGLOBIN 9.1 g/dL (10.9-14.3); LYMPHOCYTES # (AUTO) 1.6 K/uL (20.0-40.0); LYMPHOCYTES % (AUTO) 9.5 % (20.5-51.5); MEAN CORPUSCULAR HEMOGLOBIN 24.5 uug (24.7-32.8); MEAN CORPUSCULAR HGB CONC 32 g/dL (32.3-35.6); MONOCYTES # (AUTO) 1.1 K/uL (2.0-10.0); MONOCYTES % (AUTO) 6.3 % (0.0-11.0); NEUTROPHILS # (AUTO) 13.9 K/uL (1.8-8.9); NEUTROPHILS % (AUTO) 82.3 % (38.5-71.5); PLATELET COUNT (AUTO) 731 K/uL (179-408); RED BLOOD CELL COUNT(AUTO) 3.73 MIL/uL (3.63-4.92); WHITE BLOOD COUNT (AUTO) 16.9 K/uL (3.8-11.8)
[2019-01-19] MEDS: PANTOPRAZOLE SODIUM 40 MG TABLET.DR PO SCH (06:12)
[2019-01-19 06:14] LABS: CARBON DIOXIDE 35 mmol/L (21-32); CHLORIDE 95 mmol/L (98-107); GLUCOSE 110 mg/dL (74-106); MAGNESIUM 2.1 mg/dL (1.8-2.4); PHOSPHOROUS 2.1 mg/dL (2.5-4.9); POTASSIUM 3.1 mmol/L (3.5-5.1); UREA NITROGEN, BLOOD 19 mg/dL (7-18)
--- NOTE | 2019-01-19 06:33 | NUR ---
PT SLEPT THROUGHOUT THE SHIFT . PT SHOWS NO SIGNS OF ACUTE DISTRESS. PRESCRIBED MEDICATION GIVEN AND PT TOLERATED IT WELL. SAFETY AND COMFORT PROVIDED. IV INTACT. PT HAD BOWEL MOVEMENT. ALL NEEDS ARE MET. WILL ENDORSE ACCORDINGLY TO INCOMING NURSE FOR CONTINUITY OF CARE.
--- NOTE | 2019-01-19 07:45 | NUR ---
on bed, resting well. comfortable. no distress noted
[2019-01-19] MEDS: PROTEIN SUPPLEMENT (PROSTAT) 30 ML LIQUID PO SCH ×3 (08:57→17:12)
[2019-01-19] MEDS: CULTURELLE CAPSULE PO SCH ×2 (08:57→20:11)
[2019-01-19] MEDS: ZINC SULFATE 220 MG CAPSULE PO SCH (08:58)
[2019-01-19] MEDS: FLUTICASONE/VILANTEROL 1 EACH BLST.W.DEV IH SCH (08:59)
[2019-01-19] MEDS: METOPROLOL TARTRATE 25 MG TABLET PO SCH ×2 (09:00→17:00)
[2019-01-19] MEDS: Z GUARD REMEDY PASTE 57 GM TUBE TOP SCH ×2 (09:09→20:13)
[2019-01-19] MEDS: CLOTRIMAZOLE 1% CREAM 30 GM TUBE TOP SCH ×2 (09:10→17:12)
--- NOTE | 2019-01-19 11:17 | NUR ---
Clinical pharmacy note:vancomycin dosing S;Continue vancomycin dosing on 83 y/o female 152.4cm 49.5kg for empiric therapy (sirs vs sepsis) O;temp 99.8 F BUN 19 Scr 1.0 WBC 16.9 also on Merrem A/P:Continue vancomycin 750mg ivpb q24h estimated trough 14(2nd dose today at 1200) . Will order trough prior to 4th dose. Will continue to monitor
[2019-01-19 11:48] VITALS: BP 117/48
--- NOTE | 2019-01-19 12:00 | NUR ---
resting well, caregiver at bedside , supportive of care, assistance
[2019-01-19] MEDS: VANCOMYCIN IV 750 MG in IV DEXTROSE 5% 250 ML IV SCH (12:45)
[2019-01-19] MEDS: POTASSIUM PHOSPHATE MM 5 MMOL in IV DEXTROSE 5% 100 ML IV SCH ×4 (15:55→22:13)
[2019-01-19 15:57] VITALS: BP 131/79
[2019-01-19] MEDS: RIVAROXABAN 15 MG TABLET PO SCH (17:11)
--- NOTE | 2019-01-19 17:27 | NUR ---
enc to eat, seen by dr gray. food, fluids encouraged
--- NOTE | 2019-01-19 19:20 | NUR ---
RECEIVED PT AWAKE, ALERT AND ORIENTEDX3. PT SHOWS NO SIGNS OF ACUTE DISTRESS. PT IV INTACT. SAFETY AND COMFORT PROVIDED. WILL CONTINUE TO MONITOR.
[2019-01-19 20:23] VITALS: BP 112/68
[2019-01-20] MEDS: MEROPENEM 1 G in IV NORMAL SALINE 100 ML IV SCH ×4 (01:33→22:03)
[2019-01-20] MEDS: ZOLPIDEM 5 MG TABLET PO PRN (01:40)
[2019-01-20] MEDS: ACETAMINOPHEN 325 MG TABLET PO PRN (04:11)
[2019-01-20 05:22] VITALS: BP 118/77
[2019-01-20] MEDS: PANTOPRAZOLE SODIUM 40 MG TABLET.DR PO SCH (06:01)
[2019-01-20 06:12] LABS: BASOPHILS # (AUTO) 0.1 K/uL (0.0-8.0); BASOPHILS % (AUTO) 0.8 % (0.0-2.0); EOSINOPHILS # (AUTO) 0.5 K/uL (0.0-0.7); EOSINOPHILS % (AUTO) 3.3 % (0.0-7.0); HEMATOCRIT 28.8 % (31.2-41.9); HEMOGLOBIN 9.1 g/dL (10.9-14.3); LYMPHOCYTES # (AUTO) 2.2 K/uL (20.0-40.0); LYMPHOCYTES % (AUTO) 14.7 % (20.5-51.5); MEAN CORPUSCULAR HEMOGLOBIN 24.2 uug (24.7-32.8); MEAN CORPUSCULAR HGB CONC 32 g/dL (32.3-35.6); MEAN CORPUSCULAR VOLUME 76.1 fL (75.5-95.3); MONOCYTES % (AUTO) 6.6 % (0.0-11.0); NEUTROPHILS # (AUTO) 11.1 K/uL (1.8-8.9); NEUTROPHILS % (AUTO) 74.6 % (38.5-71.5); PLATELET COUNT (AUTO) 770 K/uL (179-408); RED BLOOD CELL COUNT(AUTO) 3.78 MIL/uL (3.63-4.92); WHITE BLOOD COUNT (AUTO) 14.9 K/uL (3.8-11.8)
--- NOTE | 2019-01-20 06:50 | NUR ---
PT HAD 100.3 'F AT 0400H .COOLING MEASURES DONE. TYLENOL GIVEN. PT TOLERATED IT WELL. SAFETY AND COMFORT PROVIDED, WILL CONTINUE TO MONITOR. PT RECENT TEMP IS 98.5. PT AFEBRILE. PT SLEPT INTERMITTENTLY. PT SHOWS NO SIGNS OF ACUTE DISTRESS. PRESCRIBED MEDICATION GIVEN AND PT TOLERATED. IT WELL. SAFETY AND COMFORT. PROVIDED. ALL NEEDS ARE MET. WILL ENDORSE ACCORDINGLY TO INCOMING NURSE FOR CONTINUITY OF CARE.
[2019-01-20 07:04] LABS: ALANINE AMINOTRANSFERASE 14 U/L (14-59); ALKALINE PHOSPHATASE 218 U/L (50-136); ASPARTATE AMINOTRANSFERASE 18 U/L (15-37); BILIRUBIN,TOTAL 0.6 mg/dL (0.2-1.0); CARBON DIOXIDE 36 mmol/L (21-32); CHLORIDE 92 mmol/L (98-107); CREATININE 0.9 mg/dL (0.6-1.3); GLUCOSE 96 mg/dL (74-106); MAGNESIUM 2.1 mg/dL (1.8-2.4); PHOSPHOROUS 3.1 mg/dL (2.5-4.9); POTASSIUM 3.6 mmol/L (3.5-5.1); TOTAL PROTEIN, SERUM 6.7 g/dL (6.4-8.2); UREA NITROGEN, BLOOD 21 mg/dL (7-18)
[2019-01-20] MEDS: CULTURELLE CAPSULE PO SCH ×2 (08:06→20:15)
[2019-01-20] MEDS: ZINC SULFATE 220 MG CAPSULE PO SCH (08:06)
[2019-01-20] MEDS: METOPROLOL TARTRATE 25 MG TABLET PO SCH ×2 (08:06→17:15)
[2019-01-20] MEDS: FLUTICASONE/VILANTEROL 1 EACH BLST.W.DEV IH SCH (08:06)
[2019-01-20] MEDS: PROTEIN SUPPLEMENT (PROSTAT) 30 ML LIQUID PO SCH ×3 (08:07→16:41)
[2019-01-20] MEDS: CLOTRIMAZOLE 1% CREAM 30 GM TUBE TOP SCH ×2 (08:30→16:42)
[2019-01-20] MEDS: Z GUARD REMEDY PASTE 57 GM TUBE TOP SCH ×2 (08:30→20:15)
--- NOTE | 2019-01-20 09:50 | NUR ---
-Inadequate po intake, pt not waking to eat. Continue to provide oral supplement TID to provide extra 1050kcal, 60gm pro. -Recommend appetite stimulant. Discussed with pt's nurse possibility of adding Megace. Addendum: 01/20/19 at 09[address] ORDO[address]Z RD RD Amended: Links added.
[2019-01-20 11:12] VITALS: BP 136/56
[2019-01-20] MEDS: VANCOMYCIN IV 750 MG in IV DEXTROSE 5% 250 ML IV SCH (11:21)
--- NOTE | 2019-01-20 12:12 | NUR ---
Clinical pharmacy note:vancomycin dosing S;Continue vancomycin dosing on 83 y/o female 152.4cm 49.5kg for empiric therapy (sirs vs sepsis) O;temp 100.3 F BUN 21 Scr 0.9 WBC 14.9 also on Merrem Trough pending tomorrow 1130 A/P:Continue vancomycin 750mg ivpb q24h estimated trough 14. . Will order trough prior to 4th dose, due tomorrow at 1130. Will check level when available and adjust as needed. Will continue to monitor
[2019-01-20 15:08] VITALS: BP 128/52
[2019-01-20] MEDS: VANCOMYCIN FOR PO/GT/NG USE PO SCH ×2 (17:15→23:00)
[2019-01-20] MEDS: RIVAROXABAN 15 MG TABLET PO SCH (17:16)
--- NOTE | 2019-01-20 19:30 | NUR ---
patient received lying in bed with family at bed side and confused. provided safety and comfort measures for patient. bed in lowest position, side rails up x2, bed alarm on, call light within reach. will continue care.
[2019-01-20 20:00] VITALS: BP 123/67
[2019-01-20] MEDS: HYDROCODONE/APAP 5-325MG TABLET PO PRN (21:07)
--- NOTE | 2019-01-20 21:07 | NUR ---
norco administered using FLACC scale and for comfort measures.
[2019-01-21 04:51] VITALS: BP 124/61
[2019-01-21] MEDS: MEROPENEM 1 G in IV NORMAL SALINE 100 ML IV SCH ×2 (05:58→13:51)
[2019-01-21] MEDS: VANCOMYCIN FOR PO/GT/NG USE PO SCH ×3 (05:59→18:24)
[2019-01-21] MEDS: PANTOPRAZOLE SODIUM 40 MG TABLET.DR PO SCH ×2 (06:04→06:08)
--- NOTE | 2019-01-21 06:09 | NUR ---
patient is refusing protonix this morning. she is shaking her head and moving my hand away. educated her on the medication and she still refused.
--- NOTE | 2019-01-21 06:10 | NUR ---
protonix wasted after patient refusing.
[2019-01-21 06:36] LABS: BASOPHILS # (AUTO) 0.1 K/uL (0.0-8.0); BASOPHILS % (AUTO) 0.9 % (0.0-2.0); EOSINOPHILS # (AUTO) 0.5 K/uL (0.0-0.7); EOSINOPHILS % (AUTO) 4.9 % (0.0-7.0); HEMATOCRIT 28.8 % (31.2-41.9); HEMOGLOBIN 9.3 g/dL (10.9-14.3); LYMPHOCYTES # (AUTO) 2.8 K/uL (20.0-40.0); LYMPHOCYTES % (AUTO) 25.1 % (20.5-51.5); MEAN CORPUSCULAR HEMOGLOBIN 24.3 uug (24.7-32.8); MEAN CORPUSCULAR HGB CONC 32 g/dL (32.3-35.6); MEAN CORPUSCULAR VOLUME 75.5 fL (75.5-95.3); MONOCYTES # (AUTO) 0.6 K/uL (2.0-10.0); MONOCYTES % (AUTO) 5.5 % (0.0-11.0); NEUTROPHILS % (AUTO) 63.6 % (38.5-71.5); PLATELET COUNT (AUTO) 774 K/uL (179-408); RED BLOOD CELL COUNT(AUTO) 3.81 MIL/uL (3.63-4.92)
[2019-01-21 06:51] LABS: CARBON DIOXIDE 33 mmol/L (21-32); CHLORIDE 94 mmol/L (98-107); CREATININE 0.6 mg/dL (0.6-1.3); GLUCOSE 77 mg/dL (74-106); MAGNESIUM 1.9 mg/dL (1.8-2.4); PHOSPHOROUS 2.8 mg/dL (2.5-4.9); POTASSIUM 3.7 mmol/L (3.5-5.1); UREA NITROGEN, BLOOD 19 mg/dL (7-18)
[2019-01-21] MEDS: Z GUARD REMEDY PASTE 57 GM TUBE TOP SCH (09:00)
[2019-01-21] MEDS: FLUTICASONE/VILANTEROL 1 EACH BLST.W.DEV IH SCH (09:33)
[2019-01-21] MEDS: CULTURELLE CAPSULE PO SCH (09:33)
[2019-01-21] MEDS: ZINC SULFATE 220 MG CAPSULE PO SCH (09:33)
[2019-01-21] MEDS: PROTEIN SUPPLEMENT (PROSTAT) 30 ML LIQUID PO SCH ×3 (09:34→18:26)
[2019-01-21] MEDS: METOPROLOL TARTRATE 25 MG TABLET PO SCH ×2 (09:40→18:25)
[2019-01-21] MEDS: CLOTRIMAZOLE 1% CREAM 30 GM TUBE TOP SCH ×2 (09:41→18:26)
[2019-01-21] MEDS: Z GUARD REMEDY PASTE 57 GM TUBE TOP PRN (09:43)
[2019-01-21 11:12] VITALS: BP 104/59
[2019-01-21] MEDS ORDERED: FLUCONAZOLE 200 MG/NS 100ML IV 200 MG in PREMIXED 1 EACH IV ONE (11:30)
[2019-01-21 15:25] VITALS: BP 141/75
[2019-01-21] MEDS ORDERED: VANC500V PO (17:06)
[2019-01-21] MEDS ORDERED: MENT71OI TOP (17:06)
[2019-01-21] MEDS: RIVAROXABAN 15 MG TABLET PO SCH (18:24)
[2019-01-21 18:25] VITALS: BP 123/67
--- NOTE | 2019-01-21 18:32 | NUR ---
CALM AND COOPERATIVE. TOOK ALL MEDS. PT WILL BE DISCHARGE TO [facility]BULANCE AT 1845. CAREGIVER AT BEDSIDE.
== END 2019-01-21 19:11 | DRG 871 ==
LOC: ER 12:27 → TELE3 16:28 → MEDSURG3 01-14 13:50
DX: A41.9 Sepsis, unspecified organism (principal); E43 Unspecified severe protein-calorie malnutrition; G92 Toxic encephalopathy; I50.33 Acute on chronic diastolic (congestive) heart failure; J96.01 Acute respiratory failure with hypoxia; D68.59 Other primary thrombophilia; A04.72 Enterocolitis due to Clostridium difficile, not specified as recurrent; B37.49 Other urogenital candidiasis; Z68.26 Body mass index [BMI] 26.0-26.9, adult; I87.2 Venous insufficiency (chronic) (peripheral); I48.2 Chronic atrial fibrillation; D63.8 Anemia in other chronic diseases classified elsewhere; Z89.422 Acquired absence of other left toe(s); M21.372 Foot drop, left foot; L40.9 Psoriasis, unspecified; I11.0 Hypertensive heart disease with heart failure; I87.8 Other specified disorders of veins; Z74.09 Other reduced mobility; I73.9 Peripheral vascular disease, unspecified; E83.42 Hypomagnesemia; M85.80 Other specified disorders of bone density and structure, unspecified site; Z96.611 Presence of right artificial shoulder joint; Z96.651 Presence of right artificial knee joint; Z89.429 Acquired absence of other toe(s), unspecified side; Z88.0 Allergy status to penicillin; Z87.440 Personal history of urinary (tract) infections; Z96.641 Presence of right artificial hip joint; Z98.1 Arthrodesis status; M51.36 Other intervertebral disc degeneration, lumbar region; M21.371 Foot drop, right foot; M19.011 Primary osteoarthritis, right shoulder; J44.9 Chronic obstructive pulmonary disease, unspecified; H40.9 Unspecified glaucoma; G89.29 Other chronic pain; F32.9 Major depressive disorder, single episode, unspecified; M65.821 Other synovitis and tenosynovitis, right upper arm; M25.421 Effusion, right elbow; I25.10 Atherosclerotic heart disease of native coronary artery without angina pectoris; M65.9 Synovitis and tenosynovitis, unspecified; K12.1 Other forms of stomatitis; Z79.01 Long term (current) use of anticoagulants; Z79.51 Long term (current) use of inhaled steroids; Z82.49 Family history of ischemic heart disease and other diseases of the circulatory system; D50.9 Iron deficiency anemia, unspecified; Z79.899 Other long term (current) drug therapy; Z86.14 Personal history of Methicillin resistant Staphylococcus aureus infection
CPT/HCPCS: 36415; 70030-TC; 70450; 71045; 73130; 83605; 83735; 84100; 84443; 85025; 85730; 87040; 87086; 93005; 97110; 97112; 97116; 97530; A4663; C1758; G0378; J0885; J1450; J1940; J2185; J2543; J3370; J3475; J3490; J7030; J7040; J7050; J7060

== ENCOUNTER 2019-02-02 17:25 | Inpatient (IN) | payer MEDICARE, MEDICAID ==
[~2019-02-02] VITALS: Ht 157.5 cm; Wt 56.7 kg
[~2019-02-02 17:25] MED LIST changes: -CRANBERRY PO; -DOCU100C36 PO; -LACT-239 PO; -RXVAN XX; +VANC500V PO; -VERA80TA2 PO
[2019-02-02] MEDS ORDERED: IV NORMAL SALINE 1000 ML BAG IV ONE (18:00)
[2019-02-02] MEDS ORDERED: CEFTRIAXONE 1 G in IV DEXTROSE 5% 50 ML IV ONE (18:00)
[2019-02-02] MEDS ORDERED: GENTAMICIN SULFATE INJ 80 MG in IV DEXTROSE 5% 100 ML IV ONE (18:00)
[2019-02-02] MEDS ORDERED: CEFTRIAXONE 1 G VIAL ONE (18:18)
[2019-02-02 18:47] LABS: BASOPHILS # (AUTO) 0.3 K/uL (0.0-8.0); BASOPHILS % (AUTO) 1.1 % (0.0-2.0); HEMOGLOBIN 7.9 g/dL (10.9-14.3); LYMPHOCYTES # (AUTO) 1.4 K/uL (20.0-40.0); MEAN CORPUSCULAR HEMOGLOBIN 24.2 uug (24.7-32.8); MEAN CORPUSCULAR HGB CONC 32 g/dL (32.3-35.6); MEAN CORPUSCULAR VOLUME 76.3 fL (75.5-95.3); MONOCYTES # (AUTO) 1.1 K/uL (2.0-10.0); MONOCYTES % (AUTO) 4.5 % (0.0-11.0); NEUTROPHILS # (AUTO) 20.5 K/uL (1.8-8.9); NEUTROPHILS % (AUTO) 88.4 % (38.5-71.5); PLATELET COUNT (AUTO) 600 K/uL (179-408); RED BLOOD CELL COUNT(AUTO) 3.27 MIL/uL (3.63-4.92); WHITE BLOOD COUNT (AUTO) 23.2 K/uL (3.8-11.8)
[2019-02-02 18:52] LABS: CARBON DIOXIDE 27 mmol/L (21-32); CHLORIDE 97 mmol/L (98-107); CREATININE 1.2 mg/dL (0.6-1.3); GLUCOSE 152 mg/dL (74-106); POTASSIUM 4.1 mmol/L (3.5-5.1); UREA NITROGEN, BLOOD 38 mg/dL (7-18)
[2019-02-02 18:57] LABS: ALANINE AMINOTRANSFERASE 8 U/L (14-59); ALKALINE PHOSPHATASE 137 U/L (50-136); ASPARTATE AMINOTRANSFERASE 10 U/L (15-37); BILIRUBIN,DIRECT 0.2 mg/dL (0.0-0.2); BILIRUBIN,TOTAL 0.7 mg/dL (0.2-1.0)
[2019-02-02] MEDS ORDERED: ZINC220C8 PO (19:01)
[2019-02-02] MEDS ORDERED: EPOE1VIA12 IJ (19:01)
[2019-02-02] MEDS ORDERED: FURO-152 PO (19:01)
[2019-02-02] MEDS ORDERED: NITR50CA4 PO (19:01)
[2019-02-02] MEDS ORDERED: RIVA15TA2 PO (19:01)
[2019-02-02] MEDS ORDERED: PANT40TA2 PO (19:01)
[2019-02-02] MEDS ORDERED: CLON0.1T PO (19:01)
[2019-02-02] MEDS ORDERED: HYDR-3326 PO (19:01)
[2019-02-02] MEDS ORDERED: AMIN30LI2 PO (19:01)
[2019-02-02] MEDS ORDERED: ESCI10TA PO (19:01)
[2019-02-02] MEDS ORDERED: ASCO-340 PO (19:01)
[2019-02-02] MEDS ORDERED: MULT1TAB73 PO (19:01)
[2019-02-02] MEDS ORDERED: SENN-168 PO (19:01)
[2019-02-02] MEDS ORDERED: ZOLP5TAB2 PO (19:01)
[2019-02-02] MEDS ORDERED: ALBU2.5V38 IH (19:01)
[2019-02-02] MEDS ORDERED: ZINC57OI4 TP (19:01)
[2019-02-02] MEDS ORDERED: ACET-73 PO (19:01)
[2019-02-02] MEDS ORDERED: ACET325T53 PO (19:01)
--- NOTE | 2019-02-02 19:08 | NUR ---
IV fluid boluses & IV Rocephin infusing, still for lab results & disposition, hands off report to CESAR Reina
[2019-02-02 19:09] LABS: *BILIRUBIN,URIN 1+ (NEGATIVE); *BLOOD, URINE 3+ (NEGATIVE); *COLOR,URINE DARK YELLOW (YELLOW); *KETONES,URINE NEGATIVE (NEGATIVE); *UROBILINOGEN,URINE 0.2 E.U./dl (NORMAL); LEUKOCYTE ESTERASE ,URINE 3+ (NEGATIVE); NITRITE, URINE POSITIVE (NEGATIVE); PH,URINE 5.5 (5.0-8.0); UGLUCOSE NEGATIVE (NEGATIVE)
[2019-02-02] MEDS ORDERED: VANCOMYCIN IV 1,000 MG in IV DEXTROSE 5% 250 ML IV ONE (19:30)
[2019-02-02 19:46] LABS: *CLARITY,URINE TURBID (CLEAR)
[2019-02-02 19:48] LABS: BACTERIA,URINE MANY /HPF (NONE SEEN); RBC,URINE 20-50 /HPF (0-3); WBC,URINE TNTC /HPF (0-3)
--- NOTE | 2019-02-02 19:58 | NUR ---
Panel call requested from [employer] to page Dr. Blanco.
--- NOTE | 2019-02-02 20:34 | NUR ---
Per Dr. Wing, she wants to d/c logan catheter that is in place.
--- NOTE | 2019-02-02 21:04 | NUR ---
Report given to Catracho GUERRERO, TELE
[2019-02-02] MEDS ORDERED: VANCOMYCIN IV 200 ML ONE (21:36)
--- NOTE | 2019-02-02 21:40 | NUR ---
Patient transferred to [facility] in stable condition.
[2019-02-02 22:00] VITALS: BP 124/56
[2019-02-02] MEDS ORDERED: ACETAMINOPHEN 325 MG TABLET PO PRN (22:15)
[2019-02-02] MEDS ORDERED: MAGNESIUM HYDROXIDE 30 ML LIQUID UDC PO PRN (22:15)
[2019-02-02] MEDS ORDERED: BISACODYL 10 MG SUPP.RECT RC PRN (22:15)
[2019-02-03] MEDS: IV NS 1000 ML 1,000 ML IV PRN ×2 (00:35→19:42)
[2019-02-03] MEDS ORDERED: MEROPENEM 500 MG VIAL IV ONE (00:54)
[2019-02-03 00:55] VITALS: BP 120/56
[2019-02-03] MEDS: ALBUTEROL SULFATE 2.5 MG/3 ML NEBU IH PRN ×2 (01:14→05:46)
[2019-02-03] MEDS ORDERED: MEROPENEM 0.5 G in IV NORMAL SALINE 50 ML IV SCH (06:00)
[2019-02-03 06:06] VITALS: BP 154/61
[2019-02-03 07:31] LABS: BASOPHILS # (AUTO) 0.1 K/uL (0.0-8.0); BASOPHILS % (AUTO) 0.5 % (0.0-2.0); EOSINOPHILS # (AUTO) 0.1 K/uL (0.0-0.7); EOSINOPHILS % (AUTO) 0.6 % (0.0-7.0); HEMATOCRIT 23.4 % (31.2-41.9); HEMOGLOBIN 7.5 g/dL (10.9-14.3); LYMPHOCYTES # (AUTO) 2.4 K/uL (20.0-40.0); LYMPHOCYTES % (AUTO) 13.1 % (20.5-51.5); MEAN CORPUSCULAR HEMOGLOBIN 24.5 uug (24.7-32.8); MEAN CORPUSCULAR HGB CONC 32 g/dL (32.3-35.6); MEAN CORPUSCULAR VOLUME 76.2 fL (75.5-95.3); MONOCYTES # (AUTO) 1.3 K/uL (2.0-10.0); MONOCYTES % (AUTO) 6.9 % (0.0-11.0); NEUTROPHILS # (AUTO) 14.3 K/uL (1.8-8.9); NEUTROPHILS % (AUTO) 78.9 % (38.5-71.5); PLATELET COUNT (AUTO) 519 K/uL (179-408); RED BLOOD CELL COUNT(AUTO) 3.07 MIL/uL (3.63-4.92); WHITE BLOOD COUNT (AUTO) 18.2 K/uL (3.8-11.8)
[2019-02-03 07:36] LABS: ALANINE AMINOTRANSFERASE 7 U/L (14-59); ALKALINE PHOSPHATASE 133 U/L (50-136); ASPARTATE AMINOTRANSFERASE 9 U/L (15-37); BILIRUBIN,TOTAL 0.5 mg/dL (0.2-1.0); CARBON DIOXIDE 25 mmol/L (21-32); CHLORIDE 101 mmol/L (98-107); CREATININE 0.9 mg/dL (0.6-1.3); GLUCOSE 79 mg/dL (74-106); MAGNESIUM 1.4 mg/dL (1.8-2.4); PHOSPHOROUS 3.3 mg/dL (2.5-4.9); POTASSIUM 3.5 mmol/L (3.5-5.1); TOTAL PROTEIN, SERUM 5.8 g/dL (6.4-8.2); UREA NITROGEN, BLOOD 32 mg/dL (7-18)
[2019-02-03] MEDS: PANTOPRAZOLE SODIUM 40 MG TABLET.DR PO SCH (08:40)
[2019-02-03] MEDS: ESCITALOPRAM OXALATE 10 MG TABLET PO SCH (08:52)
[2019-02-03] MEDS: MULTIVITAMINS,THERAPEUTIC TABLET PO SCH (08:52)
[2019-02-03] MEDS: PROTEIN SUPPLEMENT (PROSTAT) 30 ML LIQUID PO SCH ×3 (08:52→17:09)
[2019-02-03] MEDS: ASCORBIC ACID 500 MG TABLET PO SCH (08:52)
[2019-02-03] MEDS: ZINC SULFATE 220 MG CAPSULE PO SCH (08:52)
[2019-02-03] MEDS: predniSONE 10 MG TABLET PO SCH (08:52)
[2019-02-03] MEDS ORDERED: RIVAROXABAN 15 MG TABLET PO SCH (09:00)
[2019-02-03] MEDS ORDERED: Medication Not On Formulary EA (Multivitamins (Multivitamin) 1 EACH) PO SCH (09:00)
[2019-02-03] MEDS ORDERED: Medication Not On Formulary EA (Amino Acids/Protein Hydrolys (Pro-Stat Liquid) 30 ML) PO SCH (09:00)
[2019-02-03] MEDS ORDERED: Medication Not On Formulary EA (Ascorbate Calcium (Vitamin C TAB) 500 MG) PO SCH (09:00)
[2019-02-03] MEDS: FLUTICASONE/VILANTEROL 1 EACH BLST.W.DEV IH SCH (09:04)
[2019-02-03 11:39] VITALS: BP 121/64
[2019-02-03] MEDS: MAGNESIUM SULFATE/D5W 100 ML IV SCH ×2 (11:54→11:55)
[2019-02-03] MEDS: HYDROCODONE/APAP 5-325MG TABLET PO PRN (13:14)
[2019-02-03 15:36] VITALS: BP 138/50
[2019-02-03] MEDS: MEROPENEM 500 MG in IV NORMAL SALINE 50 ML IV SCH (17:09)
[2019-02-03] MEDS: RIVAROXABAN 15 MG TABLET PO SCH (17:21)
--- NOTE | 2019-02-03 19:30 | NUR ---
received patient lying in bed with caregiver at bedside. a/ox2. no signs of acute distress. safety and comfort measures provided. will continue care.
[2019-02-03] MEDS: SENNOSIDES 1 TABLET PO SCH (20:38)
[2019-02-03 20:50] VITALS: BP 138/57
[2019-02-03] MEDS ORDERED: SENNOSIDES 1 TABLET PO SCH ×2 (21:00)
[2019-02-03] MEDS: ZOLPIDEM 5 MG TABLET PO PRN (22:06)
--- NOTE | 2019-02-03 22:06 | NUR ---
patient requested rimma for sleep. tolerated well.
[2019-02-04] VITALS (12 sets, daily range): BP systolic 146–174; BP diastolic 68–82
[2019-02-04] MEDS: MEROPENEM 500 MG in IV NORMAL SALINE 50 ML IV SCH ×3 (05:33→21:01)
[2019-02-04] MEDS: HYDROCODONE/APAP 5-325MG TABLET PO PRN (05:49)
--- NOTE | 2019-02-04 05:49 | NUR ---
c/o of pain. norco administered. tolerated well.
--- NOTE | 2019-02-04 06:35 | NUR ---
patient intermittently sleeping and confused. all medication administered and tolerated well. iv intact and patent. safety and comfort measures provided. will endorse care to morning nurse.
[2019-02-04 06:36] LABS: EOSINOPHILS # (AUTO) 0.1 K/uL (0.0-0.7); EOSINOPHILS % (AUTO) 0.7 % (0.0-7.0); MONOCYTES # (AUTO) 0.9 K/uL (2.0-10.0); WHITE BLOOD COUNT (AUTO) 13.8 K/uL (3.8-11.8)
[2019-02-04 06:44] LABS: ALANINE AMINOTRANSFERASE 10 U/L (14-59); ALKALINE PHOSPHATASE 175 U/L (50-136); ASPARTATE AMINOTRANSFERASE 15 U/L (15-37); BILIRUBIN,TOTAL 0.4 mg/dL (0.2-1.0); CARBON DIOXIDE 26 mmol/L (21-32); CHLORIDE 101 mmol/L (98-107); CREATININE 0.7 mg/dL (0.6-1.3); GLUCOSE 104 mg/dL (74-106); MAGNESIUM 1.8 mg/dL (1.8-2.4); PHOSPHOROUS 3.1 mg/dL (2.5-4.9); POTASSIUM 3.6 mmol/L (3.5-5.1); TOTAL PROTEIN, SERUM 5.7 g/dL (6.4-8.2); UREA NITROGEN, BLOOD 31 mg/dL (7-18)
[2019-02-04 06:49] LABS: BASOPHILS % (AUTO) 0.4 % (0.0-2.0); LYMPHOCYTES # (AUTO) 2.2 K/uL (20.0-40.0); MEAN CORPUSCULAR HEMOGLOBIN 24.9 uug (24.7-32.8); MEAN CORPUSCULAR HGB CONC 33 g/dL (32.3-35.6); MONOCYTES % (AUTO) 6.3 % (0.0-11.0); NEUTROPHILS # (AUTO) 10.6 K/uL (1.8-8.9); NEUTROPHILS % (AUTO) 76.6 % (38.5-71.5); RED BLOOD CELL COUNT(AUTO) 2.89 MIL/uL (3.63-4.92)
[2019-02-04 06:55] LABS: HEMOGLOBIN 7.2 g/dL (10.9-14.3)
[2019-02-04] MEDS: PANTOPRAZOLE SODIUM 40 MG TABLET.DR PO SCH (07:06)
--- NOTE | 2019-02-04 07:25 | NUR ---
Nurse Notes: received report from the night nurse Andria Zaidi RN, Normal saline is infusing at 60 cc per hour. caregiver at the bedside. oxygen on at 2 liters nasal cannula. In no respiratory distress.
--- NOTE | 2019-02-04 07:32 | NUR ---
Dr. Sanchez aware of critical values, h/h: 7.2/22 and albumin: 1.5. no new orders received. he will inform Dr. Blanco of critical values.
[2019-02-04] MEDS: ZINC SULFATE 220 MG CAPSULE PO SCH (08:57)
[2019-02-04] MEDS: predniSONE 10 MG TABLET PO SCH (08:58)
[2019-02-04] MEDS: MULTIVITAMINS,THERAPEUTIC TABLET PO SCH (08:58)
[2019-02-04] MEDS: ASCORBIC ACID 500 MG TABLET PO SCH (08:58)
[2019-02-04] MEDS: ESCITALOPRAM OXALATE 10 MG TABLET PO SCH (08:58)
[2019-02-04] MEDS: FLUTICASONE/VILANTEROL 1 EACH BLST.W.DEV IH SCH (09:16)
[2019-02-04] MEDS: PROTEIN SUPPLEMENT (PROSTAT) 30 ML LIQUID PO SCH ×3 (09:16→17:49)
[2019-02-04 09:44] LABS: PLATELET COUNT (AUTO) 507 K/uL (179-408)
[2019-02-04] MEDS ORDERED: FUROSEMIDE 20 MG/2 ML VIAL IV PRN (10:00)
[2019-02-04] MEDS ORDERED: POTASSIUM CHLORIDE 20 MEQ TAB.PRT.SR PO ONE (10:15)
--- NOTE | 2019-02-04 13:00 | NUR ---
Nurse Notes: both sons were called, need blood transfusion consent signed, patient is not able to sign the consent. son Deshawn did a phone consent, with charge nurse [place].
--- NOTE | 2019-02-04 15:03 | NUR ---
Nurse Notes: patient is receiving meropenem antibiotics, patient will receive blood transfusion when Meropenem is completed. on 2 liters pulse ox is 100%.
[2019-02-04] MEDS: RIVAROXABAN 15 MG TABLET PO SCH (17:50)
--- NOTE | 2019-02-04 19:20 | NUR ---
Received patient lying in bed. Family at bedside. AAOx4. In no acute distress. Denies any pain or SOB on RA. O2 sat at 99%. NSR on tele at 84/min. IV site on right hand intact and patent. IVF infusing. Safety measure initiated and call parekh within reach.
[2019-02-04] MEDS: SENNOSIDES 1 TABLET PO SCH (20:10)
--- NOTE | 2019-02-04 20:59 | NUR ---
Started a new IV line on left upper arm #22 gauge.
[2019-02-04] MEDS: IV NS 1000 ML 1,000 ML IV PRN (21:00)
[2019-02-05 00:14] VITALS: BP 149/82
[2019-02-05 00:19] VITALS: BP 149/82
--- NOTE | 2019-02-05 00:20 | NUR ---
1 unit of PRBC given. No side effect noted. Patient tolerated well.
[2019-02-05] MEDS: ZOLPIDEM 5 MG TABLET PO PRN (00:22)
[2019-02-05] MEDS ORDERED: Z GUARD REMEDY PASTE 57 GM TUBE TOP PRN (00:45)
[2019-02-05 04:50] VITALS: BP 150/62
[2019-02-05] MEDS: PANTOPRAZOLE SODIUM 40 MG TABLET.DR PO SCH (06:11)
[2019-02-05] MEDS: MEROPENEM 500 MG in IV NORMAL SALINE 50 ML IV SCH ×2 (06:11→14:53)
--- NOTE | 2019-02-05 06:40 | NUR ---
AAOx4 with episode of confusion. In no acute distress. Denies any pain or SOB. NSR on tele at 98/min. IV site on right hand and left upper arm intact and patent. IVF infusing. No adverse reaction noted from IV ABX. Needs attended to and met. Safety measure maintained and call parekh within reach.
[2019-02-05 07:35] LABS: BASOPHILS # (AUTO) 0.1 K/uL (0.0-8.0); BASOPHILS % (AUTO) 0.7 % (0.0-2.0); EOSINOPHILS # (AUTO) 0.4 K/uL (0.0-0.7); EOSINOPHILS % (AUTO) 2.4 % (0.0-7.0); HEMATOCRIT 28.5 % (31.2-41.9); HEMOGLOBIN 8.9 g/dL (10.9-14.3); LYMPHOCYTES # (AUTO) 2.2 K/uL (20.0-40.0); LYMPHOCYTES % (AUTO) 15.1 % (20.5-51.5); MEAN CORPUSCULAR HEMOGLOBIN 24.3 uug (24.7-32.8); MEAN CORPUSCULAR HGB CONC 31 g/dL (32.3-35.6); MEAN CORPUSCULAR VOLUME 77.4 fL (75.5-95.3); MONOCYTES # (AUTO) 1.2 K/uL (2.0-10.0); MONOCYTES % (AUTO) 8.1 % (0.0-11.0); NEUTROPHILS # (AUTO) 10.9 K/uL (1.8-8.9); NEUTROPHILS % (AUTO) 73.7 % (38.5-71.5); PLATELET COUNT (AUTO) 541 K/uL (179-408); RED BLOOD CELL COUNT(AUTO) 3.68 MIL/uL (3.63-4.92); WHITE BLOOD COUNT (AUTO) 14.8 K/uL (3.8-11.8)
[2019-02-05 07:39] LABS: CARBON DIOXIDE 26 mmol/L (21-32); CHLORIDE 101 mmol/L (98-107); CREATININE 0.7 mg/dL (0.6-1.3); GLUCOSE 76 mg/dL (74-106); MAGNESIUM 1.7 mg/dL (1.8-2.4); PHOSPHOROUS 2.6 mg/dL (2.5-4.9); POTASSIUM 3.4 mmol/L (3.5-5.1); UREA NITROGEN, BLOOD 28 mg/dL (7-18)
[2019-02-05] MEDS: ESCITALOPRAM OXALATE 10 MG TABLET PO SCH (08:00)
[2019-02-05] MEDS: FLUTICASONE/VILANTEROL 1 EACH BLST.W.DEV IH SCH (08:00)
[2019-02-05] MEDS: predniSONE 10 MG TABLET PO SCH (08:00)
[2019-02-05] MEDS: ZINC SULFATE 220 MG CAPSULE PO SCH (08:00)
[2019-02-05] MEDS: ASCORBIC ACID 500 MG TABLET PO SCH (08:00)
[2019-02-05] MEDS: MULTIVITAMINS,THERAPEUTIC TABLET PO SCH (08:00)
[2019-02-05] MEDS: PROTEIN SUPPLEMENT (PROSTAT) 30 ML LIQUID PO SCH ×3 (08:01→17:28)
[2019-02-05] MEDS ORDERED: EPOETIN ALFA 10,000 UNITS/ML VIAL SQ SCH (09:00)
[2019-02-05 11:17] VITALS: BP 153/84
[2019-02-05] MEDS: MAGNESIUM SULFATE/D5W 100 ML IV SCH ×2 (11:58→13:59)
[2019-02-05] MEDS ORDERED: POTASSIUM CHLORIDE 20 MEQ TAB.PRT.SR PO ONE (12:00)
[2019-02-05] MEDS: HYDROCODONE/APAP 5-325MG TABLET PO PRN (14:33)
[2019-02-05 15:45] VITALS: BP 153/78
[2019-02-05] MEDS: RIVAROXABAN 15 MG TABLET PO SCH (17:29)
[2019-02-05] MEDS: VANCOMYCIN FOR PO/GT/NG USE PO SCH ×2 (17:33→23:02)
--- NOTE | 2019-02-05 19:20 | NUR ---
Received patient lying in bed. Family at bedside. AAOx4. In no acute distress. Denies any pain or SOB. NSR on tele at 82/min. IV site on left hand intact and patent. IVF infusing. Isolation precaution observed. Safety measure initiated and call parekh within reach.
--- NOTE | 2019-02-05 20:28 | NUR ---
Patient with BP of 169/76, recheck and BP still 166/79. Dr. Portillo made aware with order to start patient on Metoprolol 25mg BID and give first dose tonight. Order noted and will carry out.
[2019-02-05] MEDS ORDERED: METOPROLOL TARTRATE 25 MG TABLET PO SCH (20:30)
[2019-02-05 20:50] VITALS: BP 166/79
[2019-02-05] MEDS: MUPIROCIN 2% OINT 22 GM TUBE NS SCH (20:57)
[2019-02-05] MEDS: CEFTAZIDIME 1 G in IV DEXTROSE 5% 50 ML IV SCH (20:57)
[2019-02-05] MEDS: METOPROLOL TARTRATE 25 MG TABLET PO SCH (20:57)
[2019-02-05] MEDS: SENNOSIDES 1 TABLET PO SCH (21:00)
[2019-02-05] MEDS ORDERED: CEFTAZIDIME 1 G in IV DEXTROSE 5% 50 ML IV SCH (22:00)
--- NOTE | 2019-02-05 22:47 | NUR ---
Noted some swelling on left arm about IV site. Stopped IV on left hand and started new IV line on right FA #22G. Restarted IV on right FA IV site.
[2019-02-06] MEDS: IV NS 1000 ML 1,000 ML IV PRN ×2 (04:11→22:17)
[2019-02-06] MEDS: VANCOMYCIN FOR PO/GT/NG USE PO SCH ×4 (05:05→23:36)
[2019-02-06] MEDS: PANTOPRAZOLE SODIUM 40 MG TABLET.DR PO SCH (06:11)
--- NOTE | 2019-02-06 06:15 | NUR ---
AAOx4 with episode of confusion during early AM. In no acute distress. Denies any pain or SOB. NSR with PAC's on tele at 88/min. IV site on left hand and right FA intact and patent. IVF infusing. No adverse reaction noted from IV ABX. Isolation precaution maintained. Needs attended to and met. Safety measure maintained and call parekh within reach. Addendum: 02/06/19 at 0617 by CARI NICHOLAS RN On O2 at LPM via NC for comfort. O2 sat at 94%.
[2019-02-06 06:22] LABS: BASOPHILS # (AUTO) 0.2 K/uL (0.0-8.0); EOSINOPHILS # (AUTO) 0.4 K/uL (0.0-0.7); EOSINOPHILS % (AUTO) 2.4 % (0.0-7.0); HEMATOCRIT 27.5 % (31.2-41.9); HEMOGLOBIN 8.8 g/dL (10.9-14.3); LYMPHOCYTES # (AUTO) 2.9 K/uL (20.0-40.0); LYMPHOCYTES % (AUTO) 18.6 % (20.5-51.5); MEAN CORPUSCULAR HEMOGLOBIN 24.9 uug (24.7-32.8); MEAN CORPUSCULAR HGB CONC 32 g/dL (32.3-35.6); MEAN CORPUSCULAR VOLUME 77.5 fL (75.5-95.3); MONOCYTES # (AUTO) 1.5 K/uL (2.0-10.0); MONOCYTES % (AUTO) 9.7 % (0.0-11.0); NEUTROPHILS # (AUTO) 10.5 K/uL (1.8-8.9); NEUTROPHILS % (AUTO) 68.3 % (38.5-71.5); PLATELET COUNT (AUTO) 513 K/uL (179-408); RED BLOOD CELL COUNT(AUTO) 3.54 MIL/uL (3.63-4.92); WHITE BLOOD COUNT (AUTO) 15.3 K/uL (3.8-11.8)
[2019-02-06 06:30] VITALS: BP 172/86
[2019-02-06 06:41] LABS: CARBON DIOXIDE 27 mmol/L (21-32); CHLORIDE 102 mmol/L (98-107); CREATININE 0.8 mg/dL (0.6-1.3); GLUCOSE 84 mg/dL (74-106); POTASSIUM 3.7 mmol/L (3.5-5.1); UREA NITROGEN, BLOOD 32 mg/dL (7-18)
--- NOTE | 2019-02-06 07:35 | NUR ---
Patient resting comfortably in bed at this time. No signs of distress. Stable condition. IV fluids running. Contact isolation implemented for C.diff and MRSA nares. Bedrest. SR with PVC on tele. Bed alarm on, call light within reach of patient. Will continue to monitor closely throughout shift.
[2019-02-06] MEDS: predniSONE 10 MG TABLET PO SCH (08:52)
[2019-02-06] MEDS: MULTIVITAMINS,THERAPEUTIC TABLET PO SCH (08:52)
[2019-02-06] MEDS: ASCORBIC ACID 500 MG TABLET PO SCH (08:52)
[2019-02-06] MEDS: ZINC SULFATE 220 MG CAPSULE PO SCH (08:52)
[2019-02-06] MEDS: METOPROLOL TARTRATE 25 MG TABLET PO SCH ×2 (08:52→20:29)
[2019-02-06] MEDS: ESCITALOPRAM OXALATE 10 MG TABLET PO SCH (08:52)
[2019-02-06] MEDS: FLUTICASONE/VILANTEROL 1 EACH BLST.W.DEV IH SCH (08:55)
[2019-02-06] MEDS: CEFTAZIDIME 1 G in IV DEXTROSE 5% 50 ML IV SCH ×2 (08:55→20:28)
[2019-02-06] MEDS: MUPIROCIN 2% OINT 22 GM TUBE NS SCH ×2 (08:56→20:28)
[2019-02-06] MEDS: PROTEIN SUPPLEMENT (PROSTAT) 30 ML LIQUID PO SCH ×3 (08:56→16:26)
[2019-02-06 09:45] VITALS: BP 185/89
--- NOTE | 2019-02-06 09:50 | NUR ---
ELEVATED BP OF 185/89. NOTIFIED.
[2019-02-06 10:01] VITALS: BP 169/72
--- NOTE | 2019-02-06 10:15 | NUR ---
BP RECHECKED: 169/72. NO SIGNS OF DISTRESS AT THIS TIME. MD NOTIFIED ONCE AGAIN OF NEW BP READING.
--- NOTE | 2019-02-06 11:55 | NUR ---
Received order from MD for increased BP: Clonidine 0.1 mg q6hprn for SBP > 160.
[2019-02-06 12:00] VITALS: BP 167/86
--- NOTE | 2019-02-06 12:17 | NUR ---
Patient has been very sleepy throughout shift. Sleeping most of the time. Patient refused to eat breakfast and just wanted to sleep. Stable condition at this time. No signs of distress. Will continue to monitor.
[2019-02-06] MEDS: CLONIDINE HCL 0.1 MG TABLET PO PRN (12:27)
--- NOTE | 2019-02-06 12:27 | NUR ---
BP rechecked: 167/78. Clonidine 0.1 mg PO administered for SBP > 160.
[2019-02-06 15:28] VITALS: BP 137/65
[2019-02-06] MEDS: RIVAROXABAN 15 MG TABLET PO SCH (17:21)
--- NOTE | 2019-02-06 18:27 | NUR ---
Patient stable throughout shift. Blood pressure under control at this time. NSR with PVC/PAC on telemetry. 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 ABX administered. Patient has been very sleepy throughout entire shift. Patient is stable - would wake up for medications and go straight back to sleep. On O2 2L NC saturating WNL. Skin care provided. Bed alarm on, call light within reach of patient. Safety measures implemented. Will continue to monitor until end of shift.
--- NOTE | 2019-02-06 19:53 | NUR ---
Received patient lying in bed. Asleep, arouse to verbal and tactile stimuli. Falls back to sleep after. In no acute distress. No signs or symptoms of pain or SOB. O2 at 2LPM via NC in place. O2 sat at 100%. NSR with PAC's on tele at 64/min. IV site on left hand and right FA intact and patent. IVF infusing. Isolation precaution observed. Safety measure initiated and call parekh within reach.
[2019-02-06 20:06] VITALS: BP 136/80
[2019-02-06] MEDS: SENNOSIDES 1 TABLET PO SCH (20:34)
[2019-02-06] MEDS: ZOLPIDEM 5 MG TABLET PO PRN (23:36)
[2019-02-07 00:20] VITALS: BP 151/75
[2019-02-07] MEDS: VANCOMYCIN FOR PO/GT/NG USE PO SCH ×4 (05:09→23:21)
[2019-02-07 05:36] VITALS: BP 160/70
--- NOTE | 2019-02-07 06:14 | NUR ---
Patient AOx3-4. No signs or symptoms of pain or SOB. O2 at 2LPM via NC in place. O2 sat at 99%. Sinus jamir with PAC's on tele between 45-55/min. IV site on left hand and right FA intact and patent. IVF infusing. No adverse effect noted from IV and PO ABX. Isolation precaution maintained. Safety measure maintained and call parekh within reach.
[2019-02-07] MEDS: PANTOPRAZOLE SODIUM 40 MG TABLET.DR PO SCH (06:16)
--- NOTE | 2019-02-07 07:01 | NUR ---
Received patient alert and oriented x4 with no s/s of acute distress noted, no c/o pain at this time , on 2 lpm via n/c, 02 sat 99%, patient on contact isolation for MRSA on the nares and c-diff, continue on ATB. Provide safety at all times and call light within reached , will continue to monitor and continue treatment plan.
[2019-02-07 07:15] LABS: BASOPHILS # (AUTO) 0.1 K/uL (0.0-8.0); BASOPHILS % (AUTO) 1.2 % (0.0-2.0); EOSINOPHILS # (AUTO) 0.5 K/uL (0.0-0.7); EOSINOPHILS % (AUTO) 4.7 % (0.0-7.0); HEMATOCRIT 25.2 % (31.2-41.9); HEMOGLOBIN 8.2 g/dL (10.9-14.3); LYMPHOCYTES # (AUTO) 2.2 K/uL (20.0-40.0); LYMPHOCYTES % (AUTO) 21.3 % (20.5-51.5); MEAN CORPUSCULAR HEMOGLOBIN 25.1 uug (24.7-32.8); MEAN CORPUSCULAR HGB CONC 32 g/dL (32.3-35.6); MEAN CORPUSCULAR VOLUME 77.7 fL (75.5-95.3); MONOCYTES % (AUTO) 9.2 % (0.0-11.0); NEUTROPHILS # (AUTO) 6.7 K/uL (1.8-8.9); NEUTROPHILS % (AUTO) 63.6 % (38.5-71.5); PLATELET COUNT (AUTO) 435 K/uL (179-408); RED BLOOD CELL COUNT(AUTO) 3.25 MIL/uL (3.63-4.92); WHITE BLOOD COUNT (AUTO) 10.5 K/uL (3.8-11.8)
[2019-02-07 07:38] LABS: CARBON DIOXIDE 25 mmol/L (21-32); CHLORIDE 106 mmol/L (98-107); CREATININE 0.8 mg/dL (0.6-1.3); GLUCOSE 77 mg/dL (74-106); MAGNESIUM 1.7 mg/dL (1.8-2.4); PHOSPHOROUS 3.2 mg/dL (2.5-4.9); POTASSIUM 3.6 mmol/L (3.5-5.1); UREA NITROGEN, BLOOD 24 mg/dL (7-18)
[2019-02-07] MEDS: FLUTICASONE/VILANTEROL 1 EACH BLST.W.DEV IH SCH (08:56)
[2019-02-07] MEDS: MULTIVITAMINS,THERAPEUTIC TABLET PO SCH (08:56)
[2019-02-07] MEDS: MUPIROCIN 2% OINT 22 GM TUBE NS SCH ×2 (08:56→20:11)
[2019-02-07] MEDS: ESCITALOPRAM OXALATE 10 MG TABLET PO SCH (08:56)
[2019-02-07] MEDS: CEFTAZIDIME 1 G in IV DEXTROSE 5% 50 ML IV SCH ×2 (08:56→20:04)
[2019-02-07] MEDS: predniSONE 10 MG TABLET PO SCH (08:57)
[2019-02-07] MEDS: ASCORBIC ACID 500 MG TABLET PO SCH (08:57)
[2019-02-07] MEDS: PROTEIN SUPPLEMENT (PROSTAT) 30 ML LIQUID PO SCH ×3 (08:57→17:18)
[2019-02-07] MEDS: ZINC SULFATE 220 MG CAPSULE PO SCH (09:05)
[2019-02-07] MEDS: METOPROLOL TARTRATE 25 MG TABLET PO SCH ×2 (09:06→20:05)
[2019-02-07 11:17] VITALS: BP 139/61
--- NOTE | 2019-02-07 13:30 | NUR ---
Received discharge order from and notified Son (the DPOA)Blanca that we received discharge order to discharge patient to [facility] and son refused to discharge today, prefers the patient to be discharge to [facility] tomorrow , made aware.
[2019-02-07] MEDS ORDERED: MAGNESIUM OXIDE 400 MG TABLET PO ONE (13:45)
[2019-02-07 14:59] VITALS: BP 148/55
[2019-02-07] MEDS: IV NS 1000 ML 1,000 ML IV PRN (15:33)
[2019-02-07] MEDS: RIVAROXABAN 15 MG TABLET PO SCH (17:17)
--- NOTE | 2019-02-07 18:26 | NUR ---
Patient alert and oriented x4 , able to make needs known, continue to be on contact isolation. No acute distress noted and no c/o pain at this time. kept clean and dry at all times. IV intact and patent with IVF at 60ml/hr, on O2 at 2lpm with O2 sat at 99%. Safety and and comfort provided at all times. call light within reached, will continue to monitor and continue treatment
[2019-02-07 20:00] VITALS: BP 152/60
[2019-02-07] MEDS: SENNOSIDES 1 TABLET PO SCH (20:04)
[2019-02-07] MEDS: HYDROCODONE/APAP 5-325MG TABLET PO PRN (20:04)
[2019-02-07] MEDS: ZOLPIDEM 5 MG TABLET PO PRN (21:26)
[2019-02-08] VITALS: BP 165/84
[2019-02-08] MEDS: CLONIDINE HCL 0.1 MG TABLET PO PRN (00:07)
[2019-02-08 04:00] VITALS: BP 128/59
[2019-02-08] MEDS: VANCOMYCIN FOR PO/GT/NG USE PO SCH ×3 (05:56→11:55)
[2019-02-08] MEDS: PANTOPRAZOLE SODIUM 40 MG TABLET.DR PO SCH ×2 (06:00→06:42)
--- NOTE | 2019-02-08 06:29 | NUR ---
patient slept intermittently after administration of Ambien. a/o x2 and confused at times. safety and comfort measures provided. bed in lowest position, side rails up x2, call light within reach. all medications administered and tolerated well. will endorse care to morning nurse. c/o of pain. norco administered at 2003. pt. tolerated well.
--- NOTE | 2019-02-08 06:42 | NUR ---
patient refused protonix and vancocin in the morning. educated patient to take the medication and she was angry and agitated saying she did not want the medication and closed her mouth. Addendum: 02/08/19 at 0647 by KAITLYN ROBERTSON RN protonix wasted in pyxis. vancocin wasted in appropriate bin. correction: educated patient on why she was prescribed medication.
--- NOTE | 2019-02-08 07:30 | NUR ---
report received from Felicita GUERRERO. was admitted on 02/02/19 for urosepsis. tele status . DNR. patient confused. o2 on at 2 liters nc. ekg sinus rhyrthm with pvcs Addendum: 02/08/19 at 0855 by JEZ DOWELL RN Amended: Links added.
[2019-02-08] MEDS: ESCITALOPRAM OXALATE 10 MG TABLET PO SCH (08:57)
[2019-02-08] MEDS: ZINC SULFATE 220 MG CAPSULE PO SCH (08:57)
[2019-02-08] MEDS: ASCORBIC ACID 500 MG TABLET PO SCH (08:58)
[2019-02-08] MEDS: FLUTICASONE/VILANTEROL 1 EACH BLST.W.DEV IH SCH (08:58)
[2019-02-08] MEDS: MUPIROCIN 2% OINT 22 GM TUBE NS SCH (08:58)
[2019-02-08] MEDS: MULTIVITAMINS,THERAPEUTIC TABLET PO SCH (08:58)
[2019-02-08] MEDS: predniSONE 10 MG TABLET PO SCH (08:58)
[2019-02-08] MEDS: METOPROLOL TARTRATE 25 MG TABLET PO SCH (08:58)
[2019-02-08] MEDS: PROTEIN SUPPLEMENT (PROSTAT) 30 ML LIQUID PO SCH ×2 (09:02→11:55)
[2019-02-08] MEDS: IV NS 1000 ML 1,000 ML IV PRN (09:05)
[2019-02-08] MEDS: CEFTAZIDIME 1 G in IV DEXTROSE 5% 50 ML IV SCH (09:09)
--- NOTE | 2019-02-08 10:02 | NUR ---
patient sleeping. danii, caregiver is at the bedside. Addendum: 02/08/19 at 1003 by JEZ DOWELL RN Amended: Links added.
[2019-02-08 11:44] VITALS: BP 141/62
--- NOTE | 2019-02-08 15:00 | NUR ---
DISCHARGE BACK HOME TO [facility], EXIT CARE GIVEN WITH MEDICATION LIST. REPORT GIVEN TO FACILITY /PICKED UP BY AMBULANCE Addendum: 02/08/19 at 1514 by JEZ DOWELL RN Amended: Links added. Addendum: 02/08/19 at 1514 by JEZ DOWELL RN Amended: Links added.
== END 2019-02-08 14:45 | DRG 871 ==
LOC: ER 17:27 → TELE3 20:50
PROVIDERS: ADMIT Internal Medicine; ATTEND Internal Medicine
PROC: 30233N1 Transfusion of Nonautologous Red Blood Cells into Peripheral Vein, Percutaneous Approach (ICD-10-PCS; principal; 2019-02-04)
DX: A41.52 Sepsis due to Pseudomonas (principal); E43 Unspecified severe protein-calorie malnutrition; G92 Toxic encephalopathy; N17.0 Acute kidney failure with tubular necrosis; N39.0 Urinary tract infection, site not specified; I50.32 Chronic diastolic (congestive) heart failure; D68.59 Other primary thrombophilia; A41.59 Other Gram-negative sepsis; R65.20 Severe sepsis without septic shock; I48.2 Chronic atrial fibrillation; Z68.22 Body mass index [BMI] 22.0-22.9, adult; I11.0 Hypertensive heart disease with heart failure; Z89.422 Acquired absence of other left toe(s); Z79.51 Long term (current) use of inhaled steroids; Z79.899 Other long term (current) drug therapy; Z86.19 Personal history of other infectious and parasitic diseases; Z96.611 Presence of right artificial shoulder joint; J44.9 Chronic obstructive pulmonary disease, unspecified; I70.0 Atherosclerosis of aorta; I25.10 Atherosclerotic heart disease of native coronary artery without angina pectoris; D63.8 Anemia in other chronic diseases classified elsewhere; Z22.322 Carrier or suspected carrier of Methicillin resistant Staphylococcus aureus; Z79.01 Long term (current) use of anticoagulants; E86.0 Dehydration; I87.2 Venous insufficiency (chronic) (peripheral); Z96.651 Presence of right artificial knee joint; Z96.641 Presence of right artificial hip joint; Z87.440 Personal history of urinary (tract) infections; Z88.0 Allergy status to penicillin; Z98.1 Arthrodesis status; Z82.49 Family history of ischemic heart disease and other diseases of the circulatory system; L40.9 Psoriasis, unspecified; D50.9 Iron deficiency anemia, unspecified; I73.9 Peripheral vascular disease, unspecified; Z74.09 Other reduced mobility; M81.0 Age-related osteoporosis without current pathological fracture; M25.421 Effusion, right elbow; G89.29 Other chronic pain; M54.9 Dorsalgia, unspecified; M65.9 Synovitis and tenosynovitis, unspecified; H40.9 Unspecified glaucoma
CPT/HCPCS: 36415; 70030-TC; 71045; 83605; 83735; 84100; 85025; 85730; 86850; 86900; 86901; 86920; 87040; 87077; 87086; 87400; 93005; 94640; 97110; 97112; 97530; A4663; C1758; G0378; J0696; J0713; J0885; J1580; J1940; J2185; J3370; J3475; J3490; J7030; J7040; J7050; J7060; J7512; P9016-BL; P9021

== ENCOUNTER 2019-02-10 13:18 | Inpatient (IN) | payer MEDICARE, MEDICAID ==
[~2019-02-10] VITALS: Ht 157.5 cm; Wt 55.3 kg
[~2019-02-10 13:18] MED LIST changes: +ACET-73 PO; -ACID1TAB4 PO; +ALBU2.5V38 IH; -ALBU2.5V7 NEB; +AMIN30LI2 PO; +ASCO-340 PO; -ASCO500P18 PO; -MENT71OI TOP; -MULT-213 PO; +MULT1TAB73 PO; -PROT30LI PO; -RIVA15TA PO; +RIVA15TA2 PO; +SENN-168 PO; -VANC500V PO; +ZINC57OI4 TP; +ZOLP5TAB2 PO; -ZOLP5TAB8 PO
[2019-02-10] MEDS ORDERED: ALBUTEROL SULFATE 2.5 MG/3 ML NEBU NEB ONE (13:45)
[2019-02-10] MEDS ORDERED: ALBUTEROL SULFATE 2.5 MG/3 ML NEBU ONE (13:51)
[2019-02-10 13:57] LABS: BASOPHILS # (AUTO) 0.1 K/uL (0.0-8.0); BASOPHILS % (AUTO) 0.3 % (0.0-2.0); EOSINOPHILS % (AUTO) 0.1 % (0.0-7.0); HEMATOCRIT 26.7 % (31.2-41.9); HEMOGLOBIN 8.6 g/dL (10.9-14.3); LYMPHOCYTES # (AUTO) 1.1 K/uL (20.0-40.0); LYMPHOCYTES % (AUTO) 6.2 % (20.5-51.5); MEAN CORPUSCULAR HEMOGLOBIN 24.8 uug (24.7-32.8); MEAN CORPUSCULAR HGB CONC 32 g/dL (32.3-35.6); MONOCYTES # (AUTO) 0.8 K/uL (2.0-10.0); MONOCYTES % (AUTO) 4.4 % (0.0-11.0); NEUTROPHILS # (AUTO) 16.2 K/uL (1.8-8.9); PLATELET COUNT (AUTO) 535 K/uL (179-408); RED BLOOD CELL COUNT(AUTO) 3.47 MIL/uL (3.63-4.92); WHITE BLOOD COUNT (AUTO) 18.2 K/uL (3.8-11.8)
[2019-02-10 14:06] LABS: *BILIRUBIN,URIN NEGATIVE (NEGATIVE); *BLOOD, URINE 3+ (NEGATIVE); *CLARITY,URINE SLIGHTLY CLOUDY (CLEAR); *COLOR,URINE YELLOW (YELLOW); *KETONES,URINE TRACE (NEGATIVE); *UROBILINOGEN,URINE 0.2 E.U./dl (NORMAL); LEUKOCYTE ESTERASE ,URINE NEGATIVE (NEGATIVE); NITRITE, URINE NEGATIVE (NEGATIVE); UGLUCOSE NEGATIVE (NEGATIVE)
[2019-02-10 14:06] LABS: CARBON DIOXIDE 26 mmol/L (21-32); CHLORIDE 101 mmol/L (98-107); CREATININE 0.7 mg/dL (0.6-1.3); GLUCOSE 94 mg/dL (74-106); POTASSIUM 3.1 mmol/L (3.5-5.1); UREA NITROGEN, BLOOD 19 mg/dL (7-18)
[2019-02-10 14:13] LABS: BACTERIA,URINE FEW /HPF (NONE SEEN); MUCUS,URINE FEW /LPF (0-FEW); SQUAMOUS EPITHELIAL CELL,UR FEW /HPF (NONE SEEN)
[2019-02-10 14:14] LABS: RBC,URINE 20-50 /HPF (0-3); YEAST,URINE BUDDING YEAST /HPF (NONE SEEN)
[2019-02-10 14:22] LABS: ALANINE AMINOTRANSFERASE 17 U/L (14-59); ALKALINE PHOSPHATASE 254 U/L (50-136); ASPARTATE AMINOTRANSFERASE 17 U/L (15-37); BILIRUBIN,DIRECT 0.5 mg/dL (0.0-0.2); TOTAL PROTEIN, SERUM 6.4 g/dL (6.4-8.2)
[2019-02-10] MEDS ORDERED: FLUCONAZOLE 400 MG /NS 200 ML PIGGYBACK IV ONE (14:30)
[2019-02-10 14:34] LABS: LYMPHOCYTES % (MANUAL) 5 % (20-40); MONOCYTES % (MANUAL) 2 % (2-10); NEUTROPHILS % (MANUAL) 93 % (42-75)
--- NOTE | 2019-02-10 14:40 | NUR ---
spoke with Wolfgang Ruiz via telephone, pt to be admitted to tele floor. Pt resting with no acute distress noted at this time. SBAR report given to CESAR Lozada via telephone.
[2019-02-10] MEDS ORDERED: POTASSIUM CHLORIDE 50 ML IV SCH (14:45)
[2019-02-10] MEDS ORDERED: POTASSIUM CHLORIDE 50 ML ONE (14:46)
[2019-02-10] MEDS ORDERED: HYDR-3326 PO (14:58)
[2019-02-10] MEDS ORDERED: CRAN500C5 PO (14:58)
[2019-02-10] MEDS ORDERED: VANC250C5 PO (14:58)
[2019-02-10] MEDS ORDERED: PRO STAT PO (14:58)
[2019-02-10] MEDS ORDERED: FLUCONAZOLE 400MG /NS 200ML IV 400 MG in PREMIXED 1 EACH IV ONE (15:00)
--- NOTE | 2019-02-10 16:00 | NUR ---
Pt trans to tele floor, NAD noted.
--- NOTE | 2019-02-10 16:01 | NUR ---
RECEIVED PATIENT FOR ADMISSION 83 YRS OLD FROM ED WITH DX OF UROSEPSIS PLACED INTO BED FIXED AND MADE COMFORTABLE PATIENT HAS EYES CLOSED ATTEMPTS TO RESPOND BUT SPEECH IS UNCLEAR BUT SEEMS TO FOLLOW SIMPLE COMMANDS HAS 2 HEP LOCKS ON HER LEFT ARMS HAS O2 TITRATED TO 1L/M SATS ARE 99 PERCENT AT 2L DIAPER CHANGED HEELS FLOATED SEE PICS TURNED AND REPOSITIONED MADE COMFORTABLE DENISE CESAR DNP IS HERE AND STATED WILL SEE PATIENT.
[2019-02-10] MEDS ORDERED: VANCOMYCIN HCL 250 MG PO SCH (16:15)
[2019-02-10] MEDS ORDERED: ACETAMINOPHEN 325 MG TABLET PO PRN (16:15)
[2019-02-10] MEDS ORDERED: FLEET ENEMA 133 ML BOTTLE RC PRN (16:15)
[2019-02-10] MEDS ORDERED: BISACODYL 10 MG SUPP.RECT RC PRN (16:15)
[2019-02-10] MEDS ORDERED: ONDANSETRON 4 MG/2 ML VIAL IV PRN (16:30)
[2019-02-10] MEDS ORDERED: HYDROCODONE/APAP 5-325MG TABLET PO PRN (16:30)
[2019-02-10] MEDS ORDERED: Z GUARD REMEDY PASTE 57 GM TUBE TOP PRN (16:30)
[2019-02-10] MEDS ORDERED: MAGNESIUM HYDROXIDE 30 ML LIQUID UDC PO PRN (16:30)
[2019-02-10] MEDS: PROTEIN SUPPLEMENT (PROSTAT) 30 ML LIQUID PO SCH (17:00)
[2019-02-10] MEDS ORDERED: Medication Not On Formulary EA (Amino Acids/Protein Hydrolys (Pro-Stat Liquid) 30 ML) PO SCH (17:00)
[2019-02-10 17:12] VITALS: BP 158/68
[2019-02-10] MEDS: MAGNESIUM SULFATE/D5W 100 ML IV SCH ×2 (17:38→18:39)
[2019-02-10] MEDS: RIVAROXABAN 15 MG TABLET PO SCH (17:42)
[2019-02-10] MEDS: VANCOMYCIN FOR PO/GT/NG USE PO SCH (18:39)
--- NOTE | 2019-02-10 18:40 | NUR ---
MORE AWAKE NOW WAS ABLE TO GIVE HER THE ORAL VANCO WITH SOME DIFFICULTY WILL CONTINUE TO OBSERVE.
[2019-02-10 20:10] VITALS: BP 165/105
[2019-02-10] MEDS: METOPROLOL TARTRATE 25 MG TABLET PO SCH (20:27)
[2019-02-10] MEDS: SENNOSIDES 1 TABLET PO SCH (20:30)
[2019-02-10] MEDS: NYSTATIN POWDER 15 GM BOTTLE TOP SCH (21:00)
[2019-02-10] MEDS: Z GUARD REMEDY PASTE 57 GM TUBE TOP SCH (21:14)
[2019-02-10] MEDS: CEFTAZIDIME 1 G in IV DEXTROSE 5% 50 ML IV SCH (21:18)
--- NOTE | 2019-02-10 21:19 | NUR ---
Awaiting for the delivery of medication from pharmacy. Mycostatin powder.
[2019-02-11 00:10] VITALS: BP 129/53
[2019-02-11] MEDS: VANCOMYCIN FOR PO/GT/NG USE PO SCH ×5 (00:10→23:01)
[2019-02-11 04:15] VITALS: BP 145/49
[2019-02-11 07:02] LABS: CARBON DIOXIDE 28 mmol/L (21-32); CHLORIDE 101 mmol/L (98-107); CHOLESTEROL 157 mg/dL (<200); CREATININE 0.7 mg/dL (0.6-1.3); GLUCOSE 73 mg/dL (74-106); HDL CHOLESTEROL 46 mg/dL (40-60); PHOSPHOROUS 3.7 mg/dL (2.5-4.9); POTASSIUM 3.2 mmol/L (3.5-5.1); TRIGLYCERIDES 69 MG/DL (30-150); UREA NITROGEN, BLOOD 18 mg/dL (7-18)
[2019-02-11 07:05] LABS: HEMATOCRIT 24.8 % (31.2-41.9); PLATELET COUNT (AUTO) 490 K/uL (179-408)
[2019-02-11 07:23] LABS: BASOPHILS # (AUTO) 0.1 K/uL (0.0-8.0); BASOPHILS % (AUTO) 1.1 % (0.0-2.0); EOSINOPHILS # (AUTO) 0.2 K/uL (0.0-0.7); EOSINOPHILS % (AUTO) 2.1 % (0.0-7.0); LYMPHOCYTES # (AUTO) 2.3 K/uL (20.0-40.0); LYMPHOCYTES % (AUTO) 19.9 % (20.5-51.5); MEAN CORPUSCULAR HEMOGLOBIN 25.3 uug (24.7-32.8); MEAN CORPUSCULAR HGB CONC 32 g/dL (32.3-35.6); MONOCYTES # (AUTO) 0.8 K/uL (2.0-10.0); MONOCYTES % (AUTO) 6.9 % (0.0-11.0); RED BLOOD CELL COUNT(AUTO) 3.18 MIL/uL (3.63-4.92)
[2019-02-11 07:26] LABS: WHITE BLOOD COUNT (AUTO) 11.4 K/uL (3.8-11.8)
--- NOTE | 2019-02-11 07:40 | NUR ---
AWAKE MORE ALERT DENIES PAIN OR DISCOMFORTS AT THIS TIME REMAIN ON O2 WITH NO S/S OF SHORTNESS OF BREATH MAX ASSIST FOR ALL ADL TURNED AND REPOSITIONED Q2H HEELS FLOATED ALL NEEDS ANTICIPATED AND SATISFIED MADE COMFORTABLE WILL CONTINUE TO OBSERVE.
[2019-02-11] MEDS: ASCORBIC ACID 500 MG TABLET PO SCH (08:37)
[2019-02-11] MEDS: ZINC SULFATE 220 MG CAPSULE PO SCH (08:37)
[2019-02-11] MEDS: FLUTICASONE/VILANTEROL 1 EACH BLST.W.DEV IH SCH (08:37)
[2019-02-11] MEDS: MULTIVITAMINS,THERAPEUTIC TABLET PO SCH (08:37)
[2019-02-11] MEDS: ESCITALOPRAM OXALATE 10 MG TABLET PO SCH (08:37)
[2019-02-11] MEDS: predniSONE 10 MG TABLET PO SCH (08:37)
[2019-02-11] MEDS: PANTOPRAZOLE SODIUM 40 MG TABLET.DR PO SCH (08:37)
[2019-02-11] MEDS: METOPROLOL TARTRATE 25 MG TABLET PO SCH ×2 (08:42→21:00)
[2019-02-11] MEDS ORDERED: Medication Not On Formulary EA (Multivitamins (Multivitamin) 1 EACH) PO SCH (09:00)
[2019-02-11] MEDS ORDERED: Medication Not On Formulary EA (Ascorbate Calcium (Vitamin C TAB) 500 MG) PO SCH (09:00)
[2019-02-11] MEDS ORDERED: CRANBERRY EXTRACT 450 MG PO SCH (09:00)
--- NOTE | 2019-02-11 09:00 | NUR ---
IV SITE RIGHT AC INFILTERATED REINSERTED TO HER RIGHT FOREARM GAUGE 20 WITH ONE ATTEMPT CONTINU ON IV ATB ORDERED WITH NO ADVERSE OR ALLERGIC REACTIONS AT THIS TIME PATIENT IS ALERT VERBALLY RESPONDING BUT ALL NEEDS MUST BE ANTICIPATED AND SATISFIED.MADE COMFORTABLE.
[2019-02-11] MEDS: CEFTAZIDIME 1 G in IV DEXTROSE 5% 50 ML IV SCH ×2 (09:16→21:10)
[2019-02-11] MEDS: PROTEIN SUPPLEMENT (PROSTAT) 30 ML LIQUID PO SCH ×3 (09:16→16:38)
[2019-02-11] MEDS: Z GUARD REMEDY PASTE 57 GM TUBE TOP SCH ×2 (09:18→21:09)
[2019-02-11] MEDS: NYSTATIN POWDER 15 GM BOTTLE TOP SCH ×2 (10:15→21:09)
[2019-02-11] MEDS ORDERED: POTASSIUM CHLORIDE 20 MEQ TAB.PRT.SR PO ONE (10:45)
[2019-02-11 11:40] VITALS: BP 126/57
--- NOTE | 2019-02-11 13:13 | NUR ---
POTASSIUM LEVEL IS 3.2 REPLACED WITH 40 MEQ ORDERED.
--- NOTE | 2019-02-11 15:51 | NUR ---
RESTING WITH FAMILY AT THE BEDSIDE DELROY HEALY HERE TO SEE PATIENT WITH NO NEW ORDERS AT THIS TIME.
[2019-02-11 16:00] VITALS: BP 128/77
[2019-02-11] MEDS: RIVAROXABAN 15 MG TABLET PO SCH (17:10)
--- NOTE | 2019-02-11 17:38 | NUR ---
DUE MEDICATIONS GIVEN AND TOLERATED WELL REMAIN ON ATB ORDERED WITH NO ADVERSE OR ALLERGIC REACTIONS AT THIS TIME REMAIN ON O2 WITH NO SOB NOT IN DISTRESS AT THIS TIME WILL CONTINUE TO OBSERVE.
--- NOTE | 2019-02-11 20:00 | NUR ---
RECEIVED PATIENT AWAKE IN BED WITH FAMILY AT BEDSIDE. PATIENT IS A/O X3. LITHUANIAN SPEAKING BUT ABLE TO MAKE NEEDS KNOWN. VSS. NO RESP. DISTRESS NOTED. DENIES PAIN. H/L INTACT AND PATENT. BED ALARM ON. AIR MATTRESS IN PLACE. ALL NEEDS ATTENDED. WILL CONTINUE TO MONITOR AND ASSESS.
[2019-02-11 20:50] VITALS: BP 139/42
--- NOTE | 2019-02-11 20:50 | NUR ---
SON AT BEDSIDE WITH PATIENT. REFUSED LOPRESSOR. PATIENTS BLOOD PRESSURE 139/42. WILL CONTINUE TO MONITOR AND ASSESS.
[2019-02-11] MEDS: SENNOSIDES 1 TABLET PO SCH (21:06)
[2019-02-11] MEDS: ZOLPIDEM 5 MG TABLET PO PRN (23:00)
[2019-02-12 00:15] VITALS: BP 132/57
[2019-02-12 04:10] VITALS: BP 161/98
[2019-02-12] MEDS: VANCOMYCIN FOR PO/GT/NG USE PO SCH ×2 (05:08→11:37)
[2019-02-12 05:45] LABS: BASOPHILS # (AUTO) 0.1 K/uL (0.0-8.0); BASOPHILS % (AUTO) 0.4 % (0.0-2.0); EOSINOPHILS # (AUTO) 0.3 K/uL (0.0-0.7); EOSINOPHILS % (AUTO) 1.8 % (0.0-7.0); HEMATOCRIT 24.1 % (31.2-41.9); HEMOGLOBIN 7.9 g/dL (10.9-14.3); LYMPHOCYTES # (AUTO) 2.3 K/uL (20.0-40.0); LYMPHOCYTES % (AUTO) 16.4 % (20.5-51.5); MEAN CORPUSCULAR HEMOGLOBIN 25.1 uug (24.7-32.8); MEAN CORPUSCULAR HGB CONC 33 g/dL (32.3-35.6); MEAN CORPUSCULAR VOLUME 76.8 fL (75.5-95.3); MONOCYTES # (AUTO) 0.6 K/uL (2.0-10.0); MONOCYTES % (AUTO) 4.6 % (0.0-11.0); NEUTROPHILS # (AUTO) 10.6 K/uL (1.8-8.9); NEUTROPHILS % (AUTO) 76.8 % (38.5-71.5); PLATELET COUNT (AUTO) 535 K/uL (179-408); RED BLOOD CELL COUNT(AUTO) 3.14 MIL/uL (3.63-4.92); WHITE BLOOD COUNT (AUTO) 13.8 K/uL (3.8-11.8)
[2019-02-12 06:02] LABS: CARBON DIOXIDE 26 mmol/L (21-32); CHLORIDE 101 mmol/L (98-107); CREATININE 0.7 mg/dL (0.6-1.3); GLUCOSE 88 mg/dL (74-106); POTASSIUM 3.7 mmol/L (3.5-5.1); UREA NITROGEN, BLOOD 17 mg/dL (7-18)
[2019-02-12] MEDS: CLONIDINE HCL 0.1 MG TABLET PO PRN (06:04)
--- NOTE | 2019-02-12 06:04 | NUR ---
PATIENT AWAKE IN BED. BLOOD PRESSURE 161/98. PATIENT GIVEN CLONIDINE 0.1MG PO PRN FOR ELEVATED BP. WILL CONTINUE TO MONITOR.
--- NOTE | 2019-02-12 07:25 | NUR ---
RECEIVED IN BED AWAKE ALERT AWARE BUT WITH CONFUSSION AND DISORIENTATION ALL NEEDS ANTICIPATED AND SATISFIED ON FIRST STEP JOHN FOR COMFORT TURNED AND REPOSITIONED Q2H HEELS FLOATED O2 AT 2L/M BY NASAL CANULLA WITH NO SHORTNESS OF BREATH MADE COMFORTABLE AND WILL CONTINUE TO OBSERVE.
[2019-02-12] MEDS: PROTEIN SUPPLEMENT (PROSTAT) 30 ML LIQUID PO SCH ×3 (08:17→16:40)
[2019-02-12] MEDS: FLUTICASONE/VILANTEROL 1 EACH BLST.W.DEV IH SCH (08:17)
[2019-02-12] MEDS: ESCITALOPRAM OXALATE 10 MG TABLET PO SCH (08:18)
[2019-02-12] MEDS: ZINC SULFATE 220 MG CAPSULE PO SCH (08:18)
[2019-02-12] MEDS: MULTIVITAMINS,THERAPEUTIC TABLET PO SCH (08:18)
[2019-02-12] MEDS: predniSONE 10 MG TABLET PO SCH (08:18)
[2019-02-12] MEDS: PANTOPRAZOLE SODIUM 40 MG TABLET.DR PO SCH (08:18)
[2019-02-12] MEDS: ASCORBIC ACID 500 MG TABLET PO SCH (08:18)
[2019-02-12] MEDS: METOPROLOL TARTRATE 25 MG TABLET PO SCH ×2 (08:20→20:51)
[2019-02-12] MEDS: NYSTATIN POWDER 15 GM BOTTLE TOP SCH ×2 (08:34→20:53)
[2019-02-12] MEDS: Z GUARD REMEDY PASTE 57 GM TUBE TOP SCH ×2 (08:34→20:52)
[2019-02-12] MEDS: CEFTAZIDIME 1 G in IV DEXTROSE 5% 50 ML IV SCH ×2 (08:43→20:50)
[2019-02-12] MEDS ORDERED: EPOETIN ALFA 10,000 UNITS/ML VIAL SQ SCH (09:00)
[2019-02-12] MEDS: ALBUTEROL SULFATE 2.5 MG/3 ML NEBU IH PRN ×2 (10:35→20:08)
[2019-02-12 11:47] VITALS: BP 129/50
--- NOTE | 2019-02-12 12:30 | NUR ---
TURNED AND REPOSITIONED Q2H PATIENT TOO SLEEPY TODAY OPENS EYES RESPONDS AND PROMPTLY FALLS BACK ASLEEP REFUSED TO EAT HER BREAKFAST BUT DID EAT SOME OF THE YOGURT AND HER DUE MEDICATIONS MADE COMFORTABLE AND WILL CONTINUE TO OBSERVE.
--- NOTE | 2019-02-12 14:35 | NUR ---
PATIENT SEEN AND EXAMINED BY DR PATE WITH NEW LAB ORDERS AND NOTED
[2019-02-12 16:31] VITALS: BP 153/75
[2019-02-12] MEDS: RIVAROXABAN 15 MG TABLET PO SCH (17:14)
--- NOTE | 2019-02-12 17:37 | NUR ---
ISELA CARDOZA LOAN REVIEW OFFICER HERE TO SEE PATIENT WITH NEW ORDERS AND NOTED PATIENT WAS ABLE TO TAKE HER MEDICATIONS WITH WATER AND TOLERATED FAIR CONTINUE TO REFUSE TO EAT PATIENTS SON HERE AND AWARE AND DID TALK WITH THE ID LOAN REVIEW OFFICER RE PLAN OF CARE.
--- NOTE | 2019-02-12 19:30 | NUR ---
patient received in bed with caregiver at bedside. a/ox1. no signs of acute distress noted at this time. safety and comfort measures provided. will continue to monitor.
[2019-02-12 20:13] VITALS: BP 139/70
[2019-02-12] MEDS: SENNOSIDES 1 TABLET PO SCH (20:50)
[2019-02-12] MEDS: ZOLPIDEM 5 MG TABLET PO PRN (22:43)
--- NOTE | 2019-02-13 05:38 | NUR ---
patient slept intermittently. no signs of acute distress. all medications administered and tolerated well. safety and comfort measures provided. will endorse care to morning nurse. c/o of pain. [place] administered 2242. tolerated well.
[2019-02-13 06:29] LABS: BASOPHILS # (AUTO) 0.1 K/uL (0.0-8.0); BASOPHILS % (AUTO) 0.7 % (0.0-2.0); EOSINOPHILS # (AUTO) 0.4 K/uL (0.0-0.7); EOSINOPHILS % (AUTO) 3.6 % (0.0-7.0); HEMATOCRIT 24.1 % (31.2-41.9); LYMPHOCYTES # (AUTO) 1.8 K/uL (20.0-40.0); LYMPHOCYTES % (AUTO) 18.4 % (20.5-51.5); MEAN CORPUSCULAR HEMOGLOBIN 25.5 uug (24.7-32.8); MEAN CORPUSCULAR HGB CONC 33 g/dL (32.3-35.6); MEAN CORPUSCULAR VOLUME 76.8 fL (75.5-95.3); MONOCYTES # (AUTO) 0.6 K/uL (2.0-10.0); NEUTROPHILS # (AUTO) 7.1 K/uL (1.8-8.9); NEUTROPHILS % (AUTO) 71.3 % (38.5-71.5); PLATELET COUNT (AUTO) 540 K/uL (179-408); RED BLOOD CELL COUNT(AUTO) 3.13 MIL/uL (3.63-4.92)
[2019-02-13 06:30] VITALS: BP 133/52
[2019-02-13 06:51] LABS: CARBON DIOXIDE 30 mmol/L (21-32); CHLORIDE 102 mmol/L (98-107); CREATININE 0.7 mg/dL (0.6-1.3); GLUCOSE 73 mg/dL (74-106); MAGNESIUM 1.6 mg/dL (1.8-2.4); PHOSPHOROUS 3.2 mg/dL (2.5-4.9); POTASSIUM 3.9 mmol/L (3.5-5.1); UREA NITROGEN, BLOOD 15 mg/dL (7-18)
[2019-02-13] MEDS: ESCITALOPRAM OXALATE 10 MG TABLET PO SCH (08:12)
[2019-02-13] MEDS: ASCORBIC ACID 500 MG TABLET PO SCH (08:12)
[2019-02-13] MEDS: MULTIVITAMINS,THERAPEUTIC TABLET PO SCH (08:12)
[2019-02-13] MEDS: predniSONE 10 MG TABLET PO SCH (08:12)
[2019-02-13] MEDS: PANTOPRAZOLE SODIUM 40 MG TABLET.DR PO SCH (08:12)
[2019-02-13] MEDS: PROTEIN SUPPLEMENT (PROSTAT) 30 ML LIQUID PO SCH ×3 (08:13→16:13)
[2019-02-13] MEDS: ZINC SULFATE 220 MG CAPSULE PO SCH (08:13)
[2019-02-13] MEDS: FLUTICASONE/VILANTEROL 1 EACH BLST.W.DEV IH SCH (08:13)
[2019-02-13] MEDS: METOPROLOL TARTRATE 25 MG TABLET PO SCH ×2 (08:13→20:28)
[2019-02-13] MEDS: Z GUARD REMEDY PASTE 57 GM TUBE TOP SCH ×2 (08:18→20:27)
[2019-02-13] MEDS: NYSTATIN POWDER 15 GM BOTTLE TOP SCH ×2 (08:18→20:35)
[2019-02-13 11:04] VITALS: BP 126/63
[2019-02-13] MEDS ORDERED: MAGNESIUM SULFATE 2 GM in IV DEXTROSE 5% 100 ML IV ONE (11:15)
[2019-02-13] MEDS: MAGNESIUM SULFATE/D5W 100 ML IV SCH ×2 (11:34→12:05)
[2019-02-13 15:10] VITALS: BP 132/62
[2019-02-13] MEDS: RIVAROXABAN 15 MG TABLET PO SCH (17:29)
--- NOTE | 2019-02-13 19:29 | NUR ---
RECEIVED PT ON BED. PT ALERT , AWAKE, AND ORIENTEDX3. PT SHOWS NO SIGNS OF ACUTE DISTRESS. PT IV INTACT. SAFETY AND COMFORT PROVIDED. ALL NEEDS ARE MET. WILL CONTINUE TO MONITOR.
[2019-02-13 20:07] VITALS: BP 122/69
[2019-02-13] MEDS: SENNOSIDES 1 TABLET PO SCH (20:28)
[2019-02-14 04:00] VITALS: BP 163/91
[2019-02-14] MEDS: CLONIDINE HCL 0.1 MG TABLET PO PRN ×2 (05:47→15:10)
--- NOTE | 2019-02-14 06:15 | NUR ---
PT SLEPT INTERMITTENTLY. PT SHOWS NO SIGNS OF ACUTE DISTRESS. PT IV INTACT.PRESCRIBED MEDICATION GIVEN AND PT TOLERATED IT WELL.PT TURNED AND REPOSITIONED. PT GIVEN CATAPRES 0.1MG FOR BP 163/91 . RECENT BLOOD PRESSURE I GOT WAS 148/68. PT STABLE. SAFETY AND COMFORT PROVIDED. ALL NEEDS ARE MET.WILL ENDORSE ACCORDINGLY TO INCOMING NURSE FOR CONTINUITY OF CARE.
[2019-02-14 06:16] VITALS: BP 148/68
[2019-02-14 06:31] LABS: BASOPHILS # (AUTO) 0.1 K/uL (0.0-8.0); BASOPHILS % (AUTO) 0.5 % (0.0-2.0); EOSINOPHILS # (AUTO) 0.5 K/uL (0.0-0.7); HEMATOCRIT 26.4 % (31.2-41.9); HEMOGLOBIN 8.3 g/dL (10.9-14.3); LYMPHOCYTES # (AUTO) 2.3 K/uL (20.0-40.0); LYMPHOCYTES % (AUTO) 19.6 % (20.5-51.5); MEAN CORPUSCULAR HEMOGLOBIN 24.6 uug (24.7-32.8); MEAN CORPUSCULAR HGB CONC 32 g/dL (32.3-35.6); MEAN CORPUSCULAR VOLUME 78.1 fL (75.5-95.3); MONOCYTES # (AUTO) 0.7 K/uL (2.0-10.0); MONOCYTES % (AUTO) 6.1 % (0.0-11.0); NEUTROPHILS # (AUTO) 8.2 K/uL (1.8-8.9); NEUTROPHILS % (AUTO) 69.8 % (38.5-71.5); PLATELET COUNT (AUTO) 600 K/uL (179-408); RED BLOOD CELL COUNT(AUTO) 3.38 MIL/uL (3.63-4.92); WHITE BLOOD COUNT (AUTO) 11.8 K/uL (3.8-11.8)
[2019-02-14 06:40] LABS: CHLORIDE 102 mmol/L (98-107); CREATININE 0.8 mg/dL (0.6-1.3); GLUCOSE 94 mg/dL (74-106); MAGNESIUM 1.9 mg/dL (1.8-2.4); PHOSPHOROUS 2.7 mg/dL (2.5-4.9); POTASSIUM 3.8 mmol/L (3.5-5.1); UREA NITROGEN, BLOOD 10 mg/dL (7-18)
[2019-02-14 06:44] LABS: CARBON DIOXIDE 27 mmol/L (21-32)
--- NOTE | 2019-02-14 07:25 | NUR ---
Received patient, in bed alert and oriented x3, with no sob noted at this time, no c/o pain at this time. bed in low position, 2 side rails up . safety and comfort provide at all times. will continue to monitor and continue treatment plan.
[2019-02-14] MEDS: ZINC SULFATE 220 MG CAPSULE PO SCH (08:11)
[2019-02-14] MEDS: FLUTICASONE/VILANTEROL 1 EACH BLST.W.DEV IH SCH (08:11)
[2019-02-14] MEDS: MULTIVITAMINS,THERAPEUTIC TABLET PO SCH (08:11)
[2019-02-14] MEDS: PANTOPRAZOLE SODIUM 40 MG TABLET.DR PO SCH (08:12)
[2019-02-14] MEDS: ASCORBIC ACID 500 MG TABLET PO SCH (08:12)
[2019-02-14] MEDS: predniSONE 10 MG TABLET PO SCH (08:12)
[2019-02-14] MEDS: ESCITALOPRAM OXALATE 10 MG TABLET PO SCH (08:12)
[2019-02-14] MEDS: METOPROLOL TARTRATE 25 MG TABLET PO SCH (08:16)
[2019-02-14] MEDS: PROTEIN SUPPLEMENT (PROSTAT) 30 ML LIQUID PO SCH ×2 (08:24→12:08)
[2019-02-14] MEDS: NYSTATIN POWDER 15 GM BOTTLE TOP SCH (08:26)
[2019-02-14] MEDS: Z GUARD REMEDY PASTE 57 GM TUBE TOP SCH (08:26)
[2019-02-14 12:07] VITALS: BP 143/65
[2019-02-14 15:20] VITALS: BP 156/68
--- NOTE | 2019-02-14 15:30 | NUR ---
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 NO SOB AND NO C/O PAIN AT THIS TIME. DISCHARGE INSTRUCTION GIVEN AND ABLE TO VERBALIZED UNDERSTANDING. PATIENT KEPT CLEAN AND DRY AT ALL TIMES. IV AND ID BAND REMOVED. BELONGINGS ACCOUNTED FOR. QUESTIONS AND CONCERNS ADDRESSED.
== END 2019-02-14 15:30 | DRG 689 ==
LOC: ER 13:21 → TELE3 15:37 → MEDSURG3 02-12 14:18
PROVIDERS: ADMIT Hospitalist; ATTEND Hospitalist
DX: N39.0 Urinary tract infection, site not specified (principal); G93.41 Metabolic encephalopathy; E43 Unspecified severe protein-calorie malnutrition; I21.A1 Myocardial infarction type 2; I50.31 Acute diastolic (congestive) heart failure; J96.01 Acute respiratory failure with hypoxia; B37.49 Other urogenital candidiasis; Z89.422 Acquired absence of other left toe(s); Z96.642 Presence of left artificial hip joint; Z96.611 Presence of right artificial shoulder joint; Z98.1 Arthrodesis status; M21.371 Foot drop, right foot; Z86.14 Personal history of Methicillin resistant Staphylococcus aureus infection; I11.0 Hypertensive heart disease with heart failure; I49.1 Atrial premature depolarization; L40.9 Psoriasis, unspecified; M81.0 Age-related osteoporosis without current pathological fracture; M51.36 Other intervertebral disc degeneration, lumbar region; M21.372 Foot drop, left foot; I87.2 Venous insufficiency (chronic) (peripheral); Z74.01 Bed confinement status; Z79.51 Long term (current) use of inhaled steroids; J44.9 Chronic obstructive pulmonary disease, unspecified; I25.10 Atherosclerotic heart disease of native coronary artery without angina pectoris; H26.9 Unspecified cataract; G89.29 Other chronic pain; E83.42 Hypomagnesemia; E87.6 Hypokalemia; D63.8 Anemia in other chronic diseases classified elsewhere; D50.9 Iron deficiency anemia, unspecified; Z87.440 Personal history of urinary (tract) infections; Z88.0 Allergy status to penicillin; Z79.899 Other long term (current) drug therapy; F32.9 Major depressive disorder, single episode, unspecified
CPT/HCPCS: 36415; 70030-TC; 71045; 83605; 83735; 84100; 85025; 85730; 87040; 87086; 93005; 93307; 94640; A4663; C1758; G0378; J0713; J0885; J1450; J3370; J3475; J3480; J7030; J7060; J7512

== ENCOUNTER 2019-02-21 16:29 | Emergency (ER) | payer MEDICARE, MEDICAID ==
[~2019-02-21] VITALS: Ht 157.5 cm; Wt 54.4 kg
[~2019-02-21 16:29] MED LIST changes: -ACET-73 PO; +CRAN500C5 PO; -FURO-152 PO; -NITR50CA4 PO; -PRED10TA PO; -ZINC57OI4 TP; -ZOLP5TAB2 PO
[2019-02-21 17:19] LABS: BASOPHILS # (AUTO) 0.1 K/uL (0.0-8.0); BASOPHILS % (AUTO) 0.7 % (0.0-2.0); EOSINOPHILS % (AUTO) 0.2 % (0.0-7.0); HEMATOCRIT 28.9 % (31.2-41.9); HEMOGLOBIN 9.4 g/dL (10.9-14.3); LYMPHOCYTES # (AUTO) 1.3 K/uL (20.0-40.0); LYMPHOCYTES % (AUTO) 8.5 % (20.5-51.5); MEAN CORPUSCULAR HGB CONC 32 g/dL (32.3-35.6); MEAN CORPUSCULAR VOLUME 76.9 fL (75.5-95.3); MONOCYTES # (AUTO) 1.3 K/uL (2.0-10.0); MONOCYTES % (AUTO) 8.1 % (0.0-11.0); NEUTROPHILS # (AUTO) 12.9 K/uL (1.8-8.9); NEUTROPHILS % (AUTO) 82.5 % (38.5-71.5); PLATELET COUNT (AUTO) 447 K/uL (179-408); RED BLOOD CELL COUNT(AUTO) 3.76 MIL/uL (3.63-4.92); WHITE BLOOD COUNT (AUTO) 15.7 K/uL (3.8-11.8)
[2019-02-21 17:26] LABS: CARBON DIOXIDE 29 mmol/L (21-32); CHLORIDE 97 mmol/L (98-107); CREATININE 0.7 mg/dL (0.6-1.3); GLUCOSE 99 mg/dL (74-106); POTASSIUM 4.2 mmol/L (3.5-5.1); UREA NITROGEN, BLOOD 14 mg/dL (7-18)
[2019-02-21 17:31] LABS: ALANINE AMINOTRANSFERASE 11 U/L (14-59); ALKALINE PHOSPHATASE 160 U/L (50-136); ASPARTATE AMINOTRANSFERASE 9 U/L (15-37); BILIRUBIN,DIRECT 0.3 mg/dL (0.0-0.2); BILIRUBIN,TOTAL 0.9 mg/dL (0.2-1.0); TOTAL PROTEIN, SERUM 6.3 g/dL (6.4-8.2)
[2019-02-21 17:39] LABS: *BILIRUBIN,URIN NEGATIVE (NEGATIVE); *BLOOD, URINE 3+ (NEGATIVE); *CLARITY,URINE CLOUDY (CLEAR); *COLOR,URINE YELLOW (YELLOW); *KETONES,URINE NEGATIVE (NEGATIVE); *UROBILINOGEN,URINE 0.2 E.U./dl (NORMAL); LEUKOCYTE ESTERASE ,URINE 1+ (NEGATIVE); NITRITE, URINE NEGATIVE (NEGATIVE); PH,URINE 7.5 (5.0-8.0); UGLUCOSE NEGATIVE (NEGATIVE)
[2019-02-21 17:50] LABS: RBC,URINE 80-100 /HPF (0-3); SQUAMOUS EPITHELIAL CELL,UR FEW /HPF (NONE SEEN); WBC,URINE 20-50 /HPF (0-3)
[2019-02-21 17:52] LABS: BACTERIA,URINE FEW /HPF (NONE SEEN)
[2019-02-21 17:53] LABS: MUCUS,URINE MODERATE /LPF (0-FEW)
--- NOTE | 2019-02-21 18:20 | NUR ---
pt son at [facility] talking to roger gonzalez.
--- NOTE | 2019-02-21 18:26 | NUR ---
Call placed to [facility] ambulance, ETA [phone] for transportation home ([id number] [facility], [phone] - per son).
--- NOTE | 2019-02-21 18:40 | NUR ---
called [facility], trip number [phone], eta [phone]
--- NOTE | 2019-02-21 18:55 | NUR ---
Assumed care of patient. No acute distress noted. VSS
--- NOTE | 2019-02-21 19:08 | NUR ---
Patient pending mud analysis supervisor to return to previous level of care.
--- NOTE | 2019-02-21 19:41 | NUR ---
[facility] supervisor picking crew cancelled since [facility] has arrived for patient supervisor picking crew at this time.
--- NOTE | 2019-02-21 19:45 | NUR ---
[facility], unit 21 at bedside for patient merchandise pickup/receiving associate. Report given to Vu RAYMOND. Chart/belongings with patient. Patient discharged to home in stable conditon. Written and verbal after care instructions given. Patient verbalizes understanding of instructions.
[2019-02-21 19:46] VITALS: BP 131/79
== END 2019-02-21 19:47 | disposition home or self-care (01) ==
LOC: ER 16:29
DX: R50.9 Fever, unspecified (principal); I50.9 Heart failure, unspecified; I25.10 Atherosclerotic heart disease of native coronary artery without angina pectoris; I48.91 Unspecified atrial fibrillation; J45.909 Unspecified asthma, uncomplicated; F32.9 Major depressive disorder, single episode, unspecified; Z88.0 Allergy status to penicillin; Z91.041 Radiographic dye allergy status; Z79.899 Other long term (current) drug therapy
CPT/HCPCS: 36415; 70030-TC; 71045; 83605; 85025; 85730; 87040; 87086; 93005; A4663; C1758; J7030